=== PATIENT | female | born 1930 | race Caucasian/White ===

== ENCOUNTER → 2016-04-07 | Outpatient (CLI) | payer MEDICARE, OTHER ==
[2016-01-24 19:00] VITALS: BP 125/65
[~2016-04-07] MED LIST: ALPR0.25 PO; ASPI325T4 PO; ATORVASTATIN CA80 MG PO; BENZ100C PO; CITA40TA12 PO; CLON0.5T3 PO; FAMO-63 PO; HYDR-2678 PO; ISOS30TA PO; ISOS30TA4; NITR0.4T6 SL; NITR1PAT TD; OMEP20CA9; ONDA-35; ONDA4TAB7 PO; OXYC-323 PO; POLY255P; POTA10TA31 PO; RIVA1PAT12; TAMS0.4C2; TRAZ100T12 PO; TRIA1CAP3 PO; TRIA1TAB3
--- NOTE | 2016-04-07 12:44 | KCIC ---
PROCEDURE Two-view chest HISTORY Cough, weakness, shortness of air for 2 weeks COMPARISON January 21, 2016 FINDINGS Two views of the chest are submitted. There is no lobar consolidation, pleural fluid, pneumothorax. There is atherosclerotic calcification near aortic arch. Heart size is stable. There is right shoulder arthroplasty. IMPRESSION There is no radiographic evidence of acute cardiopulmonary disease. Electronically signed by: Jean Live MD (Apr 07, 2016 12:42:35)
== END | disposition home or self-care (01) ==
LOC: KCIC 11:50
PROVIDERS: ATTEND Family Medicine
DX: R05 Cough (principal); R53.1 Weakness; R06.02 Shortness of breath
CPT/HCPCS: 71020

== ENCOUNTER → 2017-02-09 | Outpatient (CLI) | payer MEDICARE, OTHER ==
[2016-01-24 19:00] VITALS: BP 125/65
[~2017-02-09] MED LIST changes: -ASPI325T4 PO; +ASPI325T8 PO; +NITR0.4T22 SL; -NITR0.4T6 SL; -ONDA-35; +ONDA4TAB11
--- NOTE | 2017-02-09 11:25 | KCIC ---
MRI Brain without contrast History: Intractable headache getting worse, previous head trauma years ago Technique: Multiplanar, multisequential noncontrast MR imaging was performed of the brain. Contrast: None Comparison: June 15, 2014 Findings: There is motion degradation. There is no evidence of recent infarct or cytotoxic edema. Ventricular size is stable, considered within normal limits.There is no significant midline shift, intra-axial mass effect, or focal abnormal extra-axial fluid collection. There is again scattered T2 and FLAIR hyperintense signal abnormality of the supratentorial parenchyma bilaterally greatest of the white matter of the frontoparietal lobes, some involvement of the basal ganglia. Overall extent of signal abnormality is similar. Focus of the kristina is somewhat more apparent although at least in part present previously. There has been lens surgery bilaterally. There is preservation of the major intracranial flow-voids at the skull base. There is again some patchy fluid of the mastoid air cells bilaterally.The cerebellar tonsils are normal in location. There is no significant abnormality of the pineal gland or pituitary gland. There is mild patchy ethmoid air cell and left sphenoid sinus mucosal thickening, negligible inferior right maxillary sinus mucosal thickening. There is preserved marrow signal of the clivus. Impression: 1. There is again scattered T2 and FLAIR hyperintense signal abnormality of the supratentorial parenchyma and focus of the kristina fairly similar in overall extent although focus of the kristina more apparent on this exam. Nonspecific findings are most commonly due to chronic microvascular ischemic disease in a patient this age. Electronically signed by: Hung Live MD (02/09/2017 11:22 AM) [id number]
== END | disposition home or self-care (01) ==
LOC: KCIC MRI 10:03
PROVIDERS: ATTEND Psychiatry & Neurology Neurology with Special Qualifications in Child Neurology
DX: S09.8XXD Other specified injuries of head, subsequent encounter (principal); I99.8 Other disorder of circulatory system; X58.XXXD Exposure to other specified factors, subsequent encounter
CPT/HCPCS: 70551

== ENCOUNTER 2017-03-07 15:27 | Emergency (ER) | payer MEDICARE, OTHER ==
[~2017-03-07] VITALS: Ht 162.6 cm; Wt 64.9 kg
--- NOTE | 2017-03-07 16:11 | RAD ---
Indication: Fall, headache and neck pain. Technique: Noncontrast CT head was obtained. CT cervical spine includes axial images and coronal and sagittal reformatted images. Comparison CT head is from December 08, 2013. One or more of the following individualized dose reduction techniques were utilized for this examination: 1. Automated exposure control 2. Adjustment of the mA and/or kV according to patient size 3. Use of iterative reconstruction technique Findings: Head: There is brain parenchymal volume loss and mild probable small vessel ischemic disease. There is no acute intracranial hemorrhage or extra-axial fluid collection. There is no mass effect or midline shift. Caraballo-white differentiation is preserved. There are vascular calcifications. There is no depressed skull fracture. There is minimal right maxillary mucosal thickening. Cervical spine: There is no fracture. Slight anterolisthesis at C3-C4 and C4-C5 appears to be secondary to facet hypertrophy. There is no traumatic malalignment. Prevertebral soft tissues are within normal limits. Craniovertebral junction is unremarkable. Disc osteophyte complexes, uncinate process spurring, and facet hypertrophy are noted throughout the cervical spine. There may be mild canal stenosis at C5-C6 and C6-C7. There is also foraminal narrowing which appears greatest on the left at C5-C6 and C3-C4. There are carotid artery calcifications. There is minimal apical emphysema. Impression: 1. No acute intracranial findings. 2. Brain parenchymal volume loss and probable small vessel ischemic disease. 3. Negative for fracture or dislocation in the cervical spine. 4. Degenerative changes in the cervical spine.
[2017-03-07 16:30] VITALS: BP 157/70
--- NOTE | 2017-03-07 17:05 | PHYS DOC ---
Past Medical History Past Medical History: Anxiety, CAD, Dementia, Depression, Diverticulitis, Heart Disease, Hypertension, [place] Past Surgical History: Appendectomy, Cholecystectomy, Hysterectomy Additional Past Surgical Histo: X 2 CARDIAC STENTS PLACED,COLON R/O DIVERTICULITIS,RIGHT SHOULDER, Alcohol Use: None Drug Use: None Adult General Chief Complaint Chief Complaint: HEAD INJURY/TRAUMA [facility] HPI Patient is a 86 year old female who presents with fall last night at home from standing position uncertain of loss of consciousness history is limited by patient's dementia. Complains of mild neck pain no numbness tingling or weakness in the upper or lower extremities. Patient has chronic right shoulder pain and has had a prosthesis and is currently getting physical therapy for her shoulder she is uncertain if she injured that. Denies any hip pain or back pain. Review of Systems Review of Systems Constitutional: Denies fever or chills [] Eyes: Denies change in visual acuity, redness, or eye pain [] HENT: Denies nasal congestion or sore throat [] Respiratory: Denies cough or shortness of breath [] Cardiovascular: No additional information not addressed in HPI [] GI: Denies abdominal pain, nausea, vomiting, bloody stools or diarrhea [] : Denies dysuria or hematuria [] Musculoskeletal: Denies back pain or joint pain [] Integument: Denies rash or skin lesions [] Neurologic: Denies headache, focal weakness or sensory changes [] Endocrine: Denies polyuria or polydipsia [] All other systems were reviewed and found to be within normal limits, except as documented in this note. Allergies Allergies Allergies Coded Allergies Type Severity Reaction Last Updated Verified lisinopril Adverse Reaction Severe "passed out" 08/05/13 Yes Physical Exam Physical Exam Constitutional: Well developed, well nourished, no acute distress, non-toxic appearance. [] HENT: Normocephalic, atraumatic, bilateral external ears normal, oropharynx moist, no oral exudates, nose normal. [] Eyes: PERRLA, EOMI, conjunctiva normal, no discharge. [] Neck: Normal range of motion, mild midline C-spine tenderness, supple, no stridor. No thoracic or lumbar spine tenderness. [] Cardiovascular:Heart rate regular rhythm, no murmur [] Lungs & Thorax: Bilateral breath sounds clear to auscultation [] Abdomen: Bowel sounds normal, soft, no tenderness, no masses, no pulsatile masses. [] Skin: Warm, dry, no erythema, no rash. [] Back: No tenderness, no CVA tenderness. [] Extremities: No tenderness, no cyanosis, no clubbing, ROM intact, no edema. [] Neurologic: Alert and oriented X 3, normal motor function, normal sensory function, no focal deficits noted. [] Psychologic: Affect normal, judgement normal, mood normal. [] Current Patient Data Vital Signs Vital Signs Date Time Temp Pulse Resp B/P (MAP) Pulse Ox O2 Delivery O2 Flow Rate FiO2 03/07/17 16:30 84 18 157/70 (99) 97 Room Air 03/07/17 15:30 98.2 98.2 EKG EKG [] Radiology/Procedures Radiology/Procedures CT had cervical spine shows some atrophy no fractures of the neck no head bleed interpretation by radiology. X-ray right shoulder shows no fracture dislocation prosthesis intact no periprosthetic fracture seen. My Interpretation.[] Course & Med Decision Making Course & Med Decision Making Pertinent Labs and Imaging studies reviewed. (See chart for details) [] Dragon Disclaimer Dragon Disclaimer This electronic medical record was generated, in whole or in part, using a voice recognition dictation system. Departure Departure Impression: Primary Impression: Head injury Additional Impression: Right shoulder pain Disposition: HOME, SELF-CARE Condition: IMPROVED Referrals: GAGAN MORATAYA MD (PCP) Patient Instructions: Head Injury, Adult, [id number] Problem Qualifiers VALERIA SHI MD Mar 07, 2017 17:05
--- NOTE | 2017-03-07 17:09 | RAD ---
Right shoulder, 3 views, 03/07/2017: History: Fall, shoulder pain A right shoulder prosthesis is in place. There is narrowing of the subacromial space. There is degenerative change at the AC joint. The bony structures are demineralized. No acute fracture or dislocation is identified. IMPRESSION: No acute bony abnormality is detected.
== END 2017-03-07 17:28 | disposition home or self-care (01) ==
LOC: ER 15:27
DX: S09.90XA Unspecified injury of head, initial encounter (principal); M25.511 Pain in right shoulder; G89.29 Other chronic pain; M54.2 Cervicalgia; F03.90 Unspecified dementia, unspecified severity, without behavioral disturbance, psychotic disturbance, mood disturbance, and anxiety; I11.9 Hypertensive heart disease without heart failure; Z95.5 Presence of coronary angioplasty implant and graft; I25.10 Atherosclerotic heart disease of native coronary artery without angina pectoris; Z90.49 Acquired absence of other specified parts of digestive tract; Z90.710 Acquired absence of both cervix and uterus; I25.2 Old myocardial infarction; Z88.8 Allergy status to other drugs, medicaments and biological substances; X58.XXXA Exposure to other specified factors, initial encounter; Y93.89 Activity, other specified; Y99.8 Other external cause status; Y92.89 Other specified places as the place of occurrence of the external cause
CPT/HCPCS: 70450; 72125; 73030; 99284-25

== ENCOUNTER → 2017-06-22 | Outpatient (CLI) | payer MEDICARE, OTHER | END | disposition home or self-care (01) | LOC: US 15:29 | DX: R22.42 Localized swelling, mass and lump, left lower limb (principal) | CPT/HCPCS: 76882 ==

== ENCOUNTER → 2017-08-02 | Outpatient (CLI) | payer MEDICARE, OTHER ==
[2017-08-02 14:01] LABS: ADD MAN DIFF? NO
[2017-08-02 14:10] LABS: BASO % 1 % (0-3); EOS % 1 % (0-3); HEMATOCRIT 40.5 % (36.0-47.0); LYMPH # 1.4 x10^3/uL (1.0-4.8); LYMPH % 24 % (24-48); MEAN CORPUSCULAR HEMOGLOBIN 30 pg (25-35); MEAN CORPUSCULAR HGB CONC 35 g/dL (31-37); MEAN CORPUSCULAR VOLUME 88 fL (79-100); MONO # 0.7 x10^3/uL (0.0-1.1); MONO % 11 % (0-9); NEUT # 3.8 x10^3uL (1.8-7.7); NEUT % 64 % (31-73); PLATELET COUNT 197 x10^3/uL (140-400); RED CELL DISTRIBUTION WIDTH 14.4 % (11.5-14.5)
[2017-08-02 14:40] LABS: ALBUMIN 3.8 g/dL (3.4-5.0); ALBUMIN/GLOBULIN RATIO 0.9 (1.0-1.7); ALK PHOS 69 U/L (46-116); ALT (SGPT) 31 U/L (14-59); ANION GAP 5 (6-14); AST (SGOT) 36 U/L (15-37); BLOOD UREA NITROGEN 13 mg/dL (7-20); BUN/CREATININE RATIO 12 (6-20); CALCIUM 9.4 mg/dL (8.5-10.1); CARBON DIOXIDE 35 mmol/L (21-32); CHLORIDE 101 mmol/L (98-107); CREATININE 1.1 mg/dL (0.6-1.0); GFR 47.1; GLUCOSE 103 mg/dL (70-99); POTASSIUM 4.4 mmol/L (3.5-5.1); SODIUM 141 mmol/L (136-145); TOTAL BILIRUBIN 0.8 mg/dL (0.2-1.0)
== END | disposition home or self-care (01) ==
LOC: PETSC 11:21
DX: C85.90 Non-Hodgkin lymphoma, unspecified, unspecified site (principal); I71.4 Abdominal aortic aneurysm, without rupture; K44.9 Diaphragmatic hernia without obstruction or gangrene; K57.30 Diverticulosis of large intestine without perforation or abscess without bleeding; R22.9 Localized swelling, mass and lump, unspecified
CPT/HCPCS: 36415; 78815; 80053; 85025; A9552

== ENCOUNTER 2017-10-22 13:06 | Emergency (ER) | payer MEDICARE ==
[2017-10-22 14:05] LABS: ADD MAN DIFF? NO
[2017-10-22 14:10] LABS: BASO % 1 % (0-3); EOS # 0.1 x10^3/uL (0.0-0.7); EOS % 3 % (0-3); HEMATOCRIT 34.8 % (36.0-47.0); HEMOGLOBIN 12.3 g/dL (12.0-15.5); LYMPH # 1.1 x10^3/uL (1.0-4.8); LYMPH % 24 % (24-48); MEAN CORPUSCULAR HEMOGLOBIN 31 pg (25-35); MEAN CORPUSCULAR HGB CONC 35 g/dL (31-37); MEAN CORPUSCULAR VOLUME 88 fL (79-100); MONO # 0.5 x10^3/uL (0.0-1.1); MONO % 12 % (0-9); NEUT # 2.6 x10^3uL (1.8-7.7); NEUT % 60 % (31-73); PLATELET COUNT 199 x10^3/uL (140-400); RED BLOOD COUNT 3.95 x10^6/uL (3.50-5.40); WHITE BLOOD COUNT 4.4 x10^3/uL (4.0-11.0)
[2017-10-22 14:11] LABS: BILIRUBIN,URINE NEGATIVE (NEG); CLARITY,URINE CLEAR; COLOR,URINE YELLOW; GLUCOSE,URINE NEGATIVE (NEG); NITRITE,URINE NEGATIVE (NEG); PROTEIN,URINE NEGATIVE (NEG-TRACE); UROBILINOGEN,URINE 0.2 mg/dL (0.2 mg/dL)
[2017-10-22 14:19] LABS: BACTERIA,URINE FEW /HPF (0-FEW); RBC,URINE OCC /HPF (0-2); SQUAMOUS EPITHELIAL CELL,UR FEW /LPF; WBC,URINE OCC /HPF (0-4)
[2017-10-22 14:27] LABS: ANION GAP 8 (6-14); BLOOD UREA NITROGEN 15 mg/dL (7-20); BUN/CREATININE RATIO 17 (6-20); CALCIUM 8.9 mg/dL (8.5-10.1); CARBON DIOXIDE 32 mmol/L (21-32); CHLORIDE 102 mmol/L (98-107); CREATININE 0.9 mg/dL (0.6-1.0); GFR 59.4; GLUCOSE 95 mg/dL (70-99); POTASSIUM 4.1 mmol/L (3.5-5.1); SODIUM 142 mmol/L (136-145)
[2017-10-22 14:33] LABS: ALBUMIN 3.5 g/dL (3.4-5.0); ALBUMIN/GLOBULIN RATIO 1.2 (1.0-1.7); ALK PHOS 63 U/L (46-116); ALT (SGPT) 23 U/L (14-59); AST (SGOT) 24 U/L (15-37); TOTAL BILIRUBIN 0.8 mg/dL (0.2-1.0); TOTAL PROTEIN 6.5 g/dL (6.4-8.2)
[2017-10-22 14:38] LABS: TROPONINI < 0.017 ng/mL (0.000-0.055)
[2017-10-22] MEDS: KETOROLAC 15 MG/ML VIAL. IV (15:07)
== END 2017-10-22 15:49 | disposition home or self-care (01) ==
LOC: ER 13:06
DX: R51 Headache (principal); R20.0 Anesthesia of skin; M79.602 Pain in left arm; I25.2 Old myocardial infarction; I11.9 Hypertensive heart disease without heart failure; I25.10 Atherosclerotic heart disease of native coronary artery without angina pectoris; F03.90 Unspecified dementia, unspecified severity, without behavioral disturbance, psychotic disturbance, mood disturbance, and anxiety; Z90.49 Acquired absence of other specified parts of digestive tract; Z95.5 Presence of coronary angioplasty implant and graft; Z88.8 Allergy status to other drugs, medicaments and biological substances
CPT/HCPCS: 36415; 71046; 80053; 81001; 84484; 85025; 93005; 96374; 99285-25; J1885

== ENCOUNTER → 2017-10-22 | Outpatient (CLI) | payer MEDICARE | END | disposition home or self-care (01) | LOC: KCIC CT 10:01 | DX: M26.69 Other specified disorders of temporomandibular joint (principal); Z86.73 Personal history of transient ischemic attack (TIA), and cerebral infarction without residual deficits | CPT/HCPCS: 70450 ==

== ENCOUNTER 2017-11-06 08:36 | Inpatient (IN) | payer MEDICARE ==
[~2017-11-06] VITALS: Ht 167.6 cm; Wt 68.0 kg
[~2017-11-06 08:36] MED LIST changes: +CLON0.5T11 PO; -CLON0.5T3 PO; +COLE1TAB PO; +CYCL5TAB PO; -ISOS30TA4; +ISOS30TA4 PO; -OMEP20CA9; +OMEP20CA9 PO; -ONDA4TAB11; +ONDA4TAB11 PO; +PSYL3.4P PO; +RIVA1PAT23 TP; -TAMS0.4C2; +TAMS0.4C2 PO; +TRAZ-86 PO; -TRAZ100T12 PO; -TRIA1TAB3; +TRIA1TAB3 PO
[2017-11-06] MEDS ORDERED: IV NORMAL SALINE 1000ML BAG 1,000 ML IV SCH (08:52)
--- NOTE | 2017-11-06 08:58 | EKG ---
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
[2017-11-06] MEDS ORDERED: LABETALOL 20 MG/4 ML DISP.SYRIN. IVP ONE (09:00)
[2017-11-06] MEDS ORDERED: LIDO:MAALOX 1:1 20 ML SINGLE DOSE. SWSW ONE (09:00)
--- NOTE | 2017-11-06 09:03 | PHYS DOC ---
Past Medical History Past Medical History: Anxiety, CAD, Dementia, Depression, Diverticulitis, Heart Disease, Hypertension, [place] Past Surgical History: Appendectomy, Cholecystectomy, Hysterectomy Additional Past Surgical Histo: X 2 CARDIAC STENTS PLACED,COLON R/O DIVERTICULITIS,RIGHT SHOULDER, Alcohol Use: None Drug Use: None Adult General Chief Complaint Chief Complaint: CHEST PAIN HPI HPI Patient is an 87-year-old female who presents to the emergency department for evaluation. She was hospitalized here for a stroke recently, for which she received TPA. Apparently, she developed a small intracranial hemorrhage, and was scheduled, from her rehabilitation facility where she is recovering, for a repeat head CT today as an outpatient. However, during transport the patient began complaining of some chest pain, initially described as a burning pain, which became more intense, and now radiates towards her back. The patient states that the pain is "just a pain", and she is unable to further qualify the nature of the pain to me. She has not had any nausea, vomiting, or diaphoresis. She has a history of hypertension and is noted to be hypertensive upon arrival. There are no known alleviating or exacerbating factors to the patient's symptoms. Review of Systems Review of Systems Constitutional: Denies fever or chills [] Eyes: Denies change in visual acuity, redness, or eye pain [] HENT: Denies nasal congestion or sore throat [] Respiratory: Denies cough or shortness of breath [] Cardiovascular: No additional information not addressed in HPI [] GI: Denies abdominal pain, nausea, vomiting, bloody stools or diarrhea [] : Denies dysuria or hematuria [] Musculoskeletal: Denies back pain or joint pain [] Integument: Denies rash or skin lesions [] Neurologic: Denies headache, focal weakness or sensory changes [] Endocrine: Denies polyuria or polydipsia [] All other systems were reviewed and found to be within normal limits, except as documented in this note. Current Medications Current Medications Current Medications Medications (Trade) Dose Ordered Sig/Vanessa Start Time Stop Time Status Last Admin Dose Admin Aspirin (Children'S Aspirin) 324 mg 1X ONCE 11/06/17 11:00 11/06/17 11:01 DC 11/06/17 11:36 324 MG Hydralazine HCl (Apresoline Inj) 10 mg 1X ONCE 11/06/17 09:30 11/06/17 09:31 DC 11/06/17 09:21 10 MG Info (CONTRAST GIVEN -- Rx MONITORING) 1 each PRN DAILY PRN 11/06/17 09:45 11/08/17 09:44 Iohexol (Omnipaque 300 Mg/ml) 90 ml 1X ONCE 11/06/17 09:45 11/06/17 09:46 DC 11/06/17 09:58 90 ML Labetalol HCl (Normodyne) 20 mg 1X ONCE 11/06/17 09:00 11/06/17 09:10 DC Multi-Ingredient Mouthwash/Gargle (Gi Cocktail) 20 ml 1X ONCE 11/06/17 09:00 11/06/17 09:01 DC 11/06/17 09:22 20 ML Ondansetron HCl (Zofran) 4 mg STK-MED ONCE 11/06/17 11:32 11/06/17 11:33 DC Sodium Monofluorophosphate (Fleet Adult) 133 ml 1X ONCE 11/06/17 10:00 11/06/17 10:01 DC 11/06/17 10:23 133 ML Sodium Chloride 1,000 ml @ 100 mls/hr Q10H 11/06/17 08:52 11/06/17 18:51 11/06/17 09:22 100 MLS/HR Allergies Allergies Allergies Coded Allergies Type Severity Reaction Last Updated Verified YURYI Inhibitors Allergy Unknown 10/22/17 Yes Beta-Blockers (Beta-Adrenergic Bloc Allergy Unknown 10/22/17 Yes lisinopril Adverse Reaction Severe "passed out" 08/05/13 Yes Physical Exam Physical Exam PHYSICAL EXAM: CONSTITUTIONAL: Well developed, well nourished HEAD: normocephalic, atraumatic EENT: PERRL, EOMI. Conjunctivae normal color, sclerae non-icteric; moist mucous membranes. NECK: Supple, non-tender; no meningismus. LUNGS: Lungs CTA, breathing even and unlabored. Normal air movement. HEART: Regular rate and rhythm, no murmur CHEST: No deformity; is mild tenderness to palpation of the anterior chest wall. ABDOMEN: The abdomen is soft, and non-tender, no masses or bruits. EXTREM: Normal ROM; no deformity, no calf tenderness. Normal pulses palpable in all extremities. There is no pedal edema. SKIN: No rash; no diaphoresis NEURO: Alert; normal speech and oriented to person, place, and time, but somewhat delayed cognition; CN's grossly intact; strength grossly intact without focal deficit. BACK: No CVA TTP. Current Patient Data Vital Signs Vital Signs Date Time Temp Pulse Resp B/P (MAP) Pulse Ox O2 Delivery O2 Flow Rate FiO2 11/06/17 09:21 66 202/93 11/06/17 08:49 98.0 20 97 Room Air 98.0 Lab Values Laboratory Tests Test 11/06/17 09:00 11/06/17 09:11 Urine Collection Type Unknown Urine Color Yellow Urine Clarity Clear Urine pH 8.5 Urine Specific [place] 1.010 Urine Protein Negative mg/dL (NEG-TRACE) Urine Glucose (UA) Negative mg/dL (NEG) Urine Ketones (Stick) Negative mg/dL (NEG) Urine Blood Trace (NEG) Urine Nitrite Negative (NEG) Urine Bilirubin Negative (NEG) Urine Urobilinogen Dipstick 0.2 mg/dL (0.2 mg/dL) Urine Leukocyte Esterase Trace (NEG) Urine RBC 3-5 /HPF (0-2) Urine WBC 1-4 /HPF (0-4) Urine Squamous Epithelial Cells Many /LPF Urine Bacteria Few /HPF (0-FEW) Urine Mucus Slight /LPF White Blood Count 4.7 x10^3/uL (4.0-11.0) Red Blood Count 4.14 x10^6/uL (3.50-5.40) Hemoglobin 12.6 g/dL (12.0-15.5) Hematocrit 36.6 % (36.0-47.0) Mean Corpuscular Volume 88 fL (79-100) Mean Corpuscular Hemoglobin 31 pg (25-35) Mean Corpuscular Hemoglobin Concent 35 g/dL (31-37) Red Cell Distribution Width 15.2 % (11.5-14.5) H Platelet Count 179 x10^3/uL (140-400) Neutrophils (%) (Auto) 70 % (31-73) Lymphocytes (%) (Auto) 16 % (24-48) L Monocytes (%) (Auto) 12 % (0-9) H Eosinophils (%) (Auto) 2 % (0-3) Basophils (%) (Auto) 1 % (0-3) Neutrophils # (Auto) 3.3 x10^3uL (1.8-7.7) Lymphocytes # (Auto) 0.7 x10^3/uL (1.0-4.8) L Monocytes # (Auto) 0.5 x10^3/uL (0.0-1.1) Eosinophils # (Auto) 0.1 x10^3/uL (0.0-0.7) Basophils # (Auto) 0.0 x10^3/uL (0.0-0.2) Prothrombin Time 13.1 SEC (11.7-14.0) Prothrombin Time INR 1.0 (0.8-1.1) PTT 32 SEC (24-38) Sodium Level 141 mmol/L (136-145) Potassium Level 3.8 mmol/L (3.5-5.1) Chloride Level 101 mmol/L (98-107) Carbon Dioxide Level 33 mmol/L (21-32) H Anion Gap 7 (6-14) Blood Urea Nitrogen 11 mg/dL (7-20) Creatinine 0.9 mg/dL (0.6-1.0) Estimated GFR (Cockcroft-Gault) 59.4 BUN/Creatinine Ratio 12 (6-20) Glucose Level 110 mg/dL (70-99) H Calcium Level 9.2 mg/dL (8.5-10.1) Total Bilirubin 1.1 mg/dL (0.2-1.0) H Aspartate Amino Transferase (AST) 19 U/L (15-37) Alanine Aminotransferase (ALT) 18 U/L (14-59) Alkaline Phosphatase 72 U/L (46-116) Creatine Kinase 44 U/L (26-192) Creatine Kinase MB (Mass) 1.1 ng/mL (0.0-3.6) Creatine Kinase MB Relative Index % (0-4) Troponin I Quantitative < 0.017 ng/mL (0.000-0.055) Total Protein 7.2 g/dL (6.4-8.2) Albumin 3.6 g/dL (3.4-5.0) Albumin/Globulin Ratio 1.0 (1.0-1.7) Lipase 223 U/L (73-393) Laboratory Tests 11/06/17 09:11 Laboratory Tests 11/06/17 09:11 EKG EKG [Normal sinus rhythm at a rate of 72 beats for minute, normal axis, normal intervals, nonspecific ST/T changes are present. EKG is not significantly changed compared to patient's prior EKG from 10/08.] Radiology/Procedures Radiology/Procedures [PROCEDURE: PORTABLE CHEST 1V EXAM: CHEST 1 VIEW History: Chest pain COMPARISON: 10/22/2017 TECHNIQUE: Single portable radiograph of the chest FINDINGS: The cardiac silhouette is unremarkable. The lungs are clear bilaterally. The costophrenic sulci are clear and well demarcated. Right humerus arthroplasty. IMPRESSION: No radiographic evidence of an acute cardiopulmonary process.] PROCEDURE: CT ANGIO CHEST ABD PELVIS Examination: CT angiography chest abdomen pelvis without and with IV contrast HISTORY: History of chest pain radiating to the back COMPARISON: CT abdomen pelvis from 08/03/2015 TECHNIQUE: Axial CT angiographic images of the chest abdomen pelvis were performed without and with IV contrast. Coronal and sagittal 3-D MIP reformats are performed Exposure: One or more of the following individualized dose reduction techniques were utilized for this examination: 1. Automated exposure control 2. Adjustment of the mA and/or kV according to patient size 3. Use of iterative reconstruction technique FINDINGS: The central airways are patent. Mild cardiomegaly. Diffuse coronary artery calcifications identified. Moderate aortic atherosclerosis. No radiologically significant mediastinal lymphadenopathy. Small hiatal hernia is identified. Mild emphysematous changes identified in the lungs No evidence of pleural effusion or pneumothorax identified. No evidence of free air identified in the abdomen. The visualized liver, spleen, adrenals grossly appears unremarkable. The stomach is mildly distended. There is a 8 mm cystic density identified in the uncinate process of the pancreas. The small bowel is nondilated. Feces and gas noted throughout the colon. Multiple colonic diverticulosis. Urinary bladder is mildly distended. The bilateral kidneys enhance symmetrically. Cystic structure identified in the inferior aspect of the left kidney likely a cyst. Punctate intrarenal collecting system calculi identified in the bilateral kidneys with the largest measuring 5 mm in the right kidney. The ascending aorta measures 3.4 cm in transverse dimension. There is moderate abscess cavity calcification is identified in the aorta. There is moderate arthritic opacities identified at the origin of the celiac artery, superior mesenteric artery and the inferior mesenteric artery. Infrarenal abdominal aortic aneurysm is identified measuring 3 cm in transverse dimension. Moderate degenerative changes lumbar spine. Severe prostatic calcifications identified in the region of the bilateral renal arteries. IMPRESSION: 1. No evidence of aortic dissection. 2. Intrarenal abdominal aortic aneurysm measuring up to 3 cm. 3. 8 mm cystic density identified in the uncinate process of the pancreas could be a cyst or cystic lesion. Follow-up nonemergent MRI can be considered. 4. Bilateral intrarenal collecting system calculi. 5. Left renal cysts. PROCEDURE: CT HEAD WO CONTRAST CT scan of the head without contrast 11/06/2017 Clinical History: History of recent intracranial hemorrhage. Technique: Unenhanced, contiguous, 5 mm axial sections were obtained through the head. One or more of the following individualized dose reduction techniques were utilized for this study: 1. Automated exposure control. 2. Adjustment of the mA and/or kV according to patient size. 3. Use of iterative reconstruction technique. Findings: Comparison study is dated 10/10/2017. There is generalized parenchymal atrophy. Areas of decreased attenuation are seen within the periventricular and subcortical white matter of both cerebral hemispheres consistent with areas of small vessel ischemic disease. A small area of hemorrhage seen involving the posterior left temporal lobe on the previous examination has resolved. No acute parenchymal abnormality is seen. No extra-axial fluid collection is noted. No skull fracture is seen. Impression: The small area of acute hemorrhage seen within the posterior left temporal lobe has resolved. No acute intracranial abnormality is seen. Course & Med Decision Making Course & Med Decision Making Pertinent Labs and Imaging studies reviewed. (See chart for details) [The patient's condition remained stable. I spoke with her PCP, Dr. Felix, who will admit the patient for further evaluation.] The patient did complain of constipation, but did have a good bowel movement with the help of an enema. Dragon Disclaimer Dragon Disclaimer This electronic medical record was generated, in whole or in part, using a voice recognition dictation system. Departure Departure Impression: Primary Impression: Chest pain Disposition: ADMITTED INPATIENT Admitting Physician: Brooklyn Felix Condition: STABLE Referrals: BROOKLYN FELIX MD (PCP) DARCIE SETHI MD Nov 06, 2017 09:03
[2017-11-06 09:23] LABS: BILIRUBIN,URINE NEGATIVE (NEG); CLARITY,URINE CLEAR; COLOR,URINE YELLOW; NITRITE,URINE NEGATIVE (NEG); PH,URINE 8.5; PROTEIN,URINE NEGATIVE (NEG-TRACE); UROBILINOGEN,URINE 0.2 mg/dL (0.2 mg/dL)
[2017-11-06 09:24] LABS: BASO % 1 % (0-3); EOS # 0.1 x10^3/uL (0.0-0.7); EOS % 2 % (0-3); HEMATOCRIT 36.6 % (36.0-47.0); HEMOGLOBIN 12.6 g/dL (12.0-15.5); LYMPH # 0.7 x10^3/uL (1.0-4.8); LYMPH % 16 % (24-48); MEAN CORPUSCULAR HEMOGLOBIN 31 pg (25-35); MEAN CORPUSCULAR HGB CONC 35 g/dL (31-37); MEAN CORPUSCULAR VOLUME 88 fL (79-100); MONO # 0.5 x10^3/uL (0.0-1.1); MONO % 12 % (0-9); NEUT # 3.3 x10^3uL (1.8-7.7); NEUT % 70 % (31-73); PLATELET COUNT 179 x10^3/uL (140-400); RED BLOOD COUNT 4.14 x10^6/uL (3.50-5.40); RED CELL DISTRIBUTION WIDTH 15.2 % (11.5-14.5); WHITE BLOOD COUNT 4.7 x10^3/uL (4.0-11.0)
--- NOTE | 2017-11-06 09:29 | RAD ---
EXAM: CHEST 1 VIEW History: Chest pain COMPARISON: 10/22/2017 TECHNIQUE: Single portable radiograph of the chest FINDINGS: The cardiac silhouette is unremarkable. The lungs are clear bilaterally. The costophrenic sulci are clear and well demarcated. Right humerus arthroplasty. IMPRESSION: No radiographic evidence of an acute cardiopulmonary process. Electronically signed by: Joseph Kelly MD (11/06/2017 9:25 AM) [id number]
[2017-11-06] MEDS ORDERED: hydrALAZINE 20 MG/ML VIAL. IVP ONE (09:30)
[2017-11-06 09:33] LABS: CALCIUM 9.2 mg/dL (8.5-10.1); CREATININE 0.9 mg/dL (0.6-1.0); GFR 59.4; POTASSIUM 3.8 mmol/L (3.5-5.1)
[2017-11-06 09:38] LABS: ALBUMIN 3.6 g/dL (3.4-5.0); TOTAL BILIRUBIN 1.1 mg/dL (0.2-1.0); TOTAL PROTEIN 7.2 g/dL (6.4-8.2)
[2017-11-06 09:39] LABS: PROTHROMBIN TIME PATIENT 13.1 SEC (11.7-14.0)
[2017-11-06 09:41] LABS: BACTERIA,URINE FEW /HPF (0-FEW)
[2017-11-06 09:42] LABS: SQUAMOUS EPITHELIAL CELL,UR MANY /LPF
[2017-11-06] MEDS ORDERED: CONTRAST GIVEN. MC PRN (09:45)
[2017-11-06] MEDS ORDERED: IOHEXOL 300 MG/ML 100ML VIAL. IV ONE (09:45)
[2017-11-06 09:46] LABS: CREATINE KINASE 44 U/L (26-192)
[2017-11-06] MEDS ORDERED: SODIUM PHOSPHATES 19/7GM 133 ML ENEMA. PR ONE (10:00)
--- NOTE | 2017-11-06 10:26 | RAD ---
CT scan of the head without contrast 11/06/2017 Clinical History: History of recent intracranial hemorrhage. Technique: Unenhanced, contiguous, 5 mm axial sections were obtained through the head. One or more of the following individualized dose reduction techniques were utilized for this study: 1. Automated exposure control. 2. Adjustment of the mA and/or kV according to patient size. 3. Use of iterative reconstruction technique. Findings: Comparison study is dated 10/10/2017. There is generalized parenchymal atrophy. Areas of decreased attenuation are seen within the periventricular and subcortical white matter of both cerebral hemispheres consistent with areas of small vessel ischemic disease. A small area of hemorrhage seen involving the posterior left temporal lobe on the previous examination has resolved. No acute parenchymal abnormality is seen. No extra-axial fluid collection is noted. No skull fracture is seen. Impression: The small area of acute hemorrhage seen within the posterior left temporal lobe has resolved. No acute intracranial abnormality is seen. Electronically signed by: Edgardo Mims MD (11/06/2017 10:22 AM) [email or web address]
--- NOTE | 2017-11-06 10:44 | RAD ---
Examination: CT angiography chest abdomen pelvis without and with IV contrast HISTORY: History of chest pain radiating to the back COMPARISON: CT abdomen pelvis from 08/03/2015 TECHNIQUE: Axial CT angiographic images of the chest abdomen pelvis were performed without and with IV contrast. Coronal and sagittal 3-D MIP reformats are performed Exposure: One or more of the following individualized dose reduction techniques were utilized for this examination: 1. Automated exposure control 2. Adjustment of the mA and/or kV according to patient size 3. Use of iterative reconstruction technique FINDINGS: The central airways are patent. Mild cardiomegaly. Diffuse coronary artery calcifications identified. Moderate aortic atherosclerosis. No radiologically significant mediastinal lymphadenopathy. Small hiatal hernia is identified. Mild emphysematous changes identified in the lungs No evidence of pleural effusion or pneumothorax identified. No evidence of free air identified in the abdomen. The visualized liver, spleen, adrenals grossly appears unremarkable. The stomach is mildly distended. There is a 8 mm cystic density identified in the uncinate process of the pancreas. The small bowel is nondilated. Feces and gas noted throughout the colon. Multiple colonic diverticulosis. Urinary bladder is mildly distended. The bilateral kidneys enhance symmetrically. Cystic structure identified in the inferior aspect of the left kidney likely a cyst. Punctate intrarenal collecting system calculi identified in the bilateral kidneys with the largest measuring 5 mm in the right kidney. The ascending aorta measures 3.4 cm in transverse dimension. There is moderate abscess cavity calcification is identified in the aorta. There is moderate arthritic opacities identified at the origin of the celiac artery, superior mesenteric artery and the inferior mesenteric artery. Infrarenal abdominal aortic aneurysm is identified measuring 3 cm in transverse dimension. Moderate degenerative changes lumbar spine. Severe prostatic calcifications identified in the region of the bilateral renal arteries. IMPRESSION: 1. No evidence of aortic dissection. 2. Intrarenal abdominal aortic aneurysm measuring up to 3 cm. 3. 8 mm cystic density identified in the uncinate process of the pancreas could be a cyst or cystic lesion. Follow-up nonemergent MRI can be considered. 4. Bilateral intrarenal collecting system calculi. 5. Left renal cysts. Electronically signed by: Joseph Kelly MD (11/06/2017 10:40 AM) [id number]
[2017-11-06] MEDS ORDERED: ASPIRIN CHEWABLE 81 MG TABLET. PO ONE (11:00)
[2017-11-06] MEDS ORDERED: ONDANSETRON PF 4 MG/2 ML VIAL. ONE (11:32)
[2017-11-06] MEDS ORDERED: ONDANSETRON PF 4 MG/2 ML VIAL. IV ONE (11:45)
[2017-11-06 15:46] VITALS: BP 182/79
--- NOTE | 2017-11-06 18:45 | PDOC2 ---
CONSULT Date of Consult Date of Consult DATE: 11/06/17 TIME: 18:34 Reason for Consult Reason for Consult: Chest pain Referring Physician Referring Physician: Dr. Friend Identification/Chief Complaint Chief Complaint I blood pressure and chest pain History of Present Illness Reason for Visit: This patient is a very pleasant 87-year-old lady that had a recent acute CVA. She was given TPA for this with a very good resolution of her symptoms but subsequently she had a small bleed. The patient has been an assisted living and was going to be brought to the hospital for a follow-up CT of the head to evaluate the resolution of her previous bleed. She had some confusion and complained of chest pains and also had an elevated blood pressure. The patient was brought to the emergency room in view of this. After arrival in the ER a CT of the chest was done to rule out the possibility of an aortic dissection in view of her chest pain and the elevated blood pressure and the CT did not show any aneurysm or dissection. A CT of the head was also done that did not show any new bleeds or changes from the previous CT. Her cardiac enzymes were negative. He was decided to admit the patient. At the she denies having any chest discomfort, no palpitations, no loss of consciousness. Past Medical History Cardiovascular: CAD, HTN, Hyperlipidemia Pulmonary: COPD CENTRAL NERVOUS SYSTEM: Dementia, Other GI: Constipation, Diverticulosis, GERD, Hemorrhoids Heme/Onc: Cancer Hepatobiliary: No pertinent hx Psych: Anxiety, Depression Musculoskeletal: Osteoarthritis, Other Rheumatologic: No pertinent hx Infectious disease: No pertinent hx Renal/: Chronic renal insuff, Urinary Incontinence Endocrine: No pertinent hx Past Surgical History Past Surgical History: Tonsillectomy, Hysterectomy, Colectomy, Colon Resection , Other Social History ALCOHOL: none Drugs: None Lives: with Family Domestic Violence: Neg Current Problem List Problem List Problems Medical Problems: (1) Chest pain Status: Acute Current Medications Current Medications Current Medications Labetalol HCl (Normodyne) 20 mg 1X ONCE IVP ; Start 11/06/17 at 09:00; Stop at 09:10; Status DC Sodium Chloride 1,000 ml @ 100 mls/hr Q10H IV Last administered on 11/06/17at 09:22; Start 11/06/17 at 08:52; Stop 11/06/17 at 18:51 Multi-Ingredient Mouthwash/Gargle (Gi Cocktail) 20 ml 1X ONCE SWSW Last administered on 11/06/17at 09:22; Start 11/06/17 at 09:00; Stop 11/06/17 at 09:01 ; Status DC Hydralazine HCl (Apresoline Inj) 10 mg 1X ONCE IVP Last administered on at 09:21; Start 11/06/17 at 09:30; Stop 11/06/17 at 09:31; Status DC Iohexol (Omnipaque 300 Mg/ml) 90 ml 1X ONCE IV Last administered on 11/06/17at 09:58; Start 11/06/17 at 09:45; Stop 11/06/17 at 09:46; Status DC Info (CONTRAST GIVEN -- Rx MONITORING) 1 each PRN DAILY PRN MC SEE COMMENTS; Start 11/06/17 at 09:45; Stop 11/08/17 at 09:44 Sodium Monofluorophosphate (Fleet Adult) [address] Last administered on 11/06/17at 10:23; Start 11/06/17 at 10:00; Stop 11/06/17 at 10:01; Status DC Aspirin (Children'S Aspirin) 324 mg 1X ONCE PO Last administered on 11/06/17at 11:36; Start 11/06/17 at 11:00; Stop 11/06/17 at 11:01; Status DC Ondansetron HCl (Zofran) 4 mg 1X ONCE IV Last administered on 11/06/17at 11:36 ; Start 11/06/17 at 11:45; Stop 11/06/17 at 11:46; Status DC Ondansetron HCl (Zofran) 4 mg STK-MED ONCE .ROUTE ; Start 11/06/17 at 11:32; Stop 11/06/17 at 11:33; Status DC Colestipol HCl (Colestid) 1 gm DAILY@1000 PO ; Start 11/06/17 at 19:00 Isosorbide Mononitrate (Imdur) 30 mg DAILY PO ; Start 11/06/17 at 18:00 Psyllium Hydrophilic Mucilloid (Metamucil Fiber Packet) 1 pkt DAILY PO ; Start 11/06/17 at 18:00 Tamsulosin HCl (Flomax) 0.4 mg DAILY PO ; Start 11/06/17 at 18:00 Atorvastatin Calcium (Lipitor) 80 mg DAILY PO ; Start 11/06/17 at 18:00 Citalopram Hydrobromide (CeleXA) 40 mg QHS PO ; Start 11/06/17 at 21:00 Cyclobenzaprine HCl (Flexeril) 5 mg BID PO ; Start 11/06/17 at 21:00 Rivastigmine (Exelon) 1 patch DAILY TD ; Start 11/06/17 at 18:00 Active Scripts Active Cyclobenzaprine Hcl 5 Mg Tablet 1 Tab PO BID Reported Metamucil Fiber Singles Packet (Psyllium Husk/Aspartame) 3.4 Gm Powd.pack 3.4 Gm PO EXELON 9.5mg/24hr (Rivastigmine) 1 Each Patch.td24 1 Patch TP DAILY Colestid (Colestipol Hcl) 1 Gm Tablet 1 Gm PO PRN Omeprazole 20 Mg Capsule.dr PO DAILY Tamsulosin Hcl 0.4 Mg Cap.er.24h PO DAILY Ondansetron Hcl 4 Mg Tablet PO Q6-8HRS PRN Isosorbide Mononitrate Er (Isosorbide Mononitrate) 30 Mg Tab.er.24h PO DAILY Atorvastatin Calcium 80 Mg Tablet 80 Mg PO DAILY Celexa (Citalopram Hydrobromide) 40 Mg Tablet 40 Mg PO HS Allergies Allergies: Coded Allergies: YURIY Inhibitors (Verified Allergy, Unknown, 10/22/17) Beta-Blockers (Beta-Adrenergic Bloc (Verified Allergy, Unknown, 10/22/17) lisinopril (Verified Adverse Reaction, Severe, "passed out", 08/05/13) Physical Exam General: Alert, Oriented X3, Cooperative, No acute distress HEENT: PERRLA Lungs: Clear to auscultation Heart: Regular rate, Normal S1, Normal S2 Abdomen: Normal bowel sounds, Soft Extremities: No edema Vitals VITALS Vital Signs Date Time Temp Pulse Resp B/P (MAP) Pulse Ox O2 Delivery O2 Flow Rate FiO2 11/06/17 15:46 98.1 77 16 182/79 (113) 92 Room Air 98.1 Labs Labs Laboratory Tests Test 11/06/17 09:00 11/06/17 09:11 11/06/17 14:30 Urine Collection Type Unknown Urine Color Yellow Urine Clarity Clear Urine pH 8.5 Urine Specific [place] 1.010 Urine Protein Negative mg/dL (NEG-TRACE) Urine Glucose (UA) Negative mg/dL (NEG) Urine Ketones (Stick) Negative mg/dL (NEG) Urine Blood Trace (NEG) Urine Nitrite Negative (NEG) Urine Bilirubin Negative (NEG) Urine Urobilinogen Dipstick 0.2 mg/dL (0.2 mg/dL) Urine Leukocyte Esterase Trace (NEG) Urine RBC 3-5 /HPF (0-2) Urine WBC 1-4 /HPF (0-4) Urine Squamous Epithelial Cells Many /LPF Urine Bacteria Few /HPF (0-FEW) Urine Mucus Slight /LPF White Blood Count 4.7 x10^3/uL (4.0-11.0) Red Blood Count 4.14 x10^6/uL (3.50-5.40) Hemoglobin 12.6 g/dL (12.0-15.5) Hematocrit 36.6 % (36.0-47.0) Mean Corpuscular Volume 88 fL (79-100) Mean Corpuscular Hemoglobin 31 pg (25-35) Mean Corpuscular Hemoglobin Concent 35 g/dL (31-37) Red Cell Distribution Width 15.2 % (11.5-14.5) Platelet Count 179 x10^3/uL (140-400) Neutrophils (%) (Auto) 70 % (31-73) Lymphocytes (%) (Auto) 16 % (24-48) Monocytes (%) (Auto) 12 % (0-9) Eosinophils (%) (Auto) 2 % (0-3) Basophils (%) (Auto) 1 % (0-3) Neutrophils # (Auto) 3.3 x10^3uL (1.8-7.7) Lymphocytes # (Auto) 0.7 x10^3/uL (1.0-4.8) Monocytes # (Auto) 0.5 x10^3/uL (0.0-1.1) Eosinophils # (Auto) 0.1 x10^3/uL (0.0-0.7) Basophils # (Auto) 0.0 x10^3/uL (0.0-0.2) Prothrombin Time 13.1 SEC (11.7-14.0) Prothromb Time International Ratio 1.0 (0.8-1.1) Activated Partial Thromboplast Time 32 SEC (24-38) Sodium Level 141 mmol/L (136-145) Potassium Level 3.8 mmol/L (3.5-5.1) Chloride Level 101 mmol/L (98-107) Carbon Dioxide Level 33 mmol/L (21-32) Anion Gap 7 (6-14) Blood Urea Nitrogen 11 mg/dL (7-20) Creatinine 0.9 mg/dL (0.6-1.0) Estimated GFR (Cockcroft-Gault) 59.4 BUN/Creatinine Ratio 12 (6-20) Glucose Level 110 mg/dL (70-99) Calcium Level 9.2 mg/dL (8.5-10.1) Total Bilirubin 1.1 mg/dL (0.2-1.0) Aspartate Amino Transf (AST/SGOT) 19 U/L (15-37) Alanine Aminotransferase (ALT/SGPT) 18 U/L (14-59) Alkaline Phosphatase 72 U/L (46-116) Creatine Kinase 44 U/L (26-192) Creatine Kinase MB (Mass) 1.1 ng/mL (0.0-3.6) Creatine Kinase MB Relative Index % (0-4) Troponin I Quantitative < 0.017 ng/mL (0.000-0.055) < 0.017 ng/mL (0.000-0.055) Total Protein 7.2 g/dL (6.4-8.2) Albumin 3.6 g/dL (3.4-5.0) Albumin/Globulin Ratio 1.0 (1.0-1.7) Lipase 223 U/L (73-393) Laboratory Tests Test 11/06/17 09:00 11/06/17 09:11 11/06/17 14:30 Urine Collection Type Unknown Urine Color Yellow Urine Clarity Clear Urine pH 8.5 Urine Specific [place] 1.010 Urine Protein Negative mg/dL (NEG-TRACE) Urine Glucose (UA) Negative mg/dL (NEG) Urine Ketones (Stick) Negative mg/dL (NEG) Urine Blood Trace (NEG) Urine Nitrite Negative (NEG) Urine Bilirubin Negative (NEG) Urine Urobilinogen Dipstick 0.2 mg/dL (0.2 mg/dL) Urine Leukocyte Esterase Trace (NEG) Urine RBC 3-5 /HPF (0-2) Urine WBC 1-4 /HPF (0-4) Urine Squamous Epithelial Cells Many /LPF Urine Bacteria Few /HPF (0-FEW) Urine Mucus Slight /LPF White Blood Count 4.7 x10^3/uL (4.0-11.0) Red Blood Count 4.14 x10^6/uL (3.50-5.40) Hemoglobin 12.6 g/dL (12.0-15.5) Hematocrit 36.6 % (36.0-47.0) Mean Corpuscular Volume 88 fL (79-100) Mean Corpuscular Hemoglobin 31 pg (25-35) Mean Corpuscular Hemoglobin Concent 35 g/dL (31-37) Red Cell Distribution Width 15.2 % (11.5-14.5) Platelet Count 179 x10^3/uL (140-400) Neutrophils (%) (Auto) 70 % (31-73) Lymphocytes (%) (Auto) 16 % (24-48) Monocytes (%) (Auto) 12 % (0-9) Eosinophils (%) (Auto) 2 % (0-3) Basophils (%) (Auto) 1 % (0-3) Neutrophils # (Auto) 3.3 x10^3uL (1.8-7.7) Lymphocytes # (Auto) 0.7 x10^3/uL (1.0-4.8) Monocytes # (Auto) 0.5 x10^3/uL (0.0-1.1) Eosinophils # (Auto) 0.1 x10^3/uL (0.0-0.7) Basophils # (Auto) 0.0 x10^3/uL (0.0-0.2) Prothrombin Time 13.1 SEC (11.7-14.0) Prothromb Time International Ratio 1.0 (0.8-1.1) Activated Partial Thromboplast Time 32 SEC (24-38) Sodium Level 141 mmol/L (136-145) Potassium Level 3.8 mmol/L (3.5-5.1) Chloride Level 101 mmol/L (98-107) Carbon Dioxide Level 33 mmol/L (21-32) Anion Gap 7 (6-14) Blood Urea Nitrogen 11 mg/dL (7-20) Creatinine 0.9 mg/dL (0.6-1.0) Estimated GFR (Cockcroft-Gault) 59.4 BUN/Creatinine Ratio 12 (6-20) Glucose Level 110 mg/dL (70-99) Calcium Level 9.2 mg/dL (8.5-10.1) Total Bilirubin 1.1 mg/dL (0.2-1.0) Aspartate Amino Transf (AST/SGOT) 19 U/L (15-37) Alanine Aminotransferase (ALT/SGPT) 18 U/L (14-59) Alkaline Phosphatase 72 U/L (46-116) Creatine Kinase 44 U/L (26-192) Creatine Kinase MB (Mass) 1.1 ng/mL (0.0-3.6) Creatine Kinase MB Relative Index % (0-4) Troponin I Quantitative < 0.017 ng/mL (0.000-0.055) < 0.017 ng/mL (0.000-0.055) Total Protein 7.2 g/dL (6.4-8.2) Albumin 3.6 g/dL (3.4-5.0) Albumin/Globulin Ratio 1.0 (1.0-1.7) Lipase 223 U/L (73-393) Assessment/Plan Assessment/Plan This patient status post CVA comes in with elevated blood pressure and an episode of chest pains I would like to check serial enzymes and may need to adjust her medications. At this point there doesn't appear to be any progression or deterioration of her previous CVA. I will follow the patient with you. Thank you very much for asking me to participate in the care of this patient. DARIN CONKLIN MD Nov 06, 2017 18:45
[2017-11-06 19:00] VITALS: BP 147/61
[2017-11-06] MEDS: RIVASTIGMINE 9.5MG PATCH. TD SCH ×2 (19:56→21:00)
[2017-11-06] MEDS: PSYLLIUM HUSK (SUGAR FREE) 1 PKT PACKET PO SCH (19:57)
[2017-11-06] MEDS: ATORVASTATIN CALCIUM 40 MG TABLET. PO SCH (19:57)
[2017-11-06] MEDS: COLESTIPOL HCL 1 GM TABLET PO SCH (19:57)
[2017-11-06] MEDS: ISOSORBIDE MONONITRATE ER 30 MG TAB.ER.24H PO SCH (19:57)
[2017-11-06] MEDS: TAMSULOSIN 0.4 MG CAP.ER.24H. PO SCH (19:57)
--- NOTE | 2017-11-06 20:23 | PDOC2 ---
NEUROLOGY CONSULT Date of Admission Date of Admission DATE: 11/06/17 TIME: 20:16 Reason for Consult Reason for Consult: Chest pain. 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 Right side facial drooping, right UE weakness, slurred speech on 10/08/17. HCT x 2 negative on 10/08. CTA unremarkable on 10/08/17. 1.3 cm acute/subacute posterior left temporal lobe hematoma with surrounding edema on MRI in 10/10. CAD, s/p stents. [place], Hx. HTN. HLD. Dementia. Hearing loss. Cutaneous lymphoma. Gait instability. Degenerative spine disease. RECOMMENDATIONS/PLAN: ASA low dose OK. Continue Statin HS. Treat medical and cardiac diseases. HISTORY OF THE PRESENT ILLNESS: 87-year-old female patient with recent history of CVA syndrome on or about and received TPA at that time. She then was found to have SDH. Repeated HCT for SDH follow up was normalized. Patient did not have recurrent CVA symptoms. She has symptoms of chest pain for this admission. PAST MEDICAL HISTORY: CAD, Hypertension, [place], Dementia, Depression, Diverticulitis, Anxiety, PAST SURGERY HISTORY: Appendectomy, Cholecystectomy, Hysterectomy, X 2 CARDIAC STENTS PLACED,COLON R/ O DIVERTICULITIS,RIGHT SHOULDER. ALLERGY: Reviewed. MEDICATIONS: Refer to [facility] FAMILY HISTORY: Non contributory. SOCIAL HISTORY: Denies current smoking, drinking, and illicit drug use. REVIEW OF SYSTEMS: Constitutional: No cachexia. Head: No traumatic brain or head injury. Skin: No edema, or rash. Ear: No infection. Eyes: No vision loss or color blindness. Nose: No bleeding or purulent discharges. Hearing: Hearing loss. Neck: No injury. Breast: No history of cancer, masses,or discharges. Cardiac: CAD, s/p stents, HTN. Pulmonary: No COPD. GI: No GI ulcer, GI bleeding. Urinary/genital: UTI. Endocrinologic: Hypothyroidism?. Skeletomuscular: OA Neurological: see HP. Psychiatric: Denies drug use/abuse. Otherwise, not -ibvfv review of systems. PHYSICAL EXAMINATION: General appearance is in subacute distress. HEENT: Normocephalic and nontraumatic. Eyes, nose, ears, and throat are unremarkable. Neck is supple. No lymphadenopathy. No bruits are heard over the carotid artery. No crepitus. Cardiovascular: S1, S2, regular rate and rhythm. Pulmonary: Clear to auscultation bilaterally. Abdomen: Bowel sounds are positive. Abdomen is soft, nontender, and nondistended. Extremities: No rash, lesions, or edema. No restriction of range of motion NEUROLOGICAL EXAMINATION: Awake. Oriented to time, place and person, but reactions were slow. PERRL. EOMI. CN: no focal findings. Muscle tone: within normal. Muscle strength: 5- DTR: 2 Plantar reflex: Neutral response bilaterally Gait: not examined in bed. Sensory exam: no abnormal findings. No acute cerebellar signs elicited. F-T-N test fine. Current Medications Current Medications Current Medications Labetalol HCl (Normodyne) 20 mg 1X ONCE IVP ; Start 11/06/17 at 09:00; Stop at 09:10; Status DC Sodium Chloride 1,000 ml @ 100 mls/hr Q10H IV Last administered on 11/06/17at 09:22; Start 11/06/17 at 08:52; Stop 11/06/17 at 18:51; Status DC Multi-Ingredient Mouthwash/Gargle (Gi Cocktail) 20 ml 1X ONCE SWSW Last administered on 11/06/17at 09:22; Start 11/06/17 at 09:00; Stop 11/06/17 at 09:01 ; Status DC Hydralazine HCl (Apresoline Inj) 10 mg 1X ONCE IVP Last administered on at 09:21; Start 11/06/17 at 09:30; Stop 11/06/17 at 09:31; Status DC Iohexol (Omnipaque 300 Mg/ml) 90 ml 1X ONCE IV Last administered on 11/06/17at 09:58; Start 11/06/17 at 09:45; Stop 11/06/17 at 09:46; Status DC Info (CONTRAST GIVEN -- Rx MONITORING) 1 each PRN DAILY PRN MC SEE COMMENTS; Start 11/06/17 at 09:45; Stop 11/08/17 at 09:44 Sodium Monofluorophosphate (Fleet Adult) 133 ml 1X ONCE CO Last administered on 11/06/17at 10:23; Start 11/06/17 at 10:00; Stop 11/06/17 at 10:01; Status DC Aspirin (Children'S Aspirin) 324 mg 1X ONCE PO Last administered on 11/06/17at 11:36; Start 11/06/17 at 11:00; Stop 11/06/17 at 11:01; Status DC Ondansetron HCl (Zofran) 4 mg 1X ONCE IV Last administered on 11/06/17at 11:36 ; Start 11/06/17 at 11:45; Stop 11/06/17 at 11:46; Status DC Ondansetron HCl (Zofran) 4 mg STK-MED ONCE .ROUTE ; Start 11/06/17 at 11:32; Stop 11/06/17 at 11:33; Status DC Colestipol HCl (Colestid) 1 gm DAILY@1000 PO Last administered on 11/06/17at 19: 57; Start 11/06/17 at 19:00 Isosorbide Mononitrate (Imdur) 30 mg DAILY PO Last administered on 11/06/17at 19 :57; Start 11/06/17 at 18:00 Psyllium Hydrophilic Mucilloid (Metamucil Fiber Packet) 1 pkt DAILY PO Last administered on 11/06/17 19:57; Start 11/06/17 at 18:00 Tamsulosin HCl (Flomax) 0.4 mg DAILY PO Last administered on 11/06/17 19:57; Start 11/06/17 at 18:00 Atorvastatin Calcium (Lipitor) 80 mg DAILY PO Last administered on 11/06/17 19 :57; Start 11/06/17 at 18:00 Citalopram Hydrobromide (CeleXA) 40 mg QHS PO ; Start 11/06/17 at 21:00 Cyclobenzaprine HCl (Flexeril) 5 mg BID PO ; Start 11/06/17 at 21:00 Rivastigmine (Exelon) 1 patch DAILY TD ; Start 11/06/17 at 18:00 Active Scripts Active Cyclobenzaprine Hcl 5 Mg Tablet 1 Tab PO BID Reported Metamucil Fiber Singles Packet (Psyllium Husk/Aspartame) 3.4 Gm Powd.pack 3.4 Gm PO EXELON 9.5mg/24hr (Rivastigmine) 1 Each Patch.td24 1 Patch TP DAILY Colestid (Colestipol Hcl) 1 Gm Tablet 1 Gm PO PRN Omeprazole 20 Mg Capsule.dr PO DAILY Tamsulosin Hcl 0.4 Mg Cap.er.24h PO DAILY Ondansetron Hcl 4 Mg Tablet PO Q6-8HRS PRN Isosorbide Mononitrate Er (Isosorbide Mononitrate) 30 Mg Tab.er.24h PO DAILY Atorvastatin Calcium 80 Mg Tablet 80 Mg PO DAILY Celexa (Citalopram Hydrobromide) 40 Mg Tablet 40 Mg PO HS Allergies Allergies: Allergies Coded Allergies Type Severity Reaction Last Updated Verified YURIY Inhibitors Allergy Unknown 10/22/17 Yes Beta-Blockers (Beta-Adrenergic Bloc Allergy Unknown 10/22/17 Yes lisinopril Adverse Reaction Severe "passed out" 08/05/13 Yes ROS Review of System The patient denies any associated fevers, chills, headache, ear pain, rhinorrhea , sore throat, stiff neck, productive cough, chest pain, shortness of breath, back or flank pain, abdominal pain, nausea, vomiting, diarrhea, constipation, dysuria, rash, numbness, weakness, tingling, incontinence, difficulty ambulating, or diaphoresis. Physical Exam Physical Exam General: Well developed, well nourished, no acute distress, well appearing HEENT: Pupils equally round and reactive to light, EOMI, no discharge, normal conjunctiva Neck: Supple, no nuchal rigidity, no JVD, trachea midline, no tenderness Cardiac: RRR, no murmurs, no gallops, no rubs Chest/Lungs: CTAB, no wheeze, no rhonchi, no crackles Abdomen: soft, non-distended, no guarding, no peritoneal signs, non-tender Back: No tenderness Extremities: no edema, pulses intact, non-tender,capillary refill <3 sec bilateral upper and lower extremities, Neuro: Alert and oriented x 4, no focal deficits, normal speech Vitals Vitals: Vital Signs Date Time Temp Pulse Resp B/P (MAP) Pulse Ox O2 Delivery O2 Flow Rate FiO2 11/06/17 19:57 89 159/65 11/06/17 15:46 98.1 16 92 Room Air 98.1 Labs Labs Laboratory Tests Test 11/06/17 09:00 11/06/17 09:11 11/06/17 14:30 11/06/17 17:55 Urine Collection Type Unknown Urine Color Yellow Urine Clarity Clear Urine pH 8.5 Urine Specific [place] 1.010 Urine Protein Negative mg/dL (NEG-TRACE) Urine Glucose (UA) Negative mg/dL (NEG) Urine Ketones (Stick) Negative mg/dL (NEG) Urine Blood Trace (NEG) Urine Nitrite Negative (NEG) Urine Bilirubin Negative (NEG) Urine Urobilinogen Dipstick 0.2 mg/dL (0.2 mg/dL) Urine Leukocyte Esterase Trace (NEG) Urine RBC 3-5 /HPF (0-2) Urine WBC 1-4 /HPF (0-4) Urine Squamous Epithelial Cells Many /LPF Urine Bacteria Few /HPF (0-FEW) Urine Mucus Slight /LPF White Blood Count 4.7 x10^3/uL (4.0-11.0) Red Blood Count 4.14 x10^6/uL (3.50-5.40) Hemoglobin 12.6 g/dL (12.0-15.5) Hematocrit 36.6 % (36.0-47.0) Mean Corpuscular Volume 88 fL (79-100) Mean Corpuscular Hemoglobin 31 pg (25-35) Mean Corpuscular Hemoglobin Concent 35 g/dL (31-37) Red Cell Distribution Width 15.2 % (11.5-14.5) Platelet Count 179 x10^3/uL (140-400) Neutrophils (%) (Auto) 70 % (31-73) Lymphocytes (%) (Auto) 16 % (24-48) Monocytes (%) (Auto) 12 % (0-9) Eosinophils (%) (Auto) 2 % (0-3) Basophils (%) (Auto) 1 % (0-3) Neutrophils # (Auto) 3.3 x10^3uL (1.8-7.7) Lymphocytes # (Auto) 0.7 x10^3/uL (1.0-4.8) Monocytes # (Auto) 0.5 x10^3/uL (0.0-1.1) Eosinophils # (Auto) 0.1 x10^3/uL (0.0-0.7) Basophils # (Auto) 0.0 x10^3/uL (0.0-0.2) Prothrombin Time 13.1 SEC (11.7-14.0) Prothromb Time International Ratio 1.0 (0.8-1.1) Activated Partial Thromboplast Time 32 SEC (24-38) Sodium Level 141 mmol/L (136-145) Potassium Level 3.8 mmol/L (3.5-5.1) Chloride Level 101 mmol/L (98-107) Carbon Dioxide Level 33 mmol/L (21-32) Anion Gap 7 (6-14) Blood Urea Nitrogen 11 mg/dL (7-20) Creatinine 0.9 mg/dL (0.6-1.0) Estimated GFR (Cockcroft-Gault) 59.4 BUN/Creatinine Ratio 12 (6-20) Glucose Level 110 mg/dL (70-99) Calcium Level 9.2 mg/dL (8.5-10.1) Total Bilirubin 1.1 mg/dL (0.2-1.0) Aspartate Amino Transf (AST/SGOT) 19 U/L (15-37) Alanine Aminotransferase (ALT/SGPT) 18 U/L (14-59) Alkaline Phosphatase 72 U/L (46-116) Creatine Kinase 44 U/L (26-192) Creatine Kinase MB (Mass) 1.1 ng/mL (0.0-3.6) Creatine Kinase MB Relative Index % (0-4) Troponin I Quantitative < 0.017 ng/mL (0.000-0.055) < 0.017 ng/mL (0.000-0.055) < 0.017 ng/mL (0.000-0.055) Total Protein 7.2 g/dL (6.4-8.2) Albumin 3.6 g/dL (3.4-5.0) Albumin/Globulin Ratio 1.0 (1.0-1.7) Lipase 223 U/L (73-393) Laboratory Tests Test 11/06/17 09:00 11/06/17 09:11 11/06/17 14:30 11/06/17 17:55 Urine Collection Type Unknown Urine Color Yellow Urine Clarity Clear Urine pH 8.5 Urine Specific [place] 1.010 Urine Protein Negative mg/dL (NEG-TRACE) Urine Glucose (UA) Negative mg/dL (NEG) Urine Ketones (Stick) Negative mg/dL (NEG) Urine Blood Trace (NEG) Urine Nitrite Negative (NEG) Urine Bilirubin Negative (NEG) Urine Urobilinogen Dipstick 0.2 mg/dL (0.2 mg/dL) Urine Leukocyte Esterase Trace (NEG) Urine RBC 3-5 /HPF (0-2) Urine WBC 1-4 /HPF (0-4) Urine Squamous Epithelial Cells Many /LPF Urine Bacteria Few /HPF (0-FEW) Urine Mucus Slight /LPF White Blood Count 4.7 x10^3/uL (4.0-11.0) Red Blood Count 4.14 x10^6/uL (3.50-5.40) Hemoglobin 12.6 g/dL (12.0-15.5) Hematocrit 36.6 % (36.0-47.0) Mean Corpuscular Volume 88 fL (79-100) Mean Corpuscular Hemoglobin 31 pg (25-35) Mean Corpuscular Hemoglobin Concent 35 g/dL (31-37) Red Cell Distribution Width 15.2 % (11.5-14.5) Platelet Count 179 x10^3/uL (140-400) Neutrophils (%) (Auto) 70 % (31-73) Lymphocytes (%) (Auto) 16 % (24-48) Monocytes (%) (Auto) 12 % (0-9) Eosinophils (%) (Auto) 2 % (0-3) Basophils (%) (Auto) 1 % (0-3) Neutrophils # (Auto) 3.3 x10^3uL (1.8-7.7) Lymphocytes # (Auto) 0.7 x10^3/uL (1.0-4.8) Monocytes # (Auto) 0.5 x10^3/uL (0.0-1.1) Eosinophils # (Auto) 0.1 x10^3/uL (0.0-0.7) Basophils # (Auto) 0.0 x10^3/uL (0.0-0.2) Prothrombin Time 13.1 SEC (11.7-14.0) Prothromb Time International Ratio 1.0 (0.8-1.1) Activated Partial Thromboplast Time 32 SEC (24-38) Sodium Level 141 mmol/L (136-145) Potassium Level 3.8 mmol/L (3.5-5.1) Chloride Level 101 mmol/L (98-107) Carbon Dioxide Level 33 mmol/L (21-32) Anion Gap 7 (6-14) Blood Urea Nitrogen 11 mg/dL (7-20) Creatinine 0.9 mg/dL (0.6-1.0) Estimated GFR (Cockcroft-Gault) 59.4 BUN/Creatinine Ratio 12 (6-20) Glucose Level 110 mg/dL (70-99) Calcium Level 9.2 mg/dL (8.5-10.1) Total Bilirubin 1.1 mg/dL (0.2-1.0) Aspartate Amino Transf (AST/SGOT) 19 U/L (15-37) Alanine Aminotransferase (ALT/SGPT) 18 U/L (14-59) Alkaline Phosphatase 72 U/L (46-116) Creatine Kinase 44 U/L (26-192) Creatine Kinase MB (Mass) 1.1 ng/mL (0.0-3.6) Creatine Kinase MB Relative Index % (0-4) Troponin I Quantitative < 0.017 ng/mL (0.000-0.055) < 0.017 ng/mL (0.000-0.055) < 0.017 ng/mL (0.000-0.055) Total Protein 7.2 g/dL (6.4-8.2) Albumin 3.6 g/dL (3.4-5.0) Albumin/Globulin Ratio 1.0 (1.0-1.7) Lipase 223 U/L (73-393) KAYE MEYER MD Nov 06, 2017 20:23
[2017-11-06] MEDS: CYCLOBENZAPRINE 10 MG TABLET. PO SCH (20:59)
[2017-11-06] MEDS ORDERED: CITALOPRAM 20 MG TABLET. PO SCH (21:00)
[2017-11-06 23:00] VITALS: BP 110/71
[2017-11-06] MEDS ORDERED: ACETAMINOPHEN 325 MG TABLET. PO PRN (23:00)
[2017-11-06] MEDS ORDERED: ONDANSETRON PF 4 MG/2 ML VIAL. IV PRN (23:00)
[2017-11-07 03:00] VITALS: BP 148/67
[2017-11-07 07:00] VITALS: BP 134/80
[2017-11-07] MEDS: PSYLLIUM HUSK (SUGAR FREE) 1 PKT PACKET PO SCH (08:27)
[2017-11-07] MEDS: TAMSULOSIN 0.4 MG CAP.ER.24H. PO SCH (08:28)
[2017-11-07] MEDS: ISOSORBIDE MONONITRATE ER 30 MG TAB.ER.24H PO SCH (08:28)
[2017-11-07] MEDS: CYCLOBENZAPRINE 10 MG TABLET. PO SCH (08:29)
[2017-11-07] MEDS: RIVASTIGMINE 9.5MG PATCH. TD SCH (08:30)
[2017-11-07] MEDS: COLESTIPOL HCL 1 GM TABLET PO SCH (10:22)
[2017-11-07] MEDS: ATORVASTATIN CALCIUM 40 MG TABLET. PO SCH (10:22)
[2017-11-07 11:00] VITALS: BP 108/61
--- NOTE | 2017-11-07 13:27 | HP ---
ADMIT DATE: 11/06/2017 HISTORY OF PRESENT ILLNESS: The patient is an 87-year-old female patient who is currently residing at [facility] in [place] and who developed a stroke recently for which she received tPA. Apparently, she developed a small intracranial hemorrhage and was scheduled from her rehabilitation facility where she is recovering for repeat head CT as an outpatient and during transport the patient began complaining of some chest pain that she described as burning pain, which became more intense and radiates towards her back. The patient said the pain is just pain; she is unable to further qualify the nature of the pain. She has not had any nausea, vomiting or diaphoresis. She is known to have history of hypertension and is noted to be hypertensive upon arrival. Therefore, she was evaluated in the Emergency Room and has had a CT scan of the head as well as CT scan of the chest, abdomen and pelvis, and was admitted to be evaluated further by the Cardiology team as well as the neurologist. PAST MEDICAL HISTORY: Significant for coronary artery disease, hypertension, myocardial infarction, anxiety, depression, diverticulitis and dementia. PAST SURGICAL HISTORY: Significant for appendectomy, cholecystectomy, hysterectomy as well as PCI with stent deployment x 2 as well as colonoscopy. She has also history of cutaneous lymphoma, sensorineural deafness, degenerative disk disease. ALLERGIES: SHE IS ALLERGIC TO YURIY INHIBITOR AND BETA BLOCKERS. MEDICATIONS: She is on following medications: She is on rivastigmine 9.5 mg transdermal patch once a day, tamsulosin 0.4 mg once a day, cyclobenzaprine 5 mg twice a day, Plavix 75 mg once a day. She is on colestipol 1 gram daily, atorvastatin calcium 80 mg once a day, isosorbide mononitrate 30 mg once a day, citalopram hydrobromide 40 mg at bedtime, psyllium husk aspartame or Metamucil fiber single packet once a day, ondansetron 4 mg every 6 hours, omeprazole 20 mg once a day. FAMILY HISTORY: Unremarkable. SOCIAL HISTORY: She is currently residing at [facility]. She does not smoke, drink alcohol or use recreational drugs. She normally lives with her family. REVIEW OF SYSTEMS: As per history of present illness. On arrival to the Emergency Room, the patient was somewhat confused, complaining of chest pain. PHYSICAL EXAMINATION: GENERAL: Her heart rate was 56, blood pressure 214/92, temperature was 98, respiratory rate 20, and oxygen saturation was 97% on room air. HEAD, EYES, EARS, NOSE AND THROAT: Showed normocephalic, atraumatic. NECK: Supple. HEART: Showed normal first and second heart sounds. No gallop, rub or murmur. CHEST: Clear to auscultation. No crepitation or rhonchi. ABDOMEN: Distended, soft, nontender. NEUROLOGIC: She is confused, demented, but without any obvious lateralizing sign. All cranial nerves intact. She moves extremities without difficulty. She ambulates without assistance or assistive devices. LABORATORY DATA: Showed a white cell count 4700, hemoglobin 13, hematocrit 37, MCV 88 and platelet count of 179,000 with normal manual differential. Her chemistry showed a serum sodium 141, potassium 3.8, chloride 101, bicarbonate 33, anion gap of 7, BUN 11, creatinine 0.9, estimated GFR was 59 mL per minute. Her glucose 110, calcium was 9.2. Total bilirubin, AST, ALT, alkaline phosphatase were normal. Total protein 7.2, albumin 3.6. Lipase was 123. Prothrombin time was 13.1, INR of 1, aPTT 32. Urinalysis was essentially unremarkable. The urine was yellow, clear with a pH of 8.5, specific gravity 1.010. The urine was negative for nitrite and trace of leukocyte esterase with 3-5 rbc's, 1-4 wbc's, very few bacteria. She has had CT scan of the head without contrast, showed there is generalized parenchymal atrophy, areas of decreased attenuation are seen within the periventricular and subcortical white matter of both cerebral hemispheres consistent with area of small vessel ischemic disease, a small area of hemorrhage seen involving the posterior left temporal lobe on the previous examination has resolved. No acute parenchymal abnormality seen. No extraaxial fluid collection is noted. No skull fracture is seen. Given that she has been complaining of chest pain that radiates to the back, a CT angio of the chest, abdomen and pelvis was performed without and with IV contrast and showed that the central airways are patent, mild cardiomegaly, diffuse coronary artery calcification identified, moderate aortic atherosclerosis. No cardiologically significant mediastinal lymphadenopathy, small hiatal hernia identified, and mild emphysematous changes identified in both lungs. There is no evidence of pleural effusion or pneumothorax. No evidence of air identified in the abdomen. The visualized liver, spleen, adrenals grossly appear unremarkable. The stomach is mildly distended. There is an 8 mm cystic density identified in the uncinate process of the pancreas. Small bowel is nondilated, feces and gas noted throughout the colon. Multiple colonic diverticulosis. Urinary bladder is mildly distended. The bilateral kidneys enhanced symmetrically cystic structures identified in the inferior aspect of the left kidney, likely a cyst, punctate intrarenal collecting system, calculi identified in deep bilateral kidneys with the largest measuring 5 mm in the right kidney. The ascending aorta measures 3.4 cm in transverse diameter. There is moderate abscess identified and also there are moderate arthritic opacities identified in the origin of the celiac, atherosclerotic opacification identified at the origin of the celiac artery, superior mesenteric artery, inferior mesenteric artery. Infrarenal abdominal aortic aneurysm is identified measuring 2 cm in transverse diameter. There are moderate degenerative changes of lumbar spine, severe atherosclerotic calcification identified in the region of the bilateral renal arteries. Her EKG showed that she was in sinus rhythm with a rate of 73 beats per minute with normal axis, normal intervals, nonspecific ST-T changes without any significant changes compared to previous EKGs. Her first set of cardiac enzyme was normal with troponin to be less than 0.017. ASSESSMENT AND PLAN: The patient was admitted to do 2 more sets of cardiac enzyme, consult the Cardiology team as well as the Neurology team, and to continue on all her current medications. TEX FELIX MD DR: JERRY/clau JOB#: [id number] / [id number]
--- NOTE | 2017-11-07 14:44 | PDOC ---
PROGRESS NOTES Assessment Assessment Chest pain. 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 Right side facial drooping, right UE weakness, slurred speech on 10/08/17. HCT x 2 negative on 10/08. CTA unremarkable on 10/08/17. 1.3 cm acute/subacute posterior left temporal lobe hematoma with surrounding edema on MRI in 10/10. CAD, s/p stents. [place], Hx. HTN. HLD. Dementia. Hearing loss. Cutaneous lymphoma. Gait instability. Degenerative spine disease. RECOMMENDATIONS/PLAN: ASA low dose OK if cardiac benefits. Continue Statin HS. Treat medical and cardiac diseases. HISTORY OF THE PRESENT ILLNESS: 87-year-old female patient with recent history of CVA syndrome on or about and received TPA at that time. She then was found to have SDH. Repeated HCT for SDH follow up was normalized. Patient did not have recurrent CVA symptoms. She has symptoms of chest pain for this admission. PAST MEDICAL HISTORY: CAD, Hypertension, [place], Dementia, Depression, Diverticulitis, Anxiety, PAST SURGERY HISTORY: Appendectomy, Cholecystectomy, Hysterectomy, X 2 CARDIAC STENTS PLACED,COLON R/ O DIVERTICULITIS,RIGHT SHOULDER. ALLERGY: Reviewed. MEDICATIONS: Refer to MAR FAMILY HISTORY: Non contributory. SOCIAL HISTORY: Denies current smoking, drinking, and illicit drug use. REVIEW OF SYSTEMS: Constitutional: No cachexia. Head: No traumatic brain or head injury. Skin: No edema, or rash. Ear: No infection. Eyes: No vision loss or color blindness. Nose: No bleeding or purulent discharges. Hearing: Hearing loss. Neck: No injury. Breast: No history of cancer, masses,or discharges. Cardiac: CAD, s/p stents, HTN. Pulmonary: No COPD. GI: No GI ulcer, GI bleeding. Urinary/genital: UTI. Endocrinologic: Hypothyroidism?. Skeletomuscular: OA Neurological: see HP. Psychiatric: Denies drug use/abuse. Otherwise, not [id number] review of systems. PHYSICAL EXAMINATION: General appearance is in no acute distress. HEENT: Normocephalic and nontraumatic. Eyes, nose, ears, and throat are unremarkable. Neck is supple. No lymphadenopathy. No bruits are heard over the carotid artery. No crepitus. Cardiovascular: S1, S2, regular rate and rhythm. Pulmonary: Clear to auscultation bilaterally. Abdomen: Bowel sounds are positive. Abdomen is soft, nontender, and nondistended. Extremities: No rash, lesions, or edema. No restriction of range of motion NEUROLOGICAL EXAMINATION: Awake. Oriented to time, place and person, but reactions were slow. PERRL. EOMI. CN: no focal findings. Muscle tone: within normal. Muscle strength: 5- DTR: 2 Plantar reflex: Neutral response bilaterally Gait: not examined in chair. Sensory exam: no abnormal findings. No acute cerebellar signs elicited. F-T-N test fine. Objective Objective Vital Signs Date Time Temp Pulse Resp B/P (MAP) Pulse Ox O2 Delivery O2 Flow Rate FiO2 11/07/17 11:00 98.1 87 18 108/61 (77) 96 Room Air 98.1 Intake and Output 11/07/17 07:00 Intake Total 1090 ml Balance 1090 ml Intake Oral 1090 ml # Voids 2 Vitals Signs Vitals VS - Last 72 Hours, by Label Date Time Temp Pulse Resp B/P (MAP) Pulse Ox O2 Delivery O2 Flow Rate FiO2 11/07/17 11:00 98.1 87 18 108/61 (77) 96 Room Air 98.1 11/07/17 08:28 70 148/67 11/07/17 08:15 Room Air 11/07/17 07:00 97.7 81 20 134/80 (98) 93 Room Air 97.7 11/07/17 03:00 98.8 70 16 148/67 (94) 91 Room Air 98.8 11/06/17 23:00 98.8 76 16 110/71 (84) 91 Room Air 98.8 11/06/17 20:00 Room Air 11/06/17 19:57 89 159/65 11/06/17 19:00 98.8 75 16 147/61 (89) 93 Room Air 98.8 11/06/17 15:46 98.1 77 16 182/79 (113) 92 Room Air 98.1 11/06/17 15:27 Room Air 11/06/17 14:30 78 18 181/87 (118) 94 Room Air 11/06/17 14:08 76 16 172/97 (122) 92 11/06/17 13:38 74 16 177/80 (112) 94 11/06/17 13:08 74 18 172/70 (104) 92 11/06/17 12:38 80 18 169/89 (115) 92 11/06/17 12:08 80 16 170/90 (116) 94 Room Air 11/06/17 11:38 76 16 177/90 (119) 94 11/06/17 11:08 78 18 186/96 (126) 96 11/06/17 10:30 72 18 173/93 (119) 96 11/06/17 09:39 81 20 167/102 (123) 95 11/06/17 09:27 74 18 193/97 (129) 94 Room Air 11/06/17 09:21 66 202/93 11/06/17 08:49 98.0 56 20 214/92 (132) 97 Room Air 98.0 Laboratory Laboratory Laboratory Tests Test 11/06/17 17:55 11/07/17 04:20 Troponin I Quantitative < 0.017 ng/mL (0.000-0.055) < 0.017 ng/mL (0.000-0.055) Medication Medications Current Medications Acetaminophen (Tylenol) 650 mg PRN Q6HRS PRN PO MILD PAIN / TEMP Last administered on 11/06/17 23:15; Start 11/06/17 at 23:00 Atorvastatin Calcium (Lipitor) 80 mg DAILY PO Last administered on 11/07/17 10 :22; Start 11/06/17 at 18:00 Citalopram Hydrobromide (CeleXA) 40 mg QHS PO Last administered on 11/06/17at 20 :59; Start 11/06/17 at 21:00 Colestipol HCl (Colestid) 1 gm DAILY@1000 PO Last administered on 11/07/17at 10: 22; Start 11/06/17 at 19:00 Cyclobenzaprine HCl (Flexeril) 5 mg BID PO Last administered on 11/07/17 08:29 ; Start 11/06/17 at 21:00 Isosorbide Mononitrate (Imdur) 30 mg DAILY PO Last administered on 11/07/17 08 :28; Start 11/06/17 at 18:00 Ondansetron HCl (Zofran) 4 mg PRN Q6HRS PRN IV NAUSEA/VOMITING Last administered on 11/06/17at 23:15; Start 11/06/17 at 23:00 Psyllium Hydrophilic Mucilloid (Metamucil Fiber Packet) 1 pkt DAILY PO Last administered on 11/07/17at 08:27; Start 11/06/17 at 18:00 Rivastigmine (Exelon) 1 patch DAILY TD Last administered on 11/07/17at 08:30; Start 11/06/17 at 18:00 Tamsulosin HCl (Flomax) 0.4 mg DAILY PO Last administered on 11/07/17at 08:28; Start 11/06/17 at 18:00 Comment Review of Relevant I have reviewed the following items lorna (where applicable) has been applied. KAYE MEYER MD Nov 07, 2017 14:44
--- NOTE | 2017-11-07 20:03 | DS ---
DATE OF DISCHARGE: 11/07/2017 HISTORY OF PRESENT ILLNESS: The patient is an 87-year-old female patient who was brought yesterday to do a followup CT scan of her head as she had a stroke treated with TPA and developed intracranial hemorrhage. On en route to the hospital, she developed chest pain and therefore, the patient was seen in the Emergency Room. She was extensively investigated and her initial evaluation showed no evidence of myocardial infarction. Her EKG showed she was in sinus rhythm. Her first set of cardiac enzyme was normal as well as CT scan of the head and the CT scan of the chest, abdomen, and pelvis, ruling out the possibility of aortic dissection. She has had 2 more sets of cardiac enzymes, which were negative. Her blood pressure has largely normalized and without any intervention. The patient was seen by her deputy city clerk, Dr. Love and Dr. Walker, the neurologist. Basically, the patient did very well. She has had no further episode of chest pain. Denied any headache. She was continued on all her medication. She denied any chest pain. Denied any headache. Denied any shortness of breath. The nursing staff did not voice any concern. Stated she had an uneventful night. PHYSICAL EXAMINATION: GENERAL: When I examined her, she looked pale, no jaundice, cyanosis, or thyromegaly. No jugular venous distension. No limb edema. VITAL SIGNS: Her heart rate was 87, blood pressure was 108/61, temperature was 98.1, respiratory rate was 18 and oxygen saturation was 96%. HEAD, EYES, EARS, NOSE AND THROAT: Normocephalic, atraumatic. NECK: Supple. HEART: Showed normal first and second heart sounds with no gallop, rub or murmur. CHEST: Clear to auscultation. No crepitation or rhonchi. ABDOMEN: Distended, soft, nontender. NEUROLOGIC: She is hard of hearing. Otherwise, her cranial nerves intact. EXTREMITIES: She moves extremities without difficulty. She ambulates without assistance or assistive devices. Her intake was 1100, no output was recorded. She had 2 more sets of cardiac enzymes, which were normal and the decision was made to basically discharge her back to [facility] to continue the process of rehabilitation. DISCHARGE MEDICATIONS: She will be discharged there to continue on atorvastatin 80 mg once a day, citalopram hydrobromide for Celexa 40 mg once a day, colestipol 1 gram daily, Flexeril 5 mg twice a day, isosorbide mononitrate 30 mg daily, omeprazole 20 mg once a day, ondansetron 4 mg every 6-8 hours, Metamucil fiber 1 packet once a day, rivastigmine for Exelon 9.5 mg in 24 hours transdermal patch once a day, tamsulosin 0.4 mg once a day. FINAL DISCHARGE DIAGNOSES: Chest pain. The myocardial infarction was ruled out. She is known to have hypertension, coronary artery disease, status post myocardial infarction, status post PCI with stent deployment x 2 and she has dementia, anxiety and depression, chronic obstructive pulmonary disease, hyperlipidemia, chronic constipation, diverticulosis, gastroesophageal reflux disease. TEX FELIX MD DR: JERRY/clau JOB#: [id number] / [id number]
== END 2017-11-07 14:25 | DRG 392 ==
LOC: ER 08:36 → 6 SOUTH 11:45
PROVIDERS: ADMIT Internal Medicine; ATTEND Internal Medicine
DX: K21.9 Gastro-esophageal reflux disease without esophagitis (principal); R07.89 Other chest pain; F41.9 Anxiety disorder, unspecified; F32.9 Major depressive disorder, single episode, unspecified; I25.10 Atherosclerotic heart disease of native coronary artery without angina pectoris; F03.90 Unspecified dementia, unspecified severity, without behavioral disturbance, psychotic disturbance, mood disturbance, and anxiety; E78.5 Hyperlipidemia, unspecified; J44.9 Chronic obstructive pulmonary disease, unspecified; K57.90 Diverticulosis of intestine, part unspecified, without perforation or abscess without bleeding; M19.90 Unspecified osteoarthritis, unspecified site; N18.9 Chronic kidney disease, unspecified; I12.9 Hypertensive chronic kidney disease with stage 1 through stage 4 chronic kidney disease, or unspecified chronic kidney disease; H90.5 Unspecified sensorineural hearing loss; K59.09 Other constipation; I25.2 Old myocardial infarction; Z90.49 Acquired absence of other specified parts of digestive tract; Z86.73 Personal history of transient ischemic attack (TIA), and cerebral infarction without residual deficits; Z88.8 Allergy status to other drugs, medicaments and biological substances; Z90.710 Acquired absence of both cervix and uterus; Z95.5 Presence of coronary angioplasty implant and graft; Z85.72 Personal history of non-Hodgkin lymphomas
CPT/HCPCS: 36415; 70450; 71045; 71275; 74174; 80053; 81001; 82553; 83690; 84484; 85025; 85610; 85730; 87086; 87641; 93005; 96361; 96374; 96375; J0360; J2405; J7030; Q9967; 99285-25

== ENCOUNTER → 2017-11-14 | Outpatient (CLI) | payer MEDICARE ==
[2017-11-07 11:00] VITALS: BP 108/61
--- NOTE | 2017-11-14 14:39 | RAD ---
EXAM: Nuclear gastric emptying scan. HISTORY: Pain. COMPARISON: None. TECHNIQUE: Serial static images were obtained over the stomach following oral administration of 2.0 mCi of 99m-Tc sulfur sulfur colloid. FINDINGS: The stomach empties into the small bowel without evidence of reflux in the area of the esophagus. The estimated time for half emptying of gastric contents, i.e. 'gastric emptying time' is 111 minutes (normal is 66 +/- 22 minutes). IMPRESSION: Delayed gastric emptying time of 111 minutes. Electronically signed by: Natacha Campa MD (11/14/2017 2:36 PM) [place] [id number]
== END | disposition home or self-care (01) ==
LOC: NM 09:38
PROVIDERS: ATTEND Internal Medicine Gastroenterology
DX: K30 Functional dyspepsia (principal); I25.2 Old myocardial infarction; I12.9 Hypertensive chronic kidney disease with stage 1 through stage 4 chronic kidney disease, or unspecified chronic kidney disease; N18.3 Chronic kidney disease, stage 3 (moderate); I25.10 Atherosclerotic heart disease of native coronary artery without angina pectoris; E78.5 Hyperlipidemia, unspecified; Z95.5 Presence of coronary angioplasty implant and graft; Z92.3 Personal history of irradiation; Z85.72 Personal history of non-Hodgkin lymphomas; Z87.891 Personal history of nicotine dependence; Z90.49 Acquired absence of other specified parts of digestive tract; Z90.710 Acquired absence of both cervix and uterus; Z82.49 Family history of ischemic heart disease and other diseases of the circulatory system; Z83.3 Family history of diabetes mellitus
CPT/HCPCS: 78264; A9541

== ENCOUNTER 2017-12-15 21:18 | Emergency (ER) | payer MEDICARE ==
[~2017-12-15] VITALS: Ht 162.6 cm; Wt 62.1 kg
[2017-12-15 21:47] LABS: BASO % 1 % (0-3); EOS # 0.1 x10^3/uL (0.0-0.7); EOS % 3 % (0-3); HEMATOCRIT 38.4 % (36.0-47.0); HEMOGLOBIN 13.4 g/dL (12.0-15.5); LYMPH # 1.1 x10^3/uL (1.0-4.8); LYMPH % 28 % (24-48); MEAN CORPUSCULAR HEMOGLOBIN 31 pg (25-35); MEAN CORPUSCULAR HGB CONC 35 g/dL (31-37); MEAN CORPUSCULAR VOLUME 90 fL (79-100); MONO # 0.5 x10^3/uL (0.0-1.1); MONO % 13 % (0-9); NEUT # 2.2 x10^3uL (1.8-7.7); NEUT % 55 % (31-73); PLATELET COUNT 186 x10^3/uL (140-400); RED BLOOD COUNT 4.28 x10^6/uL (3.50-5.40); RED CELL DISTRIBUTION WIDTH 14.6 % (11.5-14.5); WHITE BLOOD COUNT 3.9 x10^3/uL (4.0-11.0)
[2017-12-15 22:00] LABS: CALCIUM 9.1 mg/dL (8.5-10.1); GFR 52.6; POTASSIUM 3.5 mmol/L (3.5-5.1)
[2017-12-15 22:05] LABS: ALBUMIN 3.6 g/dL (3.4-5.0); ALBUMIN/GLOBULIN RATIO 1.1 (1.0-1.7); TOTAL BILIRUBIN 0.5 mg/dL (0.2-1.0); TOTAL PROTEIN 6.9 g/dL (6.4-8.2)
[2017-12-15 23:00] LABS: BILIRUBIN,URINE NEGATIVE (NEG); CLARITY,URINE CLOUDY; COLOR,URINE YELLOW; NITRITE,URINE NEGATIVE (NEG); PH,URINE 5.5; PROTEIN,URINE NEGATIVE (NEG-TRACE); UROBILINOGEN,URINE 0.2 mg/dL (0.2 mg/dL)
[2017-12-15] MEDS ORDERED: IOHEXOL 300 MG/ML 100ML VIAL. IV ONE (23:15)
[2017-12-15] MEDS ORDERED: MORPHINE SULFATE 4 MG/ML VIAL. IV ONE (23:15)
[2017-12-15] MEDS ORDERED: CONTRAST GIVEN. MC PRN (23:15)
[2017-12-15] MEDS ORDERED: LIDO:MAALOX 1:1 20 ML SINGLE DOSE. SWSW ONE (23:15)
[2017-12-15 23:18] LABS: BACTERIA,URINE MANY /HPF (0-FEW); HYALINE CASTS, URINE OCCASIONAL /HPF; RBC,URINE OCC /HPF (0-2); SQUAMOUS EPITHELIAL CELL,UR MANY /LPF; WBC,URINE 20-40 /HPF (0-4)
--- NOTE | 2017-12-15 23:59 | RAD ---
PQRS Compliance statement: One or more of the following individualized dose reduction techniques were utilized for this examination: 1. Automated exposure control. 2. Adjustment of the mA and/or kV according to patient size. 3. Use of iterative reconstruction technique. Indication:CHEST PAIN; OMNI 300, 60ML TECHNIQUE: CT angiogram of the chest with IV contrast with multiplanar MIP reformats. COMPARISON:None FINDINGS: Diagnostic quality PE study. There are no central, segmental or subsegmental filling defects in the pulmonary arteries. Heart is normal in size. No pericardial or pleural effusion. Coronary artery calcifications. Diffuse atherosclerotic calcification seen of the aortic arch and ascending aorta. Mild ectasia is seen of the proximal aortic arch measuring 3.5 cm. Clear neck base. No enlarged axillary, mediastinal or hilar adenopathy. Central airways are patent. Mild centrilobular emphysematous changes in the lungs. No focal consolidation. Mild subsegmental atelectasis in the lung bases. Otherwise, lungs are clear. Visualized sections through the liver, spleen, pancreas, adrenals and kidneys within normal limits. No suspicious bony lesion. IMPRESSION: 1. No PE. No pneumonia. Electronically signed by: Gabriel Rivas DO (12/15/2017 11:55 PM) [facility]
[2017-12-16] MEDS ORDERED: METOPROLOL TARTRATE 5 MG/5 ML VIAL. IVP ONE
--- NOTE | 2017-12-16 00:35 | PHYS DOC ---
Past Medical History Past Medical History: Angina, CVA, Depression, GERD, High Cholesterol, Hypertension, [place] Past Surgical History: Appendectomy, Cholecystectomy, Hysterectomy, Tonsillectomy, Other Additional Past Surgical Histo: rightr shoulder cardiac stents Alcohol Use: None Drug Use: None Adult General Chief Complaint Chief Complaint: CHEST PAIN HPI HPI Patient is a 87 year old [f__sex] who presents with [] Review of Systems Review of Systems Constitutional: Denies fever or chills [] Eyes: Denies change in visual acuity, redness, or eye pain [] HENT: Denies nasal congestion or sore throat [] Respiratory: Denies cough or shortness of breath [] Cardiovascular: No additional information not addressed in HPI [] GI: Denies abdominal pain, nausea, vomiting, bloody stools or diarrhea [] : Denies dysuria or hematuria [] Musculoskeletal: Denies back pain or joint pain [] Integument: Denies rash or skin lesions [] Neurologic: Denies headache, focal weakness or sensory changes [] Endocrine: Denies polyuria or polydipsia [] All other systems were reviewed and found to be within normal limits, except as documented in this note. Current Medications Current Medications Current Medications Medications (Trade) Dose Ordered Sig/Vanessa Start Time Stop Time Status Last Admin Dose Admin Clonidine HCl (Catapres) 0.1 mg 1X ONCE 12/16/17 00:00 12/16/17 00:01 DC 12/16/17 00:15 0.1 MG Info (CONTRAST GIVEN -- Rx MONITORING) 1 each PRN DAILY PRN 12/15/17 23:15 12/17/17 23:14 Iohexol (Omnipaque 300 Mg/ml) 60 ml 1X ONCE 12/15/17 23:15 12/15/17 23:16 DC 12/15/17 23:41 60 ML Metoprolol Tartrate (Lopressor Vial) 5 mg 1X ONCE 12/16/17 00:00 12/16/17 00:00 DC Morphine Sulfate (Morphine Sulfate) 4 mg 1X ONCE 12/15/17 23:15 12/15/17 23:16 DC 12/15/17 23:15 4 MG Multi-Ingredient Mouthwash/Gargle (Gi Cocktail) 20 ml 1X ONCE 12/15/17 23:15 12/15/17 23:16 DC 12/15/17 23:20 20 ML Allergies Allergies Allergies Coded Allergies Type Severity Reaction Last Updated Verified YURIY Inhibitors Allergy Unknown 10/22/17 Yes Beta-Blockers (Beta-Adrenergic Bloc Allergy Unknown 10/22/17 Yes lisinopril Adverse Reaction Severe "passed out" 08/05/13 Yes Physical Exam Physical Exam Constitutional: Well developed, well nourished, no acute distress, non-toxic appearance. [] HENT: Normocephalic, atraumatic, bilateral external ears normal, oropharynx moist, no oral exudates, nose normal. [] Eyes: PERRLA, EOMI, conjunctiva normal, no discharge. [] Neck: Normal range of motion, no tenderness, supple, no stridor. [] Cardiovascular:Heart rate regular rhythm, no murmur [] Lungs & Thorax: Bilateral breath sounds clear to auscultation [] Abdomen: Bowel sounds normal, soft, no tenderness, no masses, no pulsatile masses. [] Skin: Warm, dry, no erythema, no rash. [] Back: No tenderness, no CVA tenderness. [] Extremities: No tenderness, no cyanosis, no clubbing, ROM intact, no edema. [] Neurologic: Alert and oriented X 3, normal motor function, normal sensory function, no focal deficits noted. [] Psychologic: Affect normal, judgement normal, mood normal. [] Current Patient Data Vital Signs Vital Signs Date Time Temp Pulse Resp B/P (MAP) Pulse Ox O2 Delivery O2 Flow Rate FiO2 12/16/17 00:15 78 215/94 12/15/17 23:15 11 97 Room Air 12/15/17 21:27 98.4 98.4 Lab Values Laboratory Tests Test 12/15/17 21:40 12/15/17 22:53 White Blood Count 3.9 x10^3/uL (4.0-11.0) L Red Blood Count 4.28 x10^6/uL (3.50-5.40) Hemoglobin 13.4 g/dL (12.0-15.5) Hematocrit 38.4 % (36.0-47.0) Mean Corpuscular Volume 90 fL (79-100) Mean Corpuscular Hemoglobin 31 pg (25-35) Mean Corpuscular Hemoglobin Concent 35 g/dL (31-37) Red Cell Distribution Width 14.6 % (11.5-14.5) H Platelet Count 186 x10^3/uL (140-400) Neutrophils (%) (Auto) 55 % (31-73) Lymphocytes (%) (Auto) 28 % (24-48) Monocytes (%) (Auto) 13 % (0-9) H Eosinophils (%) (Auto) 3 % (0-3) Basophils (%) (Auto) 1 % (0-3) Neutrophils # (Auto) 2.2 x10^3uL (1.8-7.7) Lymphocytes # (Auto) 1.1 x10^3/uL (1.0-4.8) Monocytes # (Auto) 0.5 x10^3/uL (0.0-1.1) Eosinophils # (Auto) 0.1 x10^3/uL (0.0-0.7) Basophils # (Auto) 0.0 x10^3/uL (0.0-0.2) Sodium Level 144 mmol/L (136-145) Potassium Level 3.5 mmol/L (3.5-5.1) Chloride Level 104 mmol/L (98-107) Carbon Dioxide Level 32 mmol/L (21-32) Anion Gap 8 (6-14) Blood Urea Nitrogen 17 mg/dL (7-20) Creatinine 1.0 mg/dL (0.6-1.0) Estimated GFR (Cockcroft-Gault) 52.6 BUN/Creatinine Ratio 17 (6-20) Glucose Level 104 mg/dL (70-99) H Calcium Level 9.1 mg/dL (8.5-10.1) Total Bilirubin 0.5 mg/dL (0.2-1.0) Aspartate Amino Transferase (AST) 9 U/L (15-37) L Alanine Aminotransferase (ALT) 19 U/L (14-59) Alkaline Phosphatase 74 U/L (46-116) Troponin I Quantitative < 0.017 ng/mL (0.000-0.055) Total Protein 6.9 g/dL (6.4-8.2) Albumin 3.6 g/dL (3.4-5.0) Albumin/Globulin Ratio 1.1 (1.0-1.7) Urine Collection Type Unknown Urine Color Yellow Urine Clarity Cloudy Urine pH 5.5 Urine Specific [place] 1.020 Urine Protein Negative mg/dL (NEG-TRACE) Urine Glucose (UA) Negative mg/dL (NEG) Urine Ketones (Stick) Negative mg/dL (NEG) Urine Blood Negative (NEG) Urine Nitrite Negative (NEG) Urine Bilirubin Negative (NEG) Urine Urobilinogen Dipstick 0.2 mg/dL (0.2 mg/dL) Urine Leukocyte Esterase Large (NEG) Urine RBC Occ /HPF (0-2) Urine WBC 20-40 /HPF (0-4) Urine Squamous Epithelial Cells Many /LPF Urine Renal Epithelial Cells Few /LPF Urine Bacteria Many /HPF (0-FEW) Urine Hyaline Casts Occasional /HPF Urine Mucus Marked /LPF Laboratory Tests 12/15/17 21:40 Laboratory Tests 12/15/17 21:40 EKG EKG [] Radiology/Procedures Radiology/Procedures [] Course & Med Decision Making Course & Med Decision Making Pertinent Labs and Imaging studies reviewed. (See chart for details) [] Dragon Disclaimer Dragon Disclaimer This electronic medical record was generated, in whole or in part, using a voice recognition dictation system. Departure Departure Impression: Primary Impression: GERD (gastroesophageal reflux disease) Additional Impressions: Hypertension UTI (urinary tract infection) Disposition: HOME, SELF-CARE Condition: STABLE Referrals: GAGAN MORATAYA MD (PCP) Patient Instructions: Diet for Gastroesophageal Reflux Disease, Adult, Gastroesophageal Reflux Disease, Adult, Urinary Tract Infection Additional Instructions: Follow-up with your GI doctor for the results of your scan. Take the medication that the GI doctor prescribed for your stomach pain. If worsening return to the emergency department. Take the antibiotic for your urinary tract infection. Follow-up with your primary care provider for a urine recheck in one week. Scripts Sulfamethoxazole/Trimethoprim (BACTRIM DS TABLET) 1 Each Tablet 1 TAB PO BID, #14 TAB Prov: JHON DUFF APRN 12/16/17 Problem Qualifiers JHON DUFF APRN Dec 16, 2017 00:35
[2017-12-16] MEDS ORDERED: SULF1TAB24 PO (00:53)
[2017-12-16 01:30] VITALS: BP 149/67
[2017-12-16] MEDS ORDERED: cloNIDine HCL 0.1 MG TABLET PO ONE ×2 (01:30)
--- NOTE | 2017-12-16 04:03 | RAD ---
PROCEDURE: CHEST AP ONLY CLINICAL INDICATION: chest pain today COMPARISON: 11/06/2017 FINDINGS: No pneumothorax identified. Cardiac and mediastinal contours unremarkable. No pulmonary consolidation or acute airspace disease. No acute osseous abnormalities identified. IMPRESSION: No pulmonary consolidation or acute airspace disease. Electronically signed by: Gabriel Rivas DO (12/16/2017 3:59 AM) [facility]
[2017-12-16] MEDS ORDERED: IOHEXOL 300 MG/ML 100ML VIAL. ONE (04:44)
--- NOTE | 2017-12-16 21:20 | EKG ---
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
--- NOTE | 2017-12-16 21:20 | EKG ---
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
== END 2017-12-16 02:10 | disposition home or self-care (01) ==
LOC: ER 21:18
DX: K21.9 Gastro-esophageal reflux disease without esophagitis (principal); I10 Essential (primary) hypertension; N39.0 Urinary tract infection, site not specified; R07.89 Other chest pain; Z95.5 Presence of coronary angioplasty implant and graft; I25.2 Old myocardial infarction; E78.00 Pure hypercholesterolemia, unspecified; Z86.73 Personal history of transient ischemic attack (TIA), and cerebral infarction without residual deficits; Z90.89 Acquired absence of other organs; Z90.49 Acquired absence of other specified parts of digestive tract; Z90.710 Acquired absence of both cervix and uterus; Z88.8 Allergy status to other drugs, medicaments and biological substances; Z91.041 Radiographic dye allergy status
CPT/HCPCS: 36415; 71045; 71275; 80053; 81001; 84484; 85025; 87086; 93005; 96374; 99285; J2270; Q9967

== ENCOUNTER 2018-12-13 10:53 | Emergency (ER) | payer MEDICARE ==
[~2018-12-13] VITALS: Ht 162.6 cm; Wt 65.8 kg
[~2018-12-13 10:53] MED LIST changes: +ASPI-612 PO; +CIPR500T94 PO; +CLON-77 PO; -CLON0.5T11 PO; +DENO60DI SQ; +ERYT250C8 PO; +HYDR-2761 PO; +LACT1CAP19 PO; +OMEP20CA10 PO; -OMEP20CA9 PO; +OMEP40CA5 PO; -OXYC-323 PO; +OXYC1TAB15 PO; +POLY17PO29 PO; -POLY255P; +POLY255P11; +SALI44.3 PO; +SULF1TAB24 PO; +TRAZ-118 PO; +VANC125C10 PO; +VENL37.57 PO
--- NOTE | 2018-12-13 11:29 | PHYS DOC ---
Past Medical History Past Medical History: Angina, CVA, Depression, GERD, High Cholesterol, Hypertension, [place] Past Surgical History: Appendectomy, Cholecystectomy, Hysterectomy, Tonsillectomy, Other Additional Past Surgical Histo: rightr shoulder cardiac stents Alcohol Use: None Drug Use: None Adult General Chief Complaint Chief Complaint: DIARRHEA HPI HPI 88-year-old female with underlying history of hypertension, hyperlipidemia, chronic diarrhea presents to the emergency Department with complaints of diarrhea. She denies any nausea, vomiting, chest pain, shortness of breath. She does state she did have some blood-tinged stool this morning. Patient denies any fever. She states she's been at this point since 4 AM with ongoing diarrhea and was concerned and therefore presented to the ER for further evaluation. Nothing makes her diarrhea better, nothing makes it worse. Review of Systems Review of Systems Constitutional: Denies fever or chills [] Respiratory: Denies cough or shortness of breath [] Cardiovascular: No additional information not addressed in HPI [] GI: Denies abdominal pain, nausea, vomiting, positive diarrhea, bloody stool : Denies dysuria or hematuria [] Musculoskeletal: Denies back pain or joint pain [] Integument: Denies rash or skin lesions [] Neurologic: Denies headache, focal weakness or sensory changes [] All other systems were reviewed and found to be within normal limits, except as documented in this note. Allergies Allergies Allergies Coded Allergies Type Severity Reaction Last Updated Verified YURIY Inhibitors Allergy Intermediate 02/03/18 Yes Beta-Blockers (Beta-Adrenergic Bloc Allergy Intermediate 02/03/18 Yes lisinopril Adverse Reaction Severe "passed out" 08/05/13 Yes Physical Exam Physical Exam Constitutional: Well developed, well nourished, no acute distress, non-toxic appearance. [] HENT: Normocephalic, atraumatic, bilateral external ears normal, oropharynx moist, no oral exudates, nose normal. [] Eyes: PERRLA, EOMI, conjunctiva normal, no discharge. [] Cardiovascular:Heart rate regular rhythm, no murmur [] Lungs & Thorax: Bilateral breath sounds clear to auscultation [] Abdomen: Bowel sounds normal, soft, no tenderness, no masses, no pulsatile masses. [] Skin: Warm, dry, no erythema, no rash. [] Extremities: No tenderness, no cyanosis, no clubbing, no edema. [] Neurologic: Alert and oriented X 3, no focal deficits noted. [] Psychologic: Affect normal, judgement normal, mood normal. [] Rectal: no obvious blood, hemoccult sent, brown stool present Current Patient Data Vital Signs Vital Signs Date Time Temp Pulse Resp B/P (MAP) Pulse Ox O2 Delivery O2 Flow Rate FiO2 12/13/18 11:27 97.8 72 17 210/88 (128) 96 Room Air 97.8 Lab Values Laboratory Tests Test 12/13/18 11:45 White Blood Count 5.0 x10^3/uL (4.0-11.0) Red Blood Count 4.26 x10^6/uL (3.50-5.40) Hemoglobin 13.4 g/dL (12.0-15.5) Hematocrit 38.7 % (36.0-47.0) Mean Corpuscular Volume 91 fL (79-100) Mean Corpuscular Hemoglobin 31 pg (25-35) Mean Corpuscular Hemoglobin Concent 35 g/dL (31-37) Red Cell Distribution Width 14.5 % (11.5-14.5) Platelet Count 178 x10^3/uL (140-400) Neutrophils (%) (Auto) 65 % (31-73) Lymphocytes (%) (Auto) 21 % (24-48) L Monocytes (%) (Auto) 11 % (0-9) H Eosinophils (%) (Auto) 2 % (0-3) Basophils (%) (Auto) 1 % (0-3) Neutrophils # (Auto) 3.2 x10^3/uL (1.8-7.7) Lymphocytes # (Auto) 1.0 x10^3/uL (1.0-4.8) Monocytes # (Auto) 0.5 x10^3/uL (0.0-1.1) Eosinophils # (Auto) 0.1 x10^3/uL (0.0-0.7) Basophils # (Auto) 0.0 x10^3/uL (0.0-0.2) Sodium Level 140 mmol/L (136-145) Potassium Level 3.9 mmol/L (3.5-5.1) Chloride Level 101 mmol/L (98-107) Carbon Dioxide Level 33 mmol/L (21-32) H Anion Gap 6 (6-14) Blood Urea Nitrogen 19 mg/dL (7-20) Creatinine 1.1 mg/dL (0.6-1.0) H Estimated GFR (Cockcroft-Gault) 47.0 BUN/Creatinine Ratio 17 (6-20) Glucose Level 117 mg/dL (70-99) H Lactic Acid Level 0.9 mmol/L (0.4-2.0) Calcium Level 9.8 mg/dL (8.5-10.1) Magnesium Level 2.0 mg/dL (1.8-2.4) Total Bilirubin 0.8 mg/dL (0.2-1.0) Aspartate Amino Transferase (AST) 24 U/L (15-37) Alanine Aminotransferase (ALT) 19 U/L (14-59) Alkaline Phosphatase 50 U/L (46-116) Troponin I Quantitative < 0.017 ng/mL (0.000-0.055) Total Protein 7.2 g/dL (6.4-8.2) Albumin 3.7 g/dL (3.4-5.0) Albumin/Globulin Ratio 1.1 (1.0-1.7) Laboratory Tests 12/13/18 11:45 Laboratory Tests 12/13/18 11:45 EKG EKG [] Radiology/Procedures Radiology/Procedures [] Course & Med Decision Making Course & Med Decision Making Pertinent Labs and Imaging studies reviewed. (See chart for details) []88-year-old female with underlying history of hypertension, hyperlipidemia, chronic diarrhea presents to the emergency Department with complaints of diarrhea. She denies any nausea, vomiting, chest pain, shortness of breath. She does state she did have some blood-tinged stool this morning. Patient denies any fever. She states she's been at this point since 4 AM with ongoing diarrhea and was concerned and therefore presented to the ER for further evaluation. Nothing makes her diarrhea better, nothing makes it worse. Labs reviewed and unremarkable. Hemoccult pending, no obvious blood on rectal exam. Will plan for discharge and further follow-up as an outpatient. Dragon Disclaimer Dragon Disclaimer This electronic medical record was generated, in whole or in part, using a voice recognition dictation system. Departure Departure Impression: Primary Impression: Diarrhea Disposition: 01 HOME, SELF-CARE Condition: STABLE Referrals: GAGAN MROATAYA MD (PCP) Patient Instructions: Chronic Diarrhea Additional Instructions: Continue current medications Consider immodium over the counter as needed for diarrhea Tylenol/Motrin as needed Return to the ER with complaints of abdominal pain, fever, altered mental status Problem Qualifiers Primary Impression: Diarrhea Diarrhea type: unspecified type Qualified Codes: R19.7 - Diarrhea, unspecified RONN STARKS MD Dec 13, 2018 11:29
[2018-12-13 11:55] LABS: BASO % 1 % (0-3); EOS # 0.1 x10^3/uL (0.0-0.7); EOS % 2 % (0-3); HEMATOCRIT 38.7 % (36.0-47.0); HEMOGLOBIN 13.4 g/dL (12.0-15.5); LYMPH % 21 % (24-48); MEAN CORPUSCULAR HEMOGLOBIN 31 pg (25-35); MEAN CORPUSCULAR HGB CONC 35 g/dL (31-37); MEAN CORPUSCULAR VOLUME 91 fL (79-100); MONO # 0.5 x10^3/uL (0.0-1.1); MONO % 11 % (0-9); NEUT # 3.2 x10^3/uL (1.8-7.7); NEUT % 65 % (31-73); PLATELET COUNT 178 x10^3/uL (140-400); RED BLOOD COUNT 4.26 x10^6/uL (3.50-5.40); RED CELL DISTRIBUTION WIDTH 14.5 % (11.5-14.5)
[2018-12-13 12:10] LABS: CALCIUM 9.8 mg/dL (8.5-10.1); CREATININE 1.1 mg/dL (0.6-1.0); POTASSIUM 3.9 mmol/L (3.5-5.1)
[2018-12-13 12:16] LABS: ALBUMIN 3.7 g/dL (3.4-5.0); ALBUMIN/GLOBULIN RATIO 1.1 (1.0-1.7); TOTAL BILIRUBIN 0.8 mg/dL (0.2-1.0); TOTAL PROTEIN 7.2 g/dL (6.4-8.2)
[2018-12-13 12:30] VITALS: BP 148/64
[2018-12-13 12:57] LABS: FECAL OB PT POSITIVE (NEG)
== END 2018-12-13 13:14 | disposition home or self-care (01) ==
LOC: ER 10:53
DX: R19.7 Diarrhea, unspecified (principal); F32.9 Major depressive disorder, single episode, unspecified; K21.9 Gastro-esophageal reflux disease without esophagitis; E78.5 Hyperlipidemia, unspecified; E78.00 Pure hypercholesterolemia, unspecified; I10 Essential (primary) hypertension; I25.2 Old myocardial infarction; Z86.73 Personal history of transient ischemic attack (TIA), and cerebral infarction without residual deficits; Z90.49 Acquired absence of other specified parts of digestive tract; Z90.89 Acquired absence of other organs; Z90.710 Acquired absence of both cervix and uterus; Z88.8 Allergy status to other drugs, medicaments and biological substances
CPT/HCPCS: 36415; 80053; 82274; 83605; 83735; 84484; 85025; 99284

== ENCOUNTER → 2019-04-15 | Outpatient (CLI) | payer MEDICARE ==
[~2019-04-15] MED LIST changes: -OMEP20CA10 PO; +OMEP20CA16 PO; +OMEP40CA45 PO; -OMEP40CA5 PO; +ONDA-84 PO; -ONDA4TAB11 PO; +TRAZ-123 PO; -TRAZ-86 PO
--- NOTE | 2019-04-16 09:35 | RAD ---
Examination: LUMBAR SPINE MIN 4V History: Lumbar back pain Comparison/Correlation: None Findings: A total of 5 images of the lumbar spine were obtained. Dextroconvex lumbar spine noted. Mild L2-3 disc space narrowing is present. Moderate L3-4 disc space narrowing is noted. Vacuum phenomenon L5-S1. Facet joint degenerative changes of the lumbar spine from L3 to S1 noted. Abdominal aortic aneurysm is present. Diameter of up to 3 cm noted. Impression: No acute process. Mild to moderate degenerative changes. Electronically signed by: Vazquez Quintero MD (04/16/2019 9:32 AM) [facility]
== END | disposition home or self-care (01) ==
LOC: RAD 14:42
PROVIDERS: ATTEND Family Medicine
DX: M47.817 Spondylosis without myelopathy or radiculopathy, lumbosacral region (principal); I71.4 Abdominal aortic aneurysm, without rupture; M48.061 Spinal stenosis, lumbar region without neurogenic claudication
CPT/HCPCS: 72110

== ENCOUNTER → 2019-08-05 | Outpatient (CLI) | payer MEDICARE ==
[2019-05-19 10:53] VITALS: BP 139/68
[~2019-08-05] MED LIST changes: +AMLO5TAB10 PO; +HYDR28.337 RC
--- NOTE | 2019-08-05 14:49 | CARD ---
MR#: [id number] Date of Study: 08/05/2019 Ordering Physician: ANGÉLICA ALLEN, Referring Physician: ANGÉLICA ALLEN, Tech: Dianne Fierro [facility] APPROVED REPORT EXAM: Two-dimensional and M-mode echocardiogram with Doppler and color Doppler. Other Information Quality : Good INDICATION Chest Pain 2D DIMENSIONS RVDd2.3 (2.9-3.5cm)Left Atrium(2D)3.1 (1.6-4.0cm) IVSd1.0 (0.7-1.1cm)Aortic Root(2D)2.7 (2.0-3.7cm) LVDd4.6 (3.9-5.9cm)LVOT Diameter1.9 (1.8-2.4cm) PWd1.0 (0.7-1.1cm)LVDs2.7 (2.5-4.0cm) FS (%) 30.0 %SV69.0 ml LVEF(%)60.0 (>50%) Aortic Valve AoV Peak Vladimir.117.5cm/sAoV VTI22.6cm AO Peak GR.5.5mmHgLVOT Peak Vladimir.96.8cm/s AO Mean GR.3mmHgAVA (VMAX)2.34cm2 MARC (VTI)2.55nk9NW P 1/2 Hjqs808mn Mitral Valve MV E Qmbscuvu27.1cm/sMV DECEL [id number] MV A Gxerfuhs99.6cm/sE/A Ratio0.6 Tricuspid Valve TR P. Qyekpoax437vs/sRAP [id number] TR Peak Gr.65kkBzSIVL66bbUn Pulmonary Vein S1 Frsmdnou11.0cm/sD2 Oismkbro51.3cm/s LEFT VENTRICLE The left ventricle is normal size. There is normal left ventricular wall thickness. The left ventricu lar systolic function is normal. The Ejection Fraction is 55-60%. There is normal LV segmental wall m otion. Transmitral Doppler flow pattern is Grade I-abnormal relaxation pattern. RIGHT VENTRICLE The right ventricle is normal size. The right ventricular systolic function is normal. ATRIA The left atrium size is normal. The right atrium size is normal. The interatrial septum is intact wit h no evidence for an atrial septal defect or patent foramen ovale as noted on 2-D or Doppler imaging. AORTIC VALVE The aortic valve is not well visualized but appears to be functioning normally by Doppler interrogati on. Doppler and Color Flow revealed mild aortic regurgitation. There is no significant aortic valvula r stenosis. MITRAL VALVE The mitral valve is calcified but opens well. There is no evidence of mitral valve prolapse. There is no mitral valve stenosis. Doppler and Color-flow revealed trace mitral regurgitation. TRICUSPID VALVE The tricuspid valve is normal in structure and function. Doppler and Color Flow revealed trace tricus pid regurgitation. The PA pressure was estimated at 16 mmHg. There is no tricuspid valve stenosis. PULMONIC VALVE The pulmonic valve is not well visualized. Doppler and Color Flow revealed no pulmonic valvular regur gitation. There is no pulmonic valvular stenosis. GREAT VESSELS The aortic root is normal in size. The ascending aorta is moderately dilated at 3.5 cm. The IVC is no rmal in size and collapses >50% with inspiration. PERICARDIAL EFFUSION There is no evidence of significant pericardial effusion. Critical Notification Critical Value: No <Conclusion> The left ventricular systolic function is normal. The Ejection Fraction is 55-60%. There is normal LV segmental wall motion. Transmitral Doppler flow pattern is Grade I-abnormal relaxation pattern. Mild aortic regurgitation. Trace mitral regurgitation. Trace tricuspid regurgitation. The PA pressure was estimated at 16 mmHg. There is no evidence of significant pericardial effusion. Signed by : Johnny Carroll, Electronically Approved : 08/05/2019 14:49:02
== END | disposition home or self-care (01) ==
LOC: ECHO 12:44
PROVIDERS: ATTEND Internal Medicine Cardiovascular Disease
DX: I08.0 Rheumatic disorders of both mitral and aortic valves (principal)
CPT/HCPCS: 93306

== ENCOUNTER 2019-10-07 13:24 | Inpatient (IN) | payer MEDICARE ==
[~2019-10-07] VITALS: Ht 162.6 cm; Wt 68.1 kg
[~2019-10-07 13:24] MED LIST changes: -ASPI-612 PO; +ASPI-886 PO; +ERYT250C33 PO; -ERYT250C8 PO
[2019-10-07 14:06] LABS: BASO % 1 % (0-3); EOS % 1 % (0-3); HEMATOCRIT 36.2 % (36.0-47.0); HEMOGLOBIN 12.8 g/dL (12.0-15.5); LYMPH # 1.2 x10^3/uL (1.0-4.8); LYMPH % 27 % (24-48); MEAN CORPUSCULAR HEMOGLOBIN 32 pg (25-35); MEAN CORPUSCULAR HGB CONC 35 g/dL (31-37); MEAN CORPUSCULAR VOLUME 91 fL (79-100); MONO # 0.5 x10^3/uL (0.0-1.1); MONO % 12 % (0-9); NEUT # 2.7 x10^3/uL (1.8-7.7); NEUT % 59 % (31-73); PLATELET COUNT 165 x10^3/uL (140-400); RED BLOOD COUNT 3.98 x10^6/uL (3.50-5.40); RED CELL DISTRIBUTION WIDTH 13.7 % (11.5-14.5); WHITE BLOOD COUNT 4.5 x10^3/uL (4.0-11.0)
[2019-10-07 14:08] LABS: PROTHROMBIN TIME PATIENT 13.2 SEC (11.7-14.0)
[2019-10-07 14:12] LABS: CALCIUM 8.4 mg/dL (8.5-10.1); CREATININE 1.4 mg/dL (0.6-1.0); GFR 35.5
[2019-10-07 14:17] LABS: ALBUMIN 3.7 g/dL (3.4-5.0); ALBUMIN/GLOBULIN RATIO 1.1 (1.0-1.7); TOTAL BILIRUBIN 0.7 mg/dL (0.2-1.0)
--- NOTE | 2019-10-07 14:51 | RAD ---
CHEST AP ONLY History: Reason: chest pain,pt states pain in lt arm. / Spl. Instructions: / History: Comparison: May 16, 2019 Findings: No consolidation or pleural effusion. Normal heart size. No pneumothorax. Right shoulder arthroplasty. Impression: 1. No acute cardiopulmonary process. Electronically signed by: Kishore Aguirre DO (10/07/2019 2:48 PM) [id number]
[2019-10-07 15:12] LABS: BILIRUBIN,URINE NEGATIVE (NEG); CLARITY,URINE CLEAR; COLOR,URINE YELLOW; NITRITE,URINE NEGATIVE (NEG); PH,URINE 6.5 (<5.0-8.0); PROTEIN,URINE NEGATIVE (NEG-TRACE)
--- NOTE | 2019-10-07 15:25 | PHYS DOC ---
Past Medical History Past Medical History: Angina, COPD, CVA, Depression, GERD, High Cholesterol, Hypertension, [place] Additional Past Medical Histor: GASTROPARESIS Past Surgical History: Appendectomy, Cholecystectomy, Hysterectomy, Tonsillectomy, Other Additional Past Surgical Histo: rightr shoulder cardiac stents Smoking Status: Former Smoker Alcohol Use: None Drug Use: None General Adult EDM: Chief Complaint: HYPERTENSION HPI: HPI: Patient is a 89 year old female brought to the emergency department by EMS with reports of chest pain, shortness of breath, and left arm numbness. Patient states that she fell in her closet but was able to pull herself up and called 911. She took 1 nitroglycerin and a full-strength aspirin and her chest pain went away completely. Patient states they stopped her blood pressure medication, HCTZ, but she is not sure why. She currently denies any headache. She states that prior to EMS arriving she did have a headache but it also went away after taking the nitro and aspirin. She denies any nausea, vomiting, di arrhea, abdominal pain, wheezing, fever, cough, syncope, or dizziness. Patient states that 4 days ago she had some diarrhea, there was no blood in the stool but she has not had any bowel movement since then. She currently denies any pain or complaints. Review of Systems: Review of Systems: Constitutional: Denies fever or chills. [] Eyes: Denies change in visual acuity. [] HENT: Denies nasal congestion or sore throat. [] Respiratory: Denies cough or shortness of breath. [] Cardiovascular: See HPI GI: Denies abdominal pain, nausea, vomiting, bloody stools or diarrhea; reports constipation for 4 days. [] : Denies dysuria. [] Musculoskeletal: Denies back pain or joint pain. [] Integument: Denies rash. [] Neurologic: Denies headache, focal weakness or sensory changes. [] Endocrine: Denies polyuria or polydipsia. [] Lymphatic: Denies swollen glands. [] Psychiatric: Denies depression or anxiety. [] Heart Score: Risk Factors: Risk Factors: DM, Current or recent (<one month) smoker, HTN, HLP, family history of CAD, obesity. Risk Scores: Score 0 - 3: 2.5% MACE over next 6 weeks - Discharge Home Score 4 - 6: 20.3% MACE over next 6 weeks - Admit for Clinical Observation Score 7 - 10: 72.7% MACE over next 6 weeks - Early Invasive Strategies Allergies: Allergies: Allergies Coded Allergies Type Severity Reaction Last Updated Verified YURIY Inhibitors Allergy Intermediate 02/03/18 Yes Beta-Blockers (Beta-Adrenergic Bloc Allergy Intermediate 05/18/19 Yes lisinopril Adverse Reaction Severe "passed out" 08/05/13 Yes Physical Exam: PE: Constitutional: Well developed, well nourished, no acute distress, non-toxic appearance. [] HENT: Normocephalic, atraumatic, bilateral external ears normal, oropharynx moist, no oral exudates, nose normal. [] Eyes: PERRLA, EOMI, conjunctiva normal, no discharge. [] Neck: Normal range of motion, no tenderness, supple, no stridor. [] Cardiovascular:Heart rate regular rhythm, no murmur [] Lungs & Thorax: Bilateral breath sounds clear to auscultation, Respirations even and unlabored, no retractions, no respiratory distress [] Abdomen: soft, no tenderness, no masses, no pulsatile masses. [] Skin: Warm, dry, no erythema, no rash. [] Back: No tenderness Extremities: No cyanosis, ROM intact, no edema. [] Neurologic: Alert and oriented X 3, no focal deficits noted. [] Psychologic: Affect normal, judgement normal, mood normal. [] Current Patient Data: Labs: Laboratory Tests Test 10/07/19 13:31 White Blood Count 4.5 x10^3/uL (4.0-11.0) Red Blood Count 3.98 x10^6/uL (3.50-5.40) Hemoglobin 12.8 g/dL (12.0-15.5) Hematocrit 36.2 % (36.0-47.0) Mean Corpuscular Volume 91 fL (79-100) Mean Corpuscular Hemoglobin 32 pg (25-35) Mean Corpuscular Hemoglobin Concent 35 g/dL (31-37) Red Cell Distribution Width 13.7 % (11.5-14.5) Platelet Count 165 x10^3/uL (140-400) Neutrophils (%) (Auto) 59 % (31-73) Lymphocytes (%) (Auto) 27 % (24-48) Monocytes (%) (Auto) 12 % (0-9) H Eosinophils (%) (Auto) 1 % (0-3) Basophils (%) (Auto) 1 % (0-3) Neutrophils # (Auto) 2.7 x10^3/uL (1.8-7.7) Lymphocytes # (Auto) 1.2 x10^3/uL (1.0-4.8) Monocytes # (Auto) 0.5 x10^3/uL (0.0-1.1) Eosinophils # (Auto) 0.0 x10^3/uL (0.0-0.7) Basophils # (Auto) 0.0 x10^3/uL (0.0-0.2) Prothrombin Time 13.2 SEC (11.7-14.0) Prothrombin Time INR 1.0 (0.8-1.1) Activated Partial Thromboplast Time 33 SEC (24-38) Sodium Level 142 mmol/L (136-145) Potassium Level 4.0 mmol/L (3.5-5.1) Chloride Level 103 mmol/L (98-107) Carbon Dioxide Level 33 mmol/L (21-32) H Anion Gap 6 (6-14) Blood Urea Nitrogen 21 mg/dL (7-20) H Creatinine 1.4 mg/dL (0.6-1.0) H Estimated GFR (Cockcroft-Gault) 35.5 BUN/Creatinine Ratio 15 (6-20) Glucose Level 115 mg/dL (70-99) H Calcium Level 8.4 mg/dL (8.5-10.1) L Magnesium Level 2.0 mg/dL (1.8-2.4) Total Bilirubin 0.7 mg/dL (0.2-1.0) Aspartate Amino Transferase (AST) 25 U/L (15-37) Alanine Aminotransferase (ALT) 23 U/L (14-59) Alkaline Phosphatase 38 U/L (46-116) L Creatine Kinase 84 U/L (26-192) Creatine Kinase MB (Mass) 2.7 ng/mL (0.0-3.6) Creatine Kinase MB Relative Index 3.2 % (0-4) Troponin I Quantitative < 0.017 ng/mL (0.000-0.055) DN-Vgu-X-Type Natriuretic Peptide 1154 pg/mL (0-449) H Total Protein 7.0 g/dL (6.4-8.2) Albumin 3.7 g/dL (3.4-5.0) Albumin/Globulin Ratio 1.1 (1.0-1.7) Lipase 390 U/L (73-393) Laboratory Tests 10/07/19 13:31 Laboratory Tests 10/07/19 13:31 Vital Signs: Vital Signs Date Time Temp Pulse Resp B/P (MAP) Pulse Ox O2 Delivery O2 Flow Rate FiO2 10/07/19 14:00 72 95 10/07/19 13:45 98.3 20 215/93 (133) Room Air 98.3 EKG: EK-sinus rhythm with leftward axis, rate 79, no STEMI read by Dr. Mauricio. [] Radiology/Procedures: Radiology/Procedures: PROCEDURE: CHEST AP ONLY CHEST AP ONLY History: Reason: chest pain,pt states pain in lt arm. / Spl. Instructions: / History: Comparison: May 16, 2019 Findings: No consolidation or pleural effusion. Normal heart size. No pneumothorax. Right shoulder arthroplasty. Impression: 1. No acute cardiopulmonary process.[] Course & Med Decision Making: Course & Med Decision Making Pertinent Labs and Imaging studies reviewed. (See chart for details) 89-year-old female presents via EMS with complaints of chest pain that has resolved and high blood pressure. EKG revealed no acute findings. CBC is unremarkable; PT/INR within normal limits; CMP reveals carbon dioxide of 33, BUN 21, creatinine 1.4, previous creatinine is 1.2 and history likely chronic, glucose 115, calcium 8.4, patient's BNP is 1154; CK index and troponin were negative; UA revealed 20-40 red blood cells, 1-4 white blood cells, moderate squamous cells and no bacteria Chest x-ray is unremarkable [id number] with Dr. Diane who is the admitting physician, and care was assumed following discussion of patient. Will admit patient for chest pain and hypertension Patient's vital signs stable. Patient remains afebrile, appears nontoxic, respirations even and unlabored. Patient will be admitted to the CVC floor. [] Dragon Disclaimer: Dragon Disclaimer: This electronic medical record was generated, in whole or in part, using a voice recognition dictation system. Departure Departure Impression: Primary Impression: Chest pain Qualified Codes: R07.9 - Chest pain, unspecified Additional Impression: Hypertension Qualified Codes: I10 - Essential (primary) hypertension Disposition: ADMITTED INPATIENT Admitting Physician: TAMIA mayer) Condition: STABLE Referrals: Aad MCELROY MD (PCP) Justicifation of Admission Dx: Justifications for Admission: Justification of Admission Dx: Yes Angina: New-Onset Hypertension: Symp at Rest KEVIN GUADALUPE APRN Oct 07, 2019 15:25
[2019-10-07 15:27] LABS: SQUAMOUS EPITHELIAL CELL,UR MOD /LPF
[2019-10-07 15:28] LABS: BACTERIA,URINE 0 /HPF (0-FEW); RBC,URINE 20-40 /HPF (0-2)
[2019-10-07] MEDS ORDERED: hydrALAZINE 20 MG/ML VIAL. IVP ONE (15:30)
[2019-10-07 19:10] VITALS: BP 180/72
[2019-10-07] MEDS ORDERED: NITR0.4T22 SL (19:36)
[2019-10-07] MEDS ORDERED: LACT20SO PO (20:04)
[2019-10-07] MEDS ORDERED: HYDROCORTISONE 2.5% RECTAL CREAM 30GM TUBE. RC PRN (20:15)
[2019-10-07] MEDS ORDERED: NITROGLYCERIN SUBLINGUAL 0.4 MG BOTTLE OF 25. SL PRN (20:15)
[2019-10-07] MEDS ORDERED: NITROGLYCERIN PREMIX 250 ML IV ONE (20:30)
[2019-10-07] MEDS: clonazePAM 0.5 MG TABLET PO SCH (21:14)
[2019-10-07] MEDS: traZODone 50 MG TABLET. PO PRN (21:15)
[2019-10-07] MEDS: HYDROcodone/APAP 5/325MG 1 TAB TABLET PO PRN (21:15)
[2019-10-07 21:38] VITALS: BP 153/80
[2019-10-07] MEDS: ATORVASTATIN CALCIUM 40 MG TABLET. PO SCH (21:38)
[2019-10-07 22:29] VITALS: BP 135/62
[2019-10-07 23:30] VITALS: BP 159/86
[2019-10-08] VITALS (11 sets, daily range): BP systolic 121–183; BP diastolic 60–91
--- NOTE | 2019-10-08 04:59 | EKG ---
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
--- NOTE | 2019-10-08 05:02 | EKG ---
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
[2019-10-08] MEDS ORDERED: RIVA1PAT23 TP (05:03)
--- NOTE | 2019-10-08 08:24 | EKG ---
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
[2019-10-08] MEDS: RIVASTIGMINE 9.5MG PATCH. TD SCH (08:42)
[2019-10-08] MEDS: LACTULOSE 20 GM/30 ML SOLUTION. PO SCH (08:45)
--- NOTE | 2019-10-08 08:56 | PDOC1 ---
History and Physical Date of Admission Date of Admission DATE: 10/08/19 TIME: 08:54 Identification/Chief Complaint Chief Complaint SEEN IN ER , 89 year old female brought to the emergency department by EMS with reports of chest pain, shortness of breath, and left arm numbness. Patient states that she fell in her closet but was able to pull herself up and called 911. She took 1 nitroglycerin and a full-strength aspirin and her chest pain went away completely. Patient states pcp stopped her blood pressure medication, HCTZ, She currently denies any headache. She states that prior to EMS arriving she did have a headache but it also went away after taking the nitro and aspirin. She denies any nausea, vomiting, diarrhea, abdominal pain, wheezing, fever, cough, syncope, or dizziness. BUT C/O LEG NUMBNESS states that 4 days ago she had some diarrhea, there was no blood in the stool but she has not had any bowel movement since MAY HAVE UTI Past Medical History Past Medical History Past Medical History Past Medical History Past Medical History: Angina, COPD, CVA, Depression, GERD, High Cholesterol, Hypertension, [place] Additional Past Medical Histor: GASTROPARESIS Past Surgical History: Appendectomy, Cholecystectomy, Hysterectomy, Tonsillectomy, Other Additional Past Surgical Histo: rightr shoulder cardiac stents Smoking Status: Former Smoker Alcohol Use: None Drug Use: None fhx HTN Cardiovascular: CAD, HTN, Hyperlipidemia Pulmonary: COPD CENTRAL NERVOUS SYSTEM: CVA, Dementia, Other GI: Constipation, Diverticulosis, GERD, Hemorrhoids Heme/Onc: Cancer Hepatobiliary: No pertinent hx Psych: Anxiety, Depression Musculoskeletal: Osteoarthritis, Other Rheumatologic: No pertinent hx Infectious disease: No pertinent hx Renal/: Chronic renal insuff, Urinary Incontinence Endocrine: No pertinent hx Past Surgical History Past Surgical History: Tonsillectomy, Hysterectomy, Colectomy, Colon Resection, Other Family History Family History: Hypertension, Family History Unknown Social History Smoke: No ALCOHOL: none Drugs: None Current Problem List Problem List Problems Medical Problems: (1) Chest pain Status: Acute Current Medications Current Medications Current Medications Hydralazine HCl (Apresoline Inj) 10 mg 1X ONCE IVP Last administered on 10/07/19at 15:44; Start 10/07/19 at 15:30; Stop 10/07/19 at 15:31; Status DC Clonazepam (KlonoPIN) 0.5 mg QHS PO Last administered on 10/07/19at 21:14; Start 10/07/19 at 21:00 Acetaminophen/ Hydrocodone Bitart (Lortab 5/325) 1 tab PRN Q6HRS PRN PO PAIN Last administered on 10/07/19at 21:15; Start 10/07/19 at 20:15 Hydrocortisone (Proctosol-Hc) 1 jan PRN BID PRN RC rectal pain; Start 10/07/19 at 20:15 Lactulose (Lactulose) 10 gm DAILY PO Last administered on 10/08/19at 08:45; Start 10/08/19 at 09:00 Nitroglycerin (Nitrostat) 0.4 mg PRN Q5MIN PRN SL CHEST PAIN; Start 10/07/19 at 20:15 Trazodone HCl (Desyrel) 50 mg PRN QHS PRN PO INSOMNIA Last administered on 10/07/19at 21:15; Start 10/07/19 at 20:15 Atorvastatin Calcium (Lipitor) 80 mg QHS PO Last administered on 10/07/19at 21:38; Start 10/07/19 at 21:00 Nitroglycerin/ Dextrose 250 ml @ 0 mls/hr 1X ONCE IV Last administered on 10/07/19at 21:29; Start 10/07/19 at 20:30; Stop 10/07/19 at 20:31; Status DC Rivastigmine (Exelon) 1 patch DAILY TD Last administered on 10/08/19at 08:42; Start 10/08/19 at 09:00 Active Scripts Active Proctosol-Hc (Hydrocortisone) 28.35 Gm Cream..g. 1 Jan RC PRN BID PRN 10 Days Reported EXELON 9.5mg/24hr (Rivastigmine) 1 Each Patch.td24 1 Patch TP DAILY 1 Days Lactulose 20 Gm/30 Ml Solution 10 Gm PO DAILY NITROGLYCERIN SubLingual (Nitroglycerin) 0.4 Mg Tab.subl 0.4 Mg SL PRN Q5MIN PRN Hydrocodone-Apap 5-325 (Hydrocodone Bit/Acetaminophen) 1 Each Tablet 1 Tab PO PRN Q6HRS PRN Clonazepam (Clonazepam) 0.5 Mg Tablet 1-2 Tab PO QHS Trazodone Hcl 50 Mg Tablet 1 Tab PO QHS PRN Atorvastatin Calcium 80 Mg Tablet 80 Mg PO DAILY Allergies Allergies: Coded Allergies: YURIY Inhibitors (Verified Allergy, Intermediate, 02/03/18) Beta-Blockers (Beta-Adrenergic Bloc (Verified Allergy, Intermediate, 05/18/19) Has received IV labetolol during prior visit without issues lisinopril (Verified Adverse Reaction, Severe, "passed out", 08/05/13) ROS Review of System Review of Systems: Constitutional: Denies fever or chills. [] Eyes: Denies change in visual acuity. [] HENT: Denies nasal congestion or sore throat. [] Respiratory: Denies cough or shortness of breath. [] Cardiovascular: See HPI GI: Denies abdominal pain, nausea, vomiting, bloody stools or diarrhea; reports constipation for 4 days. [] : Denies dysuria. [] Musculoskeletal: Denies back pain or joint pain. [] C/O LEG NUMBNESS Integument: Denies rash. [] Neurologic: Denies headache, focal weakness or sensory changes. [] Endocrine: Denies polyuria or polydipsia. [] Lymphatic: Denies swollen glands. [] Psychiatric: Denies depression or anxiety. [] 14 PT ROS OTHERWISE NEG PSYCHOLOGICAL ROS: YES: Irritablity Respiratory: No: Cough, Hemoptysis, Orthopnea, Pleuritic Pain, Shortness of breath, SOB with excertion, Sputum Changes, Stridor, Tachypnea, Wheezing, Other Cardiovascular: yes Chest Pain; No Palpitations, No Orthopnea, No Paroxysmal Noc. Dyspnea, No Edema, No Lt Headedness, No Other Musculoskeletal: Yes Gait Disturbance, Yes Joint Stiffness, Yes Joint Swelling Physical Exam Physical Exam Constitutional: Well developed, well nourished, no acute distress, non-toxic appearance. [] HENT: Normocephalic, atraumatic, bilateral external ears normal, oropharynx moist, no oral exudates, nose normal. [] Eyes: PERRLA, EOMI, conjunctiva normal, no discharge. [] Neck: Normal range of motion, no tenderness, supple, no stridor. [] Cardiovascular:Heart rate regular rhythm, no murmur [] Lungs & Thorax: Bilateral breath sounds clear to auscultation, Respirations even and unlabored, no retractions, no respiratory distress [] Abdomen: soft, no tenderness, no masses, no pulsatile masses. [] Skin: Warm, dry, no erythema, no rash. [] Back: No tenderness Extremities: No cyanosis, ROM intact, no edema. [] Neurologic: Alert and oriented X 3, no focal deficits noted. [] Psychologic: Affect normal, judgment poor , mood ANGRY [] General: No acute distress Lungs: Clear to auscultation, Normal air movement Breasts: Not examined Abdomen: Normal bowel sounds, Soft Rectal Exam: not examined Extremities: No cyanosis Neuro: Normal speech, Cranial nerves 3-12 NL Psych/Mental Status: Mental status NL, Mood NL, Other (SAD) Vitals Vitals Vital Signs Date Time Temp Pulse Resp B/P (MAP) Pulse Ox O2 Delivery O2 Flow Rate FiO2 10/08/19 06:26 97.7 58 18 160/91 (114) 96 Room Air 97.7 Labs Labs Laboratory Tests Test 10/07/19 13:31 10/07/19 14:40 10/08/19 00:15 White Blood Count 4.5 x10^3/uL (4.0-11.0) Red Blood Count 3.98 x10^6/uL (3.50-5.40) Hemoglobin 12.8 g/dL (12.0-15.5) Hematocrit 36.2 % (36.0-47.0) Mean Corpuscular Volume 91 fL (79-100) Mean Corpuscular Hemoglobin 32 pg (25-35) Mean Corpuscular Hemoglobin Concent 35 g/dL (31-37) Red Cell Distribution Width 13.7 % (11.5-14.5) Platelet Count 165 x10^3/uL (140-400) Neutrophils (%) (Auto) 59 % (31-73) Lymphocytes (%) (Auto) 27 % (24-48) Monocytes (%) (Auto) 12 % (0-9) Eosinophils (%) (Auto) 1 % (0-3) Basophils (%) (Auto) 1 % (0-3) Neutrophils # (Auto) 2.7 x10^3/uL (1.8-7.7) Lymphocytes # (Auto) 1.2 x10^3/uL (1.0-4.8) Monocytes # (Auto) 0.5 x10^3/uL (0.0-1.1) Eosinophils # (Auto) 0.0 x10^3/uL (0.0-0.7) Basophils # (Auto) 0.0 x10^3/uL (0.0-0.2) Prothrombin Time 13.2 SEC (11.7-14.0) Prothromb Time International Ratio 1.0 (0.8-1.1) Activated Partial Thromboplast Time 33 SEC (24-38) Sodium Level 142 mmol/L (136-145) Potassium Level 4.0 mmol/L (3.5-5.1) Chloride Level 103 mmol/L (98-107) Carbon Dioxide Level 33 mmol/L (21-32) Anion Gap 6 (6-14) Blood Urea Nitrogen 21 mg/dL (7-20) Creatinine 1.4 mg/dL (0.6-1.0) Estimated GFR (Cockcroft-Gault) 35.5 BUN/Creatinine Ratio 15 (6-20) Glucose Level 115 mg/dL (70-99) Calcium Level 8.4 mg/dL (8.5-10.1) Magnesium Level 2.0 mg/dL (1.8-2.4) Total Bilirubin 0.7 mg/dL (0.2-1.0) Aspartate Amino Transf (AST/SGOT) 25 U/L (15-37) Alanine Aminotransferase (ALT/SGPT) 23 U/L (14-59) Alkaline Phosphatase 38 U/L (46-116) Creatine Kinase 84 U/L (26-192) Creatine Kinase MB (Mass) 2.7 ng/mL (0.0-3.6) Creatine Kinase MB Relative Index 3.2 % (0-4) Troponin I Quantitative < 0.017 ng/mL (0.000-0.055) < 0.017 ng/mL (0.000-0.055) NK-Kib-O-Type Natriuretic Peptide 1154 pg/mL (0-449) Total Protein 7.0 g/dL (6.4-8.2) Albumin 3.7 g/dL (3.4-5.0) Albumin/Globulin Ratio 1.1 (1.0-1.7) Lipase 390 U/L (73-393) Urine Collection Type Unknown Urine Color Yellow Urine Clarity Clear Urine pH 6.5 (<5.0-8.0) Urine Specific [place] 1.020 (1.000-1.030) Urine Protein Negative mg/dL (NEG-TRACE) Urine Glucose (UA) Negative mg/dL (NEG) Urine Ketones (Stick) Negative mg/dL (NEG) Urine Blood Moderate (NEG) Urine Nitrite Negative (NEG) Urine Bilirubin Negative (NEG) Urine Urobilinogen Dipstick 1.0 mg/dL (0.2 mg/dL) Urine Leukocyte Esterase Small (NEG) Urine RBC 20-40 /HPF (0-2) Urine WBC 1-4 /HPF (0-4) Urine Squamous Epithelial Cells Mod /LPF Urine Transitional Epithelial Cells Few /LPF Urine Renal Epithelial Cells Few /LPF Urine Bacteria 0 /HPF (0-FEW) Laboratory Tests Test 10/07/19 13:31 10/07/19 14:40 10/08/19 00:15 White Blood Count 4.5 x10^3/uL (4.0-11.0) Red Blood Count 3.98 x10^6/uL (3.50-5.40) Hemoglobin 12.8 g/dL (12.0-15.5) Hematocrit 36.2 % (36.0-47.0) Mean Corpuscular Volume 91 fL (79-100) Mean Corpuscular Hemoglobin 32 pg (25-35) Mean Corpuscular Hemoglobin Concent 35 g/dL (31-37) Red Cell Distribution Width 13.7 % (11.5-14.5) Platelet Count 165 x10^3/uL (140-400) Neutrophils (%) (Auto) 59 % (31-73) Lymphocytes (%) (Auto) 27 % (24-48) Monocytes (%) (Auto) 12 % (0-9) Eosinophils (%) (Auto) 1 % (0-3) Basophils (%) (Auto) 1 % (0-3) Neutrophils # (Auto) 2.7 x10^3/uL (1.8-7.7) Lymphocytes # (Auto) 1.2 x10^3/uL (1.0-4.8) Monocytes # (Auto) 0.5 x10^3/uL (0.0-1.1) Eosinophils # (Auto) 0.0 x10^3/uL (0.0-0.7) Basophils # (Auto) 0.0 x10^3/uL (0.0-0.2) Prothrombin Time 13.2 SEC (11.7-14.0) Prothromb Time International Ratio 1.0 (0.8-1.1) Activated Partial Thromboplast Time 33 SEC (24-38) Sodium Level 142 mmol/L (136-145) Potassium Level 4.0 mmol/L (3.5-5.1) Chloride Level 103 mmol/L (98-107) Carbon Dioxide Level 33 mmol/L (21-32) Anion Gap 6 (6-14) Blood Urea Nitrogen 21 mg/dL (7-20) Creatinine 1.4 mg/dL (0.6-1.0) Estimated GFR (Cockcroft-Gault) 35.5 BUN/Creatinine Ratio 15 (6-20) Glucose Level 115 mg/dL (70-99) Calcium Level 8.4 mg/dL (8.5-10.1) Magnesium Level 2.0 mg/dL (1.8-2.4) Total Bilirubin 0.7 mg/dL (0.2-1.0) Aspartate Amino Transf (AST/SGOT) 25 U/L (15-37) Alanine Aminotransferase (ALT/SGPT) 23 U/L (14-59) Alkaline Phosphatase 38 U/L (46-116) Creatine Kinase 84 U/L (26-192) Creatine Kinase MB (Mass) 2.7 ng/mL (0.0-3.6) Creatine Kinase MB Relative Index 3.2 % (0-4) Troponin I Quantitative < 0.017 ng/mL (0.000-0.055) < 0.017 ng/mL (0.000-0.055) DL-Hbx-T-Type Natriuretic Peptide 1154 pg/mL (0-449) Total Protein 7.0 g/dL (6.4-8.2) Albumin 3.7 g/dL (3.4-5.0) Albumin/Globulin Ratio 1.1 (1.0-1.7) Lipase 390 U/L (73-393) Urine Collection Type Unknown Urine Color Yellow Urine Clarity Clear Urine pH 6.5 (<5.0-8.0) Urine Specific [place] 1.020 (1.000-1.030) Urine Protein Negative mg/dL (NEG-TRACE) Urine Glucose (UA) Negative mg/dL (NEG) Urine Ketones (Stick) Negative mg/dL (NEG) Urine Blood Moderate (NEG) Urine Nitrite Negative (NEG) Urine Bilirubin Negative (NEG) Urine Urobilinogen Dipstick 1.0 mg/dL (0.2 mg/dL) Urine Leukocyte Esterase Small (NEG) Urine RBC 20-40 /HPF (0-2) Urine WBC 1-4 /HPF (0-4) Urine Squamous Epithelial Cells Mod /LPF Urine Transitional Epithelial Cells Few /LPF Urine Renal Epithelial Cells Few /LPF Urine Bacteria 0 /HPF (0-FEW) VTE Prophylaxis Ordered VTE Prophylaxis Devices: Yes VTE Pharmacological Prophylaxi: Yes Assessment/Plan Assessment/Plan IMPRESSION HTN Urgency - treating, still somewhat elevated. added amlodipine HLD - on statin gerd - on PPI depression - cont meds h/o CVA wo neurologic deficit historically - h/o CAD - On meds, stable. Cardiology consulted CKD3 - stable, Constipation - will cont psyllium and miralax Rectal pain - will cont hydrocortisone Mild cognitive impairment - cont exelon patch Chest pain UTI plan cvc bed Cardiology consult bp control d/w HUGO MOREIRA ADMITTED Justicifation of Admission Dx: Justifications for Admission: Justification of Admission Dx: Yes Angina: New-Onset Hypertension: Symp at Rest CARMENZA NERI MD Oct 08, 2019 08:56
--- NOTE | 2019-10-08 09:10 | PDOC2 ---
CARDIAC CONSULT DATE OF CONSULT Date of Consult DATE: 10/08/19 TIME: 08:59 REASON FOR CONSULT Reason for Consult: Chest pain Hypertensive urgency REFERRING PHYSICIAN Referring Physician: Dr. Sahu SOURCE Source: Chart review, Patient HISTORY OF PRESENT ILLNESS HISTORY OF PRESENT ILLNESS This is an 89 yo female who present secondary to shortness of breath, chest pain, and fall. Pain located in her left chest. [place] slightly SOA. Had headache. Took Nitro and ASA, which seemed to improved pain. No associated dizzin ess,diaphoresis, or nausea/vomiting. Blood pressure significantly elevated upon arrival. Presently more concerned about having BP rather than chest pain. She reports blood pressure medication was discontinued recently. Was told she "didn't need it". PAST MEDICAL HISTORY Cardiovascular: CAD, HTN, Hyperlipidemia Pulmonary: COPD CENTRAL NERVOUS SYSTEM: CVA, Dementia GI: Diverticulosis, GERD Psych: Anxiety, Depression PAST SURGICAL HISTORY Past Surgical History: Appendectomy, Cholecystectomy, Tonsillectomy, Hysterectomy, Colon Resection FAMILY HISTORY Family History: Other (noncontributory to age) SOCIAL HISTORY Smoke: No ALCOHOL: none Drugs: None Lives: with Family CURRENT MEDICATIONS CURRENT MEDICATIONS Current Medications Medications (Trade) Dose Ordered Sig/Vanessa Route PRN Reason Start Time Stop Time Status Last Admin Dose Admin Hydralazine HCl (Apresoline Inj) 10 mg 1X ONCE IVP 10/07/19 15:30 10/07/19 15:31 DC 10/07/19 15:44 Clonazepam (KlonoPIN) 0.5 mg QHS PO 10/07/19 21:00 10/07/19 21:14 Acetaminophen/ Hydrocodone Bitart (Lortab 5/325) 1 tab PRN Q6HRS PRN PO PAIN 10/07/19 20:15 10/07/19 21:15 Lactulose (Lactulose) 10 gm DAILY PO 10/08/19 09:00 10/08/19 08:45 Trazodone HCl (Desyrel) 50 mg PRN QHS PRN PO INSOMNIA 10/07/19 20:15 10/07/19 21:15 Atorvastatin Calcium (Lipitor) 80 mg QHS PO 10/07/19 21:00 10/07/19 21:38 Nitroglycerin/ Dextrose 250 ml @ 0 mls/hr 1X ONCE IV 10/07/19 20:30 10/07/19 20:31 DC 10/07/19 21:29 Rivastigmine (Exelon) 1 patch DAILY TD 10/08/19 09:00 10/08/19 08:42 ALLERGIES ALLERGIES: Coded Allergies: YURIY Inhibitors (Verified Allergy, Intermediate, 02/03/18) Beta-Blockers (Beta-Adrenergic Bloc (Verified Allergy, Intermediate, 05/18/19) Has received IV labetolol during prior visit without issues lisinopril (Verified Adverse Reaction, Severe, "passed out", 08/05/13) ROS Review of System 14 point ROS conducted with pertinent positives noted above in hPI PHYSICAL EXAM General: Alert, Oriented X3, Cooperative, No acute distress HEENT: Atraumatic, Mucous membr. moist/pink Lungs: Clear to auscultation Heart: Regular rate, Other (2/6 systolic murmur ) Abdomen: No tenderness, No hepatosplenomegaly Extremities: No edema, Normal pulses Skin: No significant lesion Neuro: Normal speech, Sensation intact Psych/Mental Status: Mood NL MUSCULOSKELETAL: Osteoarthritic changes both hands VITALS/I&O VITALS/I&O: Vital Signs Date Time Temp Pulse Resp B/P (MAP) Pulse Ox O2 Delivery O2 Flow Rate FiO2 10/08/19 06:26 97.7 58 18 160/91 (114) 96 Room Air 97.7 I & O 10/07/19 10/07/19 10/08/19 15:00 23:00 07:00 Intake Total 120 ml 200 ml Output Total 800 ml Balance 120 ml -600 ml LABS Lab: Laboratory Tests Test 10/07/19 13:31 10/07/19 14:40 10/08/19 00:15 White Blood Count 4.5 x10^3/uL (4.0-11.0) Red Blood Count 3.98 x10^6/uL (3.50-5.40) Hemoglobin 12.8 g/dL (12.0-15.5) Hematocrit 36.2 % (36.0-47.0) Mean Corpuscular Volume 91 fL (79-100) Mean Corpuscular Hemoglobin 32 pg (25-35) Mean Corpuscular Hemoglobin Concent 35 g/dL (31-37) Red Cell Distribution Width 13.7 % (11.5-14.5) Platelet Count 165 x10^3/uL (140-400) Neutrophils (%) (Auto) 59 % (31-73) Lymphocytes (%) (Auto) 27 % (24-48) Monocytes (%) (Auto) 12 % (0-9) H Eosinophils (%) (Auto) 1 % (0-3) Basophils (%) (Auto) 1 % (0-3) Neutrophils # (Auto) 2.7 x10^3/uL (1.8-7.7) Lymphocytes # (Auto) 1.2 x10^3/uL (1.0-4.8) Monocytes # (Auto) 0.5 x10^3/uL (0.0-1.1) Eosinophils # (Auto) 0.0 x10^3/uL (0.0-0.7) Basophils # (Auto) 0.0 x10^3/uL (0.0-0.2) Prothrombin Time 13.2 SEC (11.7-14.0) Prothrombin Time INR 1.0 (0.8-1.1) Activated Partial Thromboplast Time 33 SEC (24-38) Sodium Level 142 mmol/L (136-145) Potassium Level 4.0 mmol/L (3.5-5.1) Chloride Level 103 mmol/L (98-107) Carbon Dioxide Level 33 mmol/L (21-32) H Anion Gap 6 (6-14) Blood Urea Nitrogen 21 mg/dL (7-20) H Creatinine 1.4 mg/dL (0.6-1.0) H Estimated GFR (Cockcroft-Gault) 35.5 BUN/Creatinine Ratio 15 (6-20) Glucose Level 115 mg/dL (70-99) H Calcium Level 8.4 mg/dL (8.5-10.1) L Magnesium Level 2.0 mg/dL (1.8-2.4) Total Bilirubin 0.7 mg/dL (0.2-1.0) Aspartate Amino Transferase (AST) 25 U/L (15-37) Alanine Aminotransferase (ALT) 23 U/L (14-59) Alkaline Phosphatase 38 U/L (46-116) L Creatine Kinase 84 U/L (26-192) Creatine Kinase MB (Mass) 2.7 ng/mL (0.0-3.6) Creatine Kinase MB Relative Index 3.2 % (0-4) Troponin I Quantitative < 0.017 ng/mL (0.000-0.055) < 0.017 ng/mL (0.000-0.055) OQ-Ykt-U-Type Natriuretic Peptide 1154 pg/mL (0-449) H Total Protein 7.0 g/dL (6.4-8.2) Albumin 3.7 g/dL (3.4-5.0) Albumin/Globulin Ratio 1.1 (1.0-1.7) Lipase 390 U/L (73-393) Urine Collection Type Unknown Urine Color Yellow Urine Clarity Clear Urine pH 6.5 (<5.0-8.0) Urine Specific [place] 1.020 (1.000-1.030) Urine Protein Negative mg/dL (NEG-TRACE) Urine Glucose (UA) Negative mg/dL (NEG) Urine Ketones (Stick) Negative mg/dL (NEG) Urine Blood Moderate (NEG) Urine Nitrite Negative (NEG) Urine Bilirubin Negative (NEG) Urine Urobilinogen Dipstick 1.0 mg/dL (0.2 mg/dL) Urine Leukocyte Esterase Small (NEG) Urine RBC 20-40 /HPF (0-2) Urine WBC 1-4 /HPF (0-4) Urine Squamous Epithelial Cells Mod /LPF Urine Transitional Epithelial Cells Few /LPF Urine Renal Epithelial Cells Few /LPF Urine Bacteria 0 /HPF (0-FEW) Laboratory Tests 10/07/19 13:31 Laboratory Tests 10/07/19 13:31 ECHOCARDIOGRAM ECHOCARDIOGRAM <Conclusion> The left ventricular systolic function is normal. The Ejection Fraction is 55-60%. There is normal LV segmental wall motion. Transmitral Doppler flow pattern is Grade I-abnormal relaxation pattern. Mild aortic regurgitation. Trace mitral regurgitation. Trace tricuspid regurgitation. The PA pressure was estimated at 16 mmHg. There is no evidence of significant pericardial effusion. DATE: 08/05/19 1445 STRESS TEST STRESS TEST Conclusion 1. Regadenoson cardioisotope stress test did not show any evidence of ischemia or infarct. 2. Normal left ventricular systolic function with ejection fraction calculated at 74%. 3. Low risk for cardiac events. DATE: 09/03/18 1443 ASSESSMENT/PLAN ASSESSMENT/PLAN 1. Chest pain, atypical; AMI ruled out. Most probably secondary to #2. recent echo with preserved LV systolic function. MPI 09/11 without evidence of ischemia 2. Hypertensive urgency; remains elevated . On nitro gtt 3. Hyperlipidemia; statin 4. 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 CKD; Cr stable 6. COPD 7. H/o CVA 8. Dementia Recommendations Resume secondary prevention Add Mitchell Sanchez for blood pressure control Titrate off Nitro gtt Hydralazine IV PRN Lipids Consider further ischemic evaluation on an outpatient basis if CP recurrent. GREG BENTLEY APRN Oct 08, 2019 09:10
[2019-10-08 09:21] LABS: CHOLESTEROL/HDL RATIO 2.3
[2019-10-08] MEDS ORDERED: amLODIPine BESYLATE 10 MG TABLET PO ONE (11:15)
[2019-10-08] MEDS: ISOSORBIDE MONONITRATE ER 30 MG TAB.ER.24H PO SCH (11:25)
[2019-10-08] MEDS: BISACODYL 10 MG SUPP.RECT. PR PRN (11:25)
[2019-10-08] MEDS ORDERED: MINERAL OIL 133 ML ENEMA. PR ONE (12:30)
[2019-10-08] MEDS: hydrALAZINE 20 MG/ML VIAL. IVP PRN (12:40)
--- NOTE | 2019-10-08 13:00 | NUR ---
SS following for discharge planning. SS reviewed pt chart and discussed with pt RN. Pt is from home with daughter and is currently on room air. SS will continue to follow for discharge planning.
[2019-10-08] MEDS: HYDROcodone/APAP 5/325MG 1 TAB TABLET PO PRN ×2 (14:09→22:11)
[2019-10-08] MEDS ORDERED: guaiFENesin ORAL 200 MG/10 ML LIQUID. PO PRN (15:30)
[2019-10-08] MEDS ORDERED: hydrALAZINE 20 MG/ML VIAL. IVP PRN (15:30)
[2019-10-08] MEDS ORDERED: SODIUM PHOSPHATES 19/7GM 133 ML ENEMA. PR PRN (15:30)
[2019-10-08] MEDS ORDERED: 0.9 % SODIUM CHLORIDE 10 ML DISP.SYRIN. IV PRN (15:30)
[2019-10-08] MEDS ORDERED: ALBUTEROL SULFATE 2.5 MG/3 ML NEBU. NEB PRN (15:30)
[2019-10-08] MEDS: cefTRIAXone IV Push 1 GM VIAL. IVP SCH (16:00)
--- NOTE | 2019-10-08 16:05 | EKG ---
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
[2019-10-08] MEDS: ENOXAPARIN 30 MG/0.3 ML SYRINGE. SQ SCH (16:43)
[2019-10-08] MEDS: DOCUSATE SODIUM 100 MG CAPSULE. PO PRN (21:34)
[2019-10-08] MEDS: LACTOBACILLUS RHAMNOSUS GG 1 CAPSULE. PO SCH (21:34)
[2019-10-08] MEDS: clonazePAM 0.5 MG TABLET PO SCH (21:34)
[2019-10-08] MEDS: ATORVASTATIN CALCIUM 40 MG TABLET. PO SCH (21:35)
[2019-10-09 03:00] VITALS: BP 149/83
[2019-10-09 07:15] VITALS: BP 177/60
--- NOTE | 2019-10-09 08:17 | PDOC ---
PROGRESS NOTES History of Present Illness History of Present Illness VTE Prophylaxis Ordered VTE Prophylaxis Devices: Yes VTE Pharmacological Prophylaxi: Yes Assessment/Plan Assessment/Plan IMPRESSION HTN Urgency - treating, still somewhat elevated. added amlodipine HLD - on statin gerd - on PPI depression / ANXIETY - cont meds h/o CVA wo neurologic deficit historically - h/o CAD - On meds, stable. Cardiology consulted CKD3 - stable, Constipation - will cont psyllium and miralax Rectal pain - will cont hydrocortisone Mild cognitive impairment - cont exelon patch Chest pain UTI 10/08 urine retention noted > 300cc plan cvc bed Cardiology consult bp control trend troponin i straight cath PT/OT d/w RN kylie ADMITTED Justicifation of Admission Dx: Justicifation of Admission Dx: Justifications for Admission: Justification of Admission Dx: Yes Angina: New-Onset Hypertension: Symp at Rest Vitals Vitals Vital Signs Date Time Temp Pulse Resp B/P (MAP) Pulse Ox O2 Delivery O2 Flow Rate FiO2 10/09/19 07:15 98.6 71 17 177/60 (99) 95 98.6 10/08/19 23:30 Room Air Physical Exam General: Alert, Oriented X3, Cooperative, No acute distress Heart: Regular rate, Other (2/6 systolic murmur ) Lungs: Clear Abdomen: No tenderness, No hepatosplenomegaly Extremities: No edema, Normal pulses Skin: No significant lesion Labs LABS Laboratory Tests Test 10/08/19 13:12 Troponin I Quantitative < 0.017 ng/mL (0.000-0.055) Assessment and Plan Assessmemt and Plan Problems Medical Problems: (1) Chest pain Status: Acute Comment Review of Relevant I have reviewed the following items lorna (where applicable) has been applied. Labs Laboratory Tests Test 10/07/19 13:31 10/07/19 14:40 10/08/19 00:15 10/08/19 06:30 White Blood Count 4.5 x10^3/uL (4.0-11.0) Red Blood Count 3.98 x10^6/uL (3.50-5.40) Hemoglobin 12.8 g/dL (12.0-15.5) Hematocrit 36.2 % (36.0-47.0) Mean Corpuscular Volume 91 fL (79-100) Mean Corpuscular Hemoglobin 32 pg (25-35) Mean Corpuscular Hemoglobin Concent 35 g/dL (31-37) Red Cell Distribution Width 13.7 % (11.5-14.5) Platelet Count 165 x10^3/uL (140-400) Neutrophils (%) (Auto) 59 % (31-73) Lymphocytes (%) (Auto) 27 % (24-48) Monocytes (%) (Auto) 12 % (0-9) Eosinophils (%) (Auto) 1 % (0-3) Basophils (%) (Auto) 1 % (0-3) Neutrophils # (Auto) 2.7 x10^3/uL (1.8-7.7) Lymphocytes # (Auto) 1.2 x10^3/uL (1.0-4.8) Monocytes # (Auto) 0.5 x10^3/uL (0.0-1.1) Eosinophils # (Auto) 0.0 x10^3/uL (0.0-0.7) Basophils # (Auto) 0.0 x10^3/uL (0.0-0.2) Prothrombin Time 13.2 SEC (11.7-14.0) Prothromb Time International Ratio 1.0 (0.8-1.1) Activated Partial Thromboplast Time 33 SEC (24-38) Sodium Level 142 mmol/L (136-145) Potassium Level 4.0 mmol/L (3.5-5.1) Chloride Level 103 mmol/L (98-107) Carbon Dioxide Level 33 mmol/L (21-32) Anion Gap 6 (6-14) Blood Urea Nitrogen 21 mg/dL (7-20) Creatinine 1.4 mg/dL (0.6-1.0) Estimated GFR (Cockcroft-Gault) 35.5 BUN/Creatinine Ratio 15 (6-20) Glucose Level 115 mg/dL (70-99) Calcium Level 8.4 mg/dL (8.5-10.1) Magnesium Level 2.0 mg/dL (1.8-2.4) Total Bilirubin 0.7 mg/dL (0.2-1.0) Aspartate Amino Transf (AST/SGOT) 25 U/L (15-37) Alanine Aminotransferase (ALT/SGPT) 23 U/L (14-59) Alkaline Phosphatase 38 U/L (46-116) Creatine Kinase 84 U/L (26-192) Creatine Kinase MB (Mass) 2.7 ng/mL (0.0-3.6) Creatine Kinase MB Relative Index 3.2 % (0-4) Troponin I Quantitative < 0.017 ng/mL (0.000-0.055) < 0.017 ng/mL (0.000-0.055) < 0.017 ng/mL (0.000-0.055) FX-Afl-V-Type Natriuretic Peptide 1154 pg/mL (0-449) Total Protein 7.0 g/dL (6.4-8.2) Albumin 3.7 g/dL (3.4-5.0) Albumin/Globulin Ratio 1.1 (1.0-1.7) Lipase 390 U/L (73-393) Urine Collection Type Unknown Urine Color Yellow Urine Clarity Clear Urine pH 6.5 (<5.0-8.0) Urine Specific [place] 1.020 (1.000-1.030) Urine Protein Negative mg/dL (NEG-TRACE) Urine Glucose (UA) Negative mg/dL (NEG) Urine Ketones (Stick) Negative mg/dL (NEG) Urine Blood Moderate (NEG) Urine Nitrite Negative (NEG) Urine Bilirubin Negative (NEG) Urine Urobilinogen Dipstick 1.0 mg/dL (0.2 mg/dL) Urine Leukocyte Esterase Small (NEG) Urine RBC 20-40 /HPF (0-2) Urine WBC 1-4 /HPF (0-4) Urine Squamous Epithelial Cells Mod /LPF Urine Transitional Epithelial Cells Few /LPF Urine Renal Epithelial Cells Few /LPF Urine Bacteria 0 /HPF (0-FEW) Triglycerides Level 85 mg/dL (0-150) Cholesterol Level 128 mg/dL (0-200) LDL Cholesterol, Calculated 56 mg/dL (0-100) VLDL Cholesterol, Calculated 17 mg/dL (0-40) Non-HDL Cholesterol Calculated 73 mg/dL (0-129) HDL Cholesterol 55 mg/dL (40-60) Cholesterol/HDL Ratio 2.3 Test 10/08/19 13:12 Troponin I Quantitative < 0.017 ng/mL (0.000-0.055) Laboratory Tests Test 10/08/19 13:12 Troponin I Quantitative < 0.017 ng/mL (0.000-0.055) Medications Current Medications Hydralazine HCl (Apresoline Inj) 10 mg 1X ONCE IVP Last administered on 10/07/19 15:44; Start 10/07/19 at 15:30; Stop 10/07/19 at 15:31; Status DC Clonazepam (KlonoPIN) 0.5 mg QHS PO Last administered on 10/08/19 21:34; Start 10/07/19 at 21:00 Acetaminophen/ Hydrocodone Bitart (Lortab 5/325) 1 tab PRN Q6HRS PRN PO MODERATE TO SEVERE PAIN Last administered on 10/08/19 22:11; Start 10/07/19 at 20:15 Hydrocortisone (Proctosol-Hc) 1 jan PRN BID PRN RC rectal pain Last administered on 10/08/19 14:35; Start 10/07/19 at 20:15 Lactulose (Lactulose) 10 gm DAILY PO Last administered on 10/08/19 08:45; Start 10/08/19 at 09:00 Nitroglycerin (Nitrostat) 0.4 mg PRN Q5MIN PRN SL CHEST PAIN; Start 10/07/19 at 20:15 Trazodone HCl (Desyrel) 50 mg PRN QHS PRN PO INSOMNIA Last administered on 10/07/19 21:15; Start 10/07/19 at 20:15 Atorvastatin Calcium (Lipitor) 80 mg QHS PO Last administered on 10/08/19 21:35; Start 10/07/19 at 21:00 Nitroglycerin/ Dextrose 250 ml @ 0 mls/hr 1X ONCE IV Last administered on 10/07/19at 21:29; Start 10/07/19 at 20:30; Stop 10/07/19 at 20:31; Status DC Rivastigmine (Exelon) 1 patch DAILY TD Last administered on 10/08/19 08:42; Start 10/08/19 at 09:00 Amlodipine Besylate (Norvasc) 10 mg DAILY PO ; Start 10/09/19 at 09:00 Hydralazine HCl (Apresoline Inj) 10 mg PRN Q4HRS PRN IVP ELEVATED BP, SEE COMMENTS Last administered on 10/08/19at 12:40; Start 10/08/19 at 11:00 Polyethylene Glycol (miraLAX PACKET) 17 gm PRN DAILY PRN PO CONSTIPATION; Start 10/08/19 at 11:15 Bisacodyl (Dulcolax Supp) 10 mg PRN DAILY PRN MT CONSTIPATION, 1sT CHOICE Last administered on 10/08/19at 11:25; Start 10/08/19 at 11:15 Amlodipine Besylate (Norvasc) 10 mg 1X ONCE PO Last administered on 10/08/19at 11:25; Start 10/08/19 at 11:15; Stop 10/08/19 at 11:18; Status DC Isosorbide Mononitrate (Imdur) 30 mg DAILY PO Last administered on 10/08/19at 11:25; Start 10/08/19 at 11:15 Mineral Oil (Fleet Mineral Oil) 133 ml 1X ONCE MT Last administered on 10/08/19at 12:40; Start 10/08/19 at 12:30; Stop 10/08/19 at 12:31; Status DC Hydralazine HCl (Apresoline Inj) 10 mg PRN Q4HRS PRN IVP ELEVATED BP, SEE COMME NTS; Start 10/08/19 at 15:30; Status Cancel Sodium Chloride (Normal Saline Flush) 3 ml QSHIFT PRN IV AFTER MEDS AND BLOOD DRAWS; Start 10/08/19 at 15:30 Ondansetron HCl (Zofran) 4 mg PRN Q4HRS PRN IV NAUSEA/VOMITING; Start 10/08/19 at 15:30 Acetaminophen (Tylenol) 650 mg PRN Q4HRS PRN PO TEMP OVER 100.4F OR MILD PAIN; Start 10/08/19 at 15:30 Al Hydroxide/Mg Hydroxide (Mylanta Plus Xs) 30 ml PRN DAILY PRN PO HEARTBURN / GAS; Start 10/08/19 at 15:30 Sodium Monofluorophosphate (Fleet Adult) 133 ml PRN DAILY PRN MT CONSTIPATION, 2nd CHOICE; Start 10/08/19 at 15:30 Docusate Sodium (Colace) 100 mg PRN BID PRN PO HARD STOOLS Last administered on 10/08/19at 21:34; Start 10/08/19 at 15:30 Albuterol Sulfate (Ventolin Neb Soln) 2.5 mg PRN Q4HRS PRN NEB SHORTNESS OF BREATH; Start 10/08/19 at 15:30 Guaifenesin (Robitussin) 200 mg PRN Q4HRS PRN PO COUGH; Start 10/08/19 at 15:30 Enoxaparin Sodium (Lovenox 30mg Syringe) 30 mg Q24H SQ Last administered on 10/08/19at 16:43; Start 10/08/19 at 15:30 Ceftriaxone Sodium (Rocephin) 1 gm Q24H IVP Last administered on 10/08/19at 16:00; Start 10/08/19 at 16:00 Aspirin (Ecotrin) 81 mg DAILYWBKFT PO ; Start 10/09/19 at 08:00 Lactobacillus Rhamnosus (Culturelle) 1 cap BID PO Last administered on 10/08/19at 21:34; Start 10/08/19 at 21:00 Active Scripts Active Proctosol-Hc (Hydrocortisone) 28.35 Gm Cream..g. 1 Jan RC PRN BID PRN 10 Days Reported EXELON 9.5mg/24hr (Rivastigmine) 1 Each Patch.td24 1 Patch TP DAILY 1 Days Lactulose 20 Gm/30 Ml Solution 10 Gm PO DAILY NITROGLYCERIN SubLingual (Nitroglycerin) 0.4 Mg Tab.subl 0.4 Mg SL PRN Q5MIN PRN Hydrocodone-Apap 5-325 (Hydrocodone Bit/Acetaminophen) 1 Each Tablet 1 Tab PO PRN Q6HRS PRN Clonazepam (Clonazepam) 0.5 Mg Tablet 1-2 Tab PO QHS Trazodone Hcl 50 Mg Tablet 1 Tab PO QHS PRN Atorvastatin Calcium 80 Mg Tablet 80 Mg PO DAILY Vitals/I & O Vital Sign - Last 24 Hours 10/08/19 10/08/19 10/08/19 10/08/19 11:00 11:25 11:25 12:40 Temp 98.1 98.1 Pulse 63 61 70 82 Resp 18 B/P (MAP) 169/91 (117) 181/90 181/90 213/95 Pulse Ox 97 O2 Delivery Room Air 10/08/19 10/08/19 10/08/19 10/08/19 14:09 15:00 20:00 20:00 Temp 98.7 98.1 98.7 98.1 Pulse 101 77 Resp 20 18 18 B/P (MAP) 140/88 (105) 121/61 (81) Pulse Ox 97 95 O2 Delivery Room Air Room Air 10/08/19 10/08/19 10/08/19 10/08/19 21:24 22:11 23:00 23:30 Temp 97.8 97.8 Pulse 75 Resp 18 18 B/P (MAP) 152/67 (95) Pulse Ox 92 92 95 95 O2 Delivery Room Air Room Air Room Air 10/09/19 10/09/19 03:00 07:15 Temp 98.2 98.6 98.2 98.6 Pulse 71 71 Resp 18 17 B/P (MAP) 149/83 (105) 177/60 (99) Pulse Ox 91 95 Intake and Output 10/08/19 10/08/19 10/09/19 15:00 23:00 07:00 Intake Total 200 ml 150 ml Output Total 100 ml 300 ml 1200 ml Balance 100 ml -150 ml -1200 ml Justicifation of Admission Dx: Justifications for Admission: Justification of Admission Dx: Yes Angina: New-Onset Hypertension: Symp at Rest CARMENZA NERI MD Oct 09, 2019 08:17
[2019-10-09] MEDS: DOCUSATE SODIUM 100 MG CAPSULE. PO PRN (09:21)
[2019-10-09] MEDS: RIVASTIGMINE 9.5MG PATCH. TD SCH (09:21)
[2019-10-09] MEDS: LACTULOSE 20 GM/30 ML SOLUTION. PO SCH (09:21)
[2019-10-09] MEDS: LACTOBACILLUS RHAMNOSUS GG 1 CAPSULE. PO SCH ×2 (09:21→22:29)
[2019-10-09] MEDS: ASPIRIN ENTERIC COATED 81 MG TABLET.DR. PO SCH (09:21)
[2019-10-09] MEDS: ISOSORBIDE MONONITRATE ER 30 MG TAB.ER.24H PO SCH (09:22)
[2019-10-09] MEDS: amLODIPine BESYLATE 10 MG TABLET PO SCH (09:22)
[2019-10-09] MEDS: HYDROcodone/APAP 5/325MG 1 TAB TABLET PO PRN ×2 (09:23→18:35)
[2019-10-09 11:02] VITALS: BP 130/68
--- NOTE | 2019-10-09 11:20 | NUR ---
SS following up with discharge planning. SS reviewed pt chart and discussed with pt RN. Pt is currently on room air. PT/OT ordered. Cardiology following. Pt on IV Rocephin. SS will continue to follow for discharge planning.
[2019-10-09] MEDS: ACETAMINOPHEN 325 MG TABLET. PO PRN (11:44)
--- NOTE | 2019-10-09 13:38 | NUR ---
SS following up with discharge planning. PT/OT recommended half-way unit. SS met with pt and discussed half-way unit and discharge planning. Pt reported that she will NOT go to half-way unit. Pt reported that she lives at home with her daughter and granddaughter and has had services in the past with [facility], ; fax [phone]. Pt requesting to return to home with [facility]. SS will continue to follow for discharge planning.
[2019-10-09 14:50] VITALS: BP 125/84
[2019-10-09] MEDS: ENOXAPARIN 30 MG/0.3 ML SYRINGE. SQ SCH (15:17)
[2019-10-09] MEDS: POLYETHYLENE GLYCOL 3350 17 GM PACKET. PO PRN (15:21)
[2019-10-09] MEDS: cefTRIAXone IV Push 1 GM VIAL. IVP SCH (15:21)
--- NOTE | 2019-10-09 15:37 | PDOC ---
MCGREG YANE 10/09/19 1537: CARDIO Progress Notes Date and Time Date of Service 10/09/19 Time of Evaluation 1220 Subjective Subjective: No Chest Pain, No shortness of breath, Other (nausea/CHILDERS) Vitals Vitals Vital Signs Date Time Temp Pulse Resp B/P (MAP) Pulse Ox O2 Delivery O2 Flow Rate FiO2 10/09/19 14:50 98.5 86 16 125/84 (98) 93 Room Air 98.5 Weight Weight [ ] Input and Output Intake and Output Intake and Output 10/09/19 07:00 Intake Total 350 ml Output Total 1600 ml Balance -1250 ml Intake Oral 350 ml Output Urine Total 1600 ml Microbiology Micro Microbiology 10/07/19 Urine Culture - Final, Complete Physical Exam HEENT: Neck Supple W Full Motion Chest: Symmetric LUNGS: Clear to Auscultation Heart: S1S2, RRR Abdomen: Soft N/T Extremities: No Edema Neurology: alert, oriented, follow commands Assessment Assessment 1. Chest pain, atypical; AMI ruled out. Most probably secondary to #2. recent echo with preserved LV systolic function. MPI 09/11 without evidence of ischemia 2. Hypertensive urgency; better controlled 3. Hyperlipidemia; statin 4. 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 CKD; Cr stable 6. COPD 7. H/o CVA 8. Dementia Recommendations Continue secondary prevention Salomón Sanchezr for blood pressure control Hydralazine IV PRN Consider further ischemic evaluation on an outpatient basis if CP recurrent. Supportive care Follow up in our office with Dr. Allen as scheduled. Justicifation of Admission Dx: Justifications for Admission: Justification of Admission Dx: Yes Angina: New-Onset Hypertension: Symp at Rest ANGÉLICA ALLEN MD 10/10/19 0935: CARDIO Progress Notes Assessment Assessment Patient seen and examined on 10/09/19. I agree with our nurse practitioners assessment and plan. Chest pain, atypical; AMI ruled out. Most probably secondary to #2. recent echo with preserved LV systolic function. MPI 09/11 without evidence of ischemia. Continue medical treatment. 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 Will follow as an outpatient. CKD; Cr stable H/o CVA Dementia GREG BENTLEY APRN Oct 09, 2019 15:37 ANGÉLICA ALLEN MD Oct 10, 2019 09:35
--- NOTE | 2019-10-09 16:26 | NUR ---
SS following up with discharge planning. SS spoke with pt's daughter via phone and pt's daughter requesting that pt discharge to home with [facility] and [facility], ; fax [phone]. Pt's RN notified. SS will continue to follow for discharge planning.
[2019-10-09] MEDS: BISACODYL 10 MG SUPP.RECT. PR PRN (18:35)
[2019-10-09 18:51] VITALS: BP 154/80
[2019-10-09] MEDS: ONDANSETRON PF 4 MG/2 ML VIAL. IV PRN (22:30)
[2019-10-09] MEDS: ATORVASTATIN CALCIUM 40 MG TABLET. PO SCH (22:30)
[2019-10-09 23:20] VITALS: BP 162/80
[2019-10-10] VITALS (8 sets, daily range): BP systolic 104–198; BP diastolic 46–93
[2019-10-10] MEDS: HYDROcodone/APAP 5/325MG 1 TAB TABLET PO PRN ×3 (01:30→17:46)
[2019-10-10] MEDS: LOPERAMIDE 2 MG CAPSULE PO PRN (01:30)
--- NOTE | 2019-10-10 06:23 | PDOC ---
PROGRESS NOTES History of Present Illness History of Present Illness VTE Prophylaxis Ordered VTE Prophylaxis Devices: Yes VTE Pharmacological Prophylaxi: Yes Assessment/Plan Assessment/Plan IMPRESSION HTN Urgency - treating, still somewhat elevated. added amlodipine HLD - on statin gerd - on PPI depression / ANXIETY - cont meds h/o CVA wo neurologic deficit historically - h/o CAD - On meds, stable. Cardiology consulted CKD3 - stable, Constipation - will cont psyllium and miralax Rectal pain - will cont hydrocortisone Mild cognitive impairment - cont exelon patch Chest pain UTI HX CVA GAIT INSTABILITY LOWER EXT PARESTHESIA 10/08 urine retention noted > 300cc confused and very dysphoric , await psych consult, nursing has not record ed orthostatic bp as ordered plan cvc bed Cardiology consult bp control trend troponin i straight cath PT/OT Consult dr Forman reviewed with her proper body mechanics and home program of physical modalities and stretching exercise to her lower back to consider injecting painful right shoulder and lower back orthostatic bp, pulse ct head psych consult re cognitive decline, depression NEEDS SNF BED X RAY L/S 28 MIN PT EXAM, CHART REVIEW, > 50% OF TIME SPENT WITH EXAM, CHART REVIEW, PT CARE COORDINATION ADMITTED Justicifation of Admission Dx: Justicifation of Admission Dx: Justifications for Admission: Justification of Admission Dx: Yes Angina: New-Onset Hypertension: Symp at Rest Vitals Vitals Vital Signs Date Time Temp Pulse Resp B/P (MAP) Pulse Ox O2 Delivery O2 Flow Rate FiO2 10/10/19 02:52 98.4 77 20 174/82 (112) 93 Room Air 98.4 Physical Exam General: Alert, Oriented X3, Cooperative, No acute distress, mild distress, Other (very dysphoric, anxious) Heart: Regular rate, Other (2/6 systolic murmur ) Lungs: Clear Abdomen: Normal bowel sounds, Soft, No tenderness, No hepatosplenomegaly Extremities: No cyanosis, No edema, Normal pulses Skin: No significant lesion Labs LABS PATIENT: JUAN RAMOS ACCOUNT: [id number] : 1930 LOCATION: [facility] ICU AGE: 87 SEX: F EXAM STATUS: ADM IN ORD. PHYSICIAN: KAYE MEYER MD REASON: CVA, TPA YESTERDAY, 6ml Gadavist PROCEDURE: BRAIN WO/W CONTRAST MRI of the Brain without and with Contrast 10/09/2017 Clinical History: CVA. TPA given yesterday. Technique: Unenhanced T1-weighted sagittal and axial and FLAIR, T2-weighted axial and coronal and gradient echo and diffusion-weighted axial images of the brain were obtained. After the intravenous administration of 6 cc of Gadavist, enhanced T1-weighted axial, sagittal and coronal images of the brain were obtained. Findings: Comparison is made to the patient's CT scan of the head dated 10/08/2017. There is generalized parenchymal atrophy. Patchy, confluent and multiple focal areas of abnormally increased signal intensity are seen within the periventricular and subcortical white matter of both cerebral hemispheres along with the kristina on the FLAIR and T2-weighted images consistent with areas of small vessel ischemic disease. An oval-shaped area of slightly increased signal intensity is seen involving the posterior left temporal lobe on the T1-weighted images. This demonstrates slightly increased signal intensity on the FLAIR images and decreased signal intensity on the gradient echo images. This measures 1.3 cm in greatest diameter. No abnormal enhancement is seen. There is mild surrounding edema and associated mass effect. This is felt to most likely represent an acute/early subacute hematoma. No midline shift is seen. No additional acute abnormality is noted. No abnormal area of contrast enhancement is noted. No extra-axial fluid collection is seen. There is no MRI evidence of acute ischemia/infarction. Mild mucosal thickening is seen scattered throughout the paranasal sinuses. There are small moderate-sized bilateral mastoid effusions. Normal flow voids are seen within the major vascular structures surrounding the brain parenchyma. Impression: 1.3 cm area of acute/early subacute parenchymal hematoma is seen involving the posterior left temporal lobe. There is mild surrounding edema and associated mass effect. No midline shift is seen. The patient's nurse was notified of these findings. Electronically signed by: Edgardo Mims MD (10/09/2017 2:12 PM) [id number] DICTATED and SIGNED BY: EDGARDO MIMS MD DATE: 10/09/17 1358 EXAM: CT Head without IV contrast CLINICAL HISTORY: HX CVA, FALLS COMPARISON: 05/17/2019 TECHNIQUE: Routine CT of the head without contrast. Soft tissues and bone windows were reviewed. PQRS compliance statement - One or more of the following individualized dose reduction techniques were utilized for this study: 1. Automated exposure control 2. Adjustment of the mA and/or kV according to patient size 3. Use of iterative reconstruction technique FINDINGS: There is no evidence of hemorrhage, mass or extra-axial fluid collection. Naranjo-white differentiation is maintained with no evidence of edema. Subcortical, periventricular as well as deep white matter hypoattenuation likely changes of chronic small vessel disease. There is no mass effect or shift of the intracranial structures. The ventricles, basilar cisterns and cortical sulci are normal in size and configuration for the patients stated age. The cerebellum and brainstem are unremarkable. The calvarium demonstrates no evidence of fracture or focal lesion. Left maxillary sinus, left sphenoid sinus and scattered ethmoid air cell thickening likely sinusitis. The visualized portions of the orbits are normal. Atherosclerotic calcifications of the intracranial internal carotid and vertebral arteries is seen. IMPRESSION: 1. No evidence for acute intracranial process. 2. White matter changes likely chronic small vessel disease. 3. Multifocal sinus disease without air-fluid levels. Electronically signed by: Eric Erwin MD (10/10/2019 10:58 AM) [id number] DICTATED and SIGNED BY: ERIC ERWIN MD DATE: 10/10/19 1058 URINE CULTURE Final Final 30,000 CFU/ML Normal genitourinary derek, not indicative of infection on 10/09/19 at 0922 Testing Performed by: [address] [address] For Inquires, the Physician may contact the Microbiology department at [phone] Unless otherwise specified, Testing Performed by: [address] [address] For Inquires, the Physician may contact the Microbiology department at [phone] Assessment and Plan Assessmemt and Plan Problems Medical Problems: (1) Chest pain Status: Acute Comment Review of Relevant I have reviewed the following items lorna (where applicable) has been applied. Labs Laboratory Tests Test 10/08/19 06:30 10/08/19 13:12 Troponin I Quantitative < 0.017 ng/mL (0.000-0.055) < 0.017 ng/mL (0.000-0.055) Triglycerides Level 85 mg/dL (0-150) Cholesterol Level 128 mg/dL (0-200) LDL Cholesterol, Calculated 56 mg/dL (0-100) VLDL Cholesterol, Calculated 17 mg/dL (0-40) Non-HDL Cholesterol Calculated 73 mg/dL (0-129) HDL Cholesterol 55 mg/dL (40-60) Cholesterol/HDL Ratio 2.3 Microbiology 10/07/19 Urine Culture - Final, Complete Medications Current Medications Hydralazine HCl (Apresoline Inj) 10 mg 1X ONCE IVP Last administered on 10/07/19at 15:44; Start 10/07/19 at 15:30; Stop 10/07/19 at 15:31; Status DC Clonazepam (KlonoPIN) 0.5 mg QHS PO Last administered on 10/08/19at 21:34; Start 10/07/19 at 21:00; Stop 10/09/19 at 15:48; Status DC Acetaminophen/ Hydrocodone Bitart (Lortab 5/325) 1 tab PRN Q6HRS PRN PO MODERATE TO SEVERE PAIN Last administered on 10/10/19at 01:30; Start 10/07/19 at 20:15 Hydrocortisone (Proctosol-Hc) 1 magnolia PRN BID PRN RC rectal pain Last administered on 10/08/19at 14:35; Start 10/07/19 at 20:15 Lactulose (Lactulose) 10 gm DAILY PO Last administered on 10/09/19at 09:21; Start 10/08/19 at 09:00 Nitroglycerin (Nitrostat) 0.4 mg PRN Q5MIN PRN SL CHEST PAIN; Start 10/07/19 at 20:15 Trazodone HCl (Desyrel) 50 mg PRN QHS PRN PO INSOMNIA Last administered on 10/07/19at 21:15; Start 10/07/19 at 20:15 Atorvastatin Calcium (Lipitor) 80 mg QHS PO Last administered on 10/09/19at 22:30; Start 10/07/19 at 21:00 Nitroglycerin/ Dextrose 250 ml @ 0 mls/hr 1X ONCE IV Last administered on 10/07/19at 21:29; Start 10/07/19 at 20:30; Stop 10/07/19 at 20:31; Status DC Rivastigmine (Exelon) 1 patch DAILY TD Last administered on 10/09/19at 09:21; Start 10/08/19 at 09:00 Amlodipine Besylate (Norvasc) 10 mg DAILY PO Last administered on 10/09/19at 09:22; Start 10/09/19 at 09:00 Hydralazine HCl (Apresoline Inj) 10 mg PRN Q4HRS PRN IVP ELEVATED BP, SEE COMMENTS Last administered on 10/08/19at 12:40; Start 10/08/19 at 11:00 Polyethylene Glycol (miraLAX PACKET) 17 gm PRN DAILY PRN PO CONSTIPATION Last administered on 10/09/19at 15:21; Start 10/08/19 at 11:15 Bisacodyl (Dulcolax Supp) 10 mg PRN DAILY PRN TX CONSTIPATION, 1sT CHOICE Last administered on 10/09/19at 18:35; Start 10/08/19 at 11:15 Amlodipine Besylate (Norvasc) 10 mg 1X ONCE PO Last administered on 10/08/19at 11:25; Start 10/08/19 at 11:15; Stop 10/08/19 at 11:18; Status DC Isosorbide Mononitrate (Imdur) 30 mg DAILY PO Last administered on 10/09/19at 09:22; Start 10/08/19 at 11:15 Mineral Oil (Fleet Mineral Oil) 133 ml 1X ONCE TX Last administered on 10/08/19at 12:40; Start 10/08/19 at 12:30; Stop 10/08/19 at 12:31; Status DC Hydralazine HCl (Apresoline Inj) 10 mg PRN Q4HRS PRN IVP ELEVATED BP, SEE COMMENTS; Start 10/08/19 at 15:30; Status Cancel Sodium Chloride (Normal Saline Flush) 3 ml QSHIFT PRN IV AFTER MEDS AND BLOOD DRAWS; Start 10/08/19 at 15:30 Ondansetron HCl (Zofran) 4 mg PRN Q4HRS PRN IV NAUSEA/VOMITING Last administered on 10/09/19at 22:30; Start 10/08/19 at 15:30 Acetaminophen (Tylenol) 650 mg PRN Q4HRS PRN PO TEMP OVER 100.4F OR MILD PAIN Last administered on 10/09/19at 11:44; Start 10/08/19 at 15:30 Al Hydroxide/Mg Hydroxide (Mylanta Plus Xs) 30 ml PRN DAILY PRN PO HEARTBURN / GAS; Start 10/08/19 at 15:30 Sodium Monofluorophosphate (Fleet Adult) 133 ml PRN DAILY PRN TX CONSTIPATION, 2nd CHOICE; Start 10/08/19 at 15:30 Docusate Sodium (Colace) 100 mg PRN BID PRN PO HARD STOOLS Last administered on 10/09/19at 09:21; Start 10/08/19 at 15:30 Albuterol Sulfate (Ventolin Neb Soln) 2.5 mg PRN Q4HRS PRN NEB SHORTNESS OF BREATH; Start 10/08/19 at 15:30 Guaifenesin (Robitussin) 200 mg PRN Q4HRS PRN PO COUGH; Start 10/08/19 at 15:30 Enoxaparin Sodium (Lovenox 30mg Syringe) 30 mg Q24H SQ Last administered on 10/09/19at 15:17; Start 10/08/19 at 15:30 Ceftriaxone Sodium (Rocephin) 1 gm Q24H IVP Last administered on 10/09/19at 15:21; Start 10/08/19 at 16:00 Aspirin (Ecotrin) 81 mg DAILYWBKFT PO Last administered on 10/09/19at 09:21; Start 10/09/19 at 08:00 Lactobacillus Rhamnosus (Culturelle) 1 cap BID PO Last administered on 10/09/19at 22:29; Start 10/08/19 at 21:00 Loperamide HCl (Imodium) 2 mg PRN Q6HRS PRN PO DIARRHEA Last administered on 10/10/19at 01:30; Start 10/10/19 at 01:30 Active Scripts Active Proctosol-Hc (Hydrocortisone) 28.35 Gm Cream..g. 1 Magnolia RC PRN BID PRN 10 Days Reported EXELON 9.5mg/24hr (Rivastigmine) 1 Each Patch.td24 1 Patch TP DAILY 1 Days Lactulose 20 Gm/30 Ml Solution 10 Gm PO DAILY NITROGLYCERIN SubLingual (Nitroglycerin) 0.4 Mg Tab.subl 0.4 Mg SL PRN Q5MIN PRN Hydrocodone-Apap 5-325 (Hydrocodone Bit/Acetaminophen) 1 Each Tablet 1 Tab PO PRN Q6HRS PRN Clonazepam (Clonazepam) 0.5 Mg Tablet 1-2 Tab PO QHS Trazodone Hcl 50 Mg Tablet 1 Tab PO QHS PRN Atorvastatin Calcium 80 Mg Tablet 80 Mg PO DAILY Vitals/I & O Vital Sign - Last 24 Hours 10/09/19 10/09/19 10/09/19 10/09/19 07:15 08:00 09:22 09:22 Temp 98.6 98.6 Pulse 71 71 71 Resp 17 B/P (MAP) 177/60 (99) 177/60 177/60 Pulse Ox 95 O2 Delivery Room Air 10/09/19 10/09/19 10/09/19 10/09/19 09:23 11:02 14:50 18:51 Temp 97.9 98.5 97.7 97.9 98.5 97.7 Pulse 77 86 69 Resp 16 16 18 B/P (MAP) 130/68 (88) 125/84 (98) 154/80 (104) Pulse Ox 93 93 97 O2 Delivery Room Air Room Air Room Air 10/09/19 10/09/19 10/10/19 20:00 23:20 02:52 Temp 98.7 98.4 98.7 98.4 Pulse 72 77 Resp 18 20 B/P (MAP) 162/80 (107) 174/82 (112) Pulse Ox 95 93 O2 Delivery Room Air Room Air Room Air Intake and Output 10/09/19 10/09/19 10/10/19 15:00 23:00 07:00 Intake Total 380 ml 300 ml 300 ml Output Total 900 ml 100 ml Balance 380 ml -600 ml 200 ml Justicifation of Admission Dx: Justifications for Admission: Justification of Admission Dx: Yes Angina: New-Onset Hypertension: Symp at Rest CARMENZA NERI MD Oct 10, 2019 06:23
[2019-10-10 08:04] LABS: CALCIUM 8.6 mg/dL (8.5-10.1); CREATININE 1.1 mg/dL (0.6-1.0); GFR 46.9; POTASSIUM 3.6 mmol/L (3.5-5.1)
[2019-10-10] MEDS: LACTOBACILLUS RHAMNOSUS GG 1 CAPSULE. PO SCH ×2 (08:46→21:04)
[2019-10-10] MEDS: ASPIRIN ENTERIC COATED 81 MG TABLET.DR. PO SCH (08:47)
[2019-10-10] MEDS: amLODIPine BESYLATE 10 MG TABLET PO SCH (08:47)
[2019-10-10] MEDS: ISOSORBIDE MONONITRATE ER 30 MG TAB.ER.24H PO SCH (08:47)
[2019-10-10] MEDS: LACTULOSE 20 GM/30 ML SOLUTION. PO SCH (08:48)
[2019-10-10] MEDS: RIVASTIGMINE 9.5MG PATCH. TD SCH (08:48)
[2019-10-10] MEDS: ONDANSETRON PF 4 MG/2 ML VIAL. IV PRN ×3 (09:31→21:06)
--- NOTE | 2019-10-10 10:23 | CONS ---
DATE OF CONSULTATION: 10/10/2019 ATTENDING PHYSICIAN: Dr. Sohail Diane. REASON FOR CONSULTATION: The patient was seen at the request of Dr. Sahu for rehab evaluation. HISTORY OF PRESENT ILLNESS: This is an 89-year-old female admitted through the Emergency Room on 10/08/2019 with reports of chest pain, shortness of breath and left arm numbness. She apparently fell in her closet, but able to pull herself up and called 911. The patient with known angina, chronic obstructive pulmonary disease, old cerebrovascular accident, depression, gastroesophageal reflux disease, hypercholesterolemia, hypertension, previous myocardial infarction, gastroparesis, appendectomy, cholecystectomy, hysterectomy, tonsillectomy, right shoulder surgery, cardiac stent, former smoker, chronic renal insufficiency, urinary incontinence, anxiety, depression and osteoarthritis. SHE IS KNOWN ALLERGIC TO YURIY INHIBITORS, BETA BLOCKERS AND LISINOPRIL. The patient is status post colectomy and colon resection. Family history of hypertension. The patient since admission had cardiac workup and no evidence of any acute lesion was noted. Chest x-ray was within normal limits. The patient was noted with some high level balance problems. The patient admits occasional dizziness while up. She admits to lower back pain mainly when she wakes up in the morning. She admits to weakness and stiffness and pain, right shoulder. PHYSICAL EXAMINATION: The patient on physical examination today revealed an elderly female, hard of hearing. She is alert, oriented to time, place, person and circumstance and follows commands appropriately, moves all 4 extremities voluntarily. She is protecting her right shoulder. She had pain on range of motion of right shoulder and tenderness to palpation of right shoulder. Significant limitation of right shoulder joint range of motion with relative weakness of right rotator cuff muscles. Other than that, she had 5/5 grade muscle strength in her extremities. Deep tendon reflexes are decreased overall with absent knee and ankle jerks, and she had equal perception of touch and pinprick sensation bilaterally. The patient had tenderness to palpation over sacroiliac joint area bilaterally. Straight leg raising test is negative bilaterally. She had painful range of motion of both hip and knee joints. The patient had intact skin. She got up and walked using a roller walker without any obvious loss of balance unless she does not pay attention and try to move too fast. No obvious visual field cut or facial asymmetry noted. IMPRESSION: Elderly female with chronic lower back pain from degenerative disk disease and degenerative joint disease of lumbar vertebrae without any clinical evidence of ongoing lumbar radiculopathy, chronic lower back pain, peripheral neuropathy, and chronic right shoulder stiffness, pain and weakness, status post right shoulder surgery in the past with associated adhesive capsulitis, right shoulder. The patient with known angina, hypertension, myocardial infarction, chronic obstructive pulmonary disease, old cerebrovascular accident, depression, gastroesophageal reflux disease, status post colectomy, cholecystectomy, hysterectomy, gastroparesis, cardiac stent, coronary artery disease, hyperlipidemia, dementia, chronic renal insufficiency and urinary incontinence. RECOMMENDATIONS: Agree with the plan for home with home health followup when medically stable. She needs to concentrate on her walking; and also, I have reviewed with her proper body mechanics and home program of physical modalities and stretching exercise to her lower back to consider injecting painful right shoulder and lower back on an as needed basis. Dr. Sahu, I appreciate asking me to participate in the care of this interesting patient. I will be glad to follow her with you on an as needed basis. KONG CAVAZOS MD DR: NISHANT/clau JOB#: [id number] / [id number]
--- NOTE | 2019-10-10 10:51 | PDOC2 ---
CONSULT Date of Consult Date of Consult DATE: 10/10/19 TIME: 10:40 Reason for Consult Reason for Consult: ELSIE Source Source: Chart review, Patient History of Present Illness Reason for Visit: Pt is a 89 year old CF brought to the emergency department by EMS with reports of chest pain, shortness of breath, and left arm numbness. Patient states that she fell in her closet but was able to pull herself up and called 911. She took 1 nitroglycerin and a full-strength aspirin and her chest pain went away completely. Patient states pcp stopped her HCTZ, She denies any nausea, vomiting or abdominal pain. No fever, cough, syncope, or dizziness. C/O Leg Numbness Denies any urinary complaints - denies Dysuria She states that 4 days ago she had some diarrhea which has resolved Past Medical History Cardiovascular: CAD, HTN, Hyperlipidemia Pulmonary: COPD CENTRAL NERVOUS SYSTEM: CVA, Dementia GI: Diverticulosis, GERD Heme/Onc: Cancer Hepatobiliary: No pertinent hx Psych: Anxiety, Depression Musculoskeletal: Osteoarthritis, Other Rheumatologic: No pertinent hx Infectious disease: No pertinent hx Renal/: Chronic renal insuff, Urinary Incontinence Endocrine: No pertinent hx Past Surgical History Past Surgical History: Appendectomy, Cholecystectomy, Tonsillectomy, Hysterectomy, Colon Resection Family History Family History: Hypertension, Other (noncontributory to age) Social History No ALCOHOL: none Drugs: None Lives: with Family Domestic Violence: Neg Current Problem List Problem List Problems Medical Problems: (1) Chest pain Status: Acute Current Medications Current Medications Current Medications Hydralazine HCl (Apresoline Inj) 10 mg 1X ONCE IVP Last administered on 10/07/19at 15:44; Start 10/07/19 at 15:30; Stop 10/07/19 at 15:31; Status DC Clonazepam (KlonoPIN) 0.5 mg QHS PO Last administered on 10/08/19at 21:34; Start 10/07/19 at 21:00; Stop 10/09/19 at 15:48; Status DC Acetaminophen/ Hydrocodone Bitart (Lortab 5/325) 1 tab PRN Q6HRS PRN PO MODERATE TO SEVERE PAIN Last administered on 10/10/19at 08:46; Start 10/07/19 at 20:15 Hydrocortisone (Proctosol-Hc) 1 jan PRN BID PRN RC rectal pain Last administered on 10/08/19 14:35; Start 10/07/19 at 20:15 Lactulose (Lactulose) 10 gm DAILY PO Last administered on 10/09/19 09:21; Start 10/08/19 at 09:00 Nitroglycerin (Nitrostat) 0.4 mg PRN Q5MIN PRN SL CHEST PAIN; Start 10/07/19 at 20:15 Trazodone HCl (Desyrel) 50 mg PRN QHS PRN PO INSOMNIA Last administered on 10/07/19 21:15; Start 10/07/19 at 20:15 Atorvastatin Calcium (Lipitor) 80 mg QHS PO Last administered on 10/09/19 22:30; Start 10/07/19 at 21:00 Nitroglycerin/ Dextrose 250 ml @ 0 mls/hr 1X ONCE IV Last administered on 10/07/19 21:29; Start 10/07/19 at 20:30; Stop 10/07/19 at 20:31; Status DC Rivastigmine (Exelon) 1 patch DAILY TD Last administered on 10/10/19 08:48; Start 10/08/19 at 09:00 Amlodipine Besylate (Norvasc) 10 mg DAILY PO Last administered on 10/10/19 08:47; Start 10/09/19 at 09:00 Hydralazine HCl (Apresoline Inj) 10 mg PRN Q4HRS PRN IVP ELEVATED BP, SEE COMMENTS Last administered on 10/08/19at 12:40; Start 10/08/19 at 11:00 Polyethylene Glycol (miraLAX PACKET) 17 gm PRN DAILY PRN PO CONSTIPATION Last administered on 10/09/19 15:21; Start 10/08/19 at 11:15 Bisacodyl (Dulcolax Supp) 10 mg PRN DAILY PRN [place] CONSTIPATION, 1sT CHOICE Last administered on 10/09/19 18:35; Start 10/08/19 at 11:15 Amlodipine Besylate (Norvasc) 10 mg 1X ONCE PO Last administered on 10/08/19 11:25; Start 10/08/19 at 11:15; Stop 10/08/19 at 11:18; Status DC Isosorbide Mononitrate (Imdur) 30 mg DAILY PO Last administered on 7/17/20at 08:47; Start 10/08/19 at 11:15 Mineral Oil (Fleet Mineral Oil) 133 ml 1X ONCE [place] Last administered on 10/08/19at 12:40; Start 10/08/19 at 12:30; Stop 10/08/19 at 12:31; Status DC Hydralazine HCl (Apresoline Inj) 10 mg PRN Q4HRS PRN IVP ELEVATED BP, SEE COMMENTS; Start 10/08/19 at 15:30; Status Cancel Sodium Chloride (Normal Saline Flush) 3 ml QSHIFT PRN IV AFTER MEDS AND BLOOD DRAWS; Start 10/08/19 at 15:30 Ondansetron HCl (Zofran) 4 mg PRN Q4HRS PRN IV NAUSEA/VOMITING Last a dministered on 10/10/19at 09:31; Start 10/08/19 at 15:30 Acetaminophen (Tylenol) 650 mg PRN Q4HRS PRN PO TEMP OVER 100.4F OR MILD PAIN Last administered on 10/09/19at 11:44; Start 10/08/19 at 15:30 Al Hydroxide/Mg Hydroxide (Mylanta Plus Xs) 30 ml PRN DAILY PRN PO HEARTBURN / GAS; Start 10/08/19 at 15:30 Sodium Monofluorophosphate (Fleet Adult) 133 ml PRN DAILY PRN [place] CONSTIPATION, 2nd CHOICE; Start 10/08/19 at 15:30 Docusate Sodium (Colace) 100 mg PRN BID PRN PO HARD STOOLS Last administered on 10/09/19at 09:21; Start 10/08/19 at 15:30 Albuterol Sulfate (Ventolin Neb Soln) 2.5 mg PRN Q4HRS PRN NEB SHORTNESS OF BREATH; Start 10/08/19 at 15:30 Guaifenesin (Robitussin) 200 mg PRN Q4HRS PRN PO COUGH; Start 10/08/19 at 15:30 Enoxaparin Sodium (Lovenox 30mg Syringe) 30 mg Q24H SQ Last administered on 10/09/19at 15:17; Start 10/08/19 at 15:30 Ceftriaxone Sodium (Rocephin) 1 gm Q24H IVP Last administered on 10/09/19at 15:21; Start 10/08/19 at 16:00; Stop 10/10/19 at 09:32; Status DC Aspirin (Ecotrin) 81 mg DAILYWBKFT PO Last administered on 10/10/19at 08:47; Start 10/09/19 at 08:00 Lactobacillus Rhamnosus (Culturelle) 1 cap BID PO Last administered on 10/10/19at 08:46; Start 10/08/19 at 21:00 Loperamide HCl (Imodium) 2 mg PRN Q6HRS PRN PO DIARRHEA Last administered on 10/10/19at 01:30; Start 10/10/19 at 01:30 Active Scripts Active Proctosol-Hc (Hydrocortisone) 28.35 Gm Cream..g. 1 Jan RC PRN BID PRN 10 Days Reported EXELON 9.5mg/24hr (Rivastigmine) 1 Each Patch.td24 1 Patch TP DAILY 1 Days Lactulose 20 Gm/30 Ml Solution 10 Gm PO DAILY NITROGLYCERIN SubLingual (Nitroglycerin) 0.4 Mg Tab.subl 0.4 Mg SL PRN Q5MIN PRN Hydrocodone-Apap 5-325 (Hydrocodone Bit/Acetaminophen) 1 Each Tablet 1 Tab PO PRN Q6HRS PRN Clonazepam (Clonazepam) 0.5 Mg Tablet 1-2 Tab PO QHS Trazodone Hcl 50 Mg Tablet 1 Tab PO QHS PRN Atorvastatin Calcium 80 Mg Tablet 80 Mg PO DAILY Allergies Allergies: Coded Allergies: YURIY Inhibitors (Verified Allergy, Intermediate, 02/03/18) Beta-Blockers (Beta-Adrenergic Bloc (Verified Allergy, Intermediate, 05/18/19) Has received IV labetolol during prior visit without issues lisinopril (Verified Adverse Reaction, Severe, "passed out", 08/05/13) ROS Review of System Per HPI, rest ROS negative Physical Exam Physical Exam GEN: NAD HEEN: OM moist NECK: Supple CVS: S1S2 RESP: CTA, No Acc. Muscle Use GI: BS + ve, Non Tendered : No CVA tenderness, No Suprapubic Tenderness, No Payne NEURO- Grossly normal EXT No LE edema SKIN No Rash Vital Signs Vital Signs Date Time Temp Pulse Resp B/P (MAP) Pulse Ox O2 Delivery O2 Flow Rate FiO2 10/10/19 08:47 90 10/10/19 07:00 98.2 14 184/71 (108) 98 Room Air 98.2 Assessment & Plan ELSIE - vasomotor Improving with IVF ,Supportive care, avoid nephrotoxins Microscopic Hematuria- ? uti - per primary If persistent, consult Urology Cyst Lt Kidney on 2018 CT CKD stage 3 - Cr back to baseline Chest pain, atypical per cardiology recent echo with preserved LV systolic function. MPI 09/11 without evidence of ischemia Hypertensive urgency - per cardiology CAD s/p remote PCI/stent to LAD and known [employer] of RCA COPD H/o CVA Dementia Labs Labs Laboratory Tests Test 10/08/19 13:12 10/10/19 07:24 Troponin I Quantitative < 0.017 ng/mL (0.000-0.055) Sodium Level 140 mmol/L (136-145) Potassium Level 3.6 mmol/L (3.5-5.1) Chloride Level 103 mmol/L (98-107) Carbon Dioxide Level 30 mmol/L (21-32) Anion Gap 7 (6-14) Blood Urea Nitrogen 14 mg/dL (7-20) Creatinine 1.1 mg/dL (0.6-1.0) Estimated GFR (Cockcroft-Gault) 46.9 Glucose Level 105 mg/dL (70-99) Calcium Level 8.6 mg/dL (8.5-10.1) Laboratory Tests Test 10/10/19 07:24 Sodium Level 140 mmol/L (136-145) Potassium Level 3.6 mmol/L (3.5-5.1) Chloride Level 103 mmol/L (98-107) Carbon Dioxide Level 30 mmol/L (21-32) Anion Gap 7 (6-14) Blood Urea Nitrogen 14 mg/dL (7-20) Creatinine 1.1 mg/dL (0.6-1.0) Estimated GFR (Cockcroft-Gault) 46.9 Glucose Level 105 mg/dL (70-99) Calcium Level 8.6 mg/dL (8.5-10.1) Review All relevant outside records, renal labs, imaging studies, telemetry/EKG's were reviewed. Images Images Cxr- No acute cardiopulmonary process. CT in 2018 The kidneys show no apparent solid mass or obstruction. There is evidence of a cyst in the lower left kidney. Calcifications are seen on each side. The adrenal glands are not enlarged. BHAVIN ARITA MD Oct 10, 2019 10:51
--- NOTE | 2019-10-10 11:01 | RAD ---
EXAM: CT Head without IV contrast CLINICAL HISTORY: HX CVA, FALLS COMPARISON: 05/17/2019 TECHNIQUE: Routine CT of the head without contrast. Soft tissues and bone windows were reviewed. RS compliance statement - One or more of the following individualized dose reduction techniques were utilized for this study: 1. Automated exposure control 2. Adjustment of the mA and/or kV according to patient size 3. Use of iterative reconstruction technique FINDINGS: There is no evidence of hemorrhage, mass or extra-axial fluid collection. Naranjo-white differentiation is maintained with no evidence of edema. Subcortical, periventricular as well as deep white matter hypoattenuation likely changes of chronic small vessel disease. There is no mass effect or shift of the intracranial structures. The ventricles, basilar cisterns and cortical sulci are normal in size and configuration for the patients stated age. The cerebellum and brainstem are unremarkable. The calvarium demonstrates no evidence of fracture or focal lesion. Left maxillary sinus, left sphenoid sinus and scattered ethmoid air cell thickening likely sinusitis. The visualized portions of the orbits are normal. Atherosclerotic calcifications of the intracranial internal carotid and vertebral arteries is seen. IMPRESSION: 1. No evidence for acute intracranial process. 2. White matter changes likely chronic small vessel disease. 3. Multifocal sinus disease without air-fluid levels. Electronically signed by: Eric Godoy MD (10/10/2019 10:58 AM) [facility]
--- NOTE | 2019-10-10 11:18 | PDOC2 ---
CONSULT Date of Consult Date of Consult DATE: 10/10/19 TIME: 11:04 Reason for Consult Reason for Consult: History of cutaneous lymphoma Referring Physician Referring Physician: Dr. 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 We have been consulted given her history of lymphoma. Her oncologic history dates back to 2009 when she was diagnosed with primary cutaneous anaplastic lymphoma. She was treated with localized radiation to her left anterior lateral proximal calf to 36 Gy in May 2010. She then developed multicentric distal leg recurrence in her distal posterior calf and ankle and confirmed at biopsy in June 2013. She received 36 Gy to that region, completed in August 2013. She had a complete response. She developed isolated relapse disease in her central posterior calf. She received 35 Gy to this site, completed in March 2015. She then developed biopsy-proven left proximal thigh recurrence, reflecting a femoral andrzej recurrence at that site. Biopsy occurred in June [address] Barillas[address] scan from July 2017 revealed hypermetabolic subcutaneous nodule in the anterior medial aspect of the left pretibial region and hypermetabolic adenopathy and left femoral andrzej region with no other sites of disease. She received a final boost dose to her femoral adenopathy to 40 Gy, pretibial region received 36 Gy, completed here in August 2017. She had a complete response to treatment. Her last visit with Dr. PUJA JUAREZ, radiation oncologist was in June 2018. Per his records at the time, she did not display any evidence of recurrent disease. Helga reports that she was admitted to the hospital following development of chest pain. She took 1 aspirin 81 and nitroglycerin sublingually and due to persistent chest pain, presented to the emergency room for further evaluation. Past Medical History Cardiovascular: CAD, HTN, Hyperlipidemia Pulmonary: COPD CENTRAL NERVOUS SYSTEM: CVA, Dementia GI: Diverticulosis, GERD Heme/Onc: Cancer Hepatobiliary: No pertinent hx Psych: Anxiety, Depression Musculoskeletal: Osteoarthritis, Other Rheumatologic: No pertinent hx Infectious disease: No pertinent hx Renal/: Chronic renal insuff, Urinary Incontinence Endocrine: No pertinent hx Past Surgical History Past Surgical History: Appendectomy, Cholecystectomy, Tonsillectomy, Hysterectomy, Colon Resection Family History Family History: Hypertension, Other (noncontributory to age) Social History No ALCOHOL: none Drugs: None Lives: with Family Domestic Violence: Neg Current Problem List Problem List Problems Medical Problems: (1) Chest pain Status: Acute Current Medications Current Medications Current Medications Hydralazine HCl (Apresoline Inj) 10 mg 1X ONCE IVP Last administered on 10/07/19at 15:44; Start 10/07/19 at 15:30; Stop 10/07/19 at 15:31; Status DC Clonazepam (KlonoPIN) 0.5 mg QHS PO Last administered on 10/08/19at 21:34; Start 10/07/19 at 21:00; Stop 10/09/19 at 15:48; Status DC Acetaminophen/ Hydrocodone Bitart (Lortab 5/325) 1 tab PRN Q6HRS PRN PO MODERATE TO SEVERE PAIN Last administered on 10/10/19at 08:46; Start 10/07/19 at 20:15 Hydrocortisone (Proctosol-Hc) 1 jan PRN BID PRN RC rectal pain Last administered on 10/08/19at 14:35; Start 10/07/19 at 20:15 Lactulose (Lactulose) 10 gm DAILY PO Last administered on 10/09/19at 09:21; Start 10/08/19 at 09:00 Nitroglycerin (Nitrostat) 0.4 mg PRN Q5MIN PRN SL CHEST PAIN; Start 10/07/19 at 20:15 Trazodone HCl (Desyrel) 50 mg PRN QHS PRN PO INSOMNIA Last administered on 10/07/19at 21:15; Start 10/07/19 at 20:15 Atorvastatin Calcium (Lipitor) 80 mg QHS PO Last administered on 10/09/19at 22:30; Start 10/07/19 at 21:00 Nitroglycerin/ Dextrose 250 ml @ 0 mls/hr 1X ONCE IV Last administered on 10/07/19at 21:29; Start 10/07/19 at 20:30; Stop 10/07/19 at 20:31; Status DC Rivastigmine (Exelon) 1 patch DAILY TD Last administered on 10/10/19at 08:48; Start 10/08/19 at 09:00 Amlodipine Besylate (Norvasc) 10 mg DAILY PO Last administered on 10/10/19 08:47; Start 10/09/19 at 09:00 Hydralazine HCl (Apresoline Inj) 10 mg PRN Q4HRS PRN IVP ELEVATED BP, SEE COMMENTS Last administered on 10/08/19at 12:40; Start 10/08/19 at 11:00 Polyethylene Glycol (miraLAX PACKET) 17 gm PRN DAILY PRN PO CONSTIPATION Last administered on 10/09/19 15:21; Start 10/08/19 at 11:15 Bisacodyl (Dulcolax Supp) 10 mg PRN DAILY PRN [place] CONSTIPATION, 1sT CHOICE Last administered on 10/09/19 18:35; Start 10/08/19 at 11:15 Amlodipine Besylate (Norvasc) 10 mg 1X ONCE PO Last administered on 10/08/19 11:25; Start 10/08/19 at 11:15; Stop 10/08/19 at 11:18; Status DC Isosorbide Mononitrate (Imdur) 30 mg DAILY PO Last administered on 10/10/19 08:47; Start 10/08/19 at 11:15 Mineral Oil (Fleet Mineral Oil) 133 ml 1X ONCE [place] Last administered on 09/23 12:40; Start 10/08/19 at 12:30; Stop 10/08/19 at 12:31; Status DC Hydralazine HCl (Apresoline Inj) 10 mg PRN Q4HRS PRN IVP ELEVATED BP, SEE COMMENTS; Start 10/08/19 at 15:30; Status Cancel Sodium Chloride (Normal Saline Flush) 3 ml QSHIFT PRN IV AFTER MEDS AND BLOOD DRAWS; Start 10/08/19 at 15:30 Ondansetron HCl (Zofran) 4 mg PRN Q4HRS PRN IV NAUSEA/VOMITING Last admini stered on 10/10/19 09:31; Start 10/08/19 at 15:30 Acetaminophen (Tylenol) 650 mg PRN Q4HRS PRN PO TEMP OVER 100.4F OR MILD PAIN Last administered on 10/09/19at 11:44; Start 10/08/19 at 15:30 Al Hydroxide/Mg Hydroxide (Mylanta Plus Xs) 30 ml PRN DAILY PRN PO HEARTBURN / GAS; Start 10/08/19 at 15:30 Sodium Monofluorophosphate (Fleet Adult) 133 ml PRN DAILY PRN [place] CONSTIPATION, 2nd CHOICE; Start 10/08/19 at 15:30 Docusate Sodium (Colace) 100 mg PRN BID PRN PO HARD STOOLS Last administered on 10/09/19at 09:21; Start 10/08/19 at 15:30 Albuterol Sulfate (Ventolin Neb Soln) 2.5 mg PRN Q4HRS PRN NEB SHORTNESS OF BREATH; Start 10/08/19 at 15:30 Guaifenesin (Robitussin) 200 mg PRN Q4HRS PRN PO COUGH; Start 10/08/19 at 15:30 Enoxaparin Sodium (Lovenox 30mg Syringe) 30 mg Q24H SQ Last administered on 10/09/19at 15:17; Start 10/08/19 at 15:30 Ceftriaxone Sodium (Rocephin) 1 gm Q24H IVP Last administered on 10/09/19at 15:21; Start 10/08/19 at 16:00; Stop 10/10/19 at 09:32; Status DC Aspirin (Ecotrin) 81 mg DAILYWBKFT PO Last administered on 10/10/19at 08:47; Start 10/09/19 at 08:00 Lactobacillus Rhamnosus (Culturelle) 1 cap BID PO Last administered on 10/10/19at 08:46; Start 10/08/19 at 21:00 Loperamide HCl (Imodium) 2 mg PRN Q6HRS PRN PO DIARRHEA Last administered on 10/10/19at 01:30; Start 10/10/19 at 01:30 Active Scripts Active Proctosol-Hc (Hydrocortisone) 28.35 Gm Cream..g. 1 Jan RC PRN BID PRN 10 Days Reported EXELON 9.5mg/24hr (Rivastigmine) 1 Each Patch.td24 1 Patch TP DAILY 1 Days Lactulose 20 Gm/30 Ml Solution 10 Gm PO DAILY NITROGLYCERIN SubLingual (Nitroglycerin) 0.4 Mg Tab.subl 0.4 Mg SL PRN Q5MIN PRN Hydrocodone-Apap 5-325 (Hydrocodone Bit/Acetaminophen) 1 Each Tablet 1 Tab PO PRN Q6HRS PRN Clonazepam (Clonazepam) 0.5 Mg Tablet 1-2 Tab PO QHS Trazodone Hcl 50 Mg Tablet 1 Tab PO QHS PRN Atorvastatin Calcium 80 Mg Tablet 80 Mg PO DAILY Allergies Allergies: Coded Allergies: YURIY Inhibitors (Verified Allergy, Intermediate, 02/03/18) Beta-Blockers (Beta-Adrenergic Bloc (Verified Allergy, Intermediate, 05/18/19) Has received IV labetolol during prior visit without issues lisinopril (Verified Adverse Reaction, Severe, "passed out", 08/05/13) Physical Exam Physical Exam No cervical, axillary, inguinal lymphadenopathy noted General: Alert, Oriented X3, Cooperative HEENT: Atraumatic Lungs: Clear to auscultation Heart: No murmurs Abdomen: Normal bowel sounds, Soft, No tenderness, No hepatosplenomegaly Skin: No rashes, No significant lesion, Other (No lesions noted on both lower extremities) Neuro: Normal speech Psych/Mental Status: Mental status NL MUSCULOSKELETAL: No deformity Vitals VITALS Vital Signs Date Time Temp Pulse Resp B/P (MAP) Pulse Ox O2 Delivery O2 Flow Rate FiO2 10/10/19 08:47 90 10/10/19 07:00 98.2 14 184/71 (108) 98 Room Air 98.2 Labs Labs Laboratory Tests Test 10/08/19 13:12 10/10/19 07:24 Troponin I Quantitative < 0.017 ng/mL (0.000-0.055) Sodium Level 140 mmol/L (136-145) Potassium Level 3.6 mmol/L (3.5-5.1) Chloride Level 103 mmol/L (98-107) Carbon Dioxide Level 30 mmol/L (21-32) Anion Gap 7 (6-14) Blood Urea Nitrogen 14 mg/dL (7-20) Creatinine 1.1 mg/dL (0.6-1.0) Estimated GFR (Cockcroft-Gault) 46.9 Glucose Level 105 mg/dL (70-99) Calcium Level 8.6 mg/dL (8.5-10.1) Laboratory Tests Test 10/10/19 07:24 Sodium Level 140 mmol/L (136-145) Potassium Level 3.6 mmol/L (3.5-5.1) Chloride Level 103 mmol/L (98-107) Carbon Dioxide Level 30 mmol/L (21-32) Anion Gap 7 (6-14) Blood Urea Nitrogen 14 mg/dL (7-20) Creatinine 1.1 mg/dL (0.6-1.0) Estimated GFR (Cockcroft-Gault) 46.9 Glucose Level 105 mg/dL (70-99) Calcium Level 8.6 mg/dL (8.5-10.1) Images Images Reviewed chest x-ray and CT head Assessment/Plan Assessment/Plan History of anaplastic cutaneous lymphoma: -Diagnosed in 2009 with stage IAE disease -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 -She underwent extensive staging evaluation by Dr. Jennings including CT head imaging and bone marrow biopsy, which revealed no evidence for other disease elsewhere and therefore she was felt to have localized disease to this site -She received RT and reirradiation to locally recurrent disease -Previously followed with Dr. Juarez, radiation oncologist -No evidence of relapse lymphoma noted on today's visit by history, exam or by lab review of CBC and CMP -Continue care per hospitalist Chest pain: No acute process on chest x-ray. Thank you for the consult Jensen Velazquez MD Medical Oncology/Hematology Ph: [phone] DENISE VELAZQUEZ MD Oct 10, 2019 11:18
--- NOTE | 2019-10-10 12:20 | NUR ---
SS following up with discharge planning. SS reviewed pt chart and discussed with pt RN. Pt is currently on room air. Pt and daughter are currently declining [facility] unit. Pt will return to home with daughter and [facility], ; fax [phone], at discharge. SS phoned and faxed referral to [facility]. SS will continue to follow for discharge planning.
--- NOTE | 2019-10-10 12:38 | RAD ---
5 views lumbar spine compared to similar study dated April 152019 for radiculopathy and urinary retention. FINDINGS: There is no fracture, or acute osseous or alignment abnormality of the lumbar spine. There is straightening of normal lumbar lordosis. There is redemonstration of degenerative disc disease at L2-3, L3-4, and L5-S1, as well as bulky facet arthrosis from L2-3 on down. Findings are grossly stable. Extensive aortoiliac atherosclerosis is seen along with stable aneurysmal dilatation of the abdominal aorta. This could be better evaluated with CTA or ultrasound if clinically warranted. No pars defects are identified. Densely calcified atherosclerosis of the superior mesenteric artery is also noted. IMPRESSION: 1. Stable multilevel degenerative changes including bulky facet arthrosis and degenerative disc disease at the lower lumbar levels. If there is clinical concern for nerve root impingement, further evaluation with MRI should be considered. 2. Extensive aortoiliac atherosclerosis including severe bulky calcification of the proximal superior mesenteric artery. 3. 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 Electronically signed by: Boston Alexander MD (10/10/2019 12:35 PM) [email or web address]
--- NOTE | 2019-10-10 14:34 | PDOC ---
PROGRESS NOTES Subjective Subjective Patient seen and examined Objective Objective Vital Signs Date Time Temp Pulse Resp B/P (MAP) Pulse Ox O2 Delivery O2 Flow Rate FiO2 10/10/19 14:27 98.8 78 20 155/72 (99) 98 Room Air 98.8 Intake and Output 10/10/19 07:00 Intake Total 980 ml Output Total 1000 ml Balance -20 ml Intake Oral 980 ml Output Urine Total 1000 ml # Bowel Movements 3 Physical Exam Abdomen: Normal bowel sounds Heart: Regular rate General: No acute distress Lungs: Other (Mildly decreased breath sounds) Assessment Assessment Problems Medical Problems: (1) Chest pain Status: Acute Chest pain, atypical; AMI ruled out. Most probably secondary to #2. recent echo with preserved LV systolic function. MPI 09/11 without evidence of ischemia. Continue medical treatment. Hypertensive urgency; better controlled. Continue present medications. May need to increase Norvasc if blood pressure does not improve Hyperlipidemia; statin CAD s/p remote PCI/stent to LAD and known WEED BURNER of RCA. Will follow as an outpatient. CKD; Cr stable H/o CVA Dementia Comment Review of Relevant I have reviewed the following items lorna (where applicable) has been applied. Labs Laboratory Tests Test 10/10/19 07:24 Sodium Level 140 mmol/L (136-145) Potassium Level 3.6 mmol/L (3.5-5.1) Chloride Level 103 mmol/L (98-107) Carbon Dioxide Level 30 mmol/L (21-32) Anion Gap 7 (6-14) Blood Urea Nitrogen 14 mg/dL (7-20) Creatinine 1.1 mg/dL (0.6-1.0) Estimated GFR (Cockcroft-Gault) 46.9 Glucose Level 105 mg/dL (70-99) Calcium Level 8.6 mg/dL (8.5-10.1) Laboratory Tests Test 10/10/19 07:24 Sodium Level 140 mmol/L (136-145) Potassium Level 3.6 mmol/L (3.5-5.1) Chloride Level 103 mmol/L (98-107) Carbon Dioxide Level 30 mmol/L (21-32) Anion Gap 7 (6-14) Blood Urea Nitrogen 14 mg/dL (7-20) Creatinine 1.1 mg/dL (0.6-1.0) Estimated GFR (Cockcroft-Gault) 46.9 Glucose Level 105 mg/dL (70-99) Calcium Level 8.6 mg/dL (8.5-10.1) Microbiology 10/07/19 Urine Culture - Final, Complete Medications Current Medications Hydralazine HCl (Apresoline Inj) 10 mg 1X ONCE IVP Last administered on 10/07/19 15:44; Start 10/07/19 at 15:30; Stop 10/07/19 at 15:31; Status DC Clonazepam (KlonoPIN) 0.5 mg QHS PO Last administered on 10/08/19at 21:34; Start 10/07/19 at 21:00; Stop 10/09/19 at 15:48; Status DC Acetaminophen/ Hydrocodone Bitart (Lortab 5/325) 1 tab PRN Q6HRS PRN PO MODERATE TO SEVERE PAIN Last administered on 10/10/19at 08:46; Start 10/07/19 at 20:15 Hydrocortisone (Proctosol-Hc) 1 jan PRN BID PRN RC rectal pain Last administered on 10/08/19at 14:35; Start 10/07/19 at 20:15 Lactulose (Lactulose) 10 gm DAILY PO Last administered on 10/09/19 09:21; Start 10/08/19 at 09:00 Nitroglycerin (Nitrostat) 0.4 mg PRN Q5MIN PRN SL CHEST PAIN; Start 10/07/19 at 20:15 Trazodone HCl (Desyrel) 50 mg PRN QHS PRN PO INSOMNIA Last administered on 10/07/19at 21:15; Start 10/07/19 at 20:15 Atorvastatin Calcium (Lipitor) 80 mg QHS PO Last administered on 10/09/19at 22:30; Start 10/07/19 at 21:00 Nitroglycerin/ Dextrose 250 ml @ 0 mls/hr 1X ONCE IV Last administered on 10/07/19 21:29; Start 10/07/19 at 20:30; Stop 10/07/19 at 20:31; Status DC Rivastigmine (Exelon) 1 patch DAILY TD Last administered on 10/10/19at 08:48; Start 10/08/19 at 09:00 Amlodipine Besylate (Norvasc) 10 mg DAILY PO Last administered on 10/10/19at 08:47; Start 10/09/19 at 09:00 Hydralazine HCl (Apresoline Inj) 10 mg PRN Q4HRS PRN IVP ELEVATED BP, SEE COMMENTS Last administered on 10/08/19at 12:40; Start 10/08/19 at 11:00 Polyethylene Glycol (miraLAX PACKET) 17 gm PRN DAILY PRN PO CONSTIPATION Last administered on 10/09/19at 15:21; Start 10/08/19 at 11:15 Bisacodyl (Dulcolax Supp) 10 mg PRN DAILY PRN SC CONSTIPATION, 1sT CHOICE Last administered on 10/09/19at 18:35; Start 10/08/19 at 11:15 Amlodipine Besylate (Norvasc) 10 mg 1X ONCE PO Last administered on 10/08/19at 11:25; Start 10/08/19 at 11:15; Stop 10/08/19 at 11:18; Status DC Isosorbide Mononitrate (Imdur) 30 mg DAILY PO Last administered on 10/10/19at 08:47; Start 10/08/19 at 11:15 Mineral Oil (Fleet Mineral Oil) 133 ml 1X ONCE SC Last administered on 10/08/19at 12:40; Start 10/08/19 at 12:30; Stop 10/08/19 at 12:31; Status DC Hydralazine HCl (Apresoline Inj) 10 mg PRN Q4HRS PRN IVP ELEVATED BP, SEE COMMENTS; Start 10/08/19 at 15:30; Status Cancel Sodium Chloride (Normal Saline Flush) 3 ml QSHIFT PRN IV AFTER MEDS AND BLOOD DRAWS; Start 10/08/19 at 15:30 Ondansetron HCl (Zofran) 4 mg PRN Q4HRS PRN IV NAUSEA/VOMITING Last administered on 10/10/19at 09:31; Start 10/08/19 at 15:30 Acetaminophen (Tylenol) 650 mg PRN Q4HRS PRN PO TEMP OVER 100.4F OR MILD PAIN Last administered on 10/09/19at 11:44; Start 10/08/19 at 15:30 Al Hydroxide/Mg Hydroxide (Mylanta Plus Xs) 30 ml PRN DAILY PRN PO HEARTBURN / GAS; Start 10/08/19 at 15:30 Sodium Monofluorophosphate (Fleet Adult) 133 ml PRN DAILY PRN SC CONSTIPATION, 2nd CHOICE; Start 10/08/19 at 15:30 Docusate Sodium (Colace) 100 mg PRN BID PRN PO HARD STOOLS Last administered on 10/09/19at 09:21; Start 10/08/19 at 15:30 Albuterol Sulfate (Ventolin Neb Soln) 2.5 mg PRN Q4HRS PRN NEB SHORTNESS OF B REATH; Start 10/08/19 at 15:30 Guaifenesin (Robitussin) 200 mg PRN Q4HRS PRN PO COUGH; Start 10/08/19 at 15:30 Enoxaparin Sodium (Lovenox 30mg Syringe) 30 mg Q24H SQ Last administered on 10/09/19at 15:17; Start 10/08/19 at 15:30 Ceftriaxone Sodium (Rocephin) 1 gm Q24H IVP Last administered on 10/09/19at 15:21; Start 10/08/19 at 16:00; Stop 10/10/19 at 09:32; Status DC Aspirin (Ecotrin) 81 mg DAILYWBKFT PO Last administered on 10/10/19at 08:47; Start 10/09/19 at 08:00 Lactobacillus Rhamnosus (Culturelle) 1 cap BID PO Last administered on 10/10/19at 08:46; Start 10/08/19 at 21:00 Loperamide HCl (Imodium) 2 mg PRN Q6HRS PRN PO DIARRHEA Last administered on 10/10/19at 01:30; Start 10/10/19 at 01:30 Active Scripts Active Proctosol-Hc (Hydrocortisone) 28.35 Gm Cream..g. 1 Jan RC PRN BID PRN 10 Days Reported EXELON 9.5mg/24hr (Rivastigmine) 1 Each Patch.td24 1 Patch TP DAILY 1 Days Lactulose 20 Gm/30 Ml Solution 10 Gm PO DAILY NITROGLYCERIN SubLingual (Nitroglycerin) 0.4 Mg Tab.subl 0.4 Mg SL PRN Q5MIN PRN Hydrocodone-Apap 5-325 (Hydrocodone Bit/Acetaminophen) 1 Each Tablet 1 Tab PO PRN Q6HRS PRN Clonazepam (Clonazepam) 0.5 Mg Tablet 1-2 Tab PO QHS Trazodone Hcl 50 Mg Tablet 1 Tab PO QHS PRN Atorvastatin Calcium 80 Mg Tablet 80 Mg PO DAILY Vitals/I & O Vital Sign - Last 24 Hours 10/09/19 10/09/19 10/09/19 10/09/19 14:50 18:51 20:00 23:20 Temp 98.5 97.7 98.7 98.5 97.7 98.7 Pulse 86 69 72 Resp 16 18 18 B/P (MAP) 125/84 (98) 154/80 (104) 162/80 (107) Pulse Ox 93 97 95 O2 Delivery Room Air Room Air Room Air Room Air 10/10/19 10/10/19 10/10/19 10/10/19 02:52 07:00 08:00 08:47 Temp 98.4 98.2 98.4 98.2 Pulse 77 79 90 Resp 20 14 B/P (MAP) 174/82 (112) 184/71 (108) Pulse Ox 93 98 O2 Delivery Room Air Room Air Room Air 10/10/19 10/10/19 10/10/19 10/10/19 08:47 11:00 12:50 12:50 Pulse 90 88 90 93 B/P (MAP) 178/93 (121) 144/64 (90) 131/64 (86) Pulse Ox 96 10/10/19 10/10/19 12:51 14:27 Temp 98.8 98.8 Pulse 100 78 Resp 20 B/P (MAP) 140/71 (94) 155/72 (99) Pulse Ox 98 O2 Delivery Room Air Intake and Output 10/09/19 10/09/19 10/10/19 15:00 23:00 07:00 Intake Total 380 ml 300 ml 300 ml Output Total 900 ml 100 ml Balance 380 ml -600 ml 200 ml Justicifation of Admission Dx: Justifications for Admission: Justification of Admission Dx: Yes Angina: New-Onset Hypertension: Symp at Rest ANGÉLICA ALLEN MD Oct 10, 2019 14:34
[2019-10-10] MEDS: ENOXAPARIN 30 MG/0.3 ML SYRINGE. SQ SCH (16:12)
[2019-10-10] MEDS ORDERED: hydroCHLOROthiazide 12.5 MG CAPSULE PO ONE (17:30)
[2019-10-10] MEDS: SPIRONOLACTONE 25 MG TABLET PO SCH (17:46)
--- NOTE | 2019-10-10 20:20 | PDOC1 ---
History & Psych Evaluation Date of Admission: Date of Admission DATE: 10/10/19 TIME: 20:07 Source: Source: Caregiver, Chart review, Patient Identification: Identification 89-year-old female who lives with her daughter admitted with chest pain. Chief Complaint: Chief Complaint Tearful, depression and anxiety History of Present Illness: HPI: She is a 89-year-old female with history of depression and degenerative dementia admitted with chest pain. She is seen for initial psychiatric assessment. Reportedly struggling with depression and anxiety. When seen, she appears to be in distress due to her stomach pain and nausea. She was retching having difficulty to interact and participate in interview. Stating, she has history of depression and anxiety. According to the nursing staff, patient has been very tearful through the day. Additionally appears very anxious and jittery. Patient also endorses depression and rated as moderate. Anxiety is rated as mild to moderate depending on her condition. Presently, anxiety is high worried about her chest pain and medical conditions. Denies suicidal or homicidal thoughts. Denies auditory or visual hallucinations. No evidence of brianna or hypomania. She has previous history of CVA Past Psychiatric History: Previously diagnosed with depression and anxiety. She denies history of psychiatric hospital admission. Denies previous history of suicidal attempt. Past Medical History: Coronary artery disease COPD CVA Depression GERD Hyperlipidemia Hypertension Depression and anxiety Family History: Psychiatric family history is not known to the patient. Denies history of suicide in the family. Social History: Social History: She lives with her daughter. She is a former smoker. Denies history of alcohol use or illicit substance use. No legal issues reported Current Medications: Current Medications Current Medications Medications (Trade) Dose Ordered Sig/Vanessa Start Time Stop Time Status Last Admin Dose Admin Acetaminophen (Tylenol) 650 mg PRN Q4HRS PRN 10/08/19 15:30 10/09/19 11:44 650 MG Acetaminophen/ Hydrocodone Bitart (Lortab 5/325) 1 tab PRN Q6HRS PRN 10/07/19 20:15 10/10/19 17:46 1 TAB Al Hydroxide/Mg Hydroxide (Mylanta Plus Xs) 30 ml PRN DAILY PRN 10/08/19 15:30 Albuterol Sulfate (Ventolin Neb Soln) 2.5 mg PRN Q4HRS PRN 10/08/19 15:30 Amlodipine Besylate (Norvasc) 10 mg 1X ONCE 10/08/19 11:15 10/08/19 11:18 DC 10/08/19 11:25 10 MG Aspirin (Ecotrin) 81 mg DAILYWBKFT 10/09/19 08:00 10/10/19 08:47 81 MG Atorvastatin Calcium (Lipitor) 80 mg QHS 10/07/19 21:00 10/09/19 22:30 80 MG Bisacodyl (Dulcolax Supp) 10 mg PRN DAILY PRN 10/08/19 11:15 10/09/19 18:35 10 MG Ceftriaxone Sodium (Rocephin) 1 gm Q24H 10/08/19 16:00 10/10/19 09:32 DC 10/09/19 15:21 1 GM Clonazepam (KlonoPIN) 0.5 mg QHS 10/07/19 21:00 10/09/19 15:48 DC 10/08/19 21:34 0.5 MG Docusate Sodium (Colace) 100 mg PRN BID PRN 10/08/19 15:30 10/09/19 09:21 100 MG Enoxaparin Sodium (Lovenox 30mg Syringe) 30 mg Q24H 10/08/19 15:30 10/10/19 16:12 30 MG Guaifenesin (Robitussin) 200 mg PRN Q4HRS PRN 10/08/19 15:30 Hydralazine HCl (Apresoline Inj) 10 mg PRN Q4HRS PRN 10/08/19 15:30 Cancel Hydrochlorothiazide (Microzide) 12.5 mg 1X ONCE 10/10/19 17:30 10/10/19 17:31 DC 10/10/19 17:46 12.5 MG Hydrocortisone (Proctosol-Hc) 1 magnolia PRN BID PRN 10/07/19 20:15 10/08/19 14:35 1 MAGNOLIA Isosorbide Mononitrate (Imdur) 30 mg DAILY 10/08/19 11:15 10/10/19 08:47 30 MG Lactobacillus Rhamnosus (Culturelle) 1 cap BID 10/08/19 21:00 10/10/19 08:46 1 CAP Lactulose (Lactulose) 10 gm DAILY 10/08/19 09:00 10/09/19 09:21 10 GM Loperamide HCl (Imodium) 2 mg PRN Q6HRS PRN 10/10/19 01:30 10/10/19 01:30 2 MG Mineral Oil (Fleet Mineral Oil) 133 ml 1X ONCE 10/08/19 12:30 10/08/19 12:31 DC 10/08/19 12:40 133 ML Nitroglycerin (Nitrostat) 0.4 mg PRN Q5MIN PRN 10/07/19 20:15 Nitroglycerin/ Dextrose 250 ml @ 0 mls/hr 1X ONCE 10/07/19 20:30 10/07/19 20:31 DC 10/07/19 21:29 1.5 MLS/HR Ondansetron HCl (Zofran) 4 mg PRN Q4HRS PRN 10/08/19 15:30 10/10/19 16:10 4 MG Polyethylene Glycol (miraLAX PACKET) 17 gm PRN DAILY PRN 10/08/19 11:15 10/09/19 15:21 17 GM Rivastigmine (Exelon) 1 patch DAILY 10/08/19 09:00 10/10/19 08:48 1 PATCH Sodium Monofluorophosphate (Fleet Adult) 133 ml PRN DAILY PRN 10/08/19 15:30 Sodium Chloride (Normal Saline Flush) 3 ml QSHIFT PRN 10/08/19 15:30 Spironolactone (Aldactone) 12.5 mg DAILY 10/10/19 17:00 10/10/19 17:46 12.5 MG Trazodone HCl (Desyrel) 50 mg PRN QHS PRN 10/07/19 20:15 10/07/19 21:15 50 MG Allergies: Allergies: Coded Allergies: YURIY Inhibitors (Verified Allergy, Intermediate, 02/03/18) Beta-Blockers (Beta-Adrenergic Bloc (Verified Allergy, Intermediate, 05/18/19) Has received IV labetolol during prior visit without issues lisinopril (Verified Adverse Reaction, Severe, "passed out", 08/05/13) ROS: 14 point review of system is otherwise negative except for back pain, nausea, stomach pain, depression, anxiety, crying spells Physical Exam: Refer to Physician's note. 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 MSK: No EPS, TDK, or abnormal involuntary movements Vitals: Vitals Vital Signs Date Time Temp Pulse Resp B/P (MAP) Pulse Ox O2 Delivery O2 Flow Rate FiO2 10/10/19 14:27 98.8 78 20 155/72 (99) 98 Room Air 98.8 Labs: Labs Laboratory Tests Test 10/10/19 07:24 Sodium Level 140 mmol/L (136-145) Potassium Level 3.6 mmol/L (3.5-5.1) Chloride Level 103 mmol/L (98-107) Carbon Dioxide Level 30 mmol/L (21-32) Anion Gap 7 (6-14) Blood Urea Nitrogen 14 mg/dL (7-20) Creatinine 1.1 mg/dL (0.6-1.0) Estimated GFR (Cockcroft-Gault) 46.9 Glucose Level 105 mg/dL (70-99) Calcium Level 8.6 mg/dL (8.5-10.1) Laboratory Tests Test 10/10/19 07:24 Sodium Level 140 mmol/L (136-145) Potassium Level 3.6 mmol/L (3.5-5.1) Chloride Level 103 mmol/L (98-107) Carbon Dioxide Level 30 mmol/L (21-32) Anion Gap 7 (6-14) Blood Urea Nitrogen 14 mg/dL (7-20) Creatinine 1.1 mg/dL (0.6-1.0) Estimated GFR (Cockcroft-Gault) 46.9 Glucose Level 105 mg/dL (70-99) Calcium Level 8.6 mg/dL (8.5-10.1) Diagnosis: Diagnosis: Major depressive disorder, recurrent, moderate Generalized anxiety disorder Unspecified 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 She has multiple medical comorbidities with depression and anxiety. Apparently, her multiple mental medical health problems appears to be the major precipitating factor for depression. However underlying neurocognitive disorder places her at risk of having depression which is common in neurocognitive disorders. She is in agreement to start Zoloft and Seroquel 25 mg nightly for altered mental status and insomnia. Plan: Start Zoloft 25 mg daily for depression and anxiety Start Seroquel 25 mg nightly for altered mental status, insomnia, and anxiety. Risk, benefits, alternatives of the treatment are discussed. She is in agree ment with plan and voiced understanding. Adverse drug reactions including but not limited to excessive sedation, black box warning, risk of bleeding, risk of tardive dyskinesia, metabolic syndrome, EPS are discussed. Monitor closely for excessive sedation. In case of excessive sedation cut down dose of Seroquel to 12.5 mg nightly. Thank you for involving inpatient care CANDY BURDICK MD Oct 10, 2019 20:20
[2019-10-10] MEDS: traZODone 50 MG TABLET. PO PRN (21:04)
[2019-10-10] MEDS: hydrALAZINE 20 MG/ML VIAL. IVP PRN (21:04)
[2019-10-10] MEDS: QUEtiapine 25 MG TABLET. PO SCH (21:04)
[2019-10-10] MEDS: ATORVASTATIN CALCIUM 40 MG TABLET. PO SCH (21:04)
[2019-10-10] MEDS: ACETAMINOPHEN 325 MG TABLET. PO PRN (21:52)
[2019-10-11] VITALS (7 sets, daily range): BP systolic 118–183; BP diastolic 47–84
[2019-10-11 04:23] LABS: BASO % 1 % (0-3); EOS # 0.1 x10^3/uL (0.0-0.7); EOS % 2 % (0-3); HEMATOCRIT 38.4 % (36.0-47.0); HEMOGLOBIN 13.2 g/dL (12.0-15.5); LYMPH # 1.1 x10^3/uL (1.0-4.8); LYMPH % 24 % (24-48); MEAN CORPUSCULAR HEMOGLOBIN 32 pg (25-35); MEAN CORPUSCULAR HGB CONC 34 g/dL (31-37); MEAN CORPUSCULAR VOLUME 92 fL (79-100); MONO # 0.6 x10^3/uL (0.0-1.1); MONO % 14 % (0-9); NEUT # 2.7 x10^3/uL (1.8-7.7); NEUT % 59 % (31-73); PLATELET COUNT 157 x10^3/uL (140-400); RED BLOOD COUNT 4.15 x10^6/uL (3.50-5.40); RED CELL DISTRIBUTION WIDTH 13.9 % (11.5-14.5); WHITE BLOOD COUNT 4.5 x10^3/uL (4.0-11.0)
[2019-10-11 04:39] LABS: CALCIUM 7.9 mg/dL (8.5-10.1); CREATININE 1.1 mg/dL (0.6-1.0); GFR 46.9; POTASSIUM 3.4 mmol/L (3.5-5.1)
--- NOTE | 2019-10-11 08:17 | RAD ---
Examination: Ultrasound abdomen complete HISTORY: History of hematuria, urine retention Comparison: None available. FINDINGS: The visualized pancreas grossly appears unremarkable. Atherosclerotic calcifications identified in the aorta. Mild aneurysmal change of the abdominal aorta measuring 3.5 cm. The visualized IVC within normal limits of dimension. Changes of cholecystectomy. The liver length measures 13.7 cm. The common bile duct measures 8.4 mm in diameter. The right kidney measures 10 cm in length with mild right-sided hydronephrosis. The left kidney measures 10.6 cm in length. There is a 2.2 cm cystic structure identified in the left kidney probably a cyst. The urinary bladder is mildly distended. The spleen measures 9.5 cm in length. IMPRESSION: 1. Mild right-sided hydronephrosis. 2. A 2.2 cm cyst identified in the left kidney. 3. Prominent appearing common bile duct probably post cholecystectomy changes. Electronically signed by: Joseph Kelly MD (10/11/2019 8:15 AM) [id number]
[2019-10-11] MEDS: LACTULOSE 20 GM/30 ML SOLUTION. PO SCH (09:00)
[2019-10-11] MEDS: LACTOBACILLUS RHAMNOSUS GG 1 CAPSULE. PO SCH ×2 (09:18→21:44)
[2019-10-11] MEDS: hydroCHLOROthiazide 12.5 MG CAPSULE PO SCH (09:18)
[2019-10-11] MEDS: SERTRALINE 25 MG TABLET. PO SCH (09:18)
[2019-10-11] MEDS: SPIRONOLACTONE 25 MG TABLET PO SCH (09:18)
[2019-10-11] MEDS: ASPIRIN ENTERIC COATED 81 MG TABLET.DR. PO SCH (09:18)
[2019-10-11] MEDS: ISOSORBIDE MONONITRATE ER 30 MG TAB.ER.24H PO SCH (09:19)
[2019-10-11] MEDS: HYDROcodone/APAP 5/325MG 1 TAB TABLET PO PRN (09:19)
[2019-10-11] MEDS: amLODIPine BESYLATE 10 MG TABLET PO SCH (09:20)
[2019-10-11] MEDS: RIVASTIGMINE 9.5MG PATCH. TD SCH (09:21)
--- NOTE | 2019-10-11 09:22 | PDOC ---
PROGRESS NOTES Subjective Subjective No new complaints. Objective Objective Vital Signs Date Time Temp Pulse Resp B/P (MAP) Pulse Ox O2 Delivery O2 Flow Rate FiO2 10/11/19 04:20 97.7 71 20 118/47 (70) 94 Room Air 97.7 Intake and Output 10/11/19 07:00 Intake Total 920 ml Output Total 500 ml Balance 420 ml Intake Oral 920 ml Output Urine Total 500 ml # Voids 5 # Bowel Movements 1 Physical Exam Physical Exam She is sitting at edge of bed and eating breakfast and did walk with roller walker with me under supervision and then refused to work with therapy as she fe lt nauseous. CT head and abdominal ultrasound report noted. Assessment Assessment Problems Medical Problems: (1) Chest pain Status: Acute Plan Plan of Care To get her up as tolerated and home with home health follow up when medically stable. Comment Review of Relevant I have reviewed the following items lorna (where applicable) has been applied. Labs Laboratory Tests Test 10/10/19 07:24 10/11/19 04:00 Sodium Level 140 mmol/L (136-145) 130 mmol/L (136-145) Potassium Level 3.6 mmol/L (3.5-5.1) 3.4 mmol/L (3.5-5.1) Chloride Level 103 mmol/L (98-107) 98 mmol/L (98-107) Carbon Dioxide Level 30 mmol/L (21-32) 24 mmol/L (21-32) Anion Gap 7 (6-14) 8 (6-14) Blood Urea Nitrogen 14 mg/dL (7-20) 17 mg/dL (7-20) Creatinine 1.1 mg/dL (0.6-1.0) 1.1 mg/dL (0.6-1.0) Estimated GFR (Cockcroft-Gault) 46.9 46.9 Glucose Level 105 mg/dL (70-99) 112 mg/dL (70-99) Calcium Level 8.6 mg/dL (8.5-10.1) 7.9 mg/dL (8.5-10.1) White Blood Count 4.5 x10^3/uL (4.0-11.0) Red Blood Count 4.15 x10^6/uL (3.50-5.40) Hemoglobin 13.2 g/dL (12.0-15.5) Hematocrit 38.4 % (36.0-47.0) Mean Corpuscular Volume 92 fL (79-100) Mean Corpuscular Hemoglobin 32 pg (25-35) Mean Corpuscular Hemoglobin Concent 34 g/dL (31-37) Red Cell Distribution Width 13.9 % (11.5-14.5) Platelet Count 157 x10^3/uL (140-400) Neutrophils (%) (Auto) 59 % (31-73) Lymphocytes (%) (Auto) 24 % (24-48) Monocytes (%) (Auto) 14 % (0-9) Eosinophils (%) (Auto) 2 % (0-3) Basophils (%) (Auto) 1 % (0-3) Neutrophils # (Auto) 2.7 x10^3/uL (1.8-7.7) Lymphocytes # (Auto) 1.1 x10^3/uL (1.0-4.8) Monocytes # (Auto) 0.6 x10^3/uL (0.0-1.1) Eosinophils # (Auto) 0.1 x10^3/uL (0.0-0.7) Basophils # (Auto) 0.0 x10^3/uL (0.0-0.2) Laboratory Tests Test 10/11/19 04:00 White Blood Count 4.5 x10^3/uL (4.0-11.0) Red Blood Count 4.15 x10^6/uL (3.50-5.40) Hemoglobin 13.2 g/dL (12.0-15.5) Hematocrit 38.4 % (36.0-47.0) Mean Corpuscular Volume 92 fL (79-100) Mean Corpuscular Hemoglobin 32 pg (25-35) Mean Corpuscular Hemoglobin Concent 34 g/dL (31-37) Red Cell Distribution Width 13.9 % (11.5-14.5) Platelet Count 157 x10^3/uL (140-400) Neutrophils (%) (Auto) 59 % (31-73) Lymphocytes (%) (Auto) 24 % (24-48) Monocytes (%) (Auto) 14 % (0-9) Eosinophils (%) (Auto) 2 % (0-3) Basophils (%) (Auto) 1 % (0-3) Neutrophils # (Auto) 2.7 x10^3/uL (1.8-7.7) Lymphocytes # (Auto) 1.1 x10^3/uL (1.0-4.8) Monocytes # (Auto) 0.6 x10^3/uL (0.0-1.1) Eosinophils # (Auto) 0.1 x10^3/uL (0.0-0.7) Basophils # (Auto) 0.0 x10^3/uL (0.0-0.2) Sodium Level 130 mmol/L (136-145) Potassium Level 3.4 mmol/L (3.5-5.1) Chloride Level 98 mmol/L (98-107) Carbon Dioxide Level 24 mmol/L (21-32) Anion Gap 8 (6-14) Blood Urea Nitrogen 17 mg/dL (7-20) Creatinine 1.1 mg/dL (0.6-1.0) Estimated GFR (Cockcroft-Gault) 46.9 Glucose Level 112 mg/dL (70-99) Calcium Level 7.9 mg/dL (8.5-10.1) Microbiology 10/07/19 Urine Culture - Final, Complete Medications Current Medications Hydralazine HCl (Apresoline Inj) 10 mg 1X ONCE IVP Last administered on 10/07/19at 15:44; Start 10/07/19 at 15:30; Stop 10/07/19 at 15:31; Status DC Clonazepam (KlonoPIN) 0.5 mg QHS PO Last administered on 10/08/19at 21:34; Start 10/07/19 at 21:00; Stop 10/09/19 at 15:48; Status DC Acetaminophen/ Hydrocodone Bitart (Lortab 5/325) 1 tab PRN Q6HRS PRN PO MODERATE TO SEVERE PAIN Last administered on 10/10/19at 17:46; Start 10/07/19 at 20:15 Hydrocortisone (Proctosol-Hc) 1 jan PRN BID PRN RC rectal pain Last administered on 10/08/19at 14:35; Start 10/07/19 at 20:15 Lactulose (Lactulose) 10 gm DAILY PO Last administered on 10/09/19at 09:21; Start 10/08/19 at 09:00 Nitroglycerin (Nitrostat) 0.4 mg PRN Q5MIN PRN SL CHEST PAIN; Start 10/07/19 at 20:15 Trazodone HCl (Desyrel) 50 mg PRN QHS PRN PO INSOMNIA Last administered on 10/10/19 21:04; Start 10/07/19 at 20:15 Atorvastatin Calcium (Lipitor) 80 mg QHS PO Last administered on 10/10/19 21:04; Start 10/07/19 at 21:00 Nitroglycerin/ Dextrose 250 ml @ 0 mls/hr 1X ONCE IV Last administered on 10/07/19at 21:29; Start 10/07/19 at 20:30; Stop 10/07/19 at 20:31; Status DC Rivastigmine (Exelon) 1 patch DAILY TD Last administered on 10/10/19 08:48; Start 10/08/19 at 09:00 Amlodipine Besylate (Norvasc) 10 mg DAILY PO Last administered on 10/10/19at 08:47; Start 10/09/19 at 09:00 Hydralazine HCl (Apresoline Inj) 10 mg PRN Q4HRS PRN IVP ELEVATED BP, SEE COMMENTS Last administered on 10/10/19at 21:04; Start 10/08/19 at 11:00 Polyethylene Glycol (miraLAX PACKET) 17 gm PRN DAILY PRN PO CONSTIPATION Last administered on 10/09/19at 15:21; Start 10/08/19 at 11:15 Bisacodyl (Dulcolax Supp) 10 mg PRN DAILY PRN RI CONSTIPATION, 1sT CHOICE Last administered on 10/09/19at 18:35; Start 10/08/19 at 11:15 Amlodipine Besylate (Norvasc) 10 mg 1X ONCE PO Last administered on 10/08/19at 11:25; Start 10/08/19 at 11:15; Stop 10/08/19 at 11:18; Status DC Isosorbide Mononitrate (Imdur) 30 mg DAILY PO Last administered on 10/10/19at 08:47; Start 10/08/19 at 11:15 Mineral Oil (Fleet Mineral Oil) 133 ml 1X ONCE RI Last administered on 10/08/19at 12:40; Start 10/08/19 at 12:30; Stop 10/08/19 at 12:31; Status DC Hydralazine HCl (Apresoline Inj) 10 mg PRN Q4HRS PRN IVP ELEVATED BP, SEE COMMENTS; Start 10/08/19 at 15:30; Status Cancel Sodium Chloride (Normal Saline Flush) 3 ml QSHIFT PRN IV AFTER MEDS AND BLOOD DRAWS; Start 10/08/19 at 15:30 Ondansetron HCl (Zofran) 4 mg PRN Q4HRS PRN IV NAUSEA/VOMITING Last administered on 10/10/19at 21:06; Start 10/08/19 at 15:30 Acetaminophen (Tylenol) 650 mg PRN Q4HRS PRN PO TEMP OVER 100.4F OR MILD PAIN Last administered on 10/10/19at 21:52; Start 10/08/19 at 15:30 Al Hydroxide/Mg Hydroxide (Mylanta Plus Xs) 30 ml PRN DAILY PRN PO HEARTBURN / GAS; Start 10/08/19 at 15:30 Sodium Monofluorophosphate (Fleet Adult) 133 ml PRN DAILY PRN RI CONSTIPATION, 2nd CHOICE; Start 10/08/19 at 15:30 Docusate Sodium (Colace) 100 mg PRN BID PRN PO HARD STOOLS Last administered on 10/09/19at 09:21; Start 10/08/19 at 15:30 Albuterol Sulfate (Ventolin Neb Soln) 2.5 mg PRN Q4HRS PRN NEB SHORTNESS OF BREATH; Start 10/08/19 at 15:30 Guaifenesin (Robitussin) 200 mg PRN Q4HRS PRN PO COUGH; Start 10/08/19 at 15:30 Enoxaparin Sodium (Lovenox 30mg Syringe) 30 mg Q24H SQ Last administered on 10/10/19at 16:12; Start 10/08/19 at 15:30 Ceftriaxone Sodium (Rocephin) 1 gm Q24H IVP Last administered on 10/09/19at 15:21; Start 10/08/19 at 16:00; Stop 10/10/19 at 09:32; Status DC Aspirin (Ecotrin) 81 mg DAILYWBKFT PO Last administered on 10/10/19at 08:47; Start 10/09/19 at 08:00 Lactobacillus Rhamnosus (Culturelle) 1 cap BID PO Last administered on 10/10/19at 21:04; Start 10/08/19 at 21:00 Loperamide HCl (Imodium) 2 mg PRN Q6HRS PRN PO DIARRHEA Last administered on 10/10/19at 01:30; Start 10/10/19 at 01:30 Spironolactone (Aldactone) 12.5 mg DAILY PO Last administered on 10/10/19at 17:46; Start 10/10/19 at 17:00 Hydrochlorothiazide (Microzide) 12.5 mg DAILY PO ; Start 10/11/19 at 09:00 Hydrochlorothiazide (Microzide) 12.5 mg 1X ONCE PO Last administered on 10/10/19at 17:46; Start 10/10/19 at 17:30; Stop 10/10/19 at 17:31; Status DC Sertraline HCl (Zoloft) 25 mg DAILY PO ; Start 10/11/19 at 09:00 Quetiapine Fumarate (SEROquel) 25 mg HS PO Last administered on 10/10/19at 21:04; Start 10/10/19 at 21:00 Active Scripts Active Proctosol-Hc (Hydrocortisone) 28.35 Gm Cream..g. 1 Jan RC PRN BID PRN 10 Days Reported EXELON 9.5mg/24hr (Rivastigmine) 1 Each Patch.td24 1 Patch TP DAILY 1 Days Lactulose 20 Gm/30 Ml Solution 10 Gm PO DAILY NITROGLYCERIN SubLingual (Nitroglycerin) 0.4 Mg Tab.subl 0.4 Mg SL PRN Q5MIN PRN Hydrocodone-Apap 5-325 (Hydrocodone Bit/Acetaminophen) 1 Each Tablet 1 Tab PO PRN Q6HRS PRN Clonazepam (Clonazepam) 0.5 Mg Tablet 1-2 Tab PO QHS Trazodone Hcl 50 Mg Tablet 1 Tab PO QHS PRN Atorvastatin Calcium 80 Mg Tablet 80 Mg PO DAILY Vitals/I & O Vital Sign - Last 24 Hours 10/10/19 10/10/19 10/10/19 10/10/19 11:00 12:50 12:50 12:51 Pulse 88 90 93 100 B/P (MAP) 178/93 (121) 144/64 (90) 131/64 (86) 140/71 (94) Pulse Ox 96 10/10/19 10/10/19 10/10/19 10/10/19 14:27 19:00 20:00 20:35 Temp 98.8 97.7 98.8 97.7 Pulse 78 79 Resp 20 21 B/P (MAP) 155/72 (99) 198/82 (120) Pulse Ox 98 99 O2 Delivery Room Air Room Air Room Air Room Air 10/10/19 10/10/19 10/11/19 10/11/19 21:04 23:30 03:00 04:20 Temp 97.7 97.7 97.7 97.7 Pulse 79 74 70 71 Resp 18 20 B/P (MAP) 198/82 104/46 (65) 118/47 (70) Pulse Ox 93 94 O2 Delivery Room Air Room Air Intake and Output 10/10/19 10/10/19 10/11/19 15:00 23:00 07:00 Intake Total 320 ml 400 ml 200 ml Output Total 500 ml Balance 320 ml 400 ml -300 ml Justicifation of Admission Dx: Justifications for Admission: Justification of Admission Dx: Yes Angina: New-Onset Hypertension: Symp at Rest KONG CAVAZOS MD Oct 11, 2019 09:21
--- NOTE | 2019-10-11 10:55 | PDOC ---
PROGRESS NOTES History of Present Illness History of Present Illness VTE Prophylaxis Ordered VTE Prophylaxis Devices: Yes VTE Pharmacological Prophylaxi: Yes Assessment/Plan Assessment/Plan IMPRESSION HTN Urgency - treating, still somewhat elevated. added amlodipine HLD - on statin gerd - on PPI depression / ANXIETY - cont meds h/o CVA wo neurologic deficit historically - h/o CAD - On meds, stable. Cardiology consulted CKD3 - stable, Constipation - will cont psyllium and miralax Rectal pain - will cont hydrocortisone Mild cognitive impairment - cont exelon patch Chest pain UTI HX CVA GAIT INSTABILITY LOWER EXT PARESTHESIA Mild right-sided hydronephrosis.// POSSIBLE RENAL STONE however on ct 10/10 Small bilateral nonobstructing renal calculi. No obstructing or ureteral calculi. No hydronephrosis. 2.2 cm cyst identified in the left kidney. 10/08 urine retention noted > 300cc confused and very dysphoric , await psych consult, nursing has not recorded orthostatic bp as ordered 10/10 CONSULT NEPHROLOGY, CT ABD// PELVIS W/O CONTRAST Start Zoloft 25 mg daily for depression and anxiety Start Seroquel 25 mg nightly for altered mental status, insomnia, and anxiety. plan cvc bed Cardiology consult bp control trend troponin i straight cath PT/OT Consult dr Forman reviewed with her proper body mechanics and home program of physical modalities and stretching exercise to her lower back to consider injecting painful right shoulder and lower back orthostatic bp, pulse ct head psych consult re cognitive decline, depression NEEDS SNF BED X RAY L/S consult nephrology CT ABD R/O STONE URETERAL neg REFER TO UROLOGY out pt, may need cystoscopy 38 MIN PT EXAM, CHART REVIEW, > 50% OF TIME SPENT WITH EXAM, CHART REVIEW, PT CARE COORDINATION ADMITTED Justicifation of Admission Dx: Justicifation of Admission Dx: Justifications for Admission: Justification of Admission Dx: Yes Angina: New-Onset Hypertension: Symp at Rest Vitals Vitals Vital Signs Date Time Temp Pulse Resp B/P (MAP) Pulse Ox O2 Delivery O2 Flow Rate FiO2 10/11/19 09:20 80 10/11/19 08:00 Room Air 10/11/19 07:00 97.6 20 167/64 (98) 97 97.6 Physical Exam General: No acute distress Heart: Regular rate Lungs: Clear Abdomen: Normal bowel sounds Extremities: No cyanosis, No edema, Normal pulses Skin: No rashes, No significant lesion, Other (No lesions noted on both lower extremities) Labs LABS * Yes Patient condition at conclusion of therapy * Pt in bed * Personal alarm on * Call light in reach * Phone in reach * PtIn no apparent distress * Pt denies further needs Communicated Patient Care With (Name, Title) * Felisa ARIAS Goal 1: Pt will tolerate functional activities for * 20min Goal 1 Position: * Seated * Standing Goal 1 Assessment * Appropriate - Continue Goal 2: Pt will be able to complete: * Bathing Goal 2 Equipment: * Front Wheeled Walker Goal 2 Required Assistance Level * Independent Goal 2 Assessment * Appropriate - Continue Goal 3: Pt will be able to complete: * Hygiene and grooming task Goal 3 Equipment * Front Wheeled Walker Goal 3 Required Assistance Level * Independent * Seated * Standing Goal 3 Assessment * Appropriate - Continue Goal 4 - Pt will be able to complete: * Toileting Goal 4 Equipment * Front Wheeled Walker Goal 4 Required Assistance Level * Independent * Seated * Standing Goal 4 Assessment * Appropriate - Continue Goal 5 - Pt. will be able to complete: * LE/ UE dressing Goal 5 Equipment * Front Wheeled Walker Goal 5 Required Assistance Level * Independent * Seated * Standing Skilled interventions required to achieve goals * Activity wendy. training * ADL training/education * Adaptive equip. training * Balance training for ADL * Compensatory techniques * Coordination training/ed. * Discharge planning * Energy conservation * Functional mobility train * IADL Training * Safety education * Transfer training for ADL Number of Days/Weeks for length of Stay, or Until Goals Met * 6 treatments x 1 week Discharge Recommendations * Group Home Unit Discharge Recommendation Comments * continue to monitor Exam: CT abdomen and pelvis without contrast INDICATION: Possible renal stone TECHNIQUE: Sequential axial images through the abdomen and pelvis obtained without IV contrast. Sagittal and coronal reformatted images were reconstructed from the axial data and reviewed. Comparisons: Ultrasound same day FINDINGS: Heart size is normal. No pericardial effusion. Visualized lung bases are clear. No pleural effusion. Evaluation of the solid organs is limited secondary to noncontrast technique. Liver, spleen, pancreas, and adrenals are unremarkable. Gallbladder is not definitively identified, may be decompressed or absent. Nonobstructing renal calculi are noted bilaterally measuring 2 to 3 mm. No ureteral calculi. Bladder is distended and appears thin-walled. Uterus is absent. No abnormal adnexal mass. Few scattered diverticula are noted within the descending and sigmoid colon without evidence of acute diverticulitis. Large and small bowel are otherwise unremarkable. Appendix is not identified. No free intra-abdominal air or fluid. No obstruction. Abdominal aorta has a ectatic course. No enlarged abdominal lymph nodes are identified. IMPRESSION: 1. Small bilateral nonobstructing renal calculi. No obstructing or ureteral calculi. No hydronephrosis. 2. Diverticulosis without evidence of acute diverticulitis. 3. 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 Exposure: One or more of the following in the visualized dose reduction techniques were utilized for this examination: 1. Automated exposure control 2. Adjustment of the MA and/or KV according to patient size 3. Use of iterative of reconstructive technique Electronically signed by: Tone Martinez MD (10/11/2019 4:13 PM) [id number] DICTATED and SIGNED BY: TONE MARTINEZ MD DATE: 10/11/19 1613 Examination: Ultrasound abdomen complete HISTORY: History of hematuria, urine retention Comparison: None available. FINDINGS: The visualized pancreas grossly appears unremarkable. Atherosclerotic calcifications identified in the aorta. Mild aneurysmal change of the abdominal aorta measuring 3.5 cm. The visualized IVC within normal limits of dimension. Changes of cholecystectomy. The liver length measures 13.7 cm. The common bile duct measures 8.4 mm in diameter. The right kidney measures 10 cm in length with mild right-sided hydronephrosis. The left kidney measures 10.6 cm in length. There is a 2.2 cm cystic structure identified in the left kidney probably a cyst. The urinary bladder is mildly distended. The spleen measures 9.5 cm in length. IMPRESSION: 1. Mild right-sided hydronephrosis. 2. A 2.2 cm cyst identified in the left kidney. 3. Prominent appearing common bile duct probably post cholecystectomy changes. Electronically signed by: Joseph Kelly MD (10/11/2019 8:15 AM) [id number] DICTATED and SIGNED BY: JOSEPH KELLY MD DATE: 10/11/19 0815 Laboratory Tests Test 10/11/19 04:00 White Blood Count 4.5 x10^3/uL (4.0-11.0) Red Blood Count 4.15 x10^6/uL (3.50-5.40) Hemoglobin 13.2 g/dL (12.0-15.5) Hematocrit 38.4 % (36.0-47.0) Mean Corpuscular Volume 92 fL (79-100) Mean Corpuscular Hemoglobin 32 pg (25-35) Mean Corpuscular Hemoglobin Concent 34 g/dL (31-37) Red Cell Distribution Width 13.9 % (11.5-14.5) Platelet Count 157 x10^3/uL (140-400) Neutrophils (%) (Auto) 59 % (31-73) Lymphocytes (%) (Auto) 24 % (24-48) Monocytes (%) (Auto) 14 % (0-9) Eosinophils (%) (Auto) 2 % (0-3) Basophils (%) (Auto) 1 % (0-3) Neutrophils # (Auto) 2.7 x10^3/uL (1.8-7.7) Lymphocytes # (Auto) 1.1 x10^3/uL (1.0-4.8) Monocytes # (Auto) 0.6 x10^3/uL (0.0-1.1) Eosinophils # (Auto) 0.1 x10^3/uL (0.0-0.7) Basophils # (Auto) 0.0 x10^3/uL (0.0-0.2) Sodium Level 130 mmol/L (136-145) Potassium Level 3.4 mmol/L (3.5-5.1) Chloride Level 98 mmol/L (98-107) Carbon Dioxide Level 24 mmol/L (21-32) Anion Gap 8 (6-14) Blood Urea Nitrogen 17 mg/dL (7-20) Creatinine 1.1 mg/dL (0.6-1.0) Estimated GFR (Cockcroft-Gault) 46.9 Glucose Level 112 mg/dL (70-99) Calcium Level 7.9 mg/dL (8.5-10.1) Assessment and Plan Assessmemt and Plan Problems Medical Problems: (1) Chest pain Status: Acute Comment Review of Relevant I have reviewed the following items lorna (where applicable) has been applied. Labs Laboratory Tests Test 10/10/19 07:24 10/11/19 04:00 Sodium Level 140 mmol/L (136-145) 130 mmol/L (136-145) Potassium Level 3.6 mmol/L (3.5-5.1) 3.4 mmol/L (3.5-5.1) Chloride Level 103 mmol/L (98-107) 98 mmol/L (98-107) Carbon Dioxide Level 30 mmol/L (21-32) 24 mmol/L (21-32) Anion Gap 7 (6-14) 8 (6-14) Blood Urea Nitrogen 14 mg/dL (7-20) 17 mg/dL (7-20) Creatinine 1.1 mg/dL (0.6-1.0) 1.1 mg/dL (0.6-1.0) Estimated GFR (Cockcroft-Gault) 46.9 46.9 Glucose Level 105 mg/dL (70-99) 112 mg/dL (70-99) Calcium Level 8.6 mg/dL (8.5-10.1) 7.9 mg/dL (8.5-10.1) White Blood Count 4.5 x10^3/uL (4.0-11.0) Red Blood Count 4.15 x10^6/uL (3.50-5.40) Hemoglobin 13.2 g/dL (12.0-15.5) Hematocrit 38.4 % (36.0-47.0) Mean Corpuscular Volume 92 fL (79-100) Mean Corpuscular Hemoglobin 32 pg (25-35) Mean Corpuscular Hemoglobin Concent 34 g/dL (31-37) Red Cell Distribution Width 13.9 % (11.5-14.5) Platelet Count 157 x10^3/uL (140-400) Neutrophils (%) (Auto) 59 % (31-73) Lymphocytes (%) (Auto) 24 % (24-48) Monocytes (%) (Auto) 14 % (0-9) Eosinophils (%) (Auto) 2 % (0-3) Basophils (%) (Auto) 1 % (0-3) Neutrophils # (Auto) 2.7 x10^3/uL (1.8-7.7) Lymphocytes # (Auto) 1.1 x10^3/uL (1.0-4.8) Monocytes # (Auto) 0.6 x10^3/uL (0.0-1.1) Eosinophils # (Auto) 0.1 x10^3/uL (0.0-0.7) Basophils # (Auto) 0.0 x10^3/uL (0.0-0.2) Laboratory Tests Test 10/11/19 04:00 White Blood Count 4.5 x10^3/uL (4.0-11.0) Red Blood Count 4.15 x10^6/uL (3.50-5.40) Hemoglobin 13.2 g/dL (12.0-15.5) Hematocrit 38.4 % (36.0-47.0) Mean Corpuscular Volume 92 fL (79-100) Mean Corpuscular Hemoglobin 32 pg (25-35) Mean Corpuscular Hemoglobin Concent 34 g/dL (31-37) Red Cell Distribution Width 13.9 % (11.5-14.5) Platelet Count 157 x10^3/uL (140-400) Neutrophils (%) (Auto) 59 % (31-73) Lymphocytes (%) (Auto) 24 % (24-48) Monocytes (%) (Auto) 14 % (0-9) Eosinophils (%) (Auto) 2 % (0-3) Basophils (%) (Auto) 1 % (0-3) Neutrophils # (Auto) 2.7 x10^3/uL (1.8-7.7) Lymphocytes # (Auto) 1.1 x10^3/uL (1.0-4.8) Monocytes # (Auto) 0.6 x10^3/uL (0.0-1.1) Eosinophils # (Auto) 0.1 x10^3/uL (0.0-0.7) Basophils # (Auto) 0.0 x10^3/uL (0.0-0.2) Sodium Level 130 mmol/L (136-145) Potassium Level 3.4 mmol/L (3.5-5.1) Chloride Level 98 mmol/L (98-107) Carbon Dioxide Level 24 mmol/L (21-32) Anion Gap 8 (6-14) Blood Urea Nitrogen 17 mg/dL (7-20) Creatinine 1.1 mg/dL (0.6-1.0) Estimated GFR (Cockcroft-Gault) 46.9 Glucose Level 112 mg/dL (70-99) Calcium Level 7.9 mg/dL (8.5-10.1) Microbiology 10/07/19 Urine Culture - Final, Complete Medications Current Medications Hydralazine HCl (Apresoline Inj) 10 mg 1X ONCE IVP Last administered on 10/07/19 15:44; Start 10/07/19 at 15:30; Stop 10/07/19 at 15:31; Status DC Clonazepam (KlonoPIN) 0.5 mg QHS PO Last administered on 10/08/19 21:34; Start 10/07/19 at 21:00; Stop 10/09/19 at 15:48; Status DC Acetaminophen/ Hydrocodone Bitart (Lortab 5/325) 1 tab PRN Q6HRS PRN PO MODERATE TO SEVERE PAIN Last administered on 10/11/19 09:19; Start 10/07/19 at 20:15 Hydrocortisone (Proctosol-Hc) 1 jan PRN BID PRN RC rectal pain Last administered on 10/08/19at 14:35; Start 10/07/19 at 20:15 Lactulose (Lactulose) 10 gm DAILY PO Last administered on 10/09/19 09:21; Start 10/08/19 at 09:00 Nitroglycerin (Nitrostat) 0.4 mg PRN Q5MIN PRN SL CHEST PAIN; Start 10/07/19 at 20:15 Trazodone HCl (Desyrel) 50 mg PRN QHS PRN PO INSOMNIA Last administered on 10/10/19 21:04; Start 10/07/19 at 20:15 Atorvastatin Calcium (Lipitor) 80 mg QHS PO Last administered on 10/10/19 21:04; Start 10/07/19 at 21:00 Nitroglycerin/ Dextrose 250 ml @ 0 mls/hr 1X ONCE IV Last administered on 10/07/19 21:29; Start 10/07/19 at 20:30; Stop 10/07/19 at 20:31; Status DC Rivastigmine (Exelon) 1 patch DAILY TD Last administered on 10/11/19 09:21; Start 10/08/19 at 09:00 Amlodipine Besylate (Norvasc) 10 mg DAILY PO Last administered on 10/11/19 09:20; Start 10/09/19 at 09:00 Hydralazine HCl (Apresoline Inj) 10 mg PRN Q4HRS PRN IVP ELEVATED BP, SEE COMMENTS Last administered on 10/10/19at 21:04; Start 10/08/19 at 11:00 Polyethylene Glycol (miraLAX PACKET) 17 gm PRN DAILY PRN PO CONSTIPATION Last administered on 10/09/19 15:21; Start 10/08/19 at 11:15 Bisacodyl (Dulcolax Supp) 10 mg PRN DAILY PRN [place] CONSTIPATION, 1sT CHOICE Last administered on 10/09/19at 18:35; Start 10/08/19 at 11:15 Amlodipine Besylate (Norvasc) 10 mg 1X ONCE PO Last administered on 10/08/19 11:25; Start 10/08/19 at 11:15; Stop 10/08/19 at 11:18; Status DC Isosorbide Mononitrate (Imdur) 30 mg DAILY PO Last administered on 10/11/19at 09:19; Start 10/08/19 at 11:15 Mineral Oil (Fleet Mineral Oil) 133 ml 1X ONCE [place] Last administered on 10/08/19at 12:40; Start 10/08/19 at 12:30; Stop 10/08/19 at 12:31; Status DC Hydralazine HCl (Apresoline Inj) 10 mg PRN Q4HRS PRN IVP ELEVATED BP, SEE COMMENTS; Start 10/08/19 at 15:30; Status Cancel Sodium Chloride (Normal Saline Flush) 3 ml QSHIFT PRN IV AFTER MEDS AND BLOOD DRAWS; Start 10/08/19 at 15:30 Ondansetron HCl (Zofran) 4 mg PRN Q4HRS PRN IV NAUSEA/VOMITING Last administered on 10/10/19at 21:06; Start 10/08/19 at 15:30 Acetaminophen (Tylenol) 650 mg PRN Q4HRS PRN PO TEMP OVER 100.4F OR MILD PAIN Last administered on 10/10/19at 21:52; Start 10/08/19 at 15:30 Al Hydroxide/Mg Hydroxide (Mylanta Plus Xs) 30 ml PRN DAILY PRN PO HEARTBURN / GAS; Start 7/15/20 at 15:30 Sodium Monofluorophosphate (Fleet Adult) 133 ml PRN DAILY PRN [place] CONSTIPATION, 2nd CHOICE; Start 10/08/19 at 15:30 Docusate Sodium (Colace) 100 mg PRN BID PRN PO HARD STOOLS Last administered on 10/09/19at 09:21; Start 10/08/19 at 15:30 Albuterol Sulfate (Ventolin Neb Soln) 2.5 mg PRN Q4HRS PRN NEB SHORTNESS OF BREATH; Start 10/08/19 at 15:30 Guaifenesin (Robitussin) 200 mg PRN Q4HRS PRN PO COUGH; Start 10/08/19 at 15:30 Enoxaparin Sodium (Lovenox 30mg Syringe) 30 mg Q24H SQ Last administered on 10/10/19at 16:12; Start 10/08/19 at 15:30 Ceftriaxone Sodium (Rocephin) 1 gm Q24H IVP Last administered on 10/09/19at 15:21; Start 10/08/19 at 16:00; Stop 10/10/19 at 09:32; Status DC Aspirin (Ecotrin) 81 mg DAILYWBKFT PO Last administered on 10/11/19at 09:18; Start 10/09/19 at 08:00 Lactobacillus Rhamnosus (Culturelle) 1 cap BID PO Last administered on 10/11/19at 09:18; Start 10/08/19 at 21:00 Loperamide HCl (Imodium) 2 mg PRN Q6HRS PRN PO DIARRHEA Last administered on 10/10/19at 01:30; Start 10/10/19 at 01:30 Spironolactone (Aldactone) 12.5 mg DAILY PO Last administered on 10/11/19at 09:18; Start 10/10/19 at 17:00 Hydrochlorothiazide (Microzide) 12.5 mg DAILY PO Last administered on 10/11/19 09:18; Start 10/11/19 at 09:00 Hydrochlorothiazide (Microzide) 12.5 mg 1X ONCE PO Last administered on at 17:46; Start 10/10/19 at 17:30; Stop 10/10/19 at 17:31; Status DC Sertraline HCl (Zoloft) 25 mg DAILY PO Last administered on 7/18/20at 09:18; Start 10/11/19 at 09:00 Quetiapine Fumarate (SEROquel) 25 mg HS PO Last administered on 10/10/19at 21: 04; Start 10/10/19 at 21:00 Active Scripts Active Proctosol-Hc (Hydrocortisone) 28.35 Gm Cream..g. 1 Jan RC PRN BID PRN 10 Days Reported EXELON 9.5mg/24hr (Rivastigmine) 1 Each Patch.td24 1 Patch TP DAILY 1 Days Lactulose 20 Gm/30 Ml Solution 10 Gm PO DAILY NITROGLYCERIN SubLingual (Nitroglycerin) 0.4 Mg Tab.subl 0.4 Mg SL PRN Q5MIN PRN Hydrocodone-Apap 5-325 (Hydrocodone Bit/Acetaminophen) 1 Each Tablet 1 Tab PO PRN Q6HRS PRN Clonazepam (Clonazepam) 0.5 Mg Tablet 1-2 Tab PO QHS Trazodone Hcl 50 Mg Tablet 1 Tab PO QHS PRN Atorvastatin Calcium 80 Mg Tablet 80 Mg PO DAILY Vitals/I & O Vital Sign - Last 24 Hours 10/10/19 10/10/19 10/10/19 10/10/19 11:00 12:50 12:50 12:51 Pulse 88 90 93 100 B/P (MAP) 178/93 (121) 144/64 (90) 131/64 (86) 140/71 (94) Pulse Ox 96 10/10/19 10/10/19 10/10/19 10/10/19 14:27 19:00 20:00 20:35 Temp 98.8 97.7 98.8 97.7 Pulse 78 79 Resp 20 21 B/P (MAP) 155/72 (99) 198/82 (120) Pulse Ox 98 99 O2 Delivery Room Air Room Air Room Air Room Air 10/10/19 10/10/19 10/11/19 10/11/19 21:04 23:30 03:00 04:20 Temp 97.7 97.7 97.7 97.7 Pulse 79 74 70 71 Resp 18 20 B/P (MAP) 198/82 104/46 (65) 118/47 (70) Pulse Ox 93 94 O2 Delivery Room Air Room Air 10/11/19 10/11/19 10/11/19 10/11/19 07:00 08:00 09:19 09:20 Temp 97.6 97.6 Pulse 64 85 80 Resp 20 B/P (MAP) 167/64 (98) Pulse Ox 97 O2 Delivery Room Air Room Air Intake and Output 10/10/19 10/10/19 10/11/19 15:00 23:00 07:00 Intake Total 320 ml 400 ml 200 ml Output Total 500 ml Balance 320 ml 400 ml -300 ml Justicifation of Admission Dx: Justifications for Admission: Justification of Admission Dx: Yes Angina: New-Onset Hypertension: Symp at Rest CARMENZA NERI MD Oct 11, 2019 10:55
--- NOTE | 2019-10-11 11:57 | PDOC ---
PROGRESS NOTES Subjective Subjective Patient seen and examined Objective Objective Vital Signs Date Time Temp Pulse Resp B/P (MAP) Pulse Ox O2 Delivery O2 Flow Rate FiO2 10/11/19 09:20 80 10/11/19 08:00 Room Air 10/11/19 07:00 97.6 20 167/64 (98) 97 97.6 Intake and Output 10/11/19 07:00 Intake Total 920 ml Output Total 500 ml Balance 420 ml Intake Oral 920 ml Output Urine Total 500 ml # Voids 5 # Bowel Movements 1 Physical Exam Abdomen: Normal bowel sounds Heart: Regular rate General: No acute distress Lungs: Other (Slightly decreased breath sounds) Assessment Assessment Problems Medical Problems: (1) Chest pain Status: Acute Chest pain, atypical; AMI ruled out. Most probably secondary to #2. recent echo with preserved LV systolic function. MPI 09/11 without evidence of ischemia. Continue medical treatment. Hypertensive urgency; better controlled. Continue present medications. Increase in Norvasc. Hyperlipidemia; statin CAD s/p remote PCI/stent to LAD and known [employer]MENT [employer] of [employer]. Will follow as an outpatient. CKD; Cr stable H/o CVA Dementia Comment Review of Relevant I have reviewed the following items lorna (where applicable) has been applied. Labs Laboratory Tests Test 10/10/19 07:24 10/11/19 04:00 Sodium Level 140 mmol/L (136-145) 130 mmol/L (136-145) Potassium Level 3.6 mmol/L (3.5-5.1) 3.4 mmol/L (3.5-5.1) Chloride Level 103 mmol/L (98-107) 98 mmol/L (98-107) Carbon Dioxide Level 30 mmol/L (21-32) 24 mmol/L (21-32) Anion Gap 7 (6-14) 8 (6-14) Blood Urea Nitrogen 14 mg/dL (7-20) 17 mg/dL (7-20) Creatinine 1.1 mg/dL (0.6-1.0) 1.1 mg/dL (0.6-1.0) Estimated GFR (Cockcroft-Gault) 46.9 46.9 Glucose Level 105 mg/dL (70-99) 112 mg/dL (70-99) Calcium Level 8.6 mg/dL (8.5-10.1) 7.9 mg/dL (8.5-10.1) White Blood Count 4.5 x10^3/uL (4.0-11.0) Red Blood Count 4.15 x10^6/uL (3.50-5.40) Hemoglobin 13.2 g/dL (12.0-15.5) Hematocrit 38.4 % (36.0-47.0) Mean Corpuscular Volume 92 fL (79-100) Mean Corpuscular Hemoglobin 32 pg (25-35) Mean Corpuscular Hemoglobin Concent 34 g/dL (31-37) Red Cell Distribution Width 13.9 % (11.5-14.5) Platelet Count 157 x10^3/uL (140-400) Neutrophils (%) (Auto) 59 % (31-73) Lymphocytes (%) (Auto) 24 % (24-48) Monocytes (%) (Auto) 14 % (0-9) Eosinophils (%) (Auto) 2 % (0-3) Basophils (%) (Auto) 1 % (0-3) Neutrophils # (Auto) 2.7 x10^3/uL (1.8-7.7) Lymphocytes # (Auto) 1.1 x10^3/uL (1.0-4.8) Monocytes # (Auto) 0.6 x10^3/uL (0.0-1.1) Eosinophils # (Auto) 0.1 x10^3/uL (0.0-0.7) Basophils # (Auto) 0.0 x10^3/uL (0.0-0.2) Laboratory Tests Test 10/11/19 04:00 White Blood Count 4.5 x10^3/uL (4.0-11.0) Red Blood Count 4.15 x10^6/uL (3.50-5.40) Hemoglobin 13.2 g/dL (12.0-15.5) Hematocrit 38.4 % (36.0-47.0) Mean Corpuscular Volume 92 fL (79-100) Mean Corpuscular Hemoglobin 32 pg (25-35) Mean Corpuscular Hemoglobin Concent 34 g/dL (31-37) Red Cell Distribution Width 13.9 % (11.5-14.5) Platelet Count 157 x10^3/uL (140-400) Neutrophils (%) (Auto) 59 % (31-73) Lymphocytes (%) (Auto) 24 % (24-48) Monocytes (%) (Auto) 14 % (0-9) Eosinophils (%) (Auto) 2 % (0-3) Basophils (%) (Auto) 1 % (0-3) Neutrophils # (Auto) 2.7 x10^3/uL (1.8-7.7) Lymphocytes # (Auto) 1.1 x10^3/uL (1.0-4.8) Monocytes # (Auto) 0.6 x10^3/uL (0.0-1.1) Eosinophils # (Auto) 0.1 x10^3/uL (0.0-0.7) Basophils # (Auto) 0.0 x10^3/uL (0.0-0.2) Sodium Level 130 mmol/L (136-145) Potassium Level 3.4 mmol/L (3.5-5.1) Chloride Level 98 mmol/L (98-107) Carbon Dioxide Level 24 mmol/L (21-32) Anion Gap 8 (6-14) Blood Urea Nitrogen 17 mg/dL (7-20) Creatinine 1.1 mg/dL (0.6-1.0) Estimated GFR (Cockcroft-Gault) 46.9 Glucose Level 112 mg/dL (70-99) Calcium Level 7.9 mg/dL (8.5-10.1) Microbiology 10/07/19 Urine Culture - Final, Complete Medications Current Medications Hydralazine HCl (Apresoline Inj) 10 mg 1X ONCE IVP Last administered on 10/07/19at 15:44; Start 10/07/19 at 15:30; Stop 10/07/19 at 15:31; Status DC Clonazepam (KlonoPIN) 0.5 mg QHS PO Last administered on 10/08/19at 21:34; Star t 10/07/19 at 21:00; Stop 10/09/19 at 15:48; Status DC Acetaminophen/ Hydrocodone Bitart (Lortab 5/325) 1 tab PRN Q6HRS PRN PO MODERATE TO SEVERE PAIN Last administered on 10/11/19at 09:19; Start 10/07/19 at 20:15 Hydrocortisone (Proctosol-Hc) 1 jan PRN BID PRN RC rectal pain Last administered on 10/08/19 14:35; Start 10/07/19 at 20:15 Lactulose (Lactulose) 10 gm DAILY PO Last administered on 10/09/19 09:21; Start 10/08/19 at 09:00 Nitroglycerin (Nitrostat) 0.4 mg PRN Q5MIN PRN SL CHEST PAIN; Start 10/07/19 at 20:15 Trazodone HCl (Desyrel) 50 mg PRN QHS PRN PO INSOMNIA Last administered on 10/10/19 21:04; Start 10/07/19 at 20:15 Atorvastatin Calcium (Lipitor) 80 mg QHS PO Last administered on 10/10/19 21:04; Start 10/07/19 at 21:00 Nitroglycerin/ Dextrose 250 ml @ 0 mls/hr 1X ONCE IV Last administered on 10/07/19 21:29; Start 10/07/19 at 20:30; Stop 10/07/19 at 20:31; Status DC Rivastigmine (Exelon) 1 patch DAILY TD Last administered on 10/11/19 09:21; Start 10/08/19 at 09:00 Amlodipine Besylate (Norvasc) 10 mg DAILY PO Last administered on 10/11/19 09:20; Start 10/09/19 at 09:00 Hydralazine HCl (Apresoline Inj) 10 mg PRN Q4HRS PRN IVP ELEVATED BP, SEE COMMENTS Last administered on 10/10/19at 21:04; Start 10/08/19 at 11:00 Polyethylene Glycol (miraLAX PACKET) 17 gm PRN DAILY PRN PO CONSTIPATION Last administered on 10/09/19 15:21; Start 10/08/19 at 11:15 Bisacodyl (Dulcolax Supp) 10 mg PRN DAILY PRN [place] CONSTIPATION, 1sT CHOICE Last administered on 10/09/19 18:35; Start 10/08/19 at 11:15 Amlodipine Besylate (Norvasc) 10 mg 1X ONCE PO Last administered on 10/08/19 11:25; Start 10/08/19 at 11:15; Stop 10/08/19 at 11:18; Status DC Isosorbide Mononitrate (Imdur) 30 mg DAILY PO Last administered on 7/18/20at 09:19; Start 10/08/19 at 11:15 Mineral Oil (Fleet Mineral Oil) 133 ml 1X ONCE MT Last administered on 10/08/19at 12:40; Start 10/08/19 at 12:30; Stop 10/08/19 at 12:31; Status DC Hydralazine HCl (Apresoline Inj) 10 mg PRN Q4HRS PRN IVP ELEVATED BP, SEE COMMENTS; Start 10/08/19 at 15:30; Status Cancel Sodium Chloride (Normal Saline Flush) 3 ml QSHIFT PRN IV AFTER MEDS AND BLOOD DRAWS; Start 10/08/19 at 15:30 Ondansetron HCl (Zofran) 4 mg PRN Q4HRS PRN IV NAUSEA/VOMITING Last administered on 10/10/19at 21:06; Start 10/08/19 at 15:30 Acetaminophen (Tylenol) 650 mg PRN Q4HRS PRN PO TEMP OVER 100.4F OR MILD PAIN Last administered on 10/10/19at 21:52; Start 10/08/19 at 15:30 Al Hydroxide/Mg Hydroxide (Mylanta Plus Xs) 30 ml PRN DAILY PRN PO HEARTBURN / GAS; Start 10/08/19 at 15:30 Sodium Monofluorophosphate (Fleet Adult) 133 ml PRN DAILY PRN [place] CONSTIPATION, 2nd CHOICE; Start 10/08/19 at 15:30 Docusate Sodium (Colace) 100 mg PRN BID PRN PO HARD STOOLS Last administered on 10/09/19at 09:21; Start 10/08/19 at 15:30 Albuterol Sulfate (Ventolin Neb Soln) 2.5 mg PRN Q4HRS PRN NEB SHORTNESS OF BREATH; Start 10/08/19 at 15:30 Guaifenesin (Robitussin) 200 mg PRN Q4HRS PRN PO COUGH; Start 10/08/19 at 15:30 Enoxaparin Sodium (Lovenox 30mg Syringe) 30 mg Q24H SQ Last administered on 10/10/19at 16:12; Start 10/08/19 at 15:30 Ceftriaxone Sodium (Rocephin) 1 gm Q24H IVP Last administered on 10/09/19at 15:21; Start 10/08/19 at 16:00; Stop 10/10/19 at 09:32; Status DC Aspirin (Ecotrin) 81 mg DAILYWBKFT PO Last administered on 10/11/19at 09:18; Start 10/09/19 at 08:00 Lactobacillus Rhamnosus (Culturelle) 1 cap BID PO Last administered on 10/11/19at 09:18; Start 10/08/19 at 21:00 Loperamide HCl (Imodium) 2 mg PRN Q6HRS PRN PO DIARRHEA Last administered on 10/10/19at 01:30; Start 10/10/19 at 01:30 Spironolactone (Aldactone) 12.5 mg DAILY PO Last administered on 10/11/19at 09:18; Start 10/10/19 at 17:00 Hydrochlorothiazide (Microzide) 12.5 mg DAILY PO Last administered on 10/11/19at 09:18; Start 10/11/19 at 09:00 Hydrochlorothiazide (Microzide) 12.5 mg 1X ONCE PO Last administered on 10/10/19at 17:46; Start 10/10/19 at 17:30; Stop 10/10/19 at 17:31; Status DC Sertraline HCl (Zoloft) 25 mg DAILY PO Last administered on 10/11/19at 09:18; Start 10/11/19 at 09:00 Quetiapine Fumarate (SEROquel) 25 mg HS PO Last administered on 10/10/19at 21:04; Start 10/10/19 at 21:00 Active Scripts Active Proctosol-Hc (Hydrocortisone) 28.35 Gm Cream..g. 1 Jan RC PRN BID PRN 10 Days Reported EXELON 9.5mg/24hr (Rivastigmine) 1 Each Patch.td24 1 Patch TP DAILY 1 Days Lactulose 20 Gm/30 Ml Solution 10 Gm PO DAILY NITROGLYCERIN SubLingual (Nitroglycerin) 0.4 Mg Tab.subl 0.4 Mg SL PRN Q5MIN PRN Hydrocodone-Apap 5-325 (Hydrocodone Bit/Acetaminophen) 1 Each Tablet 1 Tab PO PRN Q6HRS PRN Clonazepam (Clonazepam) 0.5 Mg Tablet 1-2 Tab PO QHS Trazodone Hcl 50 Mg Tablet 1 Tab PO QHS PRN Atorvastatin Calcium 80 Mg Tablet 80 Mg PO DAILY Vitals/I & O Vital Sign - Last 24 Hours 10/10/19 10/10/19 10/10/19 10/10/19 12:50 12:50 12:51 14:27 Temp 98.8 98.8 Pulse 90 93 100 78 Resp 20 B/P (MAP) 144/64 (90) 131/64 (86) 140/71 (94) 155/72 (99) Pulse Ox 98 O2 Delivery Room Air 10/10/19 10/10/19 10/10/19 10/10/19 19:00 20:00 20:35 21:04 Temp 97.7 97.7 Pulse 79 79 Resp 21 B/P (MAP) 198/82 (120) 198/82 Pulse Ox 99 O2 Delivery Room Air Room Air Room Air 10/10/19 10/11/19 10/11/19 10/11/19 23:30 03:00 04:20 07:00 Temp 97.7 97.7 97.6 97.7 97.7 97.6 Pulse 74 70 71 64 Resp 18 20 20 B/P (MAP) 104/46 (65) 118/47 (70) 167/64 (98) Pulse Ox 93 94 97 O2 Delivery Room Air Room Air Room Air 10/11/19 10/11/19 10/11/19 08:00 09:19 09:20 Pulse 85 80 O2 Delivery Room Air Intake and Output 10/10/19 10/10/19 10/11/19 15:00 23:00 07:00 Intake Total 320 ml 400 ml 200 ml Output Total 500 ml Balance 320 ml 400 ml -300 ml Justicifation of Admission Dx: Justifications for Admission: Justification of Admission Dx: Yes Angina: New-Onset Hypertension: Symp at Rest ANGÉLICA ALLEN MD Oct 11, 2019 11:56
--- NOTE | 2019-10-11 14:08 | PDOC ---
PROGRESS NOTES Subjective Subjective SEEN IN FOLLOW UP OF CKD 3 Objective Objective Vital Signs Date Time Temp Pulse Resp B/P (MAP) Pulse Ox O2 Delivery O2 Flow Rate FiO2 10/11/19 11:00 97.5 68 20 143/63 (89) 99 Room Air 97.5 Intake and Output 10/11/19 07:00 Intake Total 920 ml Output Total 500 ml Balance 420 ml Intake Oral 920 ml Output Urine Total 500 ml # Voids 5 # Bowel Movements 1 Physical Exam Abdomen: Normal bowel sounds, Soft, No tenderness, No hepatosplenomegaly, No masses Heart: Regular rate, Normal S1, Normal S2, No murmurs, Gallops Extremities: No clubbing, No cyanosis, No edema, Normal pulses, No tenderness/swelling General: Alert, Oriented X3, Cooperative, No acute distress Lungs: Clear to auscultation, Normal air movement Psych/Mental Status: Mental status NL, Mood NL Diagnosis RENAL FAILURE: Chronic (CKD stage III) Assessment Assessment Problems Medical Problems: (1) Chest pain Status: Acute Plan Plan of Care SHE HAS MILD RIGHT SIDED HYDRONEPHROSIS ON RENAL US. NEEDS TO SEE UROLOGY OUTPATIENT NOT AVAILABLE IN HOUSE. Comment Review of Relevant I have reviewed the following items lorna (where applicable) has been applied. Labs Laboratory Tests Test 10/10/19 07:24 10/11/19 04:00 Sodium Level 140 mmol/L (136-145) 130 mmol/L (136-145) Potassium Level 3.6 mmol/L (3.5-5.1) 3.4 mmol/L (3.5-5.1) Chloride Level 103 mmol/L (98-107) 98 mmol/L (98-107) Carbon Dioxide Level 30 mmol/L (21-32) 24 mmol/L (21-32) Anion Gap 7 (6-14) 8 (6-14) Blood Urea Nitrogen 14 mg/dL (7-20) 17 mg/dL (7-20) Creatinine 1.1 mg/dL (0.6-1.0) 1.1 mg/dL (0.6-1.0) Estimated GFR (Cockcroft-Gault) 46.9 46.9 Glucose Level 105 mg/dL (70-99) 112 mg/dL (70-99) Calcium Level 8.6 mg/dL (8.5-10.1) 7.9 mg/dL (8.5-10.1) White Blood Count 4.5 x10^3/uL (4.0-11.0) Red Blood Count 4.15 x10^6/uL (3.50-5.40) Hemoglobin 13.2 g/dL (12.0-15.5) Hematocrit 38.4 % (36.0-47.0) Mean Corpuscular Volume 92 fL (79-100) Mean Corpuscular Hemoglobin 32 pg (25-35) Mean Corpuscular Hemoglobin Concent 34 g/dL (31-37) Red Cell Distribution Width 13.9 % (11.5-14.5) Platelet Count 157 x10^3/uL (140-400) Neutrophils (%) (Auto) 59 % (31-73) Lymphocytes (%) (Auto) 24 % (24-48) Monocytes (%) (Auto) 14 % (0-9) Eosinophils (%) (Auto) 2 % (0-3) Basophils (%) (Auto) 1 % (0-3) Neutrophils # (Auto) 2.7 x10^3/uL (1.8-7.7) Lymphocytes # (Auto) 1.1 x10^3/uL (1.0-4.8) Monocytes # (Auto) 0.6 x10^3/uL (0.0-1.1) Eosinophils # (Auto) 0.1 x10^3/uL (0.0-0.7) Basophils # (Auto) 0.0 x10^3/uL (0.0-0.2) Laboratory Tests Test 10/11/19 04:00 White Blood Count 4.5 x10^3/uL (4.0-11.0) Red Blood Count 4.15 x10^6/uL (3.50-5.40) Hemoglobin 13.2 g/dL (12.0-15.5) Hematocrit 38.4 % (36.0-47.0) Mean Corpuscular Volume 92 fL (79-100) Mean Corpuscular Hemoglobin 32 pg (25-35) Mean Corpuscular Hemoglobin Concent 34 g/dL (31-37) Red Cell Distribution Width 13.9 % (11.5-14.5) Platelet Count 157 x10^3/uL (140-400) Neutrophils (%) (Auto) 59 % (31-73) Lymphocytes (%) (Auto) 24 % (24-48) Monocytes (%) (Auto) 14 % (0-9) Eosinophils (%) (Auto) 2 % (0-3) Basophils (%) (Auto) 1 % (0-3) Neutrophils # (Auto) 2.7 x10^3/uL (1.8-7.7) Lymphocytes # (Auto) 1.1 x10^3/uL (1.0-4.8) Monocytes # (Auto) 0.6 x10^3/uL (0.0-1.1) Eosinophils # (Auto) 0.1 x10^3/uL (0.0-0.7) Basophils # (Auto) 0.0 x10^3/uL (0.0-0.2) Sodium Level 130 mmol/L (136-145) Potassium Level 3.4 mmol/L (3.5-5.1) Chloride Level 98 mmol/L (98-107) Carbon Dioxide Level 24 mmol/L (21-32) Anion Gap 8 (6-14) Blood Urea Nitrogen 17 mg/dL (7-20) Creatinine 1.1 mg/dL (0.6-1.0) Estimated GFR (Cockcroft-Gault) 46.9 Glucose Level 112 mg/dL (70-99) Calcium Level 7.9 mg/dL (8.5-10.1) Microbiology 10/07/19 Urine Culture - Final, Complete Medications Current Medications Hydralazine HCl (Apresoline Inj) 10 mg 1X ONCE IVP Last administered on 10/07/19at 15:44; Start 10/07/19 at 15:30; Stop 10/07/19 at 15:31; Status DC Clonazepam (KlonoPIN) 0.5 mg QHS PO Last administered on 10/08/19at 21:34; Start 10/07/19 at 21:00; Stop 10/09/19 at 15:48; Status DC Acetaminophen/ Hydrocodone Bitart (Lortab 5/325) 1 tab PRN Q6HRS PRN PO MODERATE TO SEVERE PAIN Last administered on 10/11/19at 09:19; Start 10/07/19 at 20:15 Hydrocortisone (Proctosol-Hc) 1 jan PRN BID PRN RC rectal pain Last administe red on 10/08/19at 14:35; Start 10/07/19 at 20:15 Lactulose (Lactulose) 10 gm DAILY PO Last administered on 10/09/19at 09:21; Sta rt 10/08/19 at 09:00 Nitroglycerin (Nitrostat) 0.4 mg PRN Q5MIN PRN SL CHEST PAIN; Start 10/07/19 at 20:15 Trazodone HCl (Desyrel) 50 mg PRN QHS PRN PO INSOMNIA Last administered on 10/10/19 21:04; Start 10/07/19 at 20:15 Atorvastatin Calcium (Lipitor) 80 mg QHS PO Last administered on 10/10/19 21:04; Start 10/07/19 at 21:00 Nitroglycerin/ Dextrose 250 ml @ 0 mls/hr 1X ONCE IV Last administered on 10/07/19at 21:29; Start 10/07/19 at 20:30; Stop 10/07/19 at 20:31; Status DC Rivastigmine (Exelon) 1 patch DAILY TD Last administered on 10/11/19 09:21; Start 10/08/19 at 09:00 Amlodipine Besylate (Norvasc) 10 mg DAILY PO Last administered on 10/11/19 09:20; Start 10/09/19 at 09:00 Hydralazine HCl (Apresoline Inj) 10 mg PRN Q4HRS PRN IVP ELEVATED BP, SEE COMMENTS Last administered on 10/10/19at 21:04; Start 10/08/19 at 11:00 Polyethylene Glycol (miraLAX PACKET) 17 gm PRN DAILY PRN PO CONSTIPATION Last administered on 10/09/19at 15:21; Start 10/08/19 at 11:15 Bisacodyl (Dulcolax Supp) 10 mg PRN DAILY PRN [place] CONSTIPATION, 1sT CHOICE Last administered on 10/09/19at 18:35; Start 10/08/19 at 11:15 Amlodipine Besylate (Norvasc) 10 mg 1X ONCE PO Last administered on 10/08/19at 11:25; Start 10/08/19 at 11:15; Stop 10/08/19 at 11:18; Status DC Isosorbide Mononitrate (Imdur) 30 mg DAILY PO Last administered on 10/11/19 09:19; Start 10/08/19 at 11:15 Mineral Oil (Fleet Mineral Oil) 133 ml 1X ONCE NH Last administered on 10/08/19at 12:40; Start 10/08/19 at 12:30; Stop 10/08/19 at 12:31; Status DC Hydralazine HCl (Apresoline Inj) 10 mg PRN Q4HRS PRN IVP ELEVATED BP, SEE COMMENTS; Start 10/08/19 at 15:30; Status Cancel Sodium Chloride (Normal Saline Flush) 3 ml QSHIFT PRN IV AFTER MEDS AND BLOOD DRAWS; Start 10/08/19 at 15:30 Ondansetron HCl (Zofran) 4 mg PRN Q4HRS PRN IV NAUSEA/VOMITING Last administered on 10/10/19at 21:06; Start 10/08/19 at 15:30 Acetaminophen (Tylenol) 650 mg PRN Q4HRS PRN PO TEMP OVER 100.4F OR MILD PAIN Last administered on 10/10/19at 21:52; Start 10/08/19 at 15:30 Al Hydroxide/Mg Hydroxide (Mylanta Plus Xs) 30 ml PRN DAILY PRN PO HEARTBURN / GAS; Start 10/08/19 at 15:30 Sodium Monofluorophosphate (Fleet Adult) 133 ml PRN DAILY PRN [place] CONSTIPATION, 2nd CHOICE; Start 10/08/19 at 15:30 Docusate Sodium (Colace) 100 mg PRN BID PRN PO HARD STOOLS Last administered on 10/09/19at 09:21; Start 10/08/19 at 15:30 Albuterol Sulfate (Ventolin Neb Soln) 2.5 mg PRN Q4HRS PRN NEB SHORTNESS OF BREATH; Start 10/08/19 at 15:30 Guaifenesin (Robitussin) 200 mg PRN Q4HRS PRN PO COUGH; Start 10/08/19 at 15:30 Enoxaparin Sodium (Lovenox 30mg Syringe) 30 mg Q24H SQ Last administered on 10/10/19at 16:12; Start 10/08/19 at 15:30 Ceftriaxone Sodium (Rocephin) 1 gm Q24H IVP Last administered on 10/09/19at 15:21; Start 10/08/19 at 16:00; Stop 10/10/19 at 09:32; Status DC Aspirin (Ecotrin) 81 mg DAILYWBKFT PO Last administered on 10/11/19at 09:18; Start 10/09/19 at 08:00 Lactobacillus Rhamnosus (Culturelle) 1 cap BID PO Last administered on 10/11/19at 09:18; Start 10/08/19 at 21:00 Loperamide HCl (Imodium) 2 mg PRN Q6HRS PRN PO DIARRHEA Last administered on 10/10/19at 01:30; Start 10/10/19 at 01:30 Spironolactone (Aldactone) 12.5 mg DAILY PO Last administered on 10/11/19at 09:18; Start 10/10/19 at 17:00 Hydrochlorothiazide (Microzide) 12.5 mg DAILY PO Last administered on 10/11/19at 09:18; Start 10/11/19 at 09:00 Hydrochlorothiazide (Microzide) 12.5 mg 1X ONCE PO Last administered on 10/10/19at 17:46; Start 10/10/19 at 17:30; Stop 10/10/19 at 17:31; Status DC Sertraline HCl (Zoloft) 25 mg DAILY PO Last administered on 10/11/19at 09:18; Start 10/11/19 at 09:00 Quetiapine Fumarate (SEROquel) 25 mg HS PO Last administered on 10/10/19at 21:04; Start 10/10/19 at 21:00 Active Scripts Active Proctosol-Hc (Hydrocortisone) 28.35 Gm Cream..g. 1 Jan RC PRN BID PRN 10 Days Reported EXELON 9.5mg/24hr (Rivastigmine) 1 Each Patch.td24 1 Patch TP DAILY 1 Days Lactulose 20 Gm/30 Ml Solution 10 Gm PO DAILY NITROGLYCERIN SubLingual (Nitroglycerin) 0.4 Mg Tab.subl 0.4 Mg SL PRN Q5MIN PRN Hydrocodone-Apap 5-325 (Hydrocodone Bit/Acetaminophen) 1 Each Tablet 1 Tab PO PRN Q6HRS PRN Clonazepam (Clonazepam) 0.5 Mg Tablet 1-2 Tab PO QHS Trazodone Hcl 50 Mg Tablet 1 Tab PO QHS PRN Atorvastatin Calcium 80 Mg Tablet 80 Mg PO DAILY Vitals/I & O Vital Sign - Last 24 Hours 10/10/19 10/10/19 10/10/19 10/10/19 14:27 19:00 20:00 20:35 Temp 98.8 97.7 98.8 97.7 Pulse 78 79 Resp 20 21 B/P (MAP) 155/72 (99) 198/82 (120) Pulse Ox 98 99 O2 Delivery Room Air Room Air Room Air Room Air 10/10/19 10/10/19 10/11/19 10/11/19 21:04 23:30 03:00 04:20 Temp 97.7 97.7 97.7 97.7 Pulse 79 74 70 71 Resp 18 20 B/P (MAP) 198/82 104/46 (65) 118/47 (70) Pulse Ox 93 94 O2 Delivery Room Air Room Air 10/11/19 10/11/19 10/11/19 10/11/19 07:00 08:00 09:19 09:20 Temp 97.6 97.6 Pulse 64 85 80 Resp 20 B/P (MAP) 167/64 (98) Pulse Ox 97 O2 Delivery Room Air Room Air 10/11/19 11:00 Temp 97.5 97.5 Pulse 68 Resp 20 B/P (MAP) 143/63 (89) Pulse Ox 99 O2 Delivery Room Air Intake and Output 10/10/19 10/10/19 10/11/19 15:00 23:00 07:00 Intake Total 320 ml 400 ml 200 ml Output Total 500 ml Balance 320 ml 400 ml -300 ml Justicifation of Admission Dx: Justifications for Admission: Justification of Admission Dx: Yes Angina: New-Onset Hypertension: Symp at Rest MADELIN BROCK MD Oct 11, 2019 14:08
[2019-10-11] MEDS: ENOXAPARIN 30 MG/0.3 ML SYRINGE. SQ SCH (16:09)
--- NOTE | 2019-10-11 16:15 | RAD ---
Exam: CT abdomen and pelvis without contrast INDICATION: Possible renal stone TECHNIQUE: Sequential axial images through the abdomen and pelvis obtained without IV contrast. Sagittal and coronal reformatted images were reconstructed from the axial data and reviewed. Comparisons: Ultrasound same day FINDINGS: Heart size is normal. No pericardial effusion. Visualized lung bases are clear. No pleural effusion. Evaluation of the solid organs is limited secondary to noncontrast technique. Liver, spleen, pancreas, and adrenals are unremarkable. Gallbladder is not definitively identified, may be decompressed or absent. Nonobstructing renal calculi are noted bilaterally measuring 2 to 3 mm. No ureteral calculi. Bladder is distended and appears thin-walled. Uterus is absent. No abnormal adnexal mass. Few scattered diverticula are noted within the descending and sigmoid colon without evidence of acute diverticulitis. Large and small bowel are otherwise unremarkable. Appendix is not identified. No free intra-abdominal air or fluid. No obstruction. Abdominal aorta has a ectatic course. No enlarged abdominal lymph nodes are identified. IMPRESSION: 1. Small bilateral nonobstructing renal calculi. No obstructing or ureteral calculi. No hydronephrosis. 2. Diverticulosis without evidence of acute diverticulitis. 3. 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 Exposure: One or more of the following in the visualized dose reduction techniques were utilized for this examination: 1. Automated exposure control 2. Adjustment of the MA and/or KV according to patient size 3. Use of iterative of reconstructive technique Electronically signed by: Tone Weaver MD (10/11/2019 4:13 PM) [id number]
[2019-10-11] MEDS ORDERED: POTASSIUM CHLORIDE 10 MEQ TABLET.ER. PO ONE (17:15)
[2019-10-11] MEDS: MAG HYDROX/ALUMINUM HYD/SIMETH 30 ML ORAL.SUSP PO PRN (19:40)
[2019-10-11] MEDS: hydrALAZINE 20 MG/ML VIAL. IVP PRN (19:40)
[2019-10-11] MEDS: ONDANSETRON PF 4 MG/2 ML VIAL. IV PRN (21:17)
[2019-10-11] MEDS: ATORVASTATIN CALCIUM 40 MG TABLET. PO SCH (21:44)
[2019-10-11] MEDS: traZODone 50 MG TABLET. PO PRN (21:44)
[2019-10-11] MEDS: QUEtiapine 25 MG TABLET. PO SCH (21:44)
[2019-10-11] MEDS: ACETAMINOPHEN 325 MG TABLET. PO PRN (21:44)
[2019-10-11] MEDS: LOPERAMIDE 2 MG CAPSULE PO PRN (23:26)
[2019-10-12] MEDS: ACETAMINOPHEN 325 MG TABLET. PO PRN ×2 (02:31→21:18)
[2019-10-12 03:00] VITALS: BP 114/67
[2019-10-12 07:00] VITALS: BP 149/80
--- NOTE | 2019-10-12 07:22 | NUR ---
At shift change, pt stated that she felt like she was unable to urinate without straining really hard. Pt was helped to the commode and bladder scanned post void. Residual was over 400 ml. Call placed to [address] Mccloud who advised RN to straight cath and use Payne as last resort. Pt was straight cathed at 2100 after episode of incontinence. 200 ml emptied at this time. At 2300, post void residual noted to be ~300 and patient was straight cathed a second time. 320 ml urine emptied at this time at 0330, pt stated she had tried to urinate and was unable to. Bladder scanner showed ~460ml urine in the bladder. Payne catheter placed at this time and 500 ml urine emptied from bladder. At this time, pt relaxed enough to sleep.
[2019-10-12 08:14] LABS: ALBUMIN 3.5 g/dL (3.4-5.0); ALBUMIN/GLOBULIN RATIO 1.3 (1.0-1.7); CALCIUM 8.2 mg/dL (8.5-10.1); GFR 52.3; POTASSIUM 3.9 mmol/L (3.5-5.1); TOTAL BILIRUBIN 0.8 mg/dL (0.2-1.0); TOTAL PROTEIN 6.3 g/dL (6.4-8.2)
[2019-10-12] MEDS: ASPIRIN ENTERIC COATED 81 MG TABLET.DR. PO SCH (08:34)
[2019-10-12] MEDS: amLODIPine BESYLATE 10 MG TABLET PO SCH (08:34)
[2019-10-12] MEDS: ONDANSETRON PF 4 MG/2 ML VIAL. IV PRN (08:34)
[2019-10-12] MEDS: hydroCHLOROthiazide 12.5 MG CAPSULE PO SCH (08:34)
[2019-10-12] MEDS: SERTRALINE 25 MG TABLET. PO SCH (08:34)
[2019-10-12] MEDS: ISOSORBIDE MONONITRATE ER 30 MG TAB.ER.24H PO SCH (08:35)
[2019-10-12] MEDS: SPIRONOLACTONE 25 MG TABLET PO SCH (08:35)
[2019-10-12] MEDS: HYDROcodone/APAP 5/325MG 1 TAB TABLET PO PRN (08:35)
[2019-10-12] MEDS: RIVASTIGMINE 9.5MG PATCH. TD SCH (08:36)
[2019-10-12] MEDS: LACTOBACILLUS RHAMNOSUS GG 1 CAPSULE. PO SCH ×2 (08:46→21:18)
[2019-10-12] MEDS: LACTULOSE 20 GM/30 ML SOLUTION. PO SCH (08:47)
--- NOTE | 2019-10-12 10:21 | PDOC ---
PROGRESS NOTES History of Present Illness History of Present Illness VTE Prophylaxis Ordered VTE Prophylaxis Devices: Yes VTE Pharmacological Prophylaxi: Yes Assessment/Plan Assessment/Plan IMPRESSION HTN Urgency - treating, still somewhat elevated. added amlodipine HLD - on statin gerd - on PPI depression / ANXIETY - cont meds h/o CVA wo neurologic deficit historically - h/o CAD - On meds, stable. Cardiology consulted CKD3 - stable, Constipation - will cont psyllium and miralax Rectal pain - will cont hydrocortisone Mild cognitive impairment - cont exelon patch Chest pain UTI HX CVA GAIT INSTABILITY LOWER EXT PARESTHESIA Mild right-sided hydronephrosis.// POSSIBLE RENAL STONE however on ct 10/10 Small bilateral nonobstructing renal calculi. No obstructing or ureteral calculi. No hydronephrosis. 2.2 cm cyst identified in the left kidney. MICROHEMATURIA, NEEDS UROLOGY REFERRAL 10/11 attempt transfer to [facility] History of cutaneous lymphoma 10/08 urine retention noted > 300cc confused and very dysphoric , await psych consult, nursing has not recorded orthostatic bp as ordered 10/10 CONSULT NEPHROLOGY, CT ABD// PELVIS W/O CONTRAST CONTINUE Zoloft 25 mg daily for depression and anxiety CONTINUE Seroquel 25 mg nightly for altered mental status, insomnia, and anxiety. augustine placed 10/10 PM plan cvc bed Cardiology consult bp control trend troponin i straight cath PT/OT Consult dr Forman reviewed with her proper body mechanics and home program of physical modalities and stretching exercise to her lower back to consider injecting painful right shoulder and lower back orthostatic bp, pulse ct head psych consult re cognitive decline, depression NEEDS SNF BED X RAY L/S consult nephrology CT ABD R/O STONE URETERAL neg REFER TO UROLOGY may need cystoscopy AND RETROGRAGE PYELOGRAM 10/11 D/W DR VERO MARTINEZ, HOSPITALIST [facility], 12:35 THEY WILL ACCEPT IN TRANSFER FOR UROLOGY SERVICES , bed is pending 38 MIN PT EXAM, CHART REVIEW, > 50% OF TIME SPENT WITH EXAM, CHART REVIEW, PT CARE COORDINATION ADMITTED Justicifation of Admission Dx: Justicifation of Admission Dx: Justifications for Admission: Justification of Admission Dx: Yes Angina: New-Onset Hypertension: Symp at Rest Vitals Vitals Vital Signs Date Time Temp Pulse Resp B/P (MAP) Pulse Ox O2 Delivery O2 Flow Rate FiO2 10/12/19 08:35 80 10/12/19 07:00 98.0 18 149/80 (103) 94 98.0 10/12/19 03:00 Room Air Physical Exam General: Alert, Oriented X3, Cooperative, No acute distress Heart: Regular rate, Normal S1, Normal S2, No murmurs, Gallops Lungs: Clear Abdomen: Normal bowel sounds, Soft, No tenderness, No hepatosplenomegaly, No masses Extremities: No clubbing, No cyanosis, No edema, Normal pulses, No tenderness/swelling Skin: No rashes, No significant lesion, Other (No lesions noted on both lower extremities) Labs LABS Exam: CT abdomen and pelvis without contrast INDICATION: Possible renal stone TECHNIQUE: Sequential axial images through the abdomen and pelvis obtained without IV contrast. Sagittal and coronal reformatted images were reconstructed from the axial data and reviewed. Comparisons: Ultrasound same day FINDINGS: Heart size is normal. No pericardial effusion. Visualized lung bases are clear. No pleural effusion. Evaluation of the solid organs is limited secondary to noncontrast technique. Liver, spleen, pancreas, and adrenals are unremarkable. Gallbladder is not definitively identified, may be decompressed or absent. Nonobstructing renal calculi are noted bilaterally measuring 2 to 3 mm. No ureteral calculi. Bladder is distended and appears thin-walled. Uterus is absent. No abnormal adnexal mass. Few scattered diverticula are noted within the descending and sigmoid colon without evidence of acute diverticulitis. Large and small bowel are otherwise unremarkable. Appendix is not identified. No free intra-abdominal air or fluid. No obstruction. Abdominal aorta has a ectatic course. No enlarged abdominal lymph nodes are identified. IMPRESSION: 1. Small bilateral nonobstructing renal calculi. No obstructing or ureteral calculi. No hydronephrosis. 2. Diverticulosis without evidence of acute diverticulitis. 3. 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 Exposure: One or more of the following in the visualized dose reduction techniques were utilized for this examination: 1. Automated exposure control 2. Adjustment of the MA and/or KV according to patient size 3. Use of iterative of reconstructive technique Electronically signed by: Tone Martinez MD (10/11/2019 4:13 PM) [id number] DICTATED and SIGNED BY: TONE MARTINEZ MD Laboratory Tests Test 10/12/19 06:15 Sodium Level 133 mmol/L (136-145) Potassium Level 3.9 mmol/L (3.5-5.1) Chloride Level 96 mmol/L (98-107) Carbon Dioxide Level 29 mmol/L (21-32) Anion Gap 8 (6-14) Blood Urea Nitrogen 14 mg/dL (7-20) Creatinine 1.0 mg/dL (0.6-1.0) Estimated GFR (Cockcroft-Gault) 52.3 BUN/Creatinine Ratio 14 (6-20) Glucose Level 100 mg/dL (70-99) Calcium Level 8.2 mg/dL (8.5-10.1) Total Bilirubin 0.8 mg/dL (0.2-1.0) Aspartate Amino Transf (AST/SGOT) 39 U/L (15-37) Alanine Aminotransferase (ALT/SGPT) 36 U/L (14-59) Alkaline Phosphatase 41 U/L (46-116) Total Protein 6.3 g/dL (6.4-8.2) Albumin 3.5 g/dL (3.4-5.0) Albumin/Globulin Ratio 1.3 (1.0-1.7) Assessment and Plan Assessmemt and Plan Problems Medical Problems: (1) Chest pain Status: Acute Comment Review of Relevant I have reviewed the following items lorna (where applicable) has been applied. Labs Laboratory Tests Test 10/11/19 04:00 10/12/19 06:15 White Blood Count 4.5 x10^3/uL (4.0-11.0) Red Blood Count 4.15 x10^6/uL (3.50-5.40) Hemoglobin 13.2 g/dL (12.0-15.5) Hematocrit 38.4 % (36.0-47.0) Mean Corpuscular Volume 92 fL (79-100) Mean Corpuscular Hemoglobin 32 pg (25-35) Mean Corpuscular Hemoglobin Concent 34 g/dL (31-37) Red Cell Distribution Width 13.9 % (11.5-14.5) Platelet Count 157 x10^3/uL (140-400) Neutrophils (%) (Auto) 59 % (31-73) Lymphocytes (%) (Auto) 24 % (24-48) Monocytes (%) (Auto) 14 % (0-9) Eosinophils (%) (Auto) 2 % (0-3) Basophils (%) (Auto) 1 % (0-3) Neutrophils # (Auto) 2.7 x10^3/uL (1.8-7.7) Lymphocytes # (Auto) 1.1 x10^3/uL (1.0-4.8) Monocytes # (Auto) 0.6 x10^3/uL (0.0-1.1) Eosinophils # (Auto) 0.1 x10^3/uL (0.0-0.7) Basophils # (Auto) 0.0 x10^3/uL (0.0-0.2) Sodium Level 130 mmol/L (136-145) 133 mmol/L (136-145) Potassium Level 3.4 mmol/L (3.5-5.1) 3.9 mmol/L (3.5-5.1) Chloride Level 98 mmol/L (98-107) 96 mmol/L (98-107) Carbon Dioxide Level 24 mmol/L (21-32) 29 mmol/L (21-32) Anion Gap 8 (6-14) 8 (6-14) Blood Urea Nitrogen 17 mg/dL (7-20) 14 mg/dL (7-20) Creatinine 1.1 mg/dL (0.6-1.0) 1.0 mg/dL (0.6-1.0) Estimated GFR (Cockcroft-Gault) 46.9 52.3 Glucose Level 112 mg/dL (70-99) 100 mg/dL (70-99) Calcium Level 7.9 mg/dL (8.5-10.1) 8.2 mg/dL (8.5-10.1) BUN/Creatinine Ratio 14 (6-20) Total Bilirubin 0.8 mg/dL (0.2-1.0) Aspartate Amino Transf (AST/SGOT) 39 U/L (15-37) Alanine Aminotransferase (ALT/SGPT) 36 U/L (14-59) Alkaline Phosphatase 41 U/L (46-116) Total Protein 6.3 g/dL (6.4-8.2) Albumin 3.5 g/dL (3.4-5.0) Albumin/Globulin Ratio 1.3 (1.0-1.7) Laboratory Tests Test 10/12/19 06:15 Sodium Level 133 mmol/L (136-145) Potassium Level 3.9 mmol/L (3.5-5.1) Chloride Level 96 mmol/L (98-107) Carbon Dioxide Level 29 mmol/L (21-32) Anion Gap 8 (6-14) Blood Urea Nitrogen 14 mg/dL (7-20) Creatinine 1.0 mg/dL (0.6-1.0) Estimated GFR (Cockcroft-Gault) 52.3 BUN/Creatinine Ratio 14 (6-20) Glucose Level 100 mg/dL (70-99) Calcium Level 8.2 mg/dL (8.5-10.1) Total Bilirubin 0.8 mg/dL (0.2-1.0) Aspartate Amino Transf (AST/SGOT) 39 U/L (15-37) Alanine Aminotransferase (ALT/SGPT) 36 U/L (14-59) Alkaline Phosphatase 41 U/L (46-116) Total Protein 6.3 g/dL (6.4-8.2) Albumin 3.5 g/dL (3.4-5.0) Albumin/Globulin Ratio 1.3 (1.0-1.7) Microbiology 10/07/19 Urine Culture - Final, Complete Medications Current Medications Hydralazine HCl (Apresoline Inj) 10 mg 1X ONCE IVP Last administered on 10/07/19at 15:44; Start 10/07/19 at 15:30; Stop 10/07/19 at 15:31; Status DC Clonazepam (KlonoPIN) 0.5 mg QHS PO Last administered on 10/08/19at 21:34; Start 10/07/19 at 21:00; Stop 10/09/19 at 15:48; Status DC Acetaminophen/ Hydrocodone Bitart (Lortab 5/325) 1 tab PRN Q6HRS PRN PO MODERATE TO SEVERE PAIN Last administered on 10/12/19at 08:35; Start 10/07/19 at 20:15 Hydrocortisone (Proctosol-Hc) 1 jan PRN BID PRN RC rectal pain Last administered on 10/08/19at 14:35; Start 10/07/19 at 20:15 Lactulose (Lactulose) 10 gm DAILY PO Last administered on 10/09/19 09:21; Start 10/08/19 at 09:00 Nitroglycerin (Nitrostat) 0.4 mg PRN Q5MIN PRN SL CHEST PAIN; Start 10/07/19 at 20:15 Trazodone HCl (Desyrel) 50 mg PRN QHS PRN PO INSOMNIA Last administered on 10/11/19 21:44; Start 10/07/19 at 20:15 Atorvastatin Calcium (Lipitor) 80 mg QHS PO Last administered on 10/11/19 21:44; Start 10/07/19 at 21:00 Nitroglycerin/ Dextrose 250 ml @ 0 mls/hr 1X ONCE IV Last administered on 10/07/19 21:29; Start 10/07/19 at 20:30; Stop 10/07/19 at 20:31; Status DC Rivastigmine (Exelon) 1 patch DAILY TD Last administered on 10/12/19 08:36; Start 10/08/19 at 09:00 Amlodipine Besylate (Norvasc) 10 mg DAILY PO Last administered on 10/12/19at 08:34; Start 10/09/19 at 09:00 Hydralazine HCl (Apresoline Inj) 10 mg PRN Q4HRS PRN IVP ELEVATED BP, SEE COMMENTS Last administered on 10/11/19at 19:40; Start 10/08/19 at 11:00 Polyethylene Glycol (miraLAX PACKET) 17 gm PRN DAILY PRN PO CONSTIPATION Last administered on 10/09/19 15:21; Start 10/08/19 at 11:15 Bisacodyl (Dulcolax Supp) 10 mg PRN DAILY PRN DC CONSTIPATION, 1sT CHOICE Last administered on 10/09/19 18:35; Start 10/08/19 at 11:15 Amlodipine Besylate (Norvasc) 10 mg 1X ONCE PO Last administered on 10/08/19at 11:25; Start 10/08/19 at 11:15; Stop 10/08/19 at 11:18; Status DC Isosorbide Mononitrate (Imdur) 30 mg DAILY PO Last administered on 10/12/19at 08:35; Start 10/08/19 at 11:15 Mineral Oil (Fleet Mineral Oil) 133 ml 1X ONCE DC Last administered on 10/08/19at 12:40; Start 10/08/19 at 12:30; Stop 10/08/19 at 12:31; Status DC Hydralazine HCl (Apresoline Inj) 10 mg PRN Q4HRS PRN IVP ELEVATED BP, SEE COMMENTS; Start 10/08/19 at 15:30; Status Cancel Sodium Chloride (Normal Saline Flush) 3 ml QSHIFT PRN IV AFTER MEDS AND BLOOD DRAWS; Start 10/08/19 at 15:30 Ondansetron HCl (Zofran) 4 mg PRN Q4HRS PRN IV NAUSEA/VOMITING Last administered on 10/12/19at 08:34; Start 10/08/19 at 15:30 Acetaminophen (Tylenol) 650 mg PRN Q4HRS PRN PO TEMP OVER 100.4F OR MILD PAIN Last administered on 10/12/19at 02:31; Start 10/08/19 at 15:30 Al Hydroxide/Mg Hydroxide (Mylanta Plus Xs) 30 ml PRN DAILY PRN PO HEARTBURN / GAS Last administered on 10/11/19at 19:40; Start 10/08/19 at 15:30 Sodium Monofluorophosphate (Fleet Adult) 133 ml PRN DAILY PRN DC CONSTIPATION, 2nd CHOICE; Start 10/08/19 at 15:30 Docusate Sodium (Colace) 100 mg PRN BID PRN PO HARD STOOLS Last administered on 10/09/19at 09:21; Start 10/08/19 at 15:30 Albuterol Sulfate (Ventolin Neb Soln) 2.5 mg PRN Q4HRS PRN NEB SHORTNESS OF BREATH; Start 10/08/19 at 15:30 Guaifenesin (Robitussin) 200 mg PRN Q4HRS PRN PO COUGH; Start 10/08/19 at 15:30 Enoxaparin Sodium (Lovenox 30mg Syringe) 30 mg Q24H SQ Last administered on 10/11/19at 16:09; Start 10/08/19 at 15:30 Ceftriaxone Sodium (Rocephin) 1 gm Q24H IVP Last administered on 10/09/19at 15:21; Start 10/08/19 at 16:00; Stop 10/10/19 at 09:32; Status DC Aspirin (Ecotrin) 81 mg DAILYWBKFT PO Last administered on 10/12/19 08:34; Start 10/09/19 at 08:00 Lactobacillus Rhamnosus (Culturelle) 1 cap BID PO Last administered on 10/12/19at 08:46; Start 10/08/19 at 21:00 Loperamide HCl (Imodium) 2 mg PRN Q6HRS PRN PO DIARRHEA Last administered on 10/11/19 23:26; Start 10/10/19 at 01:30 Spironolactone (Aldactone) 12.5 mg DAILY PO Last administered on 10/12/19at 08:35; Start 10/10/19 at 17:00 Hydrochlorothiazide (Microzide) 12.5 mg DAILY PO Last administered on 10/12/19at 08:34; Start 10/11/19 at 09:00 Hydrochlorothiazide (Microzide) 12.5 mg 1X ONCE PO Last administered on 10/10/19at 17:46; Start 10/10/19 at 17:30; Stop 10/10/19 at 17:31; Status DC Sertraline HCl (Zoloft) 25 mg DAILY PO Last administered on 10/12/19at 08:34; Start 10/11/19 at 09:00 Quetiapine Fumarate (SEROquel) 25 mg HS PO Last administered on 10/11/19at 21:44; Start 10/10/19 at 21:00 Potassium Chloride (Klor-Con) 30 meq 1X ONCE PO Last administered on 10/11/19at 18:13; Start 10/11/19 at 17:15; Stop 10/11/19 at 17:16; Status DC Active Scripts Active Proctosol-Hc (Hydrocortisone) 28.35 Gm Cream..g. 1 Jan RC PRN BID PRN 10 Days Reported EXELON 9.5mg/24hr (Rivastigmine) 1 Each Patch.td24 1 Patch TP DAILY 1 Days Lactulose 20 Gm/30 Ml Solution 10 Gm PO DAILY NITROGLYCERIN SubLingual (Nitroglycerin) 0.4 Mg Tab.subl 0.4 Mg SL PRN Q5MIN PRN Hydrocodone-Apap 5-325 (Hydrocodone Bit/Acetaminophen) 1 Each Tablet 1 Tab PO PRN Q6HRS PRN Clonazepam (Clonazepam) 0.5 Mg Tablet 1-2 Tab PO QHS Trazodone Hcl 50 Mg Tablet 1 Tab PO QHS PRN Atorvastatin Calcium 80 Mg Tablet 80 Mg PO DAILY Vitals/I & O Vital Sign - Last 24 Hours 10/11/19 10/11/19 10/11/19 10/11/19 11:00 15:00 19:22 19:40 Temp 97.5 97.8 98.0 97.5 97.8 98.0 Pulse 68 75 86 86 Resp 20 20 18 B/P (MAP) 143/63 (89) 118/61 (80) 183/84 (117) 183/84 Pulse Ox 99 95 94 O2 Delivery Room Air Room Air Room Air 10/11/19 10/11/19 10/11/19 10/12/19 20:00 20:52 23:00 03:00 Temp 97.3 97.4 97.3 97.4 Pulse 87 79 72 Resp 18 16 B/P (MAP) 155/74 (101) 167/72 (103) 114/67 (83) Pulse Ox 96 93 O2 Delivery Room Air Room Air Room Air 10/12/19 10/12/19 10/12/19 07:00 08:34 08:35 Temp 98.0 98.0 Pulse 79 80 80 Resp 18 B/P (MAP) 149/80 (103) Pulse Ox 94 Intake and Output 10/11/19 10/11/19 10/12/19 15:00 23:00 07:00 Intake Total 1150 ml 900 ml Output Total 250 ml 850 ml 900 ml Balance -250 ml 300 ml 0 ml Justicifation of Admission Dx: Justifications for Admission: Justification of Admission Dx: Yes Angina: New-Onset Hypertension: Symp at Rest CARMENZA NERI MD Oct 12, 2019 10:21
[2019-10-12 11:00] VITALS: BP 143/70
--- NOTE | 2019-10-12 11:56 | PDOC ---
PROGRESS NOTES Subjective Subjective Patient seen and examined Objective Objective Vital Signs Date Time Temp Pulse Resp B/P (MAP) Pulse Ox O2 Delivery O2 Flow Rate FiO2 10/12/19 08:35 80 10/12/19 07:00 98.0 18 149/80 (103) 94 98.0 10/12/19 03:00 Room Air Intake and Output 10/12/19 07:00 Intake Total 2050 ml Output Total 2000 ml Balance 50 ml Intake Oral 2050 ml Output Urine Total 2000 ml # Voids 3 # Bowel Movements 2 Physical Exam Abdomen: Normal bowel sounds Heart: Regular rate General: mild distress Lungs: Other (Mildly decreased breath sounds) Assessment Assessment Problems Medical Problems: (1) Chest pain Status: Acute Chest pain, atypical; AMI ruled out. Most probably secondary to #2. recent echo with preserved LV systolic function. MPI 09/11 without evidence of ischemia. Continue medical treatment. Hypertensive urgency; better controlled. Continue present medications. Hyperlipidemia; statin CAD s/p remote PCI/stent to LAD and known [employer] of [facility]. Will follow as an outpatient. CKD; Cr stable H/o CVA Dementia Comment Review of Relevant I have reviewed the following items lorna (where applicable) has been applied. Labs Laboratory Tests Test 10/11/19 04:00 10/12/19 06:15 White Blood Count 4.5 x10^3/uL (4.0-11.0) Red Blood Count 4.15 x10^6/uL (3.50-5.40) Hemoglobin 13.2 g/dL (12.0-15.5) Hematocrit 38.4 % (36.0-47.0) Mean Corpuscular Volume 92 fL (79-100) Mean Corpuscular Hemoglobin 32 pg (25-35) Mean Corpuscular Hemoglobin Concent 34 g/dL (31-37) Red Cell Distribution Width 13.9 % (11.5-14.5) Platelet Count 157 x10^3/uL (140-400) Neutrophils (%) (Auto) 59 % (31-73) Lymphocytes (%) (Auto) 24 % (24-48) Monocytes (%) (Auto) 14 % (0-9) Eosinophils (%) (Auto) 2 % (0-3) Basophils (%) (Auto) 1 % (0-3) Neutrophils # (Auto) 2.7 x10^3/uL (1.8-7.7) Lymphocytes # (Auto) 1.1 x10^3/uL (1.0-4.8) Monocytes # (Auto) 0.6 x10^3/uL (0.0-1.1) Eosinophils # (Auto) 0.1 x10^3/uL (0.0-0.7) Basophils # (Auto) 0.0 x10^3/uL (0.0-0.2) Sodium Level 130 mmol/L (136-145) 133 mmol/L (136-145) Potassium Level 3.4 mmol/L (3.5-5.1) 3.9 mmol/L (3.5-5.1) Chloride Level 98 mmol/L (98-107) 96 mmol/L (98-107) Carbon Dioxide Level 24 mmol/L (21-32) 29 mmol/L (21-32) Anion Gap 8 (6-14) 8 (6-14) Blood Urea Nitrogen 17 mg/dL (7-20) 14 mg/dL (7-20) Creatinine 1.1 mg/dL (0.6-1.0) 1.0 mg/dL (0.6-1.0) Estimated GFR (Cockcroft-Gault) 46.9 52.3 Glucose Level 112 mg/dL (70-99) 100 mg/dL (70-99) Calcium Level 7.9 mg/dL (8.5-10.1) 8.2 mg/dL (8.5-10.1) BUN/Creatinine Ratio 14 (6-20) Total Bilirubin 0.8 mg/dL (0.2-1.0) Aspartate Amino Transf (AST/SGOT) 39 U/L (15-37) Alanine Aminotransferase (ALT/SGPT) 36 U/L (14-59) Alkaline Phosphatase 41 U/L (46-116) Total Protein 6.3 g/dL (6.4-8.2) Albumin 3.5 g/dL (3.4-5.0) Albumin/Globulin Ratio 1.3 (1.0-1.7) Laboratory Tests Test 10/12/19 06:15 Sodium Level 133 mmol/L (136-145) Potassium Level 3.9 mmol/L (3.5-5.1) Chloride Level 96 mmol/L (98-107) Carbon Dioxide Level 29 mmol/L (21-32) Anion Gap 8 (6-14) Blood Urea Nitrogen 14 mg/dL (7-20) Creatinine 1.0 mg/dL (0.6-1.0) Estimated GFR (Cockcroft-Gault) 52.3 BUN/Creatinine Ratio 14 (6-20) Glucose Level 100 mg/dL (70-99) Calcium Level 8.2 mg/dL (8.5-10.1) Total Bilirubin 0.8 mg/dL (0.2-1.0) Aspartate Amino Transf (AST/SGOT) 39 U/L (15-37) Alanine Aminotransferase (ALT/SGPT) 36 U/L (14-59) Alkaline Phosphatase 41 U/L (46-116) Total Protein 6.3 g/dL (6.4-8.2) Albumin 3.5 g/dL (3.4-5.0) Albumin/Globulin Ratio 1.3 (1.0-1.7) Microbiology 10/07/19 Urine Culture - Final, Complete Medications Current Medications Hydralazine HCl (Apresoline Inj) 10 mg 1X ONCE IVP Last administered on 10/07/19at 15:44; Start 10/07/19 at 15:30; Stop 10/07/19 at 15:31; Status DC Clonazepam (KlonoPIN) 0.5 mg QHS PO Last administered on 10/08/19at 21:34; Start 10/07/19 at 21:00; Stop 10/09/19 at 15:48; Status DC Acetaminophen/ Hydrocodone Bitart (Lortab 5/325) 1 tab PRN Q6HRS PRN PO MODERATE TO SEVERE PAIN Last administered on 10/12/19at 08:35; Start 10/07/19 at 20:15 Hydrocortisone (Proctosol-Hc) 1 jan PRN BID PRN RC rectal pain Last admini stered on 10/08/19at 14:35; Start 10/07/19 at 20:15 Lactulose (Lactulose) 10 gm DAILY PO Last administered on 10/09/19at 09:21; Start 10/08/19 at 09:00 Nitroglycerin (Nitrostat) 0.4 mg PRN Q5MIN PRN SL CHEST PAIN; Start 10/07/19 at 20:15 Trazodone HCl (Desyrel) 50 mg PRN QHS PRN PO INSOMNIA Last administered on 10/11/19 21:44; Start 10/07/19 at 20:15 Atorvastatin Calcium (Lipitor) 80 mg QHS PO Last administered on 10/11/19 21:44; Start 10/07/19 at 21:00 Nitroglycerin/ Dextrose 250 ml @ 0 mls/hr 1X ONCE IV Last administered on 10/07/19 21:29; Start 10/07/19 at 20:30; Stop 10/07/19 at 20:31; Status DC Rivastigmine (Exelon) 1 patch DAILY TD Last administered on 10/12/19 08:36; Start 10/08/19 at 09:00 Amlodipine Besylate (Norvasc) 10 mg DAILY PO Last administered on 10/12/19 08:34; Start 10/09/19 at 09:00 Hydralazine HCl (Apresoline Inj) 10 mg PRN Q4HRS PRN IVP ELEVATED BP, SEE COMMENTS Last administered on 10/11/19at 19:40; Start 10/08/19 at 11:00 Polyethylene Glycol (miraLAX PACKET) 17 gm PRN DAILY PRN PO CONSTIPATION Last administered on 10/09/19 15:21; Start 10/08/19 at 11:15 Bisacodyl (Dulcolax Supp) 10 mg PRN DAILY PRN PA CONSTIPATION, 1sT CHOICE Last administered on 10/09/19 18:35; Start 10/08/19 at 11:15 Amlodipine Besylate (Norvasc) 10 mg 1X ONCE PO Last administered on 10/08/19at 11:25; Start 10/08/19 at 11:15; Stop 10/08/19 at 11:18; Status DC Isosorbide Mononitrate (Imdur) 30 mg DAILY PO Last administered on 10/12/19 08:35; Start 10/08/19 at 11:15 Mineral Oil (Fleet Mineral Oil) 133 ml 1X ONCE PA Last administered on 10/08/19at 12:40; Start 10/08/19 at 12:30; Stop 10/08/19 at 12:31; Status DC Hydralazine HCl (Apresoline Inj) 10 mg PRN Q4HRS PRN IVP ELEVATED BP, SEE COMMENTS; Start 10/08/19 at 15:30; Status Cancel Sodium Chloride (Normal Saline Flush) 3 ml QSHIFT PRN IV AFTER MEDS AND BLOOD DRAWS; Start 10/08/19 at 15:30 Ondansetron HCl (Zofran) 4 mg PRN Q4HRS PRN IV NAUSEA/VOMITING Last administered on 10/12/19 08:34; Start 10/08/19 at 15:30 Acetaminophen (Tylenol) 650 mg PRN Q4HRS PRN PO TEMP OVER 100.4F OR MILD PAIN Last administered on 10/12/19at 02:31; Start 10/08/19 at 15:30 Al Hydroxide/Mg Hydroxide (Mylanta Plus Xs) 30 ml PRN DAILY PRN PO HEARTBURN / GAS Last administered on 10/11/19at 19:40; Start 10/08/19 at 15:30 Sodium Monofluorophosphate (Fleet Adult) 133 ml PRN DAILY PRN PA CONSTIPATION, 2nd CHOICE; Start 10/08/19 at 15:30 Docusate Sodium (Colace) 100 mg PRN BID PRN PO HARD STOOLS Last administered on 10/09/19 09:21; Start 10/08/19 at 15:30 Albuterol Sulfate (Ventolin Neb Soln) 2.5 mg PRN Q4HRS PRN NEB SHORTNESS OF BREATH; Start 10/08/19 at 15:30 Guaifenesin (Robitussin) 200 mg PRN Q4HRS PRN PO COUGH; Start 10/08/19 at 15:30 Enoxaparin Sodium (Lovenox 30mg Syringe) 30 mg Q24H SQ Last administered on 10/11/19at 16:09; Start 10/08/19 at 15:30 Ceftriaxone Sodium (Rocephin) 1 gm Q24H IVP Last administered on 10/09/19at 15:21; Start 10/08/19 at 16:00; Stop 10/10/19 at 09:32; Status DC Aspirin (Ecotrin) 81 mg DAILYWBKFT PO Last administered on 10/12/19at 08:34; Start 10/09/19 at 08:00 Lactobacillus Rhamnosus (Culturelle) 1 cap BID PO Last administered on 10/12/19at 08:46; Start 10/08/19 at 21:00 Loperamide HCl (Imodium) 2 mg PRN Q6HRS PRN PO DIARRHEA Last administered on 10/11/19at 23:26; Start 10/10/19 at 01:30 Spironolactone (Aldactone) 12.5 mg DAILY PO Last administered on 10/12/19at 08:35; Start 10/10/19 at 17:00 Hydrochlorothiazide (Microzide) 12.5 mg DAILY PO Last administered on 10/12/19at 08:34; Start 10/11/19 at 09:00 Hydrochlorothiazide (Microzide) 12.5 mg 1X ONCE PO Last administered on 10/10/19at 17:46; Start 10/10/19 at 17:30; Stop 10/10/19 at 17:31; Status DC Sertraline HCl (Zoloft) 25 mg DAILY PO Last administered on 10/12/19at 08:34; Start 10/11/19 at 09:00 Quetiapine Fumarate (SEROquel) 25 mg HS PO Last administered on 10/11/19at 21:44; Start 10/10/19 at 21:00 Potassium Chloride (Klor-Con) 30 meq 1X ONCE PO Last administered on 10/11/19at 18:13; Start 10/11/19 at 17:15; Stop 10/11/19 at 17:16; Status DC Active Scripts Active Proctosol-Hc (Hydrocortisone) 28.35 Gm Cream..g. 1 Jan RC PRN BID PRN 10 Days Reported EXELON 9.5mg/24hr (Rivastigmine) 1 Each Patch.td24 1 Patch TP DAILY 1 Days Lactulose 20 Gm/30 Ml Solution 10 Gm PO DAILY NITROGLYCERIN SubLingual (Nitroglycerin) 0.4 Mg Tab.subl 0.4 Mg SL PRN Q5MIN PRN Hydrocodone-Apap 5-325 (Hydrocodone Bit/Acetaminophen) 1 Each Tablet 1 Tab PO PRN Q6HRS PRN Clonazepam (Clonazepam) 0.5 Mg Tablet 1-2 Tab PO QHS Trazodone Hcl 50 Mg Tablet 1 Tab PO QHS PRN Atorvastatin Calcium 80 Mg Tablet 80 Mg PO DAILY Vitals/I & O Vital Sign - Last 24 Hours 10/11/19 10/11/19 10/11/19 10/11/19 15:00 19:22 19:40 20:00 Temp 97.8 98.0 97.8 98.0 Pulse 75 86 86 Resp 20 18 B/P (MAP) 118/61 (80) 183/84 (117) 183/84 Pulse Ox 95 94 O2 Delivery Room Air Room Air Room Air 10/11/19 10/11/19 10/12/19 10/12/19 20:52 23:00 03:00 07:00 Temp 97.3 97.4 98.0 97.3 97.4 98.0 Pulse 87 79 72 79 Resp 18 16 18 B/P (MAP) 155/74 (101) 167/72 (103) 114/67 (83) 149/80 (103) Pulse Ox 96 93 94 O2 Delivery Room Air Room Air 10/12/19 10/12/19 08:34 08:35 Pulse 80 80 Intake and Output 10/11/19 10/11/19 10/12/19 15:00 23:00 07:00 Intake Total 1150 ml 900 ml Output Total 250 ml 850 ml 900 ml Balance -250 ml 300 ml 0 ml Justicifation of Admission Dx: Justifications for Admission: Justification of Admission Dx: Yes Angina: New-Onset Hypertension: Symp at Rest ANGÉLICA ALLEN MD Oct 12, 2019 11:56
[2019-10-12] MEDS: ENOXAPARIN 30 MG/0.3 ML SYRINGE. SQ SCH (13:45)
[2019-10-12 15:00] VITALS: BP 123/53
[2019-10-12 16:53] LABS: BILIRUBIN,URINE NEGATIVE (NEG); CLARITY,URINE CLEAR; COLOR,URINE YELLOW; NITRITE,URINE NEGATIVE (NEG); PH,URINE 6.5 (<5.0-8.0); PROTEIN,URINE NEGATIVE (NEG-TRACE); UROBILINOGEN,URINE 0.2 mg/dL (0.2 mg/dL)
[2019-10-12 17:01] LABS: BACTERIA,URINE 0 /HPF (0-FEW); WBC,URINE OCC /HPF (0-4)
[2019-10-12] MEDS: MAG HYDROX/ALUMINUM HYD/SIMETH 30 ML ORAL.SUSP PO PRN (18:51)
[2019-10-12 19:35] VITALS: BP 139/66
[2019-10-12] MEDS: traZODone 50 MG TABLET. PO PRN (21:18)
[2019-10-12] MEDS: QUEtiapine 25 MG TABLET. PO SCH (21:18)
[2019-10-12] MEDS: ATORVASTATIN CALCIUM 40 MG TABLET. PO SCH (21:18)
[2019-10-12 23:05] VITALS: BP 116/63
[2019-10-13 03:00] VITALS: BP 181/64
[2019-10-13 06:57] LABS: ALBUMIN 3.5 g/dL (3.4-5.0); ALBUMIN/GLOBULIN RATIO 1.3 (1.0-1.7); CALCIUM 8.3 mg/dL (8.5-10.1); CREATININE 0.9 mg/dL (0.6-1.0); GFR 59.1; POTASSIUM 3.9 mmol/L (3.5-5.1); TOTAL BILIRUBIN 0.6 mg/dL (0.2-1.0); TOTAL PROTEIN 6.2 g/dL (6.4-8.2)
[2019-10-13 07:00] VITALS: BP 181/76
--- NOTE | 2019-10-13 07:53 | PDOC ---
PROGRESS NOTES History of Present Illness History of Present Illness VTE Prophylaxis Ordered VTE Prophylaxis Devices: Yes VTE Pharmacological Prophylaxi: Yes Assessment/Plan Assessment/Plan IMPRESSION HTN Urgency - treating, still somewhat elevated. added amlodipine HLD - on statin gerd - on PPI depression / ANXIETY - cont meds h/o CVA wo neurologic deficit historically - h/o CAD - On meds, stable. Cardiology consulted CKD3 - stable, Constipation - will cont psyllium and miralax Rectal pain - will cont hydrocortisone Mild cognitive impairment - cont exelon patch Chest pain UTI HX CVA GAIT INSTABILITY LOWER EXT PARESTHESIA Mild right-sided hydronephrosis.// POSSIBLE RENAL STONE however on ct 10/10 Small bilateral nonobstructing renal calculi. No obstructing or ureteral calculi. No hydronephrosis. 2.2 cm cyst identified in the left kidney. MICROHEMATURIA, NEEDS UROLOGY REFERRAL 10/11 attempt transfer to [facility] History of cutaneous lymphoma 10/08 urine retention noted > 300cc confused and very dysphoric , await psych consult, nursing has not recorded orthostatic bp as ordered 10/10 CONSULT NEPHROLOGY, CT ABD// PELVIS W/O CONTRAST CONTINUE Zoloft 25 mg daily for depression and anxiety CONTINUE Seroquel 25 mg nightly for altered mental status, insomnia, and anxiety. augustine placed 10/10 PM plan cvc bed Cardiology consult bp control trend troponin i straight cath PT/OT Consult dr Forman reviewed with her proper body mechanics and home program of physical modalities and stretching exercise to her lower back to consider injecting painful right shoulder and lower back orthostatic bp, pulse ct head psych consult re cognitive decline, depression NEEDS SNF BED X RAY L/S consult nephrology CT ABD R/O STONE URETERAL neg REFER TO UROLOGY may need cystoscopy AND RETROGRAGE PYELOGRAM 10/11 D/W DR VERO MARTINEZ, [facility], 12:35 THEY WILL ACCEPT IN TRANSFER FOR UROLOGY SERVICES , bed is pending 10/12 d/w dr martinez, bed pending at [facility] 30 MIN PT EXAM, CHART REVIEW, > 50% OF TIME SPENT WITH EXAM, CHART REVIEW, PT CARE COORDINATION ADMITTED Justicifation of Admission Dx: Justicifation of Admission Dx: Justifications for Admission: Justification of Admission Dx: Yes Angina: New-Onset Hypertension: Symp at Rest Vitals Vitals Vital Signs Date Time Temp Pulse Resp B/P (MAP) Pulse Ox O2 Delivery O2 Flow Rate FiO2 10/13/19 07:00 98.0 78 16 181/76 (111) 92 Room Air 98.0 Physical Exam General: mild distress Heart: Regular rate Lungs: Clear Abdomen: Normal bowel sounds Extremities: No clubbing, No cyanosis, No edema, Normal pulses, No tenderness/swelling Skin: No rashes, No significant lesion, Other (No lesions noted on both lower extremities) Labs LABS Laboratory Tests Test 10/12/19 16:16 10/13/19 05:08 Urine Collection Type Unknown Urine Color Yellow Urine Clarity Clear Urine pH 6.5 (<5.0-8.0) Urine Specific [place] 1.010 (1.000-1.030) Urine Protein Negative mg/dL (NEG-TRACE) Urine Glucose (UA) Negative mg/dL (NEG) Urine Ketones (Stick) Negative mg/dL (NEG) Urine Blood Small (NEG) Urine Nitrite Negative (NEG) Urine Bilirubin Negative (NEG) Urine Urobilinogen Dipstick 0.2 mg/dL (0.2 mg/dL) Urine Leukocyte Esterase Trace (NEG) Urine RBC 3-5 /HPF (0-2) Urine WBC Occ /HPF (0-4) Urine Bacteria 0 /HPF (0-FEW) Urine Mucus Slight /LPF Sodium Level 134 mmol/L (136-145) Potassium Level 3.9 mmol/L (3.5-5.1) Chloride Level 98 mmol/L (98-107) Carbon Dioxide Level 28 mmol/L (21-32) Anion Gap 8 (6-14) Blood Urea Nitrogen 15 mg/dL (7-20) Creatinine 0.9 mg/dL (0.6-1.0) Estimated GFR (Cockcroft-Gault) 59.1 BUN/Creatinine Ratio 17 (6-20) Glucose Level 101 mg/dL (70-99) Calcium Level 8.3 mg/dL (8.5-10.1) Total Bilirubin 0.6 mg/dL (0.2-1.0) Aspartate Amino Transf (AST/SGOT) 46 U/L (15-37) Alanine Aminotransferase (ALT/SGPT) 41 U/L (14-59) Alkaline Phosphatase 45 U/L (46-116) Total Protein 6.2 g/dL (6.4-8.2) Albumin 3.5 g/dL (3.4-5.0) Albumin/Globulin Ratio 1.3 (1.0-1.7) Assessment and Plan Assessmemt and Plan Problems Medical Problems: (1) Chest pain Status: Acute Comment Review of Relevant I have reviewed the following items lorna (where applicable) has been applied. Labs Laboratory Tests Test 10/12/19 06:15 10/12/19 16:16 10/13/19 05:08 Sodium Level 133 mmol/L (136-145) 134 mmol/L (136-145) Potassium Level 3.9 mmol/L (3.5-5.1) 3.9 mmol/L (3.5-5.1) Chloride Level 96 mmol/L (98-107) 98 mmol/L (98-107) Carbon Dioxide Level 29 mmol/L (21-32) 28 mmol/L (21-32) Anion Gap 8 (6-14) 8 (6-14) Blood Urea Nitrogen 14 mg/dL (7-20) 15 mg/dL (7-20) Creatinine 1.0 mg/dL (0.6-1.0) 0.9 mg/dL (0.6-1.0) Estimated GFR (Cockcroft-Gault) 52.3 59.1 BUN/Creatinine Ratio 14 (6-20) 17 (6-20) Glucose Level 100 mg/dL (70-99) 101 mg/dL (70-99) Calcium Level 8.2 mg/dL (8.5-10.1) 8.3 mg/dL (8.5-10.1) Total Bilirubin 0.8 mg/dL (0.2-1.0) 0.6 mg/dL (0.2-1.0) Aspartate Amino Transf (AST/SGOT) 39 U/L (15-37) 46 U/L (15-37) Alanine Aminotransferase (ALT/SGPT) 36 U/L (14-59) 41 U/L (14-59) Alkaline Phosphatase 41 U/L (46-116) 45 U/L (46-116) Total Protein 6.3 g/dL (6.4-8.2) 6.2 g/dL (6.4-8.2) Albumin 3.5 g/dL (3.4-5.0) 3.5 g/dL (3.4-5.0) Albumin/Globulin Ratio 1.3 (1.0-1.7) 1.3 (1.0-1.7) Urine Collection Type Unknown Urine Color Yellow Urine Clarity Clear Urine pH 6.5 (<5.0-8.0) Urine Specific [place] 1.010 (1.000-1.030) Urine Protein Negative mg/dL (NEG-TRACE) Urine Glucose (UA) Negative mg/dL (NEG) Urine Ketones (Stick) Negative mg/dL (NEG) Urine Blood Small (NEG) Urine Nitrite Negative (NEG) Urine Bilirubin Negative (NEG) Urine Urobilinogen Dipstick 0.2 mg/dL (0.2 mg/dL) Urine Leukocyte Esterase Trace (NEG) Urine RBC 3-5 /HPF (0-2) Urine WBC Occ /HPF (0-4) Urine Bacteria 0 /HPF (0-FEW) Urine Mucus Slight /LPF Laboratory Tests Test 10/12/19 16:16 10/13/19 05:08 Urine Collection Type Unknown Urine Color Yellow Urine Clarity Clear Urine pH 6.5 (<5.0-8.0) Urine Specific [place] 1.010 (1.000-1.030) Urine Protein Negative mg/dL (NEG-TRACE) Urine Glucose (UA) Negative mg/dL (NEG) Urine Ketones (Stick) Negative mg/dL (NEG) Urine Blood Small (NEG) Urine Nitrite Negative (NEG) Urine Bilirubin Negative (NEG) Urine Urobilinogen Dipstick 0.2 mg/dL (0.2 mg/dL) Urine Leukocyte Esterase Trace (NEG) Urine RBC 3-5 /HPF (0-2) Urine WBC Occ /HPF (0-4) Urine Bacteria 0 /HPF (0-FEW) Urine Mucus Slight /LPF Sodium Level 134 mmol/L (136-145) Potassium Level 3.9 mmol/L (3.5-5.1) Chloride Level 98 mmol/L (98-107) Carbon Dioxide Level 28 mmol/L (21-32) Anion Gap 8 (6-14) Blood Urea Nitrogen 15 mg/dL (7-20) Creatinine 0.9 mg/dL (0.6-1.0) Estimated GFR (Cockcroft-Gault) 59.1 BUN/Creatinine Ratio 17 (6-20) Glucose Level 101 mg/dL (70-99) Calcium Level 8.3 mg/dL (8.5-10.1) Total Bilirubin 0.6 mg/dL (0.2-1.0) Aspartate Amino Transf (AST/SGOT) 46 U/L (15-37) Alanine Aminotransferase (ALT/SGPT) 41 U/L (14-59) Alkaline Phosphatase 45 U/L (46-116) Total Protein 6.2 g/dL (6.4-8.2) Albumin 3.5 g/dL (3.4-5.0) Albumin/Globulin Ratio 1.3 (1.0-1.7) Microbiology 10/07/19 Urine Culture - Final, Complete Medications Current Medications Hydralazine HCl (Apresoline Inj) 10 mg 1X ONCE IVP Last administered on 10/07/19at 15:44; Start 10/07/19 at 15:30; Stop 10/07/19 at 15:31; Status DC Clonazepam (KlonoPIN) 0.5 mg QHS PO Last administered on 10/08/19at 21:34; Start 10/07/19 at 21:00; Stop 10/09/19 at 15:48; Status DC Acetaminophen/ Hydrocodone Bitart (Lortab 5/325) 1 tab PRN Q6HRS PRN PO MODERATE TO SEVERE PAIN Last administered on 10/12/19at 08:35; Start 10/07/19 at 20:15 Hydrocortisone (Proctosol-Hc) 1 jan PRN BID PRN RC rectal pain Last administered on 10/08/19at 14:35; Start 10/07/19 at 20:15 Lactulose (Lactulose) 10 gm DAILY PO Last administered on 10/09/19at 09:21; Start 10/08/19 at 09:00 Nitroglycerin (Nitrostat) 0.4 mg PRN Q5MIN PRN SL CHEST PAIN; Start 10/07/19 at 20:15 Trazodone HCl (Desyrel) 50 mg PRN QHS PRN PO INSOMNIA Last administered on 10/12/19at 21:18; Start 10/07/19 at 20:15 Atorvastatin Calcium (Lipitor) 80 mg QHS PO Last administered on 10/12/19at 21:18; Start 10/07/19 at 21:00 Nitroglycerin/ Dextrose 250 ml @ 0 mls/hr 1X ONCE IV Last administered on 10/07/19at 21:29; Start 10/07/19 at 20:30; Stop 10/07/19 at 20:31; Status DC Rivastigmine (Exelon) 1 patch DAILY TD Last administered on 10/12/19at 08:36; Start 10/08/19 at 09:00 Amlodipine Besylate (Norvasc) 10 mg DAILY PO Last administered on 10/12/19at 08:34; Start 10/09/19 at 09:00 Hydralazine HCl (Apresoline Inj) 10 mg PRN Q4HRS PRN IVP ELEVATED BP, SEE COMMENTS Last administered on 10/11/19at 19:40; Start 10/08/19 at 11:00 Polyethylene Glycol (miraLAX PACKET) 17 gm PRN DAILY PRN PO CONSTIPATION Last administered on 10/09/19at 15:21; Start 10/08/19 at 11:15 Bisacodyl (Dulcolax Supp) 10 mg PRN DAILY PRN OR CONSTIPATION, 1sT CHOICE Last administered on 10/09/19at 18:35; Start 10/08/19 at 11:15 Amlodipine Besylate (Norvasc) 10 mg 1X ONCE PO Last administered on 10/08/19at 11:25; Start 10/08/19 at 11:15; Stop 10/08/19 at 11:18; Status DC Isosorbide Mononitrate (Imdur) 30 mg DAILY PO Last administered on 10/12/19at 08:35; Start 10/08/19 at 11:15 Mineral Oil (Fleet Mineral Oil) 133 ml 1X ONCE OR Last administered on 10/08/19at 12:40; Start 10/08/19 at 12:30; Stop 10/08/19 at 12:31; Status DC Hydralazine HCl (Apresoline Inj) 10 mg PRN Q4HRS PRN IVP ELEVATED BP, SEE COMMENTS; Start 10/08/19 at 15:30; Status Cancel Sodium Chloride (Normal Saline Flush) 3 ml QSHIFT PRN IV AFTER MEDS AND BLOOD DRAWS; Start 10/08/19 at 15:30 Ondansetron HCl (Zofran) 4 mg PRN Q4HRS PRN IV NAUSEA/VOMITING Last administered on 10/12/19 08:34; Start 10/08/19 at 15:30 Acetaminophen (Tylenol) 650 mg PRN Q4HRS PRN PO TEMP OVER 100.4F OR MILD PAIN Last administered on 10/12/19 21:18; Start 10/08/19 at 15:30 Al Hydroxide/Mg Hydroxide (Mylanta Plus Xs) 30 ml PRN DAILY PRN PO HEARTBURN / GAS Last administered on 10/12/19 18:51; Start 10/08/19 at 15:30 Sodium Monofluorophosphate (Fleet Adult) 133 ml PRN DAILY PRN OR CONSTIPATION, 2nd CHOICE; Start 10/08/19 at 15:30 Docusate Sodium (Colace) 100 mg PRN BID PRN PO HARD STOOLS Last administered on 10/09/19 09:21; Start 10/08/19 at 15:30 Albuterol Sulfate (Ventolin Neb Soln) 2.5 mg PRN Q4HRS PRN NEB SHORTNESS OF BREATH; Start 10/08/19 at 15:30 Guaifenesin (Robitussin) 200 mg PRN Q4HRS PRN PO COUGH; Start 10/08/19 at 15:30 Enoxaparin Sodium (Lovenox 30mg Syringe) 30 mg Q24H SQ Last administered on 10/12/19at 13:45; Start 10/08/19 at 15:30 Ceftriaxone Sodium (Rocephin) 1 gm Q24H IVP Last administered on 10/09/19 15:21; Start 10/08/19 at 16:00; Stop 10/10/19 at 09:32; Status DC Aspirin (Ecotrin) 81 mg DAILYWBKFT PO Last administered on 10/12/19at 08:34; Start 10/09/19 at 08:00 Lactobacillus Rhamnosus (Culturelle) 1 cap BID PO Last administered on 10/12/19 21:18; Start 10/08/19 at 21:00 Loperamide HCl (Imodium) 2 mg PRN Q6HRS PRN PO DIARRHEA Last administered on 10/11/19at 23:26; Start 10/10/19 at 01:30 Spironolactone (Aldactone) 12.5 mg DAILY PO Last administered on 7/19/20at 08:35; Start 10/10/19 at 17:00 Hydrochlorothiazide (Microzide) 12.5 mg DAILY PO Last administered on 10/12/19at 08:34; Start 10/11/19 at 09:00 Hydrochlorothiazide (Microzide) 12.5 mg 1X ONCE PO Last administered on 10/10/19at 17:46; Start 10/10/19 at 17:30; Stop 10/10/19 at 17:31; Status DC Sertraline HCl (Zoloft) 25 mg DAILY PO Last administered on 10/12/19at 08:34; Start 10/11/19 at 09:00 Quetiapine Fumarate (SEROquel) 25 mg HS PO Last administered on 10/12/19at 21:18; Start 10/10/19 at 21:00 Potassium Chloride (Klor-Con) 30 meq 1X ONCE PO Last administered on 10/11/19at 18:13; Start 10/11/19 at 17:15; Stop 10/11/19 at 17:16; Status DC Active Scripts Active Proctosol-Hc (Hydrocortisone) 28.35 Gm Cream..g. 1 Jan RC PRN BID PRN 10 Days Reported EXELON 9.5mg/24hr (Rivastigmine) 1 Each Patch.td24 1 Patch TP DAILY 1 Days Lactulose 20 Gm/30 Ml Solution 10 Gm PO DAILY NITROGLYCERIN SubLingual (Nitroglycerin) 0.4 Mg Tab.subl 0.4 Mg SL PRN Q5MIN PRN Hydrocodone-Apap 5-325 (Hydrocodone Bit/Acetaminophen) 1 Each Tablet 1 Tab PO PRN Q6HRS PRN Clonazepam (Clonazepam) 0.5 Mg Tablet 1-2 Tab PO QHS Trazodone Hcl 50 Mg Tablet 1 Tab PO QHS PRN Atorvastatin Calcium 80 Mg Tablet 80 Mg PO DAILY Vitals/I & O Vital Sign - Last 24 Hours 10/12/19 10/12/19 10/12/19 10/12/19 08:10 08:34 08:35 11:00 Temp 98.2 98.2 Pulse 80 80 79 Resp 18 B/P (MAP) 143/70 (94) Pulse Ox 94 O2 Delivery Room Air 10/12/19 10/12/19 10/12/19 10/12/19 15:00 19:35 20:00 23:05 Temp 98.4 98.2 97.8 98.4 98.2 97.8 Pulse 79 72 86 Resp 18 20 18 B/P (MAP) 123/53 (76) 139/66 (90) 116/63 (80) Pulse Ox 95 97 93 O2 Delivery Room Air Room Air Room Air 10/13/19 10/13/19 03:00 07:00 Temp 98.2 98.0 98.2 98.0 Pulse 80 78 Resp 16 16 B/P (MAP) 181/64 (103) 181/76 (111) Pulse Ox 98 92 O2 Delivery Room Air Room Air Intake and Output 10/12/19 10/12/19 10/13/19 14:59 22:59 06:59 Intake Total 500 ml 200 ml Output Total 1400 ml 1000 ml 520 ml Balance -900 ml -1000 ml -320 ml Justicifation of Admission Dx: Justifications for Admission: Justification of Admission Dx: Yes Angina: New-Onset Hypertension: Symp at Rest CARMENZA NERI MD Oct 13, 2019 07:53
[2019-10-13] MEDS: SERTRALINE 25 MG TABLET. PO SCH (10:03)
[2019-10-13] MEDS: LACTOBACILLUS RHAMNOSUS GG 1 CAPSULE. PO SCH (10:03)
[2019-10-13] MEDS: ISOSORBIDE MONONITRATE ER 30 MG TAB.ER.24H PO SCH (10:03)
[2019-10-13] MEDS: LACTULOSE 20 GM/30 ML SOLUTION. PO SCH (10:04)
[2019-10-13] MEDS: RIVASTIGMINE 9.5MG PATCH. TD SCH (10:04)
[2019-10-13] MEDS: POLYETHYLENE GLYCOL 3350 17 GM PACKET. PO PRN (10:04)
[2019-10-13] MEDS: SPIRONOLACTONE 25 MG TABLET PO SCH (10:04)
[2019-10-13] MEDS: hydroCHLOROthiazide 12.5 MG CAPSULE PO SCH (10:04)
[2019-10-13] MEDS: ASPIRIN ENTERIC COATED 81 MG TABLET.DR. PO SCH (10:04)
[2019-10-13] MEDS: amLODIPine BESYLATE 10 MG TABLET PO SCH (10:05)
[2019-10-13 10:37] VITALS: BP 165/80
--- NOTE | 2019-10-13 11:09 | NUR ---
SS following up with discharge planning. SS received notification from Dr. Sahu that pt needs to be transferred to [facility] for Urology. SS was notified that transfer request was made over the weekend. SS contacted [facility] transfer team and spoke with Deja, ; fax [phone]. Deja reported that the transfer process needs to be completely restarted from the beginning. SS provided all needed information and contacts. SS faxed demographics and clinical as requested. SS currently awaiting acceptance decision and will proceed accordingly.
--- NOTE | 2019-10-13 12:09 | PDOC ---
GREG BENTLEY AXLE TURNER 10/13/19 1209: CARDIO Progress Notes Date and Time Date of Service 10/13/19 Time of Evaluation 1115 Subjective Subjective: No Chest Pain, No shortness of breath, Other (constipation) Vitals Vitals Vital Signs Date Time Temp Pulse Resp B/P (MAP) Pulse Ox O2 Delivery O2 Flow Rate FiO2 10/13/19 10:37 98.1 67 16 165/80 (108) 95 Room Air 98.1 Weight Weight [ ] Input and Output Intake and Output Intake and Output 10/13/19 07:00 Intake Total 700 ml Output Total 2920 ml Balance -2220 ml Intake Oral 700 ml Output Urine Total 2920 ml # Bowel Movements 1 Laboratory Labs Laboratory Tests Test 10/12/19 16:16 10/13/19 05:08 Urine Collection Type Unknown Urine Color Yellow Urine Clarity Clear Urine pH 6.5 (<5.0-8.0) Urine Specific [place] 1.010 (1.000-1.030) Urine Protein Negative mg/dL (NEG-TRACE) Urine Glucose (UA) Negative mg/dL (NEG) Urine Ketones (Stick) Negative mg/dL (NEG) Urine Blood Small (NEG) Urine Nitrite Negative (NEG) Urine Bilirubin Negative (NEG) Urine Urobilinogen Dipstick 0.2 mg/dL (0.2 mg/dL) Urine Leukocyte Esterase Trace (NEG) Urine RBC 3-5 /HPF (0-2) Urine WBC Occ /HPF (0-4) Urine Bacteria 0 /HPF (0-FEW) Urine Mucus Slight /LPF Sodium Level 134 mmol/L (136-145) Potassium Level 3.9 mmol/L (3.5-5.1) Chloride Level 98 mmol/L (98-107) Carbon Dioxide Level 28 mmol/L (21-32) Anion Gap 8 (6-14) Blood Urea Nitrogen 15 mg/dL (7-20) Creatinine 0.9 mg/dL (0.6-1.0) Estimated GFR (Cockcroft-Gault) 59.1 BUN/Creatinine Ratio 17 (6-20) Glucose Level 101 mg/dL (70-99) Calcium Level 8.3 mg/dL (8.5-10.1) Total Bilirubin 0.6 mg/dL (0.2-1.0) Aspartate Amino Transf (AST/SGOT) 46 U/L (15-37) Alanine Aminotransferase (ALT/SGPT) 41 U/L (14-59) Alkaline Phosphatase 45 U/L (46-116) Total Protein 6.2 g/dL (6.4-8.2) Albumin 3.5 g/dL (3.4-5.0) Albumin/Globulin Ratio 1.3 (1.0-1.7) Microbiology Micro Microbiology 10/07/19 Urine Culture - Final, Complete Physical Exam HEENT: Neck Supple W Full Motion Chest: Symmetric LUNGS: Clear to Auscultation Heart: S1S2, RRR Abdomen: Soft N/T Extremities: No Edema Neurology: alert, oriented, follow commands Assessment Assessment 1. Chest pain, atypical; AMI ruled out. Most probably secondary to #2. recent echo with preserved LV systolic function. MPI 09/11 without evidence of ischemia 2. Hypertensive urgency; labile. Controlled in evening, but significantly elevated in the am 3. Hyperlipidemia; statin 4. CAD s/p remote PCI/stent to LAD and known [employer] RCA 5. CKD; Cr stable 6. COPD 7. H/o CVA 8. Dementia Recommendations Continue secondary prevention Norvasc, Imdur for blood pressure control. will convert amlodipine to BID. If blood pressure remains elevated, would add oral hydralazine Consider further ischemic evaluation on an outpatient basis if CP recurrent. Supportive care Follow up in our office with Dr. Allen as scheduled. Justicifation of Admission Dx: Justifications for Admission: Justification of Admission Dx: Yes Angina: New-Onset Hypertension: Symp at Rest ANGÉLICA ALLEN MD 10/13/19 1708: CARDIO Progress Notes Assessment Assessment Patient seen and examined I agree with our nurse practitioners assessment and plan. Chest pain, atypical; AMI ruled out. Most probably secondary to #2. recent echo with preserved LV systolic function. MPI 09/11 without evidence of ischemia. Continue medical treatment. Hypertensive urgency; labile. Imdur and change Norvasc to twice daily. Hyperlipidemia; statin CAD s/p remote PCI/stent to LAD and known [employer] of RCA CKD; Cr stable H/o CVA GREG BENTLEY APRN Oct 13, 2019 12:09 ANGÉLICA ALLEN MD Oct 13, 2019 17:08
--- NOTE | 2019-10-13 12:36 | NUR ---
SS following up with discharge planning. Pt accepted at [facility]) pending bed availability. Accepting physician Dr. Garrett. Deja from the transfer team, ; fax [phone], to notify SS when bed available. Packet, ambulance form, and transfer form placed on chart. Pt's RN notified.
[2019-10-13] MEDS: BISACODYL 10 MG SUPP.RECT. PR PRN (13:00)
--- NOTE | 2019-10-13 13:36 | PDOC ---
PROGRESS NOTES Subjective Subjective No new complaints. Objective Objective Vital Signs Date Time Temp Pulse Resp B/P (MAP) Pulse Ox O2 Delivery O2 Flow Rate FiO2 10/13/19 10:37 98.1 67 16 165/80 (108) 95 Room Air 98.1 Intake and Output 10/13/19 07:00 Intake Total 700 ml Output Total 2920 ml Balance -2220 ml Intake Oral 700 ml Output Urine Total 2920 ml # Bowel Movements 1 Physical Exam Physical Exam I saw her walking with roller walker with physical therapy under standby supervision. She denies any significant back pain. Assessment Assessment Problems Medical Problems: (1) Chest pain Status: Acute Plan Plan of Care To SNF when medically stable. Comment Review of Relevant I have reviewed the following items lorna (where applicable) has been applied. Labs Laboratory Tests Test 10/12/19 06:15 10/12/19 16:16 10/13/19 05:08 Sodium Level 133 mmol/L (136-145) 134 mmol/L (136-145) Potassium Level 3.9 mmol/L (3.5-5.1) 3.9 mmol/L (3.5-5.1) Chloride Level 96 mmol/L (98-107) 98 mmol/L (98-107) Carbon Dioxide Level 29 mmol/L (21-32) 28 mmol/L (21-32) Anion Gap 8 (6-14) 8 (6-14) Blood Urea Nitrogen 14 mg/dL (7-20) 15 mg/dL (7-20) Creatinine 1.0 mg/dL (0.6-1.0) 0.9 mg/dL (0.6-1.0) Estimated GFR (Cockcroft-Gault) 52.3 59.1 BUN/Creatinine Ratio 14 (6-20) 17 (6-20) Glucose Level 100 mg/dL (70-99) 101 mg/dL (70-99) Calcium Level 8.2 mg/dL (8.5-10.1) 8.3 mg/dL (8.5-10.1) Total Bilirubin 0.8 mg/dL (0.2-1.0) 0.6 mg/dL (0.2-1.0) Aspartate Amino Transf (AST/SGOT) 39 U/L (15-37) 46 U/L (15-37) Alanine Aminotransferase (ALT/SGPT) 36 U/L (14-59) 41 U/L (14-59) Alkaline Phosphatase 41 U/L (46-116) 45 U/L (46-116) Total Protein 6.3 g/dL (6.4-8.2) 6.2 g/dL (6.4-8.2) Albumin 3.5 g/dL (3.4-5.0) 3.5 g/dL (3.4-5.0) Albumin/Globulin Ratio 1.3 (1.0-1.7) 1.3 (1.0-1.7) Urine Collection Type Unknown Urine Color Yellow Urine Clarity Clear Urine pH 6.5 (<5.0-8.0) Urine Specific [place] 1.010 (1.000-1.030) Urine Protein Negative mg/dL (NEG-TRACE) Urine Glucose (UA) Negative mg/dL (NEG) Urine Ketones (Stick) Negative mg/dL (NEG) Urine Blood Small (NEG) Urine Nitrite Negative (NEG) Urine Bilirubin Negative (NEG) Urine Urobilinogen Dipstick 0.2 mg/dL (0.2 mg/dL) Urine Leukocyte Esterase Trace (NEG) Urine RBC 3-5 /HPF (0-2) Urine WBC Occ /HPF (0-4) Urine Bacteria 0 /HPF (0-FEW) Urine Mucus Slight /LPF Laboratory Tests Test 10/12/19 16:16 10/13/19 05:08 Urine Collection Type Unknown Urine Color Yellow Urine Clarity Clear Urine pH 6.5 (<5.0-8.0) Urine Specific [place] 1.010 (1.000-1.030) Urine Protein Negative mg/dL (NEG-TRACE) Urine Glucose (UA) Negative mg/dL (NEG) Urine Ketones (Stick) Negative mg/dL (NEG) Urine Blood Small (NEG) Urine Nitrite Negative (NEG) Urine Bilirubin Negative (NEG) Urine Urobilinogen Dipstick 0.2 mg/dL (0.2 mg/dL) Urine Leukocyte Esterase Trace (NEG) Urine RBC 3-5 /HPF (0-2) Urine WBC Occ /HPF (0-4) Urine Bacteria 0 /HPF (0-FEW) Urine Mucus Slight /LPF Sodium Level 134 mmol/L (136-145) Potassium Level 3.9 mmol/L (3.5-5.1) Chloride Level 98 mmol/L (98-107) Carbon Dioxide Level 28 mmol/L (21-32) Anion Gap 8 (6-14) Blood Urea Nitrogen 15 mg/dL (7-20) Creatinine 0.9 mg/dL (0.6-1.0) Estimated GFR (Cockcroft-Gault) 59.1 BUN/Creatinine Ratio 17 (6-20) Glucose Level 101 mg/dL (70-99) Calcium Level 8.3 mg/dL (8.5-10.1) Total Bilirubin 0.6 mg/dL (0.2-1.0) Aspartate Amino Transf (AST/SGOT) 46 U/L (15-37) Alanine Aminotransferase (ALT/SGPT) 41 U/L (14-59) Alkaline Phosphatase 45 U/L (46-116) Total Protein 6.2 g/dL (6.4-8.2) Albumin 3.5 g/dL (3.4-5.0) Albumin/Globulin Ratio 1.3 (1.0-1.7) Microbiology 10/07/19 Urine Culture - Final, Complete Medications Current Medications Hydralazine HCl (Apresoline Inj) 10 mg 1X ONCE IVP Last administered on 0at 15:44; Start 10/07/19 at 15:30; Stop 10/07/19 at 15:31; Status DC Clonazepam (KlonoPIN) 0.5 mg QHS PO Last administered on 10/08/19at 21:34; Start 10/07/19 at 21:00; Stop 10/09/19 at 15:48; Status DC Acetaminophen/ Hydrocodone Bitart (Lortab 5/325) 1 tab PRN Q6HRS PRN PO MODERATE TO SEVERE PAIN Last administered on 10/12/19at 08:35; Start 10/07/19 at 20:15 Hydrocortisone (Proctosol-Hc) 1 jan PRN BID PRN RC rectal pain Last administered on 10/08/19at 14:35; Start 10/07/19 at 20:15 Lactulose (Lactulose) 10 gm DAILY PO Last administered on 10/13/19at 10:04; Start 10/08/19 at 09:00 Nitroglycerin (Nitrostat) 0.4 mg PRN Q5MIN PRN SL CHEST PAIN; Start 10/07/19 at 20:15 Trazodone HCl (Desyrel) 50 mg PRN QHS PRN PO INSOMNIA Last administered on 10/12/19 21:18; Start 10/07/19 at 20:15 Atorvastatin Calcium (Lipitor) 80 mg QHS PO Last administered on 10/12/19at 21:18; Start 10/07/19 at 21:00 Nitroglycerin/ Dextrose 250 ml @ 0 mls/hr 1X ONCE IV Last administered on 10/07/19at 21:29; Start 10/07/19 at 20:30; Stop 10/07/19 at 20:31; Status DC Rivastigmine (Exelon) 1 patch DAILY TD Last administered on 10/13/19 10:04; Start 10/08/19 at 09:00 Amlodipine Besylate (Norvasc) 10 mg DAILY PO Last administered on 10/13/19at 10:05; Start 10/09/19 at 09:00; Stop 10/13/19 at 12:13; Status DC Hydralazine HCl (Apresoline Inj) 10 mg PRN Q4HRS PRN IVP ELEVATED BP, SEE COMMENTS Last administered on 10/11/19at 19:40; Start 10/08/19 at 11:00 Polyethylene Glycol (miraLAX PACKET) 17 gm PRN DAILY PRN PO CONSTIPATION Last administered on 10/13/19 10:04; Start 10/08/19 at 11:15 Bisacodyl (Dulcolax Supp) 10 mg PRN DAILY PRN [place] CONSTIPATION, 1sT CHOICE Last administered on 10/13/19at 13:00; Start 10/08/19 at 11:15 Amlodipine Besylate (Norvasc) 10 mg 1X ONCE PO Last administered on 10/08/19at 11:25; Start 10/08/19 at 11:15; Stop 10/08/19 at 11:18; Status DC Isosorbide Mononitrate (Imdur) 30 mg DAILY PO Last administered on 10/13/19at 10:03; Start 10/08/19 at 11:15 Mineral Oil (Fleet Mineral Oil) 133 ml 1X ONCE [place] Last administered on 10/08/19at 12:40; Start 10/08/19 at 12:30; Stop 10/08/19 at 12:31; Status DC Hydralazine HCl (Apresoline Inj) 10 mg PRN Q4HRS PRN IVP ELEVATED BP, SEE COMMENTS; Start 10/08/19 at 15:30; Status Cancel Sodium Chloride (Normal Saline Flush) 3 ml QSHIFT PRN IV AFTER MEDS AND BLOOD DRAWS; Start 10/08/19 at 15:30 Ondansetron HCl (Zofran) 4 mg PRN Q4HRS PRN IV NAUSEA/VOMITING Last ad ministered on 10/12/19at 08:34; Start 10/08/19 at 15:30 Acetaminophen (Tylenol) 650 mg PRN Q4HRS PRN PO TEMP OVER 100.4F OR MILD PAIN Last administered on 10/12/19at 21:18; Start 10/08/19 at 15:30 Al Hydroxide/Mg Hydroxide (Mylanta Plus Xs) 30 ml PRN DAILY PRN PO HEARTBURN / GAS Last administered on 10/12/19at 18:51; Start 10/08/19 at 15:30 Sodium Monofluorophosphate (Fleet Adult) 133 ml PRN DAILY PRN [place] CONSTIPATION, 2nd CHOICE; Start 10/08/19 at 15:30 Docusate Sodium (Colace) 100 mg PRN BID PRN PO HARD STOOLS Last administered on 10/09/19at 09:21; Start 10/08/19 at 15:30 Albuterol Sulfate (Ventolin Neb Soln) 2.5 mg PRN Q4HRS PRN NEB SHORTNESS OF BREATH; Start 10/08/19 at 15:30 Guaifenesin (Robitussin) 200 mg PRN Q4HRS PRN PO COUGH; Start 10/08/19 at 15:30 Enoxaparin Sodium (Lovenox 30mg Syringe) 30 mg Q24H SQ Last administered on 10/12/19at 13:45; Start 10/08/19 at 15:30 Ceftriaxone Sodium (Rocephin) 1 gm Q24H IVP Last administered on 10/09/19at 15:21; Start 10/08/19 at 16:00; Stop 10/10/19 at 09:32; Status DC Aspirin (Ecotrin) 81 mg DAILYWBKFT PO Last administered on 10/13/19at 10:04; Start 10/09/19 at 08:00 Lactobacillus Rhamnosus (Culturelle) 1 cap BID PO Last administered on 10/13/19 10:03; Start 10/08/19 at 21:00 Loperamide HCl (Imodium) 2 mg PRN Q6HRS PRN PO DIARRHEA Last administered on 10/11/19at 23:26; Start 10/10/19 at 01:30 Spironolactone (Aldactone) 12.5 mg DAILY PO Last administered on 10/13/19 10:04; Start 10/10/19 at 17:00 Hydrochlorothiazide (Microzide) 12.5 mg DAILY PO Last administered on 10/13/19 10:04; Start 10/11/19 at 09:00 Hydrochlorothiazide (Microzide) 12.5 mg 1X ONCE PO Last administered on 10/10/19at 17:46; Start 10/10/19 at 17:30; Stop 10/10/19 at 17:31; Status DC Sertraline HCl (Zoloft) 25 mg DAILY PO Last administered on 10/13/19 10:03; Start 10/11/19 at 09:00 Quetiapine Fumarate (SEROquel) 25 mg HS PO Last administered on 10/12/19at 21:18; Start 10/10/19 at 21:00 Potassium Chloride (Klor-Con) 30 meq 1X ONCE PO Last administered on 10/11/19at 18:13; Start 10/11/19 at 17:15; Stop 10/11/19 at 17:16; Status DC Amlodipine Besylate (Norvasc) 5 mg BID PO ; Start 10/13/19 at 21:00 Active Scripts Active Proctosol-Hc (Hydrocortisone) 28.35 Gm Cream..g. 1 Jan RC PRN BID PRN 10 Days Reported EXELON 9.5mg/24hr (Rivastigmine) 1 Each Patch.td24 1 Patch TP DAILY 1 Days Lactulose 20 Gm/30 Ml Solution 10 Gm PO DAILY NITROGLYCERIN SubLingual (Nitroglycerin) 0.4 Mg Tab.subl 0.4 Mg SL PRN Q5MIN PRN Hydrocodone-Apap 5-325 (Hydrocodone Bit/Acetaminophen) 1 Each Tablet 1 Tab PO PRN Q6HRS PRN Clonazepam (Clonazepam) 0.5 Mg Tablet 1-2 Tab PO QHS Trazodone Hcl 50 Mg Tablet 1 Tab PO QHS PRN Atorvastatin Calcium 80 Mg Tablet 80 Mg PO DAILY Vitals/I & O Vital Sign - Last 24 Hours 10/12/19 10/12/19 10/12/19 10/12/19 15:00 19:35 20:00 23:05 Temp 98.4 98.2 97.8 98.4 98.2 97.8 Pulse 79 72 86 Resp 18 20 18 B/P (MAP) 123/53 (76) 139/66 (90) 116/63 (80) Pulse Ox 95 97 93 O2 Delivery Room Air Room Air Room Air 10/13/19 10/13/19 10/13/19 10/13/19 03:00 07:00 08:00 10:03 Temp 98.2 98.0 98.2 98.0 Pulse 80 78 78 Resp 16 16 B/P (MAP) 181/64 (103) 181/76 (111) 181/76 Pulse Ox 98 92 O2 Delivery Room Air Room Air Room Air 10/13/19 10/13/19 10:05 10:37 Temp 98.1 98.1 Pulse 78 67 Resp 16 B/P (MAP) 181/76 165/80 (108) Pulse Ox 95 O2 Delivery Room Air Intake and Output 10/12/19 10/12/19 10/13/19 15:00 23:00 07:00 Intake Total 500 ml 200 ml Output Total 1400 ml 1000 ml 520 ml Balance -900 ml -1000 ml -320 ml Justicifation of Admission Dx: Justifications for Admission: Justification of Admission Dx: Yes Angina: New-Onset Hypertension: Symp at Rest KONG CAVAZOS MD Oct 13, 2019 13:36
[2019-10-13 14:42] VITALS: BP 179/99
--- NOTE | 2019-10-13 15:01 | PDOC ---
Renal-Progress Notes Subjective Notes Notes NO NEW COMPLAINTS History of Present Illness Hx of present illness STABLE Vitals Vitals Vital Signs Date Time Temp Pulse Resp B/P (MAP) Pulse Ox O2 Delivery O2 Flow Rate FiO2 10/13/19 14:42 98.1 88 16 179/99 (125) 93 Room Air 98.1 Weight Weight [ ] I.O. Intake and Output Intake and Output 10/13/19 07:00 Intake Total 700 ml Output Total 2920 ml Balance -2220 ml Intake Oral 700 ml Output Urine Total 2920 ml # Bowel Movements 1 Labs Labs Laboratory Tests Test 10/12/19 16:16 10/13/19 05:08 Urine Collection Type Unknown Urine Color Yellow Urine Clarity Clear Urine pH 6.5 (<5.0-8.0) Urine Specific [place] 1.010 (1.000-1.030) Urine Protein Negative mg/dL (NEG-TRACE) Urine Glucose (UA) Negative mg/dL (NEG) Urine Ketones (Stick) Negative mg/dL (NEG) Urine Blood Small (NEG) Urine Nitrite Negative (NEG) Urine Bilirubin Negative (NEG) Urine Urobilinogen Dipstick 0.2 mg/dL (0.2 mg/dL) Urine Leukocyte Esterase Trace (NEG) Urine RBC 3-5 /HPF (0-2) Urine WBC Occ /HPF (0-4) Urine Bacteria 0 /HPF (0-FEW) Urine Mucus Slight /LPF Sodium Level 134 mmol/L (136-145) Potassium Level 3.9 mmol/L (3.5-5.1) Chloride Level 98 mmol/L (98-107) Carbon Dioxide Level 28 mmol/L (21-32) Anion Gap 8 (6-14) Blood Urea Nitrogen 15 mg/dL (7-20) Creatinine 0.9 mg/dL (0.6-1.0) Estimated GFR (Cockcroft-Gault) 59.1 BUN/Creatinine Ratio 17 (6-20) Glucose Level 101 mg/dL (70-99) Calcium Level 8.3 mg/dL (8.5-10.1) Total Bilirubin 0.6 mg/dL (0.2-1.0) Aspartate Amino Transf (AST/SGOT) 46 U/L (15-37) Alanine Aminotransferase (ALT/SGPT) 41 U/L (14-59) Alkaline Phosphatase 45 U/L (46-116) Total Protein 6.2 g/dL (6.4-8.2) Albumin 3.5 g/dL (3.4-5.0) Albumin/Globulin Ratio 1.3 (1.0-1.7) Micro Micro Microbiology 10/07/19 Urine Culture - Final, Complete Review of Systems Constitutional: yes: weakness, alert Eyes: Yes: no symptom reported Pulmonary: Yes no symptom reported Cardiovascular: Yes no symptom reported Gastrointestional: Yes: no symptom reported Musculoskeletal: Yes: no symptom reported Skin: Yes no symptom reported Physical Exam General Appearance: no apparent distress Skin: warm Respiratory: decreased breath sounds Heart: S1S2 Abdomen: soft, bowel sounds present Genitourinary: bladder flat Neurology: alert, oriented, follow commands Musculoskeletal: Osteoarthritis, Other Assessment Assessment IMP ELSIE-RESOLVED NEPHROCALCINOSIS-NON OBSTRUCTING CHEST PAIN-ATYPICAL HTN-NOT CONTROLLED DEMENTIA PLAN BP MEDS PER CARDIOLOGY WILL SIGN OFF LISA GARCÍA MD Oct 13, 2019 15:01
[2019-10-13] MEDS: ACETAMINOPHEN 325 MG TABLET. PO PRN (15:36)
[2019-10-13] MEDS: ENOXAPARIN 30 MG/0.3 ML SYRINGE. SQ SCH (15:36)
[2019-10-13 16:30] VITALS: BP 179/99
[2019-10-13] MEDS: hydrALAZINE 20 MG/ML VIAL. IVP PRN (16:30)
[2019-10-13] MEDS ORDERED: SPIRONOLACTONE 25 MG TABLET PO SCH (18:00)
[2019-10-13] MEDS ORDERED: amLODIPine BESYLATE 5 MG TABLET PO SCH (21:00)
--- NOTE | 2019-10-27 22:15 | PDOC3 ---
Discharge Summary Date of Admission: Oct 07, 2019 Date of Discharge: Oct 13, 2019 Follow-Up: 1-2 days Admitting Diagnosis comment: DISCHARGE DX Assessment/Plan IMPRESSION HTN Urgency - treating, still somewhat elevated. added amlodipine HLD - on statin gerd - on PPI depression / ANXIETY - cont meds h/o CVA wo neurologic deficit historically - h/o CAD - On meds, stable. Cardiology consulted CKD3 - stable, Constipation - will cont psyllium and miralax Rectal pain - will cont hydrocortisone Mild cognitive impairment - cont exelon patch Chest pain UTI HX CVA GAIT INSTABILITY LOWER EXT PARESTHESIA Mild right-sided hydronephrosis.// POSSIBLE RENAL STONE however on ct 10/10 Small bilateral nonobstructing renal calculi. No obstructing or ureteral calculi. No hydronephrosis. 2.2 cm cyst identified in the left kidney. MICROHEMATURIA, NEEDS UROLOGY REFERRAL 10/11 attempt transfer to formerly [facility] History of cutaneous lymphoma 10/08 urine retention noted > 300cc confused and very dysphoric , await psych consult, nursing has not recorded orthostatic bp as ordered 10/10 CONSULT NEPHROLOGY, CT ABD// PELVIS W/O CONTRAST CONTINUE Zoloft 25 mg daily for depression and anxiety CONTINUE Seroquel 25 mg nightly for altered mental status, insomnia, and anxiety. augustine placed 10/10 PM plan cvc bed Cardiology consult bp control trend troponin i straight cath PT/OT Consult dr Forman reviewed with her proper body mechanics and home program of physical modalities and stretching exercise to her lower back to consider injecting painful right shoulder and lower back orthostatic bp, pulse ct head psych consult re cognitive decline, depression NEEDS SNF BED X RAY L/S consult nephrology CT ABD R/O STONE URETERAL neg REFER TO UROLOGY may need cystoscopy AND RETROGRAGE PYELOGRAM 10/11 D/W DR VERO MARTINEZ, [facility], 12:35 THEY WILL ACCEPT IN TRANSFER FOR UROLOGY SERVICES , bed is pending 10/12 d/w dr martinez, bed pending at [facility] 34 MIN PT EXAM, CHART REVIEW D/C PLANNING , > 50% OF TIME SPENT WITH EXAM, CHART REVIEW, PT CARE COORDINATION ADMITTED FINAL DIAGNOSIS Problems Medical Problems: (1) Chest pain Status: Acute Brief Hospital Course Ms. Martinez is a 89 old [sex] who presented with [ HYPERTENSIVE URGENCY, HEMATURIA ] CONDITION AT DISCHARGE: Improved Discharge Medications Current Medications Hydralazine HCl (Apresoline Inj) 10 mg 1X ONCE IVP Last administered on 10/07/19 15:44; Start 10/07/19 at 15:30; Stop 10/07/19 at 15:31; Status DC Clonazepam (KlonoPIN) 0.5 mg QHS PO Last administered on 10/08/19at 21:34; Start 10/07/19 at 21:00; Stop 10/09/19 at 15:48; Status DC Acetaminophen/ Hydrocodone Bitart (Lortab 5/325) 1 tab PRN Q6HRS PRN PO MODERATE TO SEVERE PAIN Last administered on 10/12/19at 08:35; Start 10/07/19 at 20:15; Stop 10/13/19 at 17:53; Status DC Hydrocortisone (Proctosol-Hc) 1 jan PRN BID PRN RC rectal pain Last administered on 10/08/19at 14:35; Start 10/07/19 at 20:15; Stop 10/13/19 at 17:53; Status DC Lactulose (Lactulose) 10 gm DAILY PO Last administered on 10/13/19at 10:04; Start 10/08/19 at 09:00; Stop 10/13/19 at 17:53; Status DC Nitroglycerin (Nitrostat) 0.4 mg PRN Q5MIN PRN SL CHEST PAIN; Start 10/07/19 at 20:15; Stop 10/13/19 at 17:53; Status DC Trazodone HCl (Desyrel) 50 mg PRN QHS PRN PO INSOMNIA Last administered on 10/12/19 21:18; Start 10/07/19 at 20:15; Stop 10/13/19 at 17:53; Status DC Atorvastatin Calcium (Lipitor) 80 mg QHS PO Last administered on 10/12/19at 21:18; Start 10/07/19 at 21:00; Stop 10/13/19 at 17:53; Status DC Nitroglycerin/ Dextrose 250 ml @ 0 mls/hr 1X ONCE IV Last administered on 10/07/19at 21:29; Start 10/07/19 at 20:30; Stop 10/07/19 at 20:31; Status DC Rivastigmine (Exelon) 1 patch DAILY TD Last administered on 10/13/19at 10:04; Start 10/08/19 at 09:00; Stop 10/13/19 at 17:53; Status DC Amlodipine Besylate (Norvasc) 10 mg DAILY PO Last administered on 10/13/19at 10:05; Start 10/09/19 at 09:00; Stop 10/13/19 at 12:13; Status DC Hydralazine HCl (Apresoline Inj) 10 mg PRN Q4HRS PRN IVP ELEVATED BP, SEE COMMENTS Last administered on 10/13/19at 16:30; Start 10/08/19 at 11:00; Stop 10/13/19 at 17:53; Status DC Polyethylene Glycol (miraLAX PACKET) 17 gm PRN DAILY PRN PO CONSTIPATION Last administered on 10/13/19at 10:04; Start 10/08/19 at 11:15; Stop 10/13/19 at 17:53; Status DC Bisacodyl (Dulcolax Supp) 10 mg PRN DAILY PRN [place] CONSTIPATION, 1sT CHOICE Last administered on 10/13/19at 13:00; Start 10/08/19 at 11:15; Stop 10/13/19 at 17:53; Status DC Amlodipine Besylate (Norvasc) 10 mg 1X ONCE PO Last administered on 10/08/19at 11:25; Start 10/08/19 at 11:15; Stop 10/08/19 at 11:18; Status DC Isosorbide Mononitrate (Imdur) 30 mg DAILY PO Last administered on 10/13/19at 10:03; Start 10/08/19 at 11:15; Stop 10/13/19 at 17:53; Status DC Mineral Oil (Fleet Mineral Oil) 133 ml 1X ONCE [place] Last administered on 10/08/19at 12:40; Start 10/08/19 at 12:30; Stop 10/08/19 at 12:31; Status DC Hydralazine HCl (Apresoline Inj) 10 mg PRN Q4HRS PRN IVP ELEVATED BP, SEE COMMENTS; Start 10/08/19 at 15:30; Status Cancel Sodium Chloride (Normal Saline Flush) 3 ml QSHIFT PRN IV AFTER MEDS AND BLOOD DRAWS; Start 10/08/19 at 15:30; Stop 10/13/19 at 17:53; Status DC Ondansetron HCl (Zofran) 4 mg PRN Q4HRS PRN IV NAUSEA/VOMITING Last administered on 10/12/19at 08:34; Start 10/08/19 at 15:30; Stop 10/13/19 at 17:53; Status DC Acetaminophen (Tylenol) 650 mg PRN Q4HRS PRN PO TEMP OVER 100.4F OR MILD PAIN Last administered on 10/13/19at 15:36; Start 10/08/19 at 15:30; Stop 10/13/19 at 17:53; Status DC Al Hydroxide/Mg Hydroxide (Mylanta Plus Xs) 30 ml PRN DAILY PRN PO HEARTBURN / GAS Last administered on 10/12/19at 18:51; Start 10/08/19 at 15:30; Stop 10/13/19 at 17:53; Status DC Sodium Monofluorophosphate (Fleet Adult) 133 ml PRN DAILY PRN [place] CONSTIPATION, 2nd CHOICE; Start 10/08/19 at 15:30; Stop 10/13/19 at 17:53; Status DC Docusate Sodium (Colace) 100 mg PRN BID PRN PO HARD STOOLS Last administered on 10/09/19at 09:21; Start 10/08/19 at 15:30; Stop 10/13/19 at 17:53; Status DC Albuterol Sulfate (Ventolin Neb Soln) 2.5 mg PRN Q4HRS PRN NEB SHORTNESS OF BREATH; Start 10/08/19 at 15:30; Stop 10/13/19 at 17:53; Status DC Guaifenesin (Robitussin) 200 mg PRN Q4HRS PRN PO COUGH; Start 10/08/19 at 15:30; Stop 10/13/19 at 17:53; Status DC Enoxaparin Sodium (Lovenox 30mg Syringe) 30 mg Q24H SQ Last administered on 10/13/19at 15:36; Start 10/08/19 at 15:30; Stop 10/13/19 at 17:53; Status DC Ceftriaxone Sodium (Rocephin) 1 gm Q24H IVP Last administered on 10/09/19 15:21; Start 10/08/19 at 16:00; Stop 10/10/19 at 09:32; Status DC Aspirin (Ecotrin) 81 mg DAILYWBKFT PO Last administered on 10/13/19at 10:04; Start 10/09/19 at 08:00; Stop 10/13/19 at 17:53; Status DC Lactobacillus Rhamnosus (Culturelle) 1 cap BID PO Last administered on 10/13/19at 10:03; Start 10/08/19 at 21:00; Stop 10/13/19 at 17:53; Status DC Loperamide HCl (Imodium) 2 mg PRN Q6HRS PRN PO DIARRHEA Last administered on 10/11/19at 23:26; Start 10/10/19 at 01:30; Stop 10/13/19 at 17:53; Status DC Spironolactone (Aldactone) 12.5 mg DAILY PO Last administered on 10/13/19at 10:04; Start 10/10/19 at 17:00; Stop 10/13/19 at 17:35; Status DC Hydrochlorothiazide (Microzide) 12.5 mg DAILY PO Last administered on 10/13/19at 10:04; Start 10/11/19 at 09:00; Stop 10/13/19 at 17:53; Status DC Hydrochlorothiazide (Microzide) 12.5 mg 1X ONCE PO Last administered on 10/10/19at 17:46; Start 10/10/19 at 17:30; Stop 10/10/19 at 17:31; Status DC Sertraline HCl (Zoloft) 25 mg DAILY PO Last administered on 10/13/19at 10:03; Start 10/11/19 at 09:00; Stop 10/13/19 at 17:53; Status DC Quetiapine Fumarate (SEROquel) 25 mg HS PO Last administered on 10/12/19at 21:18; Start 10/10/19 at 21:00; Stop 10/13/19 at 17:53; Status DC Potassium Chloride (Klor-Con) 30 meq 1X ONCE PO Last administered on 10/11/19at 18:13; Start 10/11/19 at 17:15; Stop 10/11/19 at 17:16; Status DC Amlodipine Besylate (Norvasc) 5 mg BID PO ; Start 10/13/19 at 21:00; Stop 10/13/19 at 17:53; Status DC Spironolactone (Aldactone) 25 mg DAILY PO ; Start 10/13/19 at 18:00; Stop 10/13/19 at 17:53; Status DC Active Scripts Active Proctosol-Hc (Hydrocortisone) 28.35 Gm Cream..g. 1 Jan RC PRN BID PRN 10 Days Reported EXELON 9.5mg/24hr (Rivastigmine) 1 Each Patch.td24 1 Patch TP DAILY 1 Days Lactulose 20 Gm/30 Ml Solution 10 Gm PO DAILY NITROGLYCERIN SubLingual (Nitroglycerin) 0.4 Mg Tab.subl 0.4 Mg SL PRN Q5MIN PRN Hydrocodone-Apap 5-325 (Hydrocodone Bit/Acetaminophen) 1 Each Tablet 1 Tab PO PRN Q6HRS PRN Clonazepam (Clonazepam) 0.5 Mg Tablet 1-2 Tab PO QHS Trazodone Hcl 50 Mg Tablet 1 Tab PO QHS PRN Atorvastatin Calcium 80 Mg Tablet 80 Mg PO DAILY Allergies Allergies Coded Allergies Type Severity Reaction Last Updated Verified YURIY Inhibitors Allergy Intermediate 02/03/18 Yes Beta-Blockers (Beta-Adrenergic Bloc Allergy Intermediate 05/18/19 Yes lisinopril Adverse Reaction Severe "passed out" 08/05/13 Yes Disposition/Orders: D/C to Another Facility Justicifation of Admission Dx: Justifications for Admission: Justification of Admission Dx: Yes Angina: New-Onset Hypertension: Symp at Rest CARMENZA NERI MD Oct 27, 2019 22:15
== END 2019-10-13 17:20 | disposition short-term general hospital (02) | DRG 391 ==
LOC: ER 13:24 → ED HOLD 15:40 → 2 SOUTH 17:08
PROVIDERS: ADMIT Internal Medicine; ATTEND Internal Medicine
DX: K21.9 Gastro-esophageal reflux disease without esophagitis (principal); N17.0 Acute kidney failure with tubular necrosis; F33.1 Major depressive disorder, recurrent, moderate; N13.6 Pyonephrosis; I16.0 Hypertensive urgency; E78.00 Pure hypercholesterolemia, unspecified; E78.5 Hyperlipidemia, unspecified; E83.59 Other disorders of calcium metabolism; F03.90 Unspecified dementia, unspecified severity, without behavioral disturbance, psychotic disturbance, mood disturbance, and anxiety; F41.1 Generalized anxiety disorder; G47.00 Insomnia, unspecified; G89.29 Other chronic pain; I12.9 Hypertensive chronic kidney disease with stage 1 through stage 4 chronic kidney disease, or unspecified chronic kidney disease; I25.2 Old myocardial infarction; I25.82 Chronic total occlusion of coronary artery; I70.8 Atherosclerosis of other arteries; I71.4 Abdominal aortic aneurysm, without rupture; I73.9 Peripheral vascular disease, unspecified; J44.9 Chronic obstructive pulmonary disease, unspecified; K44.9 Diaphragmatic hernia without obstruction or gangrene; K57.30 Diverticulosis of large intestine without perforation or abscess without bleeding; K59.00 Constipation, unspecified; M47.26 Other spondylosis with radiculopathy, lumbar region; M51.16 Intervertebral disc disorders with radiculopathy, lumbar region; M19.90 Unspecified osteoarthritis, unspecified site; I25.10 Atherosclerotic heart disease of native coronary artery without angina pectoris; K30 Functional dyspepsia; R26.89 Other abnormalities of gait and mobility; K62.89 Other specified diseases of anus and rectum; N18.3 Chronic kidney disease, stage 3 (moderate); N28.1 Cyst of kidney, acquired; N28.89 Other specified disorders of kidney and ureter; N29 Other disorders of kidney and ureter in diseases classified elsewhere; Z53.20 Procedure and treatment not carried out because of patient's decision for unspecified reasons; Z79.899 Other long term (current) drug therapy; Z82.49 Family history of ischemic heart disease and other diseases of the circulatory system; Z86.73 Personal history of transient ischemic attack (TIA), and cerebral infarction without residual deficits; Z87.891 Personal history of nicotine dependence; Z88.8 Allergy status to other drugs, medicaments and biological substances; Z90.49 Acquired absence of other specified parts of digestive tract; Z90.710 Acquired absence of both cervix and uterus; Z95.5 Presence of coronary angioplasty implant and graft
CPT/HCPCS: 36415; 70450; 71045; 72110; 74176; 76700; 80048; 80053; 80061; 81001; 82553; 83690; 83735; 83880; 84484; 85025; 85610; 85730; 87086; 93005; 96374; J0360; J0696; J1650; J2405; J3490; 97110-GP; 97116-GP; 97530-GO; 97530-GP; 97535-GO; 99285-25; G0378

== ENCOUNTER → 2020-06-14 | Outpatient (CLI) | payer MEDICARE ==
[2020-01-20 11:00] VITALS: BP 127/59
[~2020-06-14] MED LIST changes: +AMLO-186 PO; -AMLO5TAB10 PO; +CITA40TA5 PO; +IOHEXOL 300 MG/ML 100ML VIAL. IV ONE; -ISOS30TA4 PO; +ISOS30TA68 PO; +LACT20SO PO; +LOSA50TA15 PO; +METH-561 PO; +ONDA4TAB12 PO
--- NOTE | 2020-06-15 08:26 | KCIC ---
CT PELVIS W History: Rectal pain. Comparison: CT abdomen and pelvis 10/11/2019. Technique: CT of the pelvis with intravenous contrast. Findings: No free air or free fluid is identified. Severe atherosclerotic calcification of the aorta and iliac arteries. 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 No pelvic adenopathy, however prominent left inguinal lymph node measures 1.6 cm short axis. Visualized small bowel is unremarkable. No evidence of appendicitis. Moderate sigmoid diverticulosis. No wall t hickening or pericolonic inflammatory changes to suggest diverticulitis. The perirectal fat planes ar e intact. There is mild enhancement and increased attenuation of the peroneal soft tissues which appe ars similar to prior exam. No fluid collection or mass identified. Postsurgical changes from hysterec ze. Disc and facet degenerative changes of the lower lumbar spine. Impression: 1. Increased attenuation of the peroneal soft tissues without distinct mass or fluid collection iden tified, similar to comparison. Correlate with direct visualization. 2. Moderate sigmoid diverticulosis without evidence of diverticulitis. 3. Prominent left inguinal lymph node measures 1.6 cm short axis. Correlate for causes of inguinal a denopathy. ------ Exposure: One or more of the following individualized dose reduction techniques were utilized for thi s examination: 1. Automated exposure control 2. Adjustment of the mA and/or kV according to patient size 3. Use of iterative reconstruction technique. Electronically signed by: James Conklin MD (06/15/2020 8:24 AM) [facility] [place]
== END ==
LOC: KCIC CT 10:40
PROVIDERS: ATTEND Internal Medicine Gastroenterology
DX: K57.30 Diverticulosis of large intestine without perforation or abscess without bleeding (principal); I77.811 Abdominal aortic ectasia; K62.89 Other specified diseases of anus and rectum; I70.0 Atherosclerosis of aorta; R59.0 Localized enlarged lymph nodes
CPT/HCPCS: 72193; 82565; Q9967

== ENCOUNTER 2020-10-20 15:28 | Emergency (ER) | payer MEDICARE ==
[~2020-10-20 15:28] MED LIST changes: -IOHEXOL 300 MG/ML 100ML VIAL. IV ONE; -OMEP40CA45 PO; +OMEP40CA7 PO
[2020-10-20 19:08] VITALS: BP 178/80
== END 2020-10-20 19:13 | disposition left against medical advice (07) ==
LOC: ER 15:28
DX: R51.9 Headache, unspecified (principal); R19.7 Diarrhea, unspecified; Z53.21 Procedure and treatment not carried out due to patient leaving prior to being seen by health care provider

== ENCOUNTER → 2020-12-30 | Outpatient (CLI) | payer MEDICARE ==
--- NOTE | 2020-12-30 15:14 | KCIC ---
2 views of the abdomen 12/30/2020 INDICATION: Chronic abdominal pain constipation COMPARISON STUDY: CT of the abdomen and pelvis October 11, 2019 FINDINGS: No evidence of bowel obstruction is identified. No gross pneumoperitoneum is identified. De generative changes of the spine are noted. No acute osseous abnormalities are seen. IMPRESSION: No radiographic evidence of acute intra-abdominal abnormality Electronically signed by: Moe Jimenez MD (12/30/2020 3:12 PM) [id number]
== END ==
LOC: KCIC 14:30
PROVIDERS: ATTEND Family Medicine
DX: K59.00 Constipation, unspecified (principal); R10.9 Unspecified abdominal pain; M47.819 Spondylosis without myelopathy or radiculopathy, site unspecified
CPT/HCPCS: 74021

== ENCOUNTER 2021-01-19 19:23 | Inpatient (IN) | payer MEDICARE ==
[~2021-01-19] VITALS: Ht 162.6 cm; Wt 68.9 kg
[~2021-01-19 19:23] MED LIST changes: -CITA40TA5 PO; +CITA40TA6 PO
[2021-01-19] MEDS ORDERED: MORPHINE SULFATE 2 MG/ML INJ. IVP ONE (19:45)
[2021-01-19] MEDS ORDERED: IV NORMAL SALINE 1000ML BAG 1,000 ML IV ONE (19:45)
[2021-01-19] MEDS ORDERED: ONDANSETRON PF 4 MG/2 ML VIAL. IVP ONE (19:45)
[2021-01-19 20:23] LABS: BASO % 1 % (0-3); EOS % 1 % (0-3); HEMATOCRIT 36.4 % (36.0-47.0); HEMOGLOBIN 12.6 g/dL (12.0-15.5); LYMPH # 1.1 x10^3/uL (1.0-4.8); LYMPH % 22 % (24-48); MEAN CORPUSCULAR HEMOGLOBIN 31 pg (25-35); MEAN CORPUSCULAR HGB CONC 35 g/dL (31-37); MEAN CORPUSCULAR VOLUME 90 fL (79-100); MONO # 0.5 x10^3/uL (0.0-1.1); MONO % 11 % (0-9); NEUT # 3.3 x10^3/uL (1.8-7.7); NEUT % 66 % (31-73); PLATELET COUNT 173 x10^3/uL (140-400); RED BLOOD COUNT 4.06 x10^6/uL (3.50-5.40); RED CELL DISTRIBUTION WIDTH 14.3 % (11.5-14.5); WHITE BLOOD COUNT 5.1 x10^3/uL (4.0-11.0)
[2021-01-19 20:33] LABS: CALCIUM 8.3 mg/dL (8.5-10.1); GFR 52.2; POTASSIUM 3.4 mmol/L (3.5-5.1)
--- NOTE | 2021-01-19 20:35 | PHYS DOC ---
Past Medical History Past Medical History: Angina, COPD, CVA, Dementia, Depression, GERD, High Cholesterol, Hypertension, [place] Additional Past Medical Histor: GASTROPARESIS Past Surgical History: Appendectomy, Cholecystectomy, Hysterectomy, Tonsillectomy, Other Additional Past Surgical Histo: rightr shoulder cardiac stents, rectal reconstruction Smoking Status: Former Smoker Alcohol Use: None Drug Use: None General Adult EDM: Chief Complaint: ABDOMINAL PAIN HPI: HPI: Patient is a 89 year old female with medical history as outlined above who presents with 2 days of abdominal pain, nausea, vomiting, subjective fever, and frequent stools. Pain is in the epigastrium as well as the left lower quadrant. Last night felt like she had a fever, but did not check her temperature. Denies night sweats. Does have occasional chills. No dysuria. Feels like she is dehydrated, but states she has increased urinary frequency and urgency. Review of Systems: Review of Systems: Constitutional: Reports fever and generalized weakness [] Eyes: Denies change in visual acuity. [] HENT: Denies nasal congestion or sore throat. [] Respiratory: Denies cough or shortness of breath. [] Cardiovascular: Denies chest pain or edema. [] GI: Reports abdominal pain, nausea, vomiting, frequent stools/diarrhea. [] : Denies dysuria. Reports urinary frequency and urgency. [] Musculoskeletal: Denies back pain or joint pain. [] Integument: Denies rash. [] Neurologic: Denies headache, focal weakness or sensory changes. [] Endocrine: Denies polyuria or polydipsia. [] Lymphatic: Denies swollen glands. [] Psychiatric: Denies depression or anxiety. [] Heart Score: C/O Chest Pain: No Current Medications: Current Medications Medications (Trade) Dose Ordered Sig/Vanessa Start Time Stop Time Status Last Admin Dose Admin Morphine Sulfate (Morphine Sulfate) 2 mg 1X ONCE 01/19/21 19:45 01/19/21 19:47 DC 01/19/21 20:18 2 MG Ondansetron HCl (Zofran) 4 mg 1X ONCE 01/19/21 19:45 01/19/21 19:47 DC 01/19/21 20:18 4 MG Sodium Chloride 1,000 ml @ 1,000 mls/hr 1X ONCE 01/19/21 19:45 01/19/21 20:44 01/19/21 20:18 1,000 MLS/HR Allergies: Allergies: Allergies Coded Allergies Type Severity Reaction Last Updated Verified YURIY Inhibitors Allergy Intermediate 02/03/18 Yes Beta-Blockers (Beta-Adrenergic Bloc Allergy Intermediate 05/18/19 Yes lisinopril Adverse Reaction Severe "passed out" 08/05/13 Yes Physical Exam: PE: Constitutional: Patient appears uncomfortable, occasionally retching HENT: Normocephalic, atraumatic, Eyes: PERRLA, EOMI, conjunctiva normal, no discharge. [] Neck: Normal range of motion, no tenderness, supple, no stridor. [] Cardiovascular:Heart rate regular rhythm, no murmur [] Lungs & Thorax: Bilateral breath sounds clear to auscultation [] Abdomen: Soft, minimal epigastric tenderness to palpation, much more significant left lower quadrant tenderness to palpation with some involuntary guarding Skin: Warm, dry, no erythema, no rash. [] Back: No tenderness, no CVA tenderness. [] Extremities: No tenderness, no cyanosis, no clubbing, ROM intact, no edema. [] Neurologic: Alert and oriented X 3, normal motor function, normal sensory function, no focal deficits noted. [] Psychologic: Affect normal, judgement normal, mood normal. [] Current Patient Data: Labs: Laboratory Tests Test 01/19/21 20:10 White Blood Count 5.1 x10^3/uL (4.0-11.0) Red Blood Count 4.06 x10^6/uL (3.50-5.40) Hemoglobin 12.6 g/dL (12.0-15.5) Hematocrit 36.4 % (36.0-47.0) Mean Corpuscular Volume 90 fL (79-100) Mean Corpuscular Hemoglobin 31 pg (25-35) Mean Corpuscular Hemoglobin Concent 35 g/dL (31-37) Red Cell Distribution Width 14.3 % (11.5-14.5) Platelet Count 173 x10^3/uL (140-400) Neutrophils (%) (Auto) 66 % (31-73) Lymphocytes (%) (Auto) 22 % (24-48) L Monocytes (%) (Auto) 11 % (0-9) H Eosinophils (%) (Auto) 1 % (0-3) Basophils (%) (Auto) 1 % (0-3) Neutrophils # (Auto) 3.3 x10^3/uL (1.8-7.7) Lymphocytes # (Auto) 1.1 x10^3/uL (1.0-4.8) Monocytes # (Auto) 0.5 x10^3/uL (0.0-1.1) Eosinophils # (Auto) 0.0 x10^3/uL (0.0-0.7) Basophils # (Auto) 0.0 x10^3/uL (0.0-0.2) Laboratory Tests 01/19/21 20:10 Vital Signs: Vital Signs Date Time Temp Pulse Resp B/P (MAP) Pulse Ox O2 Delivery O2 Flow Rate FiO2 01/19/21 20:18 16 96 High Flow Nasal Cannula 2.0 EKG: EKG: [] Radiology/Procedures: Radiology/Procedures: [] Impression: [facility] [address] [place], [place] [id number] IMAGING REPORT Signed PATIENT: JUAN RAMOS ACCOUNT: [id number] : 1930 LOCATION: ER AGE: 89 SEX: F EXAM STATUS: REG ER ORD. PHYSICIAN: BIBIANA GONZALES MD REASON: ABD PAIN, N/V, DIARRHA, LLQ TENDERNESS;OMNI 300, 60ML PROCEDURE: CT ABD PELV W/ IV CONTRST ONLY Exam: CT abdomen/pelvis with intravenous contrast Indication: Abdominal pain, nausea vomiting and diarrhea, left lower quadrant tenderness Comparison: CT abdomen and pelvis 10/11/[address] pelvis 06/14/2020 Technique: Helical CT imaging performed of the abdomen and pelvis after the intravenous administration of 60 mL Omnipaque 300 contrast. Sagittal and coronal reformats were obtained. One or more of the following individualized dose reduction techniques were utilized for this examination: 1. Automated exposure control 2. Adjustment of the mA and/or kV according to patient size 3. Use of iterative reconstruction technique. Findings: Lower chest: Lung bases are clear. The heart is mildly enlarged. Liver: No focal liver lesion. Gallbladder/Biliary Tree: Gallbladder is absent. Prominence of the common and intrahepatic bile ducts is likely related to cholecystectomy. Pancreas: There is a 7 mm hypodense lesion in the pancreatic head, nonspecific. Pancreas is otherwise unremarkable. Spleen: Normal. Adrenal Glands: Adrenal glands are normal. Kidneys/Ureters/Bladder: The kidneys are normal in size. Unchanged small bilateral renal calculi. There is new mild left hydronephrosis and dilation of t he proximal ureter. There is kinking of the proximal ureter with transition to normal caliber (23, series 4). No definite obstructing calculus visualized. There is mild fat stranding of the left renal pelvis. Possible mild right hydronephrosis. The right ureter is normal. Reproductive Organs: Uterus is absent. No adnexal mass. Stomach, small bowel, and colon: Small hiatal hernia. There is no small bowel obstruction. Mild sigmoid diverticulosis. Vasculature: There is severe calcified aortoiliac atherosclerosis. There is an infrarenal abdominal aortic aneurysm measuring 3.3 x 3.7 cm, unchanged. 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 Lymph Nodes: Unchanged enlarged left inguinal lymph node measuring 2.3 x 1.6 cm. Peritoneum and retroperitoneum: No free fluid or free air. Bones: No acute osseous abnormality. There is mild thoracic scoliosis of the lumbar spine. Mild lumbar degenerative disc disease. Unchanged sclerotic lesion in the supra-acetabular left iliac bone. The bones are demineralized. IMPRESSION: 1. New mild left hydronephrosis and dilation of the proximal left ureter. There is no obstructing calculus but there appears to be a transition point where the proximal ureter is kinked. 2. Unchanged mild right hydronephrosis versus peripelvic cysts. 3. Unchanged bilateral nephrolithiasis. 4. Sigmoid diverticulosis. Small hiatal hernia. 5. Unchanged abdominal aortic aneurysm and severe calcified aortoiliac atherosclerosis. 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 6. Unchanged enlarged left inguinal lymph node. 7. 7 mm hypodensity in the pancreatic head, nonspecific. Electronically signed by: Socorro Woods MD (01/19/2021 10:07 PM) [facility] DICTATED and SIGNED BY: SOCORRO WOODS MD DATE: 01/19/21 [id number] [facility] [address] [place], [place] [id number] IMAGING REPORT Signed PATIENT: JUAN RAMOS ACCOUNT: [id number] : 1930 LOCATION: ER AGE: 89 SEX: F EXAM STATUS: REG ER ORD. PHYSICIAN: BIBIANA GONZALES MD REASON: fall, headache, n/v PROCEDURE: CT HEAD WO CONTRAST EXAM: CT head without contrast INDICATION: Fall, headache COMPARISON: CT head 10/10/2019 TECHNIQUE: Axial CT imaging through the head without intravenous contrast. Sagittal and coronal reformats were obtained. One or more of the following individualized dose reduction techniques were utilized for this examination: 1. Automated exposure control 2. Adjustment of the mA and/or kV according to patient size 3. Use of iterative reconstruction technique. FINDINGS: Ventricles and sulci are mildly enlarged. Naranjo-white matter differentiation is maintained. There is mild periventricular deep and white matter hypoattenuation. No intracranial hemorrhage, acute infarct, or mass lesion. Basal cisterns are clear. The skull is intact. Paranasal sinuses are clear. Sclerotic appearance of mastoid air cells suspicious for chronic mastoiditis. Globes and orbits are intact. Scalp is unremarkable. IMPRESSION: No acute intracranial abnormality. Electronically signed by: Socorro Woods MD (01/19/2021 11:02 PM) [facility] DICTATED and SIGNED BY: SOCORRO WOODS MD DATE: 01/19/21 [id number] 0 Course & Med Decision Making: Course & Med Decision Making Pertinent Labs and Imaging studies reviewed. (See chart for details) Patient is an 89-year-old female with history of gastroparesis, diverticulitis, multiple abdominal surgeries who presents with abdominal pain, nausea/vomiting, frequent stools. Most tender in the left lower quadrant on examination. Fortunately is afebrile, hemodynamically stable on arrival, although is ill-appe aring. We will obtain CT abdomen/pelvis, CBC, CMP, lipase, UA for initial evaluation. 2034 CT with moderate left hydronephrosis without obvious etiology, no ureteral stone. UA with RBC and WBC both present, with urinary urgency and frequency will treat with ceftriaxone. CBC and CMP without severe derrangement. Patient mid way through evaluation states she has a headache, and discloses that she fell yesterday striking her head. CT head pending. 2218 CT head negative. Given her UTI and mild/moderate left-sided hydronephrosis feel she should be admitted and observed. 9024 Dragon Disclaimer: Dragon Disclaimer: This electronic medical record was generated, in whole or in part, using a voice recognition dictation system. Departure Departure Impression: Primary Impression: UTI (urinary tract infection) Additional Impression: Hydronephrosis, left Disposition: 09 ADMITTED INPATIENT Admitting Physician: TAMIA Matoston) Condition: STABLE Referrals: Ada MCELROY MD (PCP) BIBIANA GONZALES MD Jan 19, 2021 20:35
[2021-01-19 20:39] LABS: ALBUMIN 3.9 g/dL (3.4-5.0); ALBUMIN/GLOBULIN RATIO 1.3 (1.0-1.7); TOTAL BILIRUBIN 1.1 mg/dL (0.2-1.0); TOTAL PROTEIN 6.8 g/dL (6.4-8.2)
[2021-01-19] MEDS ORDERED: IOHEXOL 300 MG/ML 100ML VIAL. IV ONE (20:45)
[2021-01-19 20:49] LABS: BILIRUBIN,URINE NEGATIVE (NEG); CLARITY,URINE CLEAR; COLOR,URINE YELLOW; NITRITE,URINE NEGATIVE (NEG); PROTEIN,URINE NEGATIVE (NEG-TRACE)
[2021-01-19 20:56] LABS: BACTERIA,URINE 0 /HPF (0-FEW)
--- NOTE | 2021-01-19 22:09 | RAD ---
Exam: CT abdomen/pelvis with intravenous contrast Indication: Abdominal pain, nausea vomiting and diarrhea, left lower quadrant tenderness Comparison: CT abdomen and pelvis 10/11/[address] pelvis 06/14/2020 Technique: Helical CT imaging performed of the abdomen and pelvis after the intravenous administratio n of 60 mL Omnipaque 300 contrast. Sagittal and coronal reformats were obtained. One or more of the following individualized dose reduction techniques were utilized for this examinat ion: 1. Automated exposure control 2. Adjustment of the mA and/or kV according to patient size 3. Use of iterative reconstruction technique. Findings: Lower chest: Lung bases are clear. The heart is mildly enlarged. Liver: No focal liver lesion. Gallbladder/Biliary Tree: Gallbladder is absent. Prominence of the common and intrahepatic bile ducts is likely related to cholecystectomy. Pancreas: There is a 7 mm hypodense lesion in the pancreatic head, nonspecific. Pancreas is otherwise unremarkable. Spleen: Normal. Adrenal Glands: Adrenal glands are normal. Kidneys/Ureters/Bladder: The kidneys are normal in size. Unchanged small bilateral renal calculi. The re is new mild left hydronephrosis and dilation of the proximal ureter. There is kinking of the proxi mal ureter with transition to normal caliber (23, series 4). No definite obstructing calculus visuali zed. There is mild fat stranding of the left renal pelvis. Possible mild right hydronephrosis. The ri ght ureter is normal. Reproductive Organs: Uterus is absent. No adnexal mass. Stomach, small bowel, and colon: Small hiatal hernia. There is no small bowel obstruction. Mild sigmo id diverticulosis. Vasculature: There is severe calcified aortoiliac atherosclerosis. There is an infrarenal abdominal a ortic aneurysm measuring 3.3 x 3.7 cm, unchanged. 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 Lymph Nodes: Unchanged enlarged left inguinal lymph node measuring 2.3 x 1.6 cm. Peritoneum and retroperitoneum: No free fluid or free air. Bones: No acute osseous abnormality. There is mild thoracic scoliosis of the lumbar spine. Mild lumba r degenerative disc disease. Unchanged sclerotic lesion in the supra-acetabular left iliac bone. The bones are demineralized. IMPRESSION: 1. New mild left hydronephrosis and dilation of the proximal left ureter. There is no obstructing marzena culus but there appears to be a transition point where the proximal ureter is kinked. 2. Unchanged mild right hydronephrosis versus peripelvic cysts. 3. Unchanged bilateral nephrolithiasis. 4. Sigmoid diverticulosis. Small hiatal hernia. 5. Unchanged abdominal aortic aneurysm and severe calcified aortoiliac atherosclerosis. Severe steno sis of common iliac artery origins. 6. Unchanged enlarged left inguinal lymph node. 7. 7 mm hypodensity in the pancreatic head, nonspecific. Electronically signed by: Socorro Woods MD (01/19/2021 10:07 PM) [facility]
[2021-01-19] MEDS ORDERED: ACETAMINOPHEN 500 MG TABLET PO ONE (22:15)
--- NOTE | 2021-01-19 23:05 | RAD ---
EXAM: CT head without contrast INDICATION: Fall, headache COMPARISON: CT head 10/10/2019 TECHNIQUE: Axial CT imaging through the head without intravenous contrast. Sagittal and coronal refor mats were obtained. One or more of the following individualized dose reduction techniques were utilized for this examinat ion: 1. Automated exposure control 2. Adjustment of the mA and/or kV according to patient size 3. Use of iterative reconstruction technique. FINDINGS: Ventricles and sulci are mildly enlarged. Naranjo-white matter differentiation is maintained. There is m ild periventricular deep and white matter hypoattenuation. No intracranial hemorrhage, acute infarct, or mass lesion. Basal cisterns are clear. The skull is intact. Paranasal sinuses are clear. Scleroti c appearance of mastoid air cells suspicious for chronic mastoiditis. Globes and orbits are intact. S calp is unremarkable. IMPRESSION: No acute intracranial abnormality. Electronically signed by: Socorro Woods MD (01/19/2021 11:02 PM) [facility]
[2021-01-19] MEDS ORDERED: MORPHINE SULFATE 2 MG/ML INJ. IVP PRN (23:15)
[2021-01-19] MEDS ORDERED: ACETAMINOPHEN 325 MG TABLET. PO PRN (23:15)
[2021-01-19] MEDS ORDERED: METOCLOPRAMIDE HCL 10 MG/2 ML VIAL. IVP ONE (23:45)
[2021-01-20] MEDS: clonazePAM 0.5 MG TABLET PO PRN ×2 (00:19→08:48)
[2021-01-20] MEDS ORDERED: cefTRIAXone IV Push 1 GM VIAL. IVP ONE (01:00)
[2021-01-20 01:30] VITALS: BP 162/60
[2021-01-20 07:00] VITALS: BP 170/62
--- NOTE | 2021-01-20 08:19 | PDOC1 ---
History and Physical Date of Admission Date of Admission DATE: 01/20/21 TIME: 08:18 Identification/Chief Complaint Chief Complaint N/V/D Source Source: Patient History of Present Illness History of Present Illness Ms Martinez is an 89 year old female with medical history HTN, GERD, HLD, CAD with remote stenting, dementia who presents with 2 days of abdominal pain, nausea, vomiting, subjective fever, and frequent stools. Pain is in the epigastrium as well as the left lower quadrant, but she notes her worst pain is rectal pain for which she takes suppositories. Denies night sweats. Does have occasional chills. No dysuria. Feels like she is dehydrated, but states she has increased urinary frequency and urgency. WBC 5.1, Hb 12.6, platelets 173, NA 139, K3.4, BUN 22, CR 1, glucose 96, calcium 8.3, bilirubin 1.1 AST 24 ALT 22 alk phos 46 albumin 3.9, urinalysis small le ukocyte esterase small blood negative nitrites, COVID-19 negative Past Medical History Cardiovascular: CAD, HTN, Hyperlipidemia Pulmonary: COPD CENTRAL NERVOUS SYSTEM: CVA, Dementia GI: Diverticulosis, GERD Heme/Onc: Cancer Hepatobiliary: No pertinent hx Psych: Anxiety, Depression Musculoskeletal: Osteoarthritis, Other Rheumatologic: No pertinent hx Infectious disease: No pertinent hx Renal/: Chronic renal insuff, Urinary Incontinence Endocrine: No pertinent hx Past Surgical History Past Surgical History: Appendectomy, Cholecystectomy, Tonsillectomy, Hysterectomy, Colon Resection Family History Family History: Hypertension, Other Social History Smoke: Quit ALCOHOL: none Drugs: None Current Problem List Problem List Problems Medical Problems: (1) Hydronephrosis, left Status: Acute (2) UTI (urinary tract infection) Status: Acute Current Medications Current Medications Current Medications Sodium Chloride 1,000 ml @ 1,000 mls/hr 1X ONCE IV Last administered on 01/19/21at 20:18; Start 01/19/21 at 19:45; Stop 01/19/21 at 20:44; Status DC Ondansetron HCl (Zofran) 4 mg 1X ONCE IVP Last administered on 01/19/21at 20:18; Start 01/19/21 at 19:45; Stop 01/19/21 at 19:47; Status DC Morphine Sulfate (Morphine Sulfate) 2 mg 1X ONCE IVP Last administered on 01/19/21at 20:18; Start 01/19/21 at 19:45; Stop 01/19/21 at 19:47; Status DC Iohexol (Omnipaque 300 Mg/ml) 60 ml 1X ONCE IV Last administered on 01/19/21at 20:52; Start 01/19/21 at 20:45; Stop 01/19/21 at 20:47; Status DC Acetaminophen (Tylenol) 1,000 mg 1X ONCE PO Last administered on 01/19/21at 22:34; Start 01/19/21 at 22:15; Stop 01/19/21 at 22:16; Status DC Clonazepam (KlonoPIN) 0.5 mg PRN 1X PRN PO ANXIETY / AGITATION Last administered on 01/20/21at 00:19; Start 01/19/21 at 23:00 Morphine Sulfate (Morphine Sulfate) 2 mg PRN Q4HRS PRN IVP PAIN; Start 01/19/21 at 23:15; Stop 01/20/21 at 23:14 Acetaminophen (Tylenol) 650 mg PRN Q4HRS PRN PO FEVER > 100.3'F; Start 01/19/21 at 23:15; Stop 01/20/21 at 23:14 Metoclopramide HCl (Reglan Vial) 10 mg 1X ONCE IVP Last administered on 01/19/21at 23:38; Start 01/19/21 at 23:45; Stop 01/19/21 at 23:46; Status DC Ceftriaxone Sodium (Rocephin) 1 gm 1X ONCE IVP Last administered on 01/20/21at 00:21; Start 01/20/21 at 01:00; Stop 01/20/21 at 01:01; Status DC Amlodipine Besylate (Norvasc) 5 mg DAILY PO Last administered on 01/20/21at 00:19; Start 01/20/21 at 09:00 Amlodipine Besylate (Norvasc) 5 mg STK-MED ONCE .ROUTE ; Start 01/20/21 at 00:15; Stop 01/20/21 at 00:15; Status DC Active Scripts Active Proctosol-Hc (Hydrocortisone) 28.35 Gm Cream..g. 1 Jan RC PRN BID PRN 10 Days Reported Amlodipine Besylate 5 Mg Tablet 5 Mg PO BID Isosorbide Mononitrate Er (Isosorbide Mononitrate) 30 Mg Tab.er.24h 1 Tab PO HS Methocarbamol 500 Mg Tablet 1 Tab PO PRN DAILY PRN Ondansetron Odt (Ondansetron) 4 Mg Tab.rapdis 1 Tab PO PRN Q6-8HRS PRN Citalopram Hbr (Citalopram Hydrobromide) 40 Mg Tablet 1 Tab PO DAILY Omeprazole 40 Mg Capsule.dr 1 Cap PO DAILY Losartan Potassium 50 Mg Tablet 1 Tab PO DAILY EXELON 9.5mg/24hr (Rivastigmine) 1 Each Patch.td24 1 Patch TP DAILY 1 Days NITROGLYCERIN SubLingual (Nitroglycerin) 0.4 Mg Tab.subl 0.4 Mg SL PRN Q5MIN PRN Hydrocodone-Apap 5-325 (Hydrocodone Bit/Acetaminophen) 1 Each Tablet 1 Tab PO PRN Q6HRS PRN Clonazepam (Clonazepam) 0.5 Mg Tablet 1-2 Tab PO QHS Trazodone Hcl 50 Mg Tablet 1 Tab PO QHS PRN Atorvastatin Calcium 80 Mg Tablet 80 Mg PO DAILY Allergies Allergies: Coded Allergies: YURIY Inhibitors (Verified Allergy, Intermediate, 02/03/18) Beta-Blockers (Beta-Adrenergic Bloc (Verified Allergy, Intermediate, 05/18/19) Has received IV labetolol during prior visit without issues lisinopril (Verified Adverse Reaction, Severe, "passed out", 08/05/13) ROS General: YES: Fatigue, Malaise, Appetite; No: Chills, Night Sweats, Other PSYCHOLOGICAL ROS: No: Anxiety, Behavioral Disorder, Concentration difficultie, Decreased libido, Depression, Disorientation, Hallucinations, Hostility, Irritablity, Memory difficulties, Mood Swings, Obsessive thoughts, Physical abuse, Sexual abuse, Sleep disturbances, Suicidal ideation, Other Eyes: No Blurry vision, No Decreased vision, No Double vision, No Dry eyes, No Excessive tearing, No Eye Pain, No Itchy Eyes, No Loss of vision, No Photophobia, No Scotomata, No Uses contacts, No Uses glasses, No Other HEENT: No: Heacaches, Visual Changes, Hearing change, Nasal congestion, Nasal discharge, Oral lesions, Sinus pain, Sore Throat, Epistaxis, Sneezing, Snoring, Tinnitus, Vertigo, Vocal changes, Other ALLERGY AND IMMUNOLOGY: No: Hives, Insect Bite Sensitivity, Itchy/Watery Eyes, Nasal Congestion, Post Nasal Drip, Seasonal Allergies, Other Hematological and Lymphatic: No: Bleeding Problems, Blood Clots, Blood Transfusions, Brusing, Night Sweats, Pallor, Swollen Lymph Nodes, Other ENDOCRINE: No: Breast Changes, Galactorrhea, Hair Pattern Changes, Hot Flashes, Malaise/lethargy, Mood Swings, Palpitations, Polydipsia/polyuria, Skin Changes, Temperature Intolerance, Unexpected Weight Changes, Other Breast: No New/Changing Breast Lumps, No Nipple changes, No Nipple discharge, No Other Respiratory: No: Cough, Hemoptysis, Orthopnea, Pleuritic Pain, Shortness of breath, SOB with excertion, Sputum Changes, Stridor, Tachypnea, Wheezing, Other Cardiovascular: No Chest Pain, No Palpitations, No Orthopnea, No Paroxysmal Noc. Dyspnea, No Edema, No Lt Headedness, No Other Gastrointestinal: Yes Nausea, Yes Vomiting, Yes Abdominal Pain; No Diarrhea, No Constipation, No Melena, No Hematochezia, No Other Genitourinary: YES Dysuria, YES Frequency; No Incontinence, No Hematuria, No Retention, No Discharge, No Urgency, No Pain, No Flank Pain, No Other, No , No , No , No , No , No , No Musculoskeletal: No Gait Disturbance, No Joint Pain, No Joint Stiffness, No Joint Swelling, No Muscle Pain, No Muscular Weakness, No Pain In:, No Swelling In:, No Other Neurological: No Behavorial Changes, No Bowel/Bladder ControlChng, No Confusion, No Dizziness, No Gait Disturbance, No Headaches, No Impaired Coord/balance, No Memory Loss, No Numbness/Tingling, No Seizures, No Speech Problems, No Tremors, No Visual Changes, No Weakness, No Other Skin: No Dry Skin, No Eczema, No Hair Changes, No Lumps, No Mole Changes, No Mottling, No Nail Changes, No Pruritus, No Rash, No Skin Lesion Changes, No Other, No Acne Physical Exam General: Alert, Cooperative, mild distress HEENT: Atraumatic, PERRLA, EOMI, Mucous membr. moist/pink Lungs: Clear to auscultation, Normal air movement Heart: S1S2, RRR, no thrills, no rubs Abdomen: Normal bowel sounds, Other (LLQ tenderness) Extremities: No clubbing, No cyanosis, No edema, Normal pulses, No tenderness/swelling Skin: No rashes, No breakdown, No significant lesion Neuro: Normal tone, Sensation intact, Cranial nerves 3-12 NL, Reflexes 2+ Psych/Mental Status: Other (Pleasantly confused) Vitals Vitals Vital Signs Date Time Temp Pulse Resp B/P (MAP) Pulse Ox O2 Delivery O2 Flow Rate FiO2 01/20/21 03:46 Nasal Cannula 2.0 01/20/21 01:30 63 162/60 (94) 97 01/19/21 23:10 24 01/19/21 19:45 99.6 99.6 Labs Labs Laboratory Tests Test 01/19/21 20:10 01/19/21 20:40 01/20/21 00:26 White Blood Count 5.1 x10^3/uL (4.0-11.0) Red Blood Count 4.06 x10^6/uL (3.50-5.40) Hemoglobin 12.6 g/dL (12.0-15.5) Hematocrit 36.4 % (36.0-47.0) Mean Corpuscular Volume 90 fL (79-100) Mean Corpuscular Hemoglobin 31 pg (25-35) Mean Corpuscular Hemoglobin Concent 35 g/dL (31-37) Red Cell Distribution Width 14.3 % (11.5-14.5) Platelet Count 173 x10^3/uL (140-400) Neutrophils (%) (Auto) 66 % (31-73) Lymphocytes (%) (Auto) 22 % (24-48) Monocytes (%) (Auto) 11 % (0-9) Eosinophils (%) (Auto) 1 % (0-3) Basophils (%) (Auto) 1 % (0-3) Neutrophils # (Auto) 3.3 x10^3/uL (1.8-7.7) Lymphocytes # (Auto) 1.1 x10^3/uL (1.0-4.8) Monocytes # (Auto) 0.5 x10^3/uL (0.0-1.1) Eosinophils # (Auto) 0.0 x10^3/uL (0.0-0.7) Basophils # (Auto) 0.0 x10^3/uL (0.0-0.2) Sodium Level 139 mmol/L (136-145) Potassium Level 3.4 mmol/L (3.5-5.1) Chloride Level 99 mmol/L (98-107) Carbon Dioxide Level 30 mmol/L (21-32) Anion Gap 10 (6-14) Blood Urea Nitrogen 22 mg/dL (7-20) Creatinine 1.0 mg/dL (0.6-1.0) Estimated GFR (Cockcroft-Gault) 52.2 BUN/Creatinine Ratio 22 (6-20) Glucose Level 96 mg/dL (70-99) Calcium Level 8.3 mg/dL (8.5-10.1) Total Bilirubin 1.1 mg/dL (0.2-1.0) Aspartate Amino Transf (AST/SGOT) 24 U/L (15-37) Alanine Aminotransferase (ALT/SGPT) 22 U/L (14-59) Alkaline Phosphatase 46 U/L (46-116) Total Protein 6.8 g/dL (6.4-8.2) Albumin 3.9 g/dL (3.4-5.0) Albumin/Globulin Ratio 1.3 (1.0-1.7) Lipase 204 U/L (73-393) Urine Collection Type Unknown Urine Color Yellow Urine Clarity Clear Urine pH 7.0 (<5.0-8.0) Urine Specific [place] 1.010 (1.000-1.030) Urine Protein Negative mg/dL (NEG-TRACE) Urine Glucose (UA) Negative mg/dL (NEG) Urine Ketones (Stick) 15 mg/dL (NEG) Urine Blood Small (NEG) Urine Nitrite Negative (NEG) Urine Bilirubin Negative (NEG) Urine Urobilinogen Dipstick 1.0 mg/dL (0.2 mg/dL) Urine Leukocyte Esterase Small (NEG) Urine RBC 6-10 /HPF (0-2) Urine WBC 5-10 /HPF (0-4) Urine Squamous Epithelial Cells Few /LPF Urine Bacteria 0 /HPF (0-FEW) SARS-CoV-2 Antigen (Rapid) Negative (NEGATIVE) Laboratory Tests Test 01/19/21 20:10 01/19/21 20:40 01/20/21 00:26 White Blood Count 5.1 x10^3/uL (4.0-11.0) Red Blood Count 4.06 x10^6/uL (3.50-5.40) Hemoglobin 12.6 g/dL (12.0-15.5) Hematocrit 36.4 % (36.0-47.0) Mean Corpuscular Volume 90 fL (79-100) Mean Corpuscular Hemoglobin 31 pg (25-35) Mean Corpuscular Hemoglobin Concent 35 g/dL (31-37) Red Cell Distribution Width 14.3 % (11.5-14.5) Platelet Count 173 x10^3/uL (140-400) Neutrophils (%) (Auto) 66 % (31-73) Lymphocytes (%) (Auto) 22 % (24-48) Monocytes (%) (Auto) 11 % (0-9) Eosinophils (%) (Auto) 1 % (0-3) Basophils (%) (Auto) 1 % (0-3) Neutrophils # (Auto) 3.3 x10^3/uL (1.8-7.7) Lymphocytes # (Auto) 1.1 x10^3/uL (1.0-4.8) Monocytes # (Auto) 0.5 x10^3/uL (0.0-1.1) Eosinophils # (Auto) 0.0 x10^3/uL (0.0-0.7) Basophils # (Auto) 0.0 x10^3/uL (0.0-0.2) Sodium Level 139 mmol/L (136-145) Potassium Level 3.4 mmol/L (3.5-5.1) Chloride Level 99 mmol/L (98-107) Carbon Dioxide Level 30 mmol/L (21-32) Anion Gap 10 (6-14) Blood Urea Nitrogen 22 mg/dL (7-20) Creatinine 1.0 mg/dL (0.6-1.0) Estimated GFR (Cockcroft-Gault) 52.2 BUN/Creatinine Ratio 22 (6-20) Glucose Level 96 mg/dL (70-99) Calcium Level 8.3 mg/dL (8.5-10.1) Total Bilirubin 1.1 mg/dL (0.2-1.0) Aspartate Amino Transf (AST/SGOT) 24 U/L (15-37) Alanine Aminotransferase (ALT/SGPT) 22 U/L (14-59) Alkaline Phosphatase 46 U/L (46-116) Total Protein 6.8 g/dL (6.4-8.2) Albumin 3.9 g/dL (3.4-5.0) Albumin/Globulin Ratio 1.3 (1.0-1.7) Lipase 204 U/L (73-393) Urine Collection Type Unknown Urine Color Yellow Urine Clarity Clear Urine pH 7.0 (<5.0-8.0) Urine Specific [place] 1.010 (1.000-1.030) Urine Protein Negative mg/dL (NEG-TRACE) Urine Glucose (UA) Negative mg/dL (NEG) Urine Ketones (Stick) 15 mg/dL (NEG) Urine Blood Small (NEG) Urine Nitrite Negative (NEG) Urine Bilirubin Negative (NEG) Urine Urobilinogen Dipstick 1.0 mg/dL (0.2 mg/dL) Urine Leukocyte Esterase Small (NEG) Urine RBC 6-10 /HPF (0-2) Urine WBC 5-10 /HPF (0-4) Urine Squamous Epithelial Cells Few /LPF Urine Bacteria 0 /HPF (0-FEW) SARS-CoV-2 Antigen (Rapid) Negative (NEGATIVE) Images Images CT abdomen/pelvis with intravenous contrast: Lower chest: Lung bases are clear. The heart is mildly enlarged. Liver: No focal liver lesion. Gallbladder/Biliary Tree: Gallbladder is absent. Prominence of the common and i ntrahepatic bile ducts is likely related to cholecystectomy. Pancreas: There is a 7 mm hypodense lesion in the pancreatic head, nonspecific. Pancreas is otherwise unremarkable. Spleen: Normal. Adrenal Glands: Adrenal glands are normal. Kidneys/Ureters/Bladder: The kidneys are normal in size. Unchanged small bilateral renal calculi. There is new mild left hydronephrosis and dilation of the proximal ureter. There is kinking of the proximal ureter with transition to normal caliber (23, series 4). No definite obstructing calculus visualized. There is mild fat stranding of the left renal pelvis. Possible mild right hydronephrosis. The right ureter is normal. Reproductive Organs: Uterus is absent. No adnexal mass. Stomach, small bowel, and colon: Small hiatal hernia. There is no small bowel obstruction. Mild sigmoid diverticulosis. Vasculature: There is severe calcified aortoiliac atherosclerosis. There is an infrarenal abdominal aortic aneurysm measuring 3.3 x 3.7 cm, unchanged. 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 Lymph Nodes: Unchanged enlarged left inguinal lymph node measuring 2.3 x 1.6 cm. Peritoneum and retroperitoneum: No free fluid or free air. Bones: No acute osseous abnormality. There is mild thoracic scoliosis of the lumbar spine. Mild lumbar degenerative disc disease. Unchanged sclerotic lesion in the supra-acetabular left iliac bone. The bones are demineralized. IMPRESSION: 1. New mild left hydronephrosis and dilation of the proximal left ureter. There is no obstructing calculus but there appears to be a transition point where the proximal ureter is kinked. 2. Unchanged mild right hydronephrosis versus peripelvic cysts. 3. Unchanged bilateral nephrolithiasis. 4. Sigmoid diverticulosis. Small hiatal hernia. 5. Unchanged abdominal aortic aneurysm and severe calcified aortoiliac atherosclerosis. 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 6. Unchanged enlarged left inguinal lymph node. 7. 7 mm hypodensity in the pancreatic head, nonspecific. VTE Prophylaxis Ordered VTE Prophylaxis Devices: No VTE Pharmacological Prophylaxi: Yes Assessment/Plan Assessment/Plan A/P: Abdominal pain - likely from early left sided pyelonephritis, cont fluids and empiric rocephin, IV pain control Nausea and vomiting - likely due to renal colic, no obstruction, will adat Hypertensive urgency - 195/101. Controlled in evening, but significantly elevated in the am Hyperlipidemia - on statin CAD s/p remote PCI/stent to LAD and known BODY PRESSER of RCA CKD - Cr stable COPD - prn nebs Dementia - rivastigmine patch, light during day, frequent redirection Left hydronephrosis and dilation of the proximal left ureter - prior surgery, now possibly pyelo Mild right hydronephrosis versus peripelvic cysts. Unchanged bilateral nephrolithiasis. Sigmoid diverticulosis. Small hiatal hernia. Unchanged abdominal aortic aneurysm and severe calcified aortoiliac atherosclerosis. 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 Unchanged enlarged left inguinal lymph node. 7 mm hypodensity in the pancreatic head, nonspecific - no weight loss noted FEN - NPO-->ADAT PPX - lovenox FULL CODE Dispo - inpatient Justifications for Admission Other Justification NATHANAEL PHILLIP MD Jan 20, 2021 08:19
[2021-01-20] MEDS: PANTOPRAZOLE 40 MG TABLET.DR. PO SCH (08:39)
[2021-01-20] MEDS: LOSARTAN POTASSIUM 50 MG TABLET. PO SCH (08:39)
[2021-01-20 10:30] LABS: CREATININE 0.9 mg/dL (0.6-1.0); MAGNESIUM 2.1 mg/dL (1.8-2.4); POTASSIUM 3.5 mmol/L (3.5-5.1)
[2021-01-20 11:00] VITALS: BP 164/67
[2021-01-20 15:00] VITALS: BP 190/78
[2021-01-20] MEDS ORDERED: ALBUTEROL SULFATE 2.5 MG/3 ML NEBU. NEB PRN (15:30)
[2021-01-20] MEDS ORDERED: POTASSIUM BICARB 20 MEQ EFFERVESCENT TABLET. PO ONE (16:00)
[2021-01-20] MEDS: HYDROCORTISONE 2.5% RECTAL CREAM 30GM TUBE. RC PRN (16:34)
[2021-01-20] MEDS: ONDANSETRON PF 4 MG/2 ML VIAL. IVP PRN (16:36)
[2021-01-20 19:00] VITALS: BP 147/51
[2021-01-20] MEDS ORDERED: ESTR42.53 VG (19:11)
[2021-01-20] MEDS ORDERED: HYDR-2761 PO (19:11)
[2021-01-20] MEDS ORDERED: LACT20SO PO (19:27)
[2021-01-20] MEDS ORDERED: NYST15CR TP (19:27)
[2021-01-20] MEDS ORDERED: MIRA25TA PO (19:27)
[2021-01-20] MEDS: ATORVASTATIN CALCIUM 40 MG TABLET. PO SCH (21:16)
[2021-01-20] MEDS: traZODone 50 MG TABLET. PO PRN (21:16)
[2021-01-20] MEDS: ISOSORBIDE MONONITRATE ER 30 MG TAB.ER.24H PO SCH (21:17)
[2021-01-20] MEDS: cefTRIAXone IV Push 1 GM VIAL. IVP SCH (21:17)
[2021-01-20 23:00] VITALS: BP 118/65
[2021-01-21 03:00] VITALS: BP 148/53
[2021-01-21] MEDS ORDERED: clonazePAM 0.5 MG TABLET PO PRN (04:45)
[2021-01-21] MEDS: HYDROcodone/APAP 5/325MG 1 TAB TABLET PO PRN (05:10)
[2021-01-21 07:00] VITALS: BP 136/66
[2021-01-21] MEDS ORDERED: POTASSIUM CHLORIDE 20 MEQ TABLET.ER. PO ONE (07:45)
[2021-01-21] MEDS: RIVASTIGMINE 9.5MG PATCH. TD SCH (09:08)
[2021-01-21] MEDS: CITALOPRAM 20 MG TABLET. PO SCH (09:09)
[2021-01-21] MEDS: LOSARTAN POTASSIUM 50 MG TABLET. PO SCH (09:09)
[2021-01-21] MEDS: PANTOPRAZOLE 40 MG TABLET.DR. PO SCH (09:09)
[2021-01-21 11:00] VITALS: BP 128/64
[2021-01-21] MEDS ORDERED: KETOROLAC 15 MG/ML VIAL. IVP PRN (11:15)
--- NOTE | 2021-01-21 11:18 | PDOC ---
[facility] [facility] PROGRESS NOTE Date of Service DOS: DATE: 01/21/21 TIME: 11:15 Chief Complaint Chief Complaint A/P: Abdominal pain - likely from early left sided pyelonephritis, cont fluids and empiric rocephin, IV pain control Nausea and vomiting - likely due to renal colic, no obstruction, will adat Hypertensive urgency - 195/101. 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 Unchanged bilateral nephrolithiasis. Sigmoid diverticulosis. Small hiatal hernia. Unchanged abdominal aortic aneurysm and severe calcified aortoiliac atherosclerosis. 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 Unchanged enlarged left inguinal lymph node. 7 mm hypodensity in the pancreatic head, nonspecific - no weight loss noted. Will have GI consult FEN - Regular diet PPX - lovenox FULL CODE Dispo - inpatient History of Present Illness History of Present Illness Ms Martinez is an 89 year old female with medical history HTN, GERD, HLD, CAD with remote stenting, dementia who presents with 2 days of abdominal pain, nausea, vomiting, subjective fever, and frequent stools. Pain is in the epigastrium as well as the left lower quadrant, but she notes her worst pain is rectal pain for which she takes suppositories. Denies night sweats. Does have occasional chills. No dysuria. Feels like she is dehydrated, but states she has increased urinary frequency and urgency. WBC 5.1, Hb 12.6, platelets 173, NA 139, K3.4, BUN 22, CR 1, glucose 96, calcium 8.3, bilirubin 1.1 AST 24 ALT 22 alk phos 46 albumin 3.9, urinalysis small leukocyte esterase small blood negative nitrites, COVID-19 negative Afebrile overnight. Note she had severe left flank pain radiating to her groin about 3 AM. It improved now. Discussed with lab add on urine culture which is in process currently. Shortness of breath is improved. Still feeling pretty weak notes she prefers her other home health therapies. Vitals/I&O Vitals/I&O: Vital Signs Date Time Temp Pulse Resp B/P (MAP) Pulse Ox O2 Delivery O2 Flow Rate FiO2 01/21/21 09:10 62 136/66 01/21/21 07:00 98.6 20 95 98.6 01/21/21 05:40 Nasal Cannula 2.0 I & O 01/20/21 01/20/21 01/21/21 15:00 23:00 07:00 Intake Total 550 ml Output Total 650 ml 700 ml Balance -650 ml -700 ml 550 ml Physical Exam General: Alert, Cooperative, mild distress Lungs: Clear, Other Abdomen: Normal bowel sounds, Other (LLQ tenderness) Extremities: No clubbing, No cyanosis, No edema, Normal pulses, No tenderness/swelling Skin: No rashes, No breakdown, No significant lesion Assessment and Plan Assessmemt and Plan Problems Medical Problems: (1) Hydronephrosis, left Status: Acute (2) UTI (urinary tract infection) Status: Acute Comment Review of Relevant I have reviewed the following items lorna (where applicable) has been applied. Medications: Current Medications Medications (Trade) Dose Ordered Sig/Vanessa Route PRN Reason Start Time Stop Time Status Last Admin Dose Admin Isosorbide Mononitrate (Imdur) 30 mg HS PO 01/20/21 21:00 01/20/21 21:17 Hydrocortisone (Proctosol-Hc) 1 magnolia PRN BID PRN RC rectal pain 01/20/21 12:15 01/20/21 16:34 Ceftriaxone Sodium (Rocephin) 1 gm Q24H IVP 01/20/21 21:00 01/20/21 21:17 Rivastigmine (Exelon) 1 patch DAILY TD 01/21/21 09:00 01/21/21 09:08 Trazodone HCl (Desyrel) 50 mg PRN QHS PRN PO INSOMNIA 01/20/21 15:30 01/20/21 21:16 Atorvastatin Calcium (Lipitor) 80 mg QHS PO 01/20/21 21:00 01/20/21 21:16 Citalopram Hydrobromide (CeleXA) 40 mg DAILY PO 01/21/21 09:00 01/21/21 09:09 Potassium Bicarbonate (Potassium Effervescent Tablet) 40 meq 1X ONCE PO 01/20/21 16:00 01/20/21 16:01 DC 01/20/21 16:34 Ondansetron HCl (Zofran) 4 mg PRN Q4HRS PRN IVP NAUSEA/VOMITING 01/20/21 16:30 01/20/21 16:36 Acetaminophen/ Hydrocodone Bitart (Lortab 5/325) 1 tab PRN Q6HRS PRN PO PAIN 01/21/21 04:45 01/21/21 05:10 Potassium Chloride (Klor-Con) 40 meq 1X ONCE PO 01/21/21 07:45 01/21/21 07:46 DC 01/21/21 09:08 Justifications for Admission Other Justification NATHANAEL PHILLIP MD Jan 21, 2021 11:18
--- NOTE | 2021-01-21 12:22 | PDOC2 ---
GI CONSULT Date of Service: DATE: 01/21/21 TIME: 12:00 Reason For Consult: pancreatic head mass HPI: HPI: 89 y/o female evaluated in ER on 01/19 for n/v, abd pain, diarrhea, and fever, admitted w/ UTI and new mild left hydronephrosis. Imaging noted nonspecific 7 mm hypodensity in the pancreatic head and we are asked to see for this. Normal LFTs. She admits to memory loss and is currently feeling very cold. Tells me nausea was an issue prior to admission but worse after eating eggs this morning. Takes a very small pill in a sample wrapper for her stomach at home. First denies abdominal pain - later we established that she's "sore" - she points to mid upper abdomen and down left side. H/o "bowel problems" from previous surgery - usually takes Miralax and Metamucil daily and uses enemas PRN. Has seen blood in stools in the past. Denies weight loss. She recalls previous colonoscopy at some point. Not sure about EGD. CT in 2018 noted 8mm cystic lesion in pancreatic head. Delayed gastric emptying (T1/2 111 min) on GES in 2018. Diverticulosis noted on imaging. H/o C Diff. S/p cholecystectomy and hemorrhoidectomy requiring revision. She's unaware of any pancreas history. Nurse reports has had some diarrhea here ("blowout" yesterday). 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, cholecystectomy, hysterectomy, tonsillectomy, bladder suspension, hemorrhoidectomy w/ revision FH: Family History: No pertinent hx Social History: Smoke: Quit ALCOHOL: none Drugs: None ROS: GEN: +chills HEENT: Denies blurred vision, sore throat CV: Denies chest pain RESP: Denies shortness of air, cough GI: Per HPI : Denies hematuria, dysuria ENDO: Denies weight changes NEURO: +memory loss MSK: Denies weakness, joint pain/swelling SKIN: Denies jaundice, pruritus Vitals: Vitals: Vital Signs Date Time Temp Pulse Resp B/P (MAP) Pulse Ox O2 Delivery O2 Flow Rate FiO2 01/21/21 09:10 62 136/66 01/21/21 07:00 98.6 20 95 98.6 01/21/21 05:40 Nasal Cannula 2.0 Labs: Labs: please see EMR Allergies: Coded Allergies: YURIY Inhibitors (Verified Allergy, Intermediate, 02/03/18) Beta-Blockers (Beta-Adrenergic Bloc (Verified Allergy, Intermediate, 05/18/19) Has received IV labetolol during prior visit without issues lisinopril (Verified Adverse Reaction, Severe, "passed out", 08/05/13) Medications: Current Medications Medications (Trade) Dose Ordered Sig/Vanessa Route PRN Reason Start Time Stop Time Status Last Admin Dose Admin Isosorbide Mononitrate (Imdur) 30 mg HS PO 01/20/21 21:00 01/20/21 21:17 Hydrocortisone (Proctosol-Hc) 1 magnolia PRN BID PRN RC rectal pain 01/20/21 12:15 01/20/21 16:34 Ceftriaxone Sodium (Rocephin) 1 gm Q24H IVP 01/20/21 21:00 01/20/21 21:17 Rivastigmine (Exelon) 1 patch DAILY TD 01/21/21 09:00 01/21/21 09:08 Trazodone HCl (Desyrel) 50 mg PRN QHS PRN PO INSOMNIA 01/20/21 15:30 01/20/21 21:16 Atorvastatin Calcium (Lipitor) 80 mg QHS PO 01/20/21 21:00 01/20/21 21:16 Citalopram Hydrobromide (CeleXA) 40 mg DAILY PO 01/21/21 09:00 01/21/21 09:09 Potassium Bicarbonate (Potassium Effervescent Tablet) 40 meq 1X ONCE PO 01/20/21 16:00 01/20/21 16:01 DC 01/20/21 16:34 Ondansetron HCl (Zofran) 4 mg PRN Q4HRS PRN IVP NAUSEA/VOMITING 01/20/21 16:30 01/20/21 16:36 Acetaminophen/ Hydrocodone Bitart (Lortab 5/325) 1 tab PRN Q6HRS PRN PO PAIN 01/21/21 04:45 01/21/21 05:10 Potassium Chloride (Klor-Con) 40 meq 1X ONCE PO 01/21/21 07:45 01/21/21 07:46 DC 01/21/21 09:08 Imaging: Imaging: Head CT IMPRESSION: No acute intracranial abnormality. CT A/P IMPRESSION: 1. New mild left hydronephrosis and dilation of the proximal left ureter. There is no obstructing calculus but there appears to be a transition point where the proximal ureter is kinked. 2. Unchanged mild right hydronephrosis versus peripelvic cysts. 3. Unchanged bilateral nephrolithiasis. 4. Sigmoid diverticulosis. Small hiatal hernia. 5. Unchanged abdominal aortic aneurysm and severe calcified aortoiliac athe rosclerosis. 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 6. Unchanged enlarged left inguinal lymph node. 7. 7 mm hypodensity in the pancreatic head, nonspecific. PE: GEN: NAD, in bed w/ blankets to chin HEENT: Atraumatic, PERRL LUNGS: CTAB HEART: RRR ABD: NABS, S/ND/NT EXTREMITY: No edema SKIN: No rashes, no jaundice NEURO/PSYCH: A & O 3, anxious and forgetful A/P: A/P: UTI, hydronephrosis (new in left w/ kinked ureter) - per primary Nausea, ?abd pain (varying history), diarrhea Abnormal CT - nonspecific 7 mm hypodensity in the pancreatic head ?GERD H/o delayed gastric emptying CRC screen - unclear timing Diverticulosis H/o C Diff S/p cholecystectomy S/p hemorrhoidectomy/revision w/ irregular bowel habits H/o cutaneous lymphoma and dementia COVID negative -- Pancreatic lesion stable in size compared to previous CT, LFTs normal - both reassuring. Could consider outpt MRI/MRCP for further evaluation, though conservative approach may be best considering age, dementia, etc. Could also consider checking CA19-9 - will review w/ Dr. Acharya. Agree w/ PPI. Monitor for diarrhea - check C Diff considering history. Will keep in mind she usually takes Miralax and Metamucil - resume these as makes sense. Small frequent meals w/ delayed gastric emptying in past. Will attempt to review any past records from our office. Update/reviewed office records: Office visit 10/2020 for diarrhea follow-up - recommendation to reduce Miralax, check stool studies, and consider barium enema to assess for stricture. CT A/P 05/2020 for rectal pain noted stable increased attenuation of peroneal soft tissues without discrete mass or fluid collection and prominent left inguinal lymph node (1.6cm). Colonoscopy by Dr. Acharya for diarrhea in 10/2019 showed 5mm adenomatous sigmoid polyp, diverticulosis (sigmoid to transverse), non-bleeding internal hemorrh oids, and random colon biopsies were negative for pathology. E-mycin was suggested for delayed emptying in 2018; however I don't believed pursued due to interaction w/ other prescribed medications. EGD by Dr. Chakraborty for JJ in 11/2015: normal esophagus, small hiatal hernia, bilious gastric fluid, bile gastritis (biopsy unremarkable/negative for H. pylori), normal duodenum (random biopsy unremarkable). Colonoscopy 11/2015: reduced sphincter tone from scarring due to prior surgery, diverticulosis, adenomatous sigmoid polyp. EGD 12/2007: reflux esophagitis, small hiatal hernia, reactive gastropathy (negative for H. pylori). ESTELA FRANCE Jan 21, 2021 12:21
[2021-01-21 15:00] VITALS: BP 138/62
[2021-01-21 19:00] VITALS: BP 174/73
[2021-01-21] MEDS: ISOSORBIDE MONONITRATE ER 30 MG TAB.ER.24H PO SCH (21:03)
[2021-01-21] MEDS: cefTRIAXone IV Push 1 GM VIAL. IVP SCH (21:04)
[2021-01-21] MEDS: LACTOBACILLUS RHAMNOSUS GG 1 CAPSULE. PO SCH (21:04)
[2021-01-21] MEDS: ATORVASTATIN CALCIUM 40 MG TABLET. PO SCH (21:05)
[2021-01-21 23:00] VITALS: BP 137/59
[2021-01-22 03:00] VITALS: BP 98/59
[2021-01-22 07:00] VITALS: BP 183/88
--- NOTE | 2021-01-22 07:52 | PDOC ---
[facility] [facility] PROGRESS NOTE Date of Service DOS: DATE: 01/22/21 TIME: 07:47 Chief Complaint Chief Complaint A/P: Abdominal pain - likely from early left sided pyelonephritis, cont fluids and empiric rocephin, IV pain control Nausea and vomiting - likely due to renal colic, no obstruction, will adat Hypertensive urgency - 195/101. 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 Unchanged bilateral nephrolithiasis. Sigmoid diverticulosis. Small hiatal hernia. Unchanged abdominal aortic aneurysm and severe calcified aortoiliac atherosclerosis. 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 Unchanged enlarged left inguinal lymph node. 7 mm hypodensity in the pancreatic head, nonspecific - no weight loss noted. Will have GI consult FEN - Regular diet PPX - lovenox FULL CODE Dispo - inpatient History of Present Illness History of Present Illness Ms Martinez is an 89 year old female with medical history HTN, GERD, HLD, CAD with remote stenting, dementia who presents with 2 days of abdominal pain, nausea, vomiting, subjective fever, and frequent stools. Pain is in the epigastrium as well as the left lower quadrant, but she notes her worst pain is rectal pain for which she takes suppositories. Denies night sweats. Does have occasional chills. No dysuria. Feels like she is dehydrated, but states she has increased urinary frequency and urgency. WBC 5.1, Hb 12.6, platelets 173, NA 139, K3.4, BUN 22, CR 1, glucose 96, calcium 8.3, bilirubin 1.1 AST 24 ALT 22 alk phos 46 albumin 3.9, urinalysis small leukocyte esterase small blood negative nitrites, COVID-19 negative 01/21: Afebrile overnight. Note she had severe left flank pain radiating to her groin about 3 AM. It improved now. Discussed with lab add on urine culture which is in process currently. Shortness of breath is improved. Still feeling pretty weak notes she prefers her other home health therapies. Afebrile overnight. Urine culture polymicrobial likely from delayed testing on physician part. She is feeling better no further nausea though she did have 3 loose stools on 102. No further since then she is asking for a laxative. Overall her pain has currently resolved. Vitals/I&O Vitals/I&O: Vital Signs Date Time Temp Pulse Resp B/P (MAP) Pulse Ox O2 Delivery O2 Flow Rate FiO2 01/22/21 03:00 97.8 55 18 98/59 (72) 96 Nasal Cannula 2.0 97.8 I & O 01/21/21 01/21/21 01/22/21 15:00 23:00 07:00 Intake Total 250 ml 0 ml 0 ml Output Total 1000 ml 1000 ml Balance 250 ml -1000 ml -1000 ml Physical Exam General: Alert, Cooperative, mild distress Lungs: Clear, Other Abdomen: Normal bowel sounds, Other (LLQ tenderness) Extremities: No clubbing, No cyanosis, No edema, Normal pulses, No tenderness/swelling Skin: No rashes, No breakdown, No significant lesion Assessment and Plan Assessmemt and Plan Problems Medical Problems: (1) Hydronephrosis, left Status: Acute (2) UTI (urinary tract infection) Status: Acute Comment Review of Relevant I have reviewed the following items lorna (where applicable) has been applied. Medications: Current Medications Medications (Trade) Dose Ordered Sig/Vanessa Route PRN Reason Start Time Stop Time Status Last Admin Dose Admin Rivastigmine (Exelon) 1 patch DAILY TD 01/21/21 09:00 01/21/21 09:08 Citalopram Hydrobromide (CeleXA) 40 mg DAILY PO 01/21/21 09:00 01/21/21 09:09 Olanzapine (ZyPREXA ZYDIS) 5 mg PRN BID PRN PO ANXIETY / AGITATION 01/21/21 11:45 01/21/21 14:27 Lactobacillus Rhamnosus (Culturelle) 1 cap BID PO 01/21/21 21:00 01/21/21 21:04 Justifications for Admission Other Justification NATHANAEL PHILLIP MD Jan 22, 2021 07:52
[2021-01-22] MEDS: LACTOBACILLUS RHAMNOSUS GG 1 CAPSULE. PO SCH ×2 (10:54→20:28)
[2021-01-22] MEDS: RIVASTIGMINE 9.5MG PATCH. TD SCH (10:56)
[2021-01-22 11:00] VITALS: BP 150/50
[2021-01-22] MEDS: CITALOPRAM 20 MG TABLET. PO SCH (11:02)
[2021-01-22] MEDS: LOSARTAN POTASSIUM 50 MG TABLET. PO SCH (11:03)
[2021-01-22] MEDS: PANTOPRAZOLE 40 MG TABLET.DR. PO SCH (11:05)
[2021-01-22] MEDS ORDERED: SENNOSIDES/DOCUSATE 8.6/50MG TABLET. PO PRN (11:45)
[2021-01-22] MEDS: POLYETHYLENE GLYCOL 3350 17 GM PACKET. PO PRN (13:28)
[2021-01-22] MEDS: HYDROcodone/APAP 5/325MG 1 TAB TABLET PO PRN ×2 (13:28→18:26)
[2021-01-22 14:59] VITALS: BP 150/58
[2021-01-22 19:58] VITALS: BP 133/76
[2021-01-22] MEDS: ATORVASTATIN CALCIUM 40 MG TABLET. PO SCH (20:27)
[2021-01-22] MEDS: clonazePAM 0.5 MG TABLET PO PRN (20:28)
[2021-01-22] MEDS: ISOSORBIDE MONONITRATE ER 30 MG TAB.ER.24H PO SCH (20:28)
[2021-01-22] MEDS: PSYLLIUM HUSK (SUGAR FREE) 1 PKT PACKET PO SCH (20:28)
[2021-01-22] MEDS: traZODone 50 MG TABLET. PO PRN (20:28)
[2021-01-22] MEDS: cefTRIAXone IV Push 1 GM VIAL. IVP SCH (20:29)
[2021-01-22 23:07] VITALS: BP 138/73
[2021-01-23 03:58] VITALS: BP 138/78
[2021-01-23 06:41] LABS: BASO % 1 % (0-3); EOS # 0.1 x10^3/uL (0.0-0.7); EOS % 3 % (0-3); HEMATOCRIT 35.4 % (36.0-47.0); HEMOGLOBIN 11.9 g/dL (12.0-15.5); LYMPH # 1.2 x10^3/uL (1.0-4.8); LYMPH % 24 % (24-48); MEAN CORPUSCULAR HEMOGLOBIN 31 pg (25-35); MEAN CORPUSCULAR HGB CONC 34 g/dL (31-37); MEAN CORPUSCULAR VOLUME 92 fL (79-100); MONO # 0.6 x10^3/uL (0.0-1.1); MONO % 11 % (0-9); NEUT % 61 % (31-73); PLATELET COUNT 161 x10^3/uL (140-400); RED BLOOD COUNT 3.85 x10^6/uL (3.50-5.40); RED CELL DISTRIBUTION WIDTH 14.4 % (11.5-14.5); WHITE BLOOD COUNT 4.9 x10^3/uL (4.0-11.0)
[2021-01-23 07:00] VITALS: BP 197/89
[2021-01-23 07:10] LABS: ALBUMIN 3.2 g/dL (3.4-5.0); ALBUMIN/GLOBULIN RATIO 1.2 (1.0-1.7); CALCIUM 8.4 mg/dL (8.5-10.1); GFR 52.2; TOTAL BILIRUBIN 0.7 mg/dL (0.2-1.0); TOTAL PROTEIN 5.9 g/dL (6.4-8.2)
--- NOTE | 2021-01-23 08:06 | PDOC ---
[facility] [facility] PROGRESS NOTE Date of Service DOS: DATE: 01/23/21 TIME: 07:58 Chief Complaint Chief Complaint A/P: Abdominal pain - likely from early left sided pyelonephritis, cont fluids and empiric rocephin, IV pain control Nausea and vomiting - likely due to renal colic, no obstruction, will adat Hypertensive urgency - 195/101. 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 Unchanged bilateral nephrolithiasis. Sigmoid diverticulosis. Small hiatal hernia. Unchanged abdominal aortic aneurysm and severe calcified aortoiliac atherosclerosis. 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 Unchanged enlarged left inguinal lymph node. 7 mm hypodensity in the pancreatic head, nonspecific - no weight loss noted. Will have GI consult FEN - Regular diet PPX - lovenox FULL CODE Dispo - inpatient History of Present Illness History of Present Illness Ms Martinez is an 89 yo female w/ PMHx HTN, GERD, HLD, CAD with remote stenting, dementia who presents with 2 days of abdominal pain, nausea, vomiting, subjective fever, and frequent stools. Pain is in the epigastrium as well as the left lower quadrant, but she notes her worst pain is rectal pain for which she takes suppositories. Denies night sweats. Does have occasional chills. No dysuria. Feels like she is dehydrated, but states she has increased urinary frequency and urgency. WBC 5.1, Hb 12.6, platelets 173, NA 139, K3.4, BUN 22, CR 1, glucose 96, calcium 8.3, bilirubin 1.1 AST 24 ALT 22 alk phos 46 albumin 3.9, urinalysis small leukocyte esterase small blood negative nitrites, COVID-19 negative 01/21: Afebrile overnight. Note she had severe left flank pain radiating to her groin about 3 AM. It improved now. Discussed with lab add on urine culture which is in process currently. Shortness of breath is improved. Still feeling pretty weak notes she prefers her other home health therapies. 01/22: Afebrile overnight. Urine culture polymicrobial likely from delayed testing on physician part. She is feeling better no further nausea though she did have 3 loose stools on 1029. No further since then she is asking for a laxative. Overall her pain has currently resolved. Afebrile overnight. Pain improving, still with occasional left groin pain at site of enlarged lymph node. Weak, therapy advised SNF. Has a headache today as well. Vitals/I&O Vitals/I&O: Vital Signs Date Time Temp Pulse Resp B/P (MAP) Pulse Ox O2 Delivery O2 Flow Rate FiO2 01/23/21 03:58 97.8 85 18 138/78 (98) 97 Nasal Cannula 2.0 97.8 I & O 01/22/21 01/22/21 01/23/21 15:00 23:00 07:00 Intake Total 300 ml 920 ml 80 ml Output Total 900 ml Balance 300 ml 920 ml -820 ml Physical Exam General: Alert, Cooperative, mild distress Lungs: Clear, Other Abdomen: Normal bowel sounds, Other (LLQ tenderness) Extremities: No clubbing, No cyanosis, No edema, Normal pulses, No tenderness/swelling Skin: No rashes, No breakdown, No significant lesion Labs Labs: Laboratory Tests Test 01/23/21 06:25 White Blood Count 4.9 x10^3/uL (4.0-11.0) Red Blood Count 3.85 x10^6/uL (3.50-5.40) Hemoglobin 11.9 g/dL (12.0-15.5) Hematocrit 35.4 % (36.0-47.0) Mean Corpuscular Volume 92 fL (79-100) Mean Corpuscular Hemoglobin 31 pg (25-35) Mean Corpuscular Hemoglobin Concent 34 g/dL (31-37) Red Cell Distribution Width 14.4 % (11.5-14.5) Platelet Count 161 x10^3/uL (140-400) Neutrophils (%) (Auto) 61 % (31-73) Lymphocytes (%) (Auto) 24 % (24-48) Monocytes (%) (Auto) 11 % (0-9) Eosinophils (%) (Auto) 3 % (0-3) Basophils (%) (Auto) 1 % (0-3) Neutrophils # (Auto) 3.0 x10^3/uL (1.8-7.7) Lymphocytes # (Auto) 1.2 x10^3/uL (1.0-4.8) Monocytes # (Auto) 0.6 x10^3/uL (0.0-1.1) Eosinophils # (Auto) 0.1 x10^3/uL (0.0-0.7) Basophils # (Auto) 0.0 x10^3/uL (0.0-0.2) Sodium Level 139 mmol/L (136-145) Potassium Level 4.0 mmol/L (3.5-5.1) Chloride Level 101 mmol/L (98-107) Carbon Dioxide Level 34 mmol/L (21-32) Anion Gap 4 (6-14) Blood Urea Nitrogen 13 mg/dL (7-20) Creatinine 1.0 mg/dL (0.6-1.0) Estimated GFR (Cockcroft-Gault) 52.2 BUN/Creatinine Ratio 13 (6-20) Glucose Level 96 mg/dL (70-99) Calcium Level 8.4 mg/dL (8.5-10.1) Total Bilirubin 0.7 mg/dL (0.2-1.0) Aspartate Amino Transf (AST/SGOT) 23 U/L (15-37) Alanine Aminotransferase (ALT/SGPT) 18 U/L (14-59) Alkaline Phosphatase 39 U/L (46-116) Total Protein 5.9 g/dL (6.4-8.2) Albumin 3.2 g/dL (3.4-5.0) Albumin/Globulin Ratio 1.2 (1.0-1.7) Assessment and Plan Assessmemt and Plan Problems Medical Problems: (1) Hydronephrosis, left Status: Acute (2) UTI (urinary tract infection) Status: Acute Comment Review of Relevant I have reviewed the following items lorna (where applicable) has been applied. Medications: Current Medications Medications (Trade) Dose Ordered Sig/Vanessa Route PRN Reason Start Time Stop Time Status Last Admin Dose Admin Polyethylene Glycol (miraLAX PACKET) 17 gm PRN DAILY PRN PO CONSTIPATION 01/22/21 11:45 01/22/21 13:28 Psyllium Hydrophilic Mucilloid (Metamucil Fiber Packet) 1 pkt QHS PO 01/22/21 21:00 01/22/21 20:28 Justifications for Admission Other Justification NATHANAEL PHILLIP MD Jan 23, 2021 08:06
[2021-01-23] MEDS: ONDANSETRON PF 4 MG/2 ML VIAL. IVP PRN (09:16)
[2021-01-23] MEDS: LOSARTAN POTASSIUM 50 MG TABLET. PO SCH (09:20)
[2021-01-23] MEDS: CITALOPRAM 20 MG TABLET. PO SCH (09:20)
[2021-01-23] MEDS: LACTOBACILLUS RHAMNOSUS GG 1 CAPSULE. PO SCH ×2 (09:20→23:02)
[2021-01-23] MEDS: PANTOPRAZOLE 40 MG TABLET.DR. PO SCH (09:21)
[2021-01-23] MEDS: RIVASTIGMINE 9.5MG PATCH. TD SCH (09:22)
[2021-01-23 11:00] VITALS: BP 161/71
[2021-01-23] MEDS: HYDROcodone/APAP 5/325MG 1 TAB TABLET PO PRN (14:03)
[2021-01-23 15:00] VITALS: BP 148/67
[2021-01-23 19:00] VITALS: BP 155/78
[2021-01-23 23:00] VITALS: BP 195/72
[2021-01-23] MEDS: clonazePAM 0.5 MG TABLET PO PRN (23:03)
[2021-01-23] MEDS: PSYLLIUM HUSK (SUGAR FREE) 1 PKT PACKET PO SCH (23:03)
[2021-01-23] MEDS: traZODone 50 MG TABLET. PO PRN (23:03)
[2021-01-23] MEDS: ISOSORBIDE MONONITRATE ER 30 MG TAB.ER.24H PO SCH (23:03)
[2021-01-23] MEDS: ATORVASTATIN CALCIUM 40 MG TABLET. PO SCH (23:03)
[2021-01-23] MEDS: HYDROCORTISONE 2.5% RECTAL CREAM 30GM TUBE. RC PRN (23:04)
[2021-01-23] MEDS: cefTRIAXone IV Push 1 GM VIAL. IVP SCH (23:04)
[2021-01-24 03:35] VITALS: BP 106/56
[2021-01-24 07:00] VITALS: BP 168/119
[2021-01-24] MEDS: LACTOBACILLUS RHAMNOSUS GG 1 CAPSULE. PO SCH ×2 (09:22→20:24)
[2021-01-24] MEDS: LOSARTAN POTASSIUM 50 MG TABLET. PO SCH (09:22)
[2021-01-24] MEDS: POLYETHYLENE GLYCOL 3350 17 GM PACKET. PO PRN (09:23)
[2021-01-24] MEDS: RIVASTIGMINE 9.5MG PATCH. TD SCH (09:23)
[2021-01-24] MEDS: CITALOPRAM 20 MG TABLET. PO SCH (09:23)
[2021-01-24] MEDS: PANTOPRAZOLE 40 MG TABLET.DR. PO SCH (09:23)
[2021-01-24] MEDS: HYDROcodone/APAP 5/325MG 1 TAB TABLET PO PRN ×3 (09:23→20:25)
--- NOTE | 2021-01-24 10:07 | PDOC ---
Date of Service: DATE: 01/24/21 TIME: 10:01 Subjective: Subjective: Head and rectal pain, also some across lower abdomen. Says she ate all her breakfast. No stool today. Wants to restart Miralax like at home. Again details past hemorrhoidectomy/revision and chronic irregular bowel habits for eleven years. Objective: Vital Signs: Vital Signs Date Time Temp Pulse Resp B/P (MAP) Pulse Ox O2 Delivery O2 Flow Rate FiO2 01/24/21 09:23 82 168/119 01/24/21 07:00 98.1 18 93 Nasal Cannula 2.0 98.1 Labs: URINE CULTURE Final Final Three or more organisms isolated. Results consistent with colonization or contamination during the collection process. Recollection recommended using a method to minimize contamination on 01/22/21 at 0829 PE: GEN: NAD LUNGS: CTAB HEART: RRR ABD: S/ND/NT NEURO/PSYCH: A & O 3, hard of hearing, probably some intermittent confusion/forgetfulness A/P: UTI, hydronephrosis Chronic irregular bowel habits Abnormal CT - nonspecific 7 mm hypodensity in the pancreatic head H/o cutaneous lymphoma and dementia -- Wants to resume daily Miralax - okay w/ GI. Consider conservative approach vs outpt MRI/CA19-9 for stable pancreatic lesion with normal LFTs. DC per primary. Justicifation of Admission Dx: Justifications for Admission: Justification of Admission Dx: Yes Angina: New-Onset Hypertension: Symp at Rest ESTELA FRANCE Jan 24, 2021 10:07
[2021-01-24] MEDS: POLYETHYLENE GLYCOL 3350 17 GM PACKET. PO SCH (10:10)
--- NOTE | 2021-01-24 10:11 | NUR ---
Administered PRN Daily dose of Miralax at 0923. Non-administered daily dose of miralax scheduled at 1100.
[2021-01-24] MEDS ORDERED: BISACODYL 10 MG SUPP.RECT. PR PRN (10:15)
[2021-01-24 11:00] VITALS: BP 140/82
--- NOTE | 2021-01-24 11:20 | PDOC ---
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 Pain is in the epigastrium as well as the left lower quadrant, but she notes her worst pain is rectal pain for which she takes suppositories. Denies night sweats. Does have occasional chills. No dysuria. Feels like she is dehydrated, but states she has increased urinary frequency and urgency. WBC 5.1, Hb 12.6, platelets 173, NA 139, K3.4, BUN 22, CR 1, glucose 96, calcium 8.3, bilirubin 1.1 AST 24 ALT 22 alk phos 46 albumin 3.9, urinalysis small leukocyte esterase small blood negative nitrites, COVID-19 negative 01/21: Afebrile overnight. Note she had severe left flank pain radiating to her groin about 3 AM. It improved now. Discussed with lab add on urine culture which is in process currently. Shortness of breath is improved. Still feeling pretty weak notes she prefers her other home health therapies. 01/22: Afebrile overnight. Urine culture polymicrobial likely from delayed testing on physician part. She is feeling better no further nausea though she did have 3 loose stools on 102. No further since then she is asking for a laxative. Overall her pain has currently resolved. 01/23: Afebrile overnight. Pain improving, still with occasional left groin pain at site of enlarged lymph node. Weak, therapy advised SNF. Has a headache today as well. 01/24 Patient seen and examined at bedside Afebrile Patient satting ~93 on 2L by NC Patient has no complaints at time of exam PO intake encouraged Discussed case with patient Chart reviewed Discussed with RN and SW Vitals/I&O Vitals/I&O: Vital Signs Date Time Temp Pulse Resp B/P (MAP) Pulse Ox O2 Delivery O2 Flow Rate FiO2 01/24/21 09:23 82 168/119 01/24/21 07:00 98.1 18 93 Nasal Cannula 2.0 98.1 I & O 01/23/21 01/23/21 01/24/21 15:00 23:00 07:00 Intake Total 0 ml Balance 0 ml Physical Exam General: Alert, Cooperative, mild distress Heart: Regular rate, Normal S1, Normal S2 Lungs: Clear, Other Abdomen: Normal bowel sounds, Other (LLQ tenderness) Extremities: No clubbing, No cyanosis, No edema, Normal pulses, No tenderness/swelling Skin: No rashes, No breakdown, No significant lesion Review of Systems Review of Systems: ROS negative Assessment and Plan Assessmemt and Plan Problems Medical Problems: (1) Hydronephrosis, left Status: Acute (2) UTI (urinary tract infection) Status: Acute Abdominal pain Nausea and vomiting Hypertensive urgency Hyperlipidemia CAD (s/p remote PCI/stent to LAD and 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) Enlarged left inguinal lymph node (unchanged) 7 mm hypodensity in the pancreatic head, nonspecific RUY MDD OA Chronic renal insufficiency Urinary incontinence Plan GI input appreciated PO intake encouraged Continue IV Abx Continue PRN Pain control Continue PRN Nebs Continue Anti-HTN therapy (last bp 163/119) Continue to trend labs Home meds restarted as indicated DVT Prophylaxis PT/OT Ordered Full code Discharge disposition pending subspecialist input Comment Review of Relevant I have reviewed the following items lorna (where applicable) has been applied. Justifications for Admission Other Justification LEE ANN DE LA CRUZ III DO Jan 24, 2021 11:20
[2021-01-24 15:00] VITALS: BP 143/72
[2021-01-24] MEDS: ONDANSETRON PF 4 MG/2 ML VIAL. IVP PRN (16:44)
[2021-01-24 19:00] VITALS: BP 123/49
[2021-01-24] MEDS: ATORVASTATIN CALCIUM 40 MG TABLET. PO SCH (20:24)
[2021-01-24] MEDS: PSYLLIUM HUSK (SUGAR FREE) 1 PKT PACKET PO SCH (20:24)
[2021-01-24] MEDS: traZODone 50 MG TABLET. PO PRN (20:25)
[2021-01-24] MEDS: cefTRIAXone IV Push 1 GM VIAL. IVP SCH (20:25)
[2021-01-24] MEDS: ISOSORBIDE MONONITRATE ER 30 MG TAB.ER.24H PO SCH (20:26)
[2021-01-24 23:00] VITALS: BP 113/52
[2021-01-25 03:00] VITALS: BP 129/60
[2021-01-25 07:00] VITALS: BP 148/65
[2021-01-25 07:28] LABS: CALCIUM 8.6 mg/dL (8.5-10.1); GFR 52.2; POTASSIUM 4.2 mmol/L (3.5-5.1)
[2021-01-25 07:37] LABS: BASO # 0.1 x10^3/uL (0.0-0.2); BASO % 1 % (0-3); EOS # 0.1 x10^3/uL (0.0-0.7); EOS % 3 % (0-3); HEMOGLOBIN 11.7 g/dL (12.0-15.5); LYMPH # 1.3 x10^3/uL (1.0-4.8); LYMPH % 25 % (24-48); MEAN CORPUSCULAR HEMOGLOBIN 31 pg (25-35); MEAN CORPUSCULAR HGB CONC 34 g/dL (31-37); MEAN CORPUSCULAR VOLUME 91 fL (79-100); MONO # 0.5 x10^3/uL (0.0-1.1); MONO % 11 % (0-9); NEUT # 3.2 x10^3/uL (1.8-7.7); NEUT % 61 % (31-73); PLATELET COUNT 168 x10^3/uL (140-400); RED BLOOD COUNT 3.82 x10^6/uL (3.50-5.40); RED CELL DISTRIBUTION WIDTH 14.5 % (11.5-14.5); WHITE BLOOD COUNT 5.2 x10^3/uL (4.0-11.0)
[2021-01-25] MEDS: RIVASTIGMINE 9.5MG PATCH. TD SCH (08:16)
[2021-01-25] MEDS: POLYETHYLENE GLYCOL 3350 17 GM PACKET. PO SCH (08:16)
[2021-01-25] MEDS: LACTOBACILLUS RHAMNOSUS GG 1 CAPSULE. PO SCH ×2 (08:16→21:15)
[2021-01-25] MEDS: HYDROcodone/APAP 5/325MG 1 TAB TABLET PO PRN (08:17)
[2021-01-25] MEDS: LOSARTAN POTASSIUM 50 MG TABLET. PO SCH (08:17)
[2021-01-25] MEDS: CITALOPRAM 20 MG TABLET. PO SCH (08:17)
[2021-01-25] MEDS: PANTOPRAZOLE 40 MG TABLET.DR. PO SCH (08:18)
[2021-01-25 11:00] VITALS: BP 147/66
--- NOTE | 2021-01-25 11:01 | PDOC ---
Date of Service: DATE: 01/25/21 TIME: 10:57 Subjective: Subjective: Headache and neckache. "I always eat a good breakfast." No abdominal pain. Again tells me about irregular bowel habits, rectal pain x 11 years "since he cut it wrong." Objective: Objective: D/w nurse - some nausea last night, didn't eat much dinner, c/o rectal pain - no hemorrhoids noted on her assessment but had some skin irritation. Vital Signs: Vital Signs Date Time Temp Pulse Resp B/P (MAP) Pulse Ox O2 Delivery O2 Flow Rate FiO2 01/25/21 08:18 62 148/65 01/25/21 08:00 Nasal Cannula 2.0 01/25/21 07:00 98.5 18 95 98.5 Labs: Laboratory Tests Test 01/25/21 07:54 Glucose (Fingerstick) 92 mg/dL (70-99) PE: GEN: NAD - breakfast 90% consumed LUNGS: CTAB HEART: RRR ABD: S/ND/NT NEURO/PSYCH: A & O 3, forgetful A/P: UTI Chronic irregular bowel habits - initially this admission reported diarrhea which has resolved, so back on Miralax and Metmaucil, also has PRN options for constipation Abnormal CT - nonspecific 7 mm hypodensity in the pancreatic head - conservative approach/outpt imaging and labs recommended H/o cutaneous lymphoma and dementia -- Continue same from GI standpoint. DC per primary. Justicifation of Admission Dx: Justifications for Admission: Justification of Admission Dx: Yes Angina: New-Onset Hypertension: Symp at Rest ESTELA FRANCE Jan 25, 2021 11:01
--- NOTE | 2021-01-25 11:02 | SNU/HH DC ---
DISCHARGE ORDERS DISCHARGE INFORMATION: FINAL DIAGNOSIS Problems Medical Problems: (1) Hydronephrosis, left Status: Acute (2) UTI (urinary tract infection) Status: Acute CONDITION ON DISCHARGE: Stable CODE STATUS: Code Status: Full SNF: SNF STAY <30 DAYS: Yes HOSPICE: HOSPICE: No HOSPICE EVAL & TREAT: No LTAC: ADMIT TO LTAC: No POST DISCHARGE ORDERS: ACTIVITY ORDERS: Activity as tolerated WEIGHT BEARING STATUS: As tolerated DIET AFTER DISCHARGE: Cardiac CHECKS AFTER DISCHARGE: CHECKS AFTER DISCHARGE: Check blood press - daily, Check your Temp as needed, Weigh Yourself Daily TREATMENT/EQUIPMENT ORDERS: ADAPTIVE EQUIPMENT NEEDED: None, Four wheeled walker Physical Therapy For: Evalulation/Treatment Occupational Therapy For: Evaluation/Treatment DISCHARGE MEDICATIONS: Home Meds Active Scripts Hydrocortisone (PROCTOSOL-HC) 28.35 Gm Cream..g., 1 VICKIE RC PRN BID PRN for rectal pain for 10 Days, #1 TUBE 1 Refill Prov:NATHANAEL PHILLIP MD 05/19/19 Reported Medications Nystatin (NYSTATIN) 15 Gm Cream..g., 1 VICKIE TP TID for irritation, #30 GM 01/20/21 Mirabegron (MYRBETRIQ) 25 Mg Tab.er.24h, 25 MG PO DAILY for OVERACTIVE BLADDER, TAB.SR 01/20/21 Lactulose (LACTULOSE) 20 Gm/30 Ml Solution, 10 GM PO DAILY for other, MISC 01/20/21 Estradiol (ESTRACE) 42.5 Gm Cream.appl, 1 GM VG 3X/WEEK for other, #1 EACH 11 Refills 01/20/21 Hydrocodone Bit/Acetaminophen (HYDROCODONE-APAP 5-325 ) 1 Tab Tablet, 1 TAB PO PRN Q6HRS PRN for PAIN, TAB 0 Refills 01/20/21 Amlodipine Besylate (AMLODIPINE BESYLATE) 5 Mg Tablet, 5 MG PO DAILY for HTN, TAB 01/20/20 Isosorbide Mononitrate (ISOSORBIDE MONONITRATE ER) 30 Mg Tab.er.24h, 1 TAB PO HS for HTN, #30 TAB 5 Refills 01/20/20 Methocarbamol (METHOCARBAMOL) 500 Mg Tablet, 1 TAB PO PRN DAILY PRN for muscle spasm 01/17/20 Ondansetron (ONDANSETRON ODT) 4 Mg Tab.rapdis, 1 TAB PO PRN Q6-8HRS PRN for 01/17/20 Citalopram Hydrobromide (CITALOPRAM HBR) 40 Mg Tablet, 1 TAB PO DAILY for 01/17/20 Omeprazole (OMEPRAZOLE) 40 Mg Capsule.dr, 1 CAP PO DAILY for 01/17/20 Losartan Potassium (Losartan Potassium) 50 Mg Tablet, 1 TAB PO DAILY for 01/17/20 Rivastigmine (EXELON 9.5mg/24hr) 1 Each Patch.td24, 1 PATCH TP DAILY for 1 Day 10/08/19 Nitroglycerin (NITROGLYCERIN SubLingual) 0.4 Mg Tab.subl, 0.4 MG SL PRN Q5MIN PRN for CHEST PAIN, BOTTLE 10/07/19 Hydrocodone Bit/Acetaminophen (HYDROCODONE-APAP 5-325 ) 1 Each Tablet, 1 TAB PO PRN Q6HRS PRN for PAIN, TAB 0 Refills 02/04/18 Clonazepam (CLONAZEPAM ) 0.5 Mg Tablet, 1-2 TAB PO QHS for sleep 02/04/18 Trazodone Hcl (TRAZODONE HCL) 50 Mg Tablet, 1 TAB PO QHS PRN for INSOMNIA 02/04/18 Atorvastatin Calcium (ATORVASTATIN CALCIUM) 80 Mg Tablet, 80 MG PO DAILY 08/05/13 LEE ANN DE LA CRUZ III DO Jan 25, 2021 11:02
--- NOTE | 2021-01-25 11:04 | PDOC ---
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 Pain is in the epigastrium as well as the left lower quadrant, but she notes her worst pain is rectal pain for which she takes suppositories. Denies night sweats. Does have occasional chills. No dysuria. Feels like she is dehydrated, but states she has increased urinary frequency and urgency. WBC 5.1, Hb 12.6, platelets 173, NA 139, K3.4, BUN 22, CR 1, glucose 96, calcium 8.3, bilirubin 1.1 AST 24 ALT 22 alk phos 46 albumin 3.9, urinalysis small leukocyte esterase small blood negative nitrites, COVID-19 negative 01/21: Afebrile overnight. Note she had severe left flank pain radiating to her groin about 3 AM. It improved now. Discussed with lab add on urine culture which is in process currently. Shortness of breath is improved. Still feeling pretty weak notes she prefers her other home health therapies. 01/22: Afebrile overnight. Urine culture polymicrobial likely from delayed testing on physician part. She is feeling better no further nausea though she did have 3 loose stools on 1029. No further since then she is asking for a laxative. Overall her pain has currently resolved. 01/23: Afebrile overnight. Pain improving, still with occasional left groin pain at site of enlarged lymph node. Weak, therapy advised SNF. Has a headache today as well. 01/24 Patient seen and examined at bedside Afebrile Patient satting ~93 on 2L by GWENDOLYN Patient has no complaints at time of exam PO intake encouraged Discussed case with patient Chart reviewed Discussed with RN and VELMA 01/25 Pt seen and examined No acute overnight events Afebrile Pt satting ~94 on 2L by GWENDOLYN Patient pleasantly confused PO intake encouraged Pt complaining of headache and rectal discomfort, otherwise no complaints Chart reviewed Case DWRN and VELMA Vitals/I&O Vitals/I&O: Vital Signs Date Time Temp Pulse Resp B/P (MAP) Pulse Ox O2 Delivery O2 Flow Rate FiO2 01/25/21 08:18 62 148/65 01/25/21 08:00 Nasal Cannula 2.0 01/25/21 07:00 98.5 18 95 98.5 I & O 01/24/21 01/24/21 01/25/21 14:59 22:59 06:59 Intake Total 220 ml 360 ml 240 ml Output Total 850 ml 300 ml Balance 220 ml -490 ml -60 ml Physical Exam General: Alert, Cooperative, mild distress Heart: Regular rate, Normal S1, Normal S2 Lungs: Clear, Other Abdomen: Normal bowel sounds, Other (LLQ tenderness) Extremities: No clubbing, No cyanosis, No edema, Normal pulses, No tenderness/swelling Skin: No rashes, No breakdown, No significant lesion Labs Labs: Laboratory Tests Test 01/25/21 06:50 01/25/21 07:54 White Blood Count 5.2 x10^3/uL (4.0-11.0) Red Blood Count 3.82 x10^6/uL (3.50-5.40) Hemoglobin 11.7 g/dL (12.0-15.5) Hematocrit 35.0 % (36.0-47.0) Mean Corpuscular Volume 91 fL (79-100) Mean Corpuscular Hemoglobin 31 pg (25-35) Mean Corpuscular Hemoglobin Concent 34 g/dL (31-37) Red Cell Distribution Width 14.5 % (11.5-14.5) Platelet Count 168 x10^3/uL (140-400) Neutrophils (%) (Auto) 61 % (31-73) Lymphocytes (%) (Auto) 25 % (24-48) Monocytes (%) (Auto) 11 % (0-9) Eosinophils (%) (Auto) 3 % (0-3) Basophils (%) (Auto) 1 % (0-3) Neutrophils # (Auto) 3.2 x10^3/uL (1.8-7.7) Lymphocytes # (Auto) 1.3 x10^3/uL (1.0-4.8) Monocytes # (Auto) 0.5 x10^3/uL (0.0-1.1) Eosinophils # (Auto) 0.1 x10^3/uL (0.0-0.7) Basophils # (Auto) 0.1 x10^3/uL (0.0-0.2) Sodium Level 139 mmol/L (136-145) Potassium Level 4.2 mmol/L (3.5-5.1) Chloride Level 101 mmol/L (98-107) Carbon Dioxide Level 32 mmol/L (21-32) Anion Gap 6 (6-14) Blood Urea Nitrogen 19 mg/dL (7-20) Creatinine 1.0 mg/dL (0.6-1.0) Estimated GFR (Cockcroft-Gault) 52.2 Glucose Level 94 mg/dL (70-99) Calcium Level 8.6 mg/dL (8.5-10.1) Glucose (Fingerstick) 92 mg/dL (70-99) Review of Systems Review of Systems: Patient acknowledges headache, rectal, and lower abdominal discomfort ROS otherwise negative Assessment and Plan Assessmemt and Plan Problems Medical Problems: (1) Hydronephrosis, left Status: Acute (2) UTI (urinary tract infection) Status: Acute Abdominal pain Nausea and vomiting Hypertensive urgency Hyperlipidemia CAD (s/p remote PCI/stent to LAD and 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) Enlarged left inguinal lymph node (unchanged) 7 mm hypodensity in the pancreatic head, nonspecific RUY MDD OA Chronic renal insufficiency Urinary incontinence Plan Probable discharge with SNF, for now continue the following: GI input appreciated Continue current bowel regimen, per GI Per GI, pt to have pancreatic head echogenicity evaluated outpatient, and managed conservatively PO intake encouraged Continue IV Abx Continue PRN Pain control Continue PRN Nebs Continue Anti-HTN therapy (last bp 123/60) Continue to trend labs Home meds restarted as indicated DVT Prophylaxis PT/OT Ordered Full code Discharge disposition as noted above, per subspecialist approval Comment Review of Relevant I have reviewed the following items lorna (where applicable) has been applied. Medications: Current Medications Medications (Trade) Dose Ordered Sig/Vanessa Route PRN Reason Start Time Stop Time Status Last Admin Dose Admin Polyethylene Glycol (miraLAX PACKET) 17 gm DAILY PO 01/24/21 11:00 01/25/21 08:16 Justifications for Admission Other Justification LEE ANN DE LA CRUZ III DO Jan 25, 2021 11:03
[2021-01-25 15:00] VITALS: BP 139/67
[2021-01-25 19:00] VITALS: BP 121/70
[2021-01-25] MEDS: ISOSORBIDE MONONITRATE ER 30 MG TAB.ER.24H PO SCH (21:15)
[2021-01-25] MEDS: ATORVASTATIN CALCIUM 40 MG TABLET. PO SCH (21:16)
[2021-01-25] MEDS: PSYLLIUM HUSK (SUGAR FREE) 1 PKT PACKET PO SCH (21:16)
[2021-01-25] MEDS: clonazePAM 0.5 MG TABLET PO PRN (21:16)
[2021-01-25] MEDS: cefTRIAXone IV Push 1 GM VIAL. IVP SCH (21:17)
[2021-01-25 23:00] VITALS: BP 140/62
[2021-01-26 03:00] VITALS: BP 146/74
[2021-01-26 04:46] LABS: BASO % 1 % (0-3); EOS # 0.1 x10^3/uL (0.0-0.7); EOS % 2 % (0-3); HEMATOCRIT 34.1 % (36.0-47.0); LYMPH # 1.3 x10^3/uL (1.0-4.8); LYMPH % 27 % (24-48); MEAN CORPUSCULAR HEMOGLOBIN 32 pg (25-35); MEAN CORPUSCULAR HGB CONC 35 g/dL (31-37); MEAN CORPUSCULAR VOLUME 91 fL (79-100); MONO # 0.5 x10^3/uL (0.0-1.1); MONO % 11 % (0-9); NEUT # 2.8 x10^3/uL (1.8-7.7); NEUT % 59 % (31-73); PLATELET COUNT 172 x10^3/uL (140-400); RED BLOOD COUNT 3.74 x10^6/uL (3.50-5.40); RED CELL DISTRIBUTION WIDTH 14.6 % (11.5-14.5); WHITE BLOOD COUNT 4.8 x10^3/uL (4.0-11.0)
[2021-01-26 05:07] LABS: CALCIUM 8.6 mg/dL (8.5-10.1); CREATININE 0.9 mg/dL (0.6-1.0); POTASSIUM 3.6 mmol/L (3.5-5.1)
[2021-01-26 07:30] VITALS: BP 162/69
[2021-01-26] MEDS: POLYETHYLENE GLYCOL 3350 17 GM PACKET. PO SCH (08:33)
[2021-01-26] MEDS: LACTOBACILLUS RHAMNOSUS GG 1 CAPSULE. PO SCH (08:34)
[2021-01-26] MEDS: LOSARTAN POTASSIUM 50 MG TABLET. PO SCH (08:34)
[2021-01-26] MEDS: CITALOPRAM 20 MG TABLET. PO SCH (08:34)
[2021-01-26] MEDS: PANTOPRAZOLE 40 MG TABLET.DR. PO SCH (08:34)
[2021-01-26 08:35] VITALS: BP 162/69
[2021-01-26] MEDS: RIVASTIGMINE 9.5MG PATCH. TD SCH (08:37)
--- NOTE | 2021-01-26 08:59 | PDOC ---
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 Pain is in the epigastrium as well as the left lower quadrant, but she notes her worst pain is rectal pain for which she takes suppositories. Denies night sweats. Does have occasional chills. No dysuria. Feels like she is dehydrated, but states she has increased urinary frequency and urgency. WBC 5.1, Hb 12.6, platelets 173, NA 139, K3.4, BUN 22, CR 1, glucose 96, calcium 8.3, bilirubin 1.1 AST 24 ALT 22 alk phos 46 albumin 3.9, urinalysis small leukocyte esterase small blood negative nitrites, COVID-19 negative 01/21: Afebrile overnight. Note she had severe left flank pain radiating to her groin about 3 AM. It improved now. Discussed with lab add on urine culture which is in process currently. Shortness of breath is improved. Still feeling pretty weak notes she prefers her other home health therapies. 01/22: Afebrile overnight. Urine culture polymicrobial likely from delayed testing on physician part. She is feeling better no further nausea though she did have 3 loose stools on 102. No further since then she is asking for a laxative. Overall her pain has currently resolved. 01/23: Afebrile overnight. Pain improving, still with occasional left groin pain at site of enlarged lymph node. Weak, therapy advised SNF. Has a headache today as well. 01/24 Patient seen and examined at bedside Afebrile Patient satting ~93 on 2L by GWENDOLYN Patient has no complaints at time of exam PO intake encouraged Discussed case with patient Chart reviewed Discussed with RN and VELMA 01/25 Pt seen and examined No acute overnight events Afebrile Pt satting ~94 on 2L by GWENDOLYN Patient pleasantly confused PO intake encouraged Pt complaining of headache and rectal discomfort, otherwise no complaints Chart reviewed Case DWRIndy and VELMA 01/26: Pt was seen, examined, and their chart was reviewed. Pt was sleeping comfortably in bed when visited and we are awaiting probable discharge later today pending disposition. PO intake encouraged. Discussed with RN and VELMA. Vitals/I&O Vitals/I&O: Vital Signs Date Time Temp Pulse Resp B/P (MAP) Pulse Ox O2 Delivery O2 Flow Rate FiO2 01/26/21 08:35 78 162/69 01/26/21 08:00 Nasal Cannula 2.0 01/26/21 07:30 97.9 20 95 97.9 I & O 01/25/21 01/25/21 01/26/21 15:00 23:00 07:00 Intake Total 200 ml 200 ml 400 ml Output Total 500 ml Balance 200 ml 200 ml -100 ml Physical Exam General: Alert (sleeping), Cooperative, No acute distress, mild distress Heart: Regular rate, Normal S1, Normal S2 Lungs: Clear, Other Abdomen: Normal bowel sounds, Other (LLQ tenderness) Extremities: No clubbing, No cyanosis, No edema, Normal pulses, No tenderness/swelling Skin: No rashes, No breakdown, No significant lesion Labs Labs: Laboratory Tests Test 01/26/21 03:25 White Blood Count 4.8 x10^3/uL (4.0-11.0) Red Blood Count 3.74 x10^6/uL (3.50-5.40) Hemoglobin 12.0 g/dL (12.0-15.5) Hematocrit 34.1 % (36.0-47.0) Mean Corpuscular Volume 91 fL (79-100) Mean Corpuscular Hemoglobin 32 pg (25-35) Mean Corpuscular Hemoglobin Concent 35 g/dL (31-37) Red Cell Distribution Width 14.6 % (11.5-14.5) Platelet Count 172 x10^3/uL (140-400) Neutrophils (%) (Auto) 59 % (31-73) Lymphocytes (%) (Auto) 27 % (24-48) Monocytes (%) (Auto) 11 % (0-9) Eosinophils (%) (Auto) 2 % (0-3) Basophils (%) (Auto) 1 % (0-3) Neutrophils # (Auto) 2.8 x10^3/uL (1.8-7.7) Lymphocytes # (Auto) 1.3 x10^3/uL (1.0-4.8) Monocytes # (Auto) 0.5 x10^3/uL (0.0-1.1) Eosinophils # (Auto) 0.1 x10^3/uL (0.0-0.7) Basophils # (Auto) 0.0 x10^3/uL (0.0-0.2) Sodium Level 139 mmol/L (136-145) Potassium Level 3.6 mmol/L (3.5-5.1) Chloride Level 101 mmol/L (98-107) Carbon Dioxide Level 32 mmol/L (21-32) Anion Gap 6 (6-14) Blood Urea Nitrogen 17 mg/dL (7-20) Creatinine 0.9 mg/dL (0.6-1.0) Estimated GFR (Cockcroft-Gault) 59.0 Glucose Level 94 mg/dL (70-99) Calcium Level 8.6 mg/dL (8.5-10.1) Review of Systems Review of Systems: ROS Negative Assessment and Plan Assessmemt and Plan Problems Medical Problems: (1) Hydronephrosis, left Status: Acute (2) UTI (urinary tract infection) Status: Acute Abdominal pain Nausea and vomiting Hypertensive urgency Hyperlipidemia CAD (s/p remote PCI/stent to LAD and 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) Enlarged left inguinal lymph node (unchanged) 7 mm hypodensity in the pancreatic head, nonspecific RUY MDD OA Chronic renal insufficiency Urinary incontinence Plan: Probable discharge later today with SNF, for now continue the following: - Continue current bowel regimen, per GI - Per GI, Continue current bowel regimen and Pt to have pancreatic head echogenicity evaluated outpatient, and managed conservatively - Continue IV Abx - Continue PRN Pain control and PRN Nebs - Continue Anti-HTN therapy (last bp 123/60) - Continue to trend labs - PO intake encouraged - Continue home meds as indicated - DVT Prophylaxis - Continue PTOT Full Code Probable discharge later today pending disposition as noted above, per subs pecialist approval Comment Review of Relevant I have reviewed the following items lorna (where applicable) has been applied. Justifications for Admission Other Justification LEE ANN DE LA CRUZ III DO Jan 26, 2021 08:59
[2021-01-26] MEDS: HYDROcodone/APAP 5/325MG 1 TAB TABLET PO PRN (09:06)
--- NOTE | 2021-01-26 09:55 | NUR ---
Pt discharging to [facility] in [place], report called in. Patient transported via wheelchair with packet and personal belongings included. No other needs.
--- NOTE | 2021-01-27 17:47 | DS ---
DATE OF DISCHARGE: 01/26/2021 ADMISSION DIAGNOSIS: Urinary tract infection. DISCHARGE DIAGNOSES: Resolving urinary tract infection, resolving hypertensive urgency, hyperlipidemia, coronary artery disease with previous stents, history of stroke, chronic kidney disease, chronic obstructive pulmonary disease, dementia, gastroesophageal reflux disease, diverticulosis, left hydronephrosis, history of sigmoid diverticulitis, history of small hiatal hernia, history of abdominal aortic aneurysm, atherosclerosis, history of left inguinal lymph node enlargement, major depressive disorder, osteoarthritis, urinary incontinence, and history of Clostridium difficile. CONSULTS: GI. PROCEDURES: None. HOSPITAL COURSE: The patient is a pleasant elderly female who presented with some abdominal pain, nausea and was noted to have some hydronephrosis and a UTI. She was admitted. We gave her IV antibiotics and fluids. We consulted GI. Over the next 3 days, she returned to her baseline. Yesterday, I saw and examined her. She was doing well. We discharged her to halfway. DISPOSITION: care home. ACTIVITY: As tolerated. DIET: Low sodium. MEDICATIONS: Please see the MRAD. Amlodipine 5 a day, atorvastatin 80 a day, citalopram 40 a day, clonazepam 0.5 a day, Estrace 42.5 gram cream 1 gram vaginally 3 times a week, hydrocodone p.r.n., hydrocortisone cream, Imdur 30 a day, lactulose 10 grams a day, losartan 50 a day, methocarbamol 500 a day, Myrbetriq 25 daily, p.r.n. nitro, nystatin, omeprazole 20 a day, Zofran p.r.n., Exelon 1 patch daily and trazodone 50 at bedtime. TOTAL TIME: [address]: Ирина TID: [id number]
== END 2021-01-26 09:10 | DRG 872 ==
LOC: ER 19:23 → 5 NORTH 23:11 → OBSVTOIN 01-20 10:11 → 5 NORTH 01-21 14:51
PROVIDERS: ADMIT Family Medicine; ATTEND Family Medicine
DX: A41.9 Sepsis, unspecified organism (principal); N10 Acute pyelonephritis; N13.6 Pyonephrosis; E78.00 Pure hypercholesterolemia, unspecified; E78.5 Hyperlipidemia, unspecified; F03.90 Unspecified dementia, unspecified severity, without behavioral disturbance, psychotic disturbance, mood disturbance, and anxiety; F32.9 Major depressive disorder, single episode, unspecified; F41.9 Anxiety disorder, unspecified; I12.9 Hypertensive chronic kidney disease with stage 1 through stage 4 chronic kidney disease, or unspecified chronic kidney disease; I16.0 Hypertensive urgency; I25.119 Atherosclerotic heart disease of native coronary artery with unspecified angina pectoris; I25.82 Chronic total occlusion of coronary artery; I70.8 Atherosclerosis of other arteries; I71.4 Abdominal aortic aneurysm, without rupture; J44.9 Chronic obstructive pulmonary disease, unspecified; K21.9 Gastro-esophageal reflux disease without esophagitis; K44.9 Diaphragmatic hernia without obstruction or gangrene; K57.30 Diverticulosis of large intestine without perforation or abscess without bleeding; K62.89 Other specified diseases of anus and rectum; K86.9 Disease of pancreas, unspecified; N18.9 Chronic kidney disease, unspecified; R32 Unspecified urinary incontinence; Z82.49 Family history of ischemic heart disease and other diseases of the circulatory system; Z85.72 Personal history of non-Hodgkin lymphomas; Z86.73 Personal history of transient ischemic attack (TIA), and cerebral infarction without residual deficits; Z86.79 Personal history of other diseases of the circulatory system; Z87.891 Personal history of nicotine dependence; Z90.49 Acquired absence of other specified parts of digestive tract; Z90.710 Acquired absence of both cervix and uterus; Z92.3 Personal history of irradiation; Z95.5 Presence of coronary angioplasty implant and graft; M19.90 Unspecified osteoarthritis, unspecified site; Z20.822 Contact with and (suspected) exposure to COVID-19
CPT/HCPCS: 36415; 70450; 74177; 80048; 80053; 81001; 82962; 83690; 83735; 85025; 87086; 87426; 96361; 96374; 96375; G0378; G0379; J0696; J2270; J2405; J2765; J7030; Q9967; U0003; U0005; 97110-GP; 97116-GP; 97530-GO; 97530-GP; 97535-GO; 99285-25

== ENCOUNTER 2021-02-03 16:52 | Observation (INO) | payer MEDICARE ==
[~2021-02-03] VITALS: Ht 167.6 cm; Wt 68.9 kg
[~2021-02-03 16:52] MED LIST changes: +ESTR42.53 VG; +MIRA25TA PO; +NYST15CR TP
--- NOTE | 2021-02-03 17:36 | PHYS DOC ---
Past Medical History Past Medical History: Angina, COPD, CVA, Dementia, Depression, GERD, High Cholesterol, Hypertension, CA Additional Past Medical Histor: GASTROPARESIS Past Surgical History: Other Additional Past Surgical Histo: unknown Smoking Status: Never Smoker Alcohol Use: None Drug Use: None General Adult EDM: Chief Complaint: CHEST PAIN HPI: HPI: Patient is a 89 year old female who presents with here by EMS from [facility] with chest pain that began this afternoon. She was given 3 sublingual nitroglycerin and it resolved her pain. She is also given a full aspirin. Patient currently has no symptoms. However patient has a history of CA, CVA, COPD, dementia, depression, gastroparesis, hypertension, high cholesterol and GERD. Currently denies chest pain, shortness of air, headache, dizziness, syncope, abdominal pain, nausea, vomiting, diarrhea, fever, cough, focal weakness or vision change. Review of Systems: Review of Systems: Constitutional: Denies fever or chills. [] Eyes: Denies change in visual acuity. [] HENT: Denies nasal congestion or sore throat. [] Respiratory: Denies cough or +shortness of breath. [] Cardiovascular: + chest pain or denies edema. [] GI: Denies abdominal pain, nausea, vomiting, bloody stools or diarrhea. [] : Denies dysuria. [] Musculoskeletal: Denies back pain or joint pain. [] Integument: Denies rash. [] Neurologic: Denies headache, focal weakness or sensory changes. [] Endocrine: Denies polyuria or polydipsia. [] Lymphatic: Denies swollen glands. [] Psychiatric: Denies depression or anxiety. [] Heart Score: C/O Chest Pain: Yes HEART Score for Chest Pain: HEART Score for Chest Pain Response (Comments) Value History Moderately Suspicious 1 ECG Nonspecific Repolarizatio 1 Age > 65 2 Risk Factors >3 Risk Factors or Hx CAD 2 Troponin < Normal Limit 0 Total 6 Risk Factors: Risk Factors: DM, Current or recent (<one month) smoker, HTN, HLP, family history of CAD, obesity. Risk Scores: Score 0 - 3: 2.5% MACE over next 6 weeks - Discharge Home Score 4 - 6: 20.3% MACE over next 6 weeks - Admit for Clinical Observation Score 7 - 10: 72.7% MACE over next 6 weeks - Early Invasive Strategies Allergies: Allergies: Allergies Coded Allergies Type Severity Reaction Last Updated Verified YURIY Inhibitors Allergy Intermediate 02/03/21 Yes Beta-Blockers (Beta-Adrenergic Bloc Allergy Intermediate 02/03/21 Yes lisinopril Adverse Reaction Severe "passed out" 02/03/21 Yes Physical Exam: PE: Constitutional: Well developed, well nourished, no acute distress, non-toxic appearance. [] HENT: Normocephalic, atraumatic, bilateral external ears normal, oropharynx moist, no oral exudates, nose normal. [] Eyes: PERRLA, EOMI, conjunctiva normal, no discharge. [] Neck: Normal range of motion, no tenderness, supple, no stridor. [] Cardiovascular:Heart rate regular rhythm, no murmur [] Lungs & Thorax: Bilateral upper breath sounds clear lower diminished to auscultation [] Abdomen: Bowel sounds normal, soft, no tenderness, no masses, no pulsatile masses. [] Skin: Warm, dry, no erythema, no rash. [] Back: No tenderness, no CVA tenderness. [] Extremities: No tenderness, no cyanosis, no clubbing, ROM intact, no edema. [] Neurologic: Alert and oriented X 3, normal motor function, normal sensory function, no focal deficits noted. [] Psychologic: Affect normal, judgement normal, mood normal. [] Current Patient Data: Vital Signs: Vital Signs Date Time Temp Pulse Resp B/P (MAP) Pulse Ox O2 Delivery O2 Flow Rate FiO2 02/03/21 17:08 97.8 80 16 222/101 (141) 95 Room Air 97.8 EKG: EK and read by Dr. Radford as a sinus rhythm and no STEMI Radiology/Procedures: Radiology/Procedures: [] Impression: [facility] [address] [place], [place] [id number] IMAGING REPORT Signed PATIENT: JUAN RAMOS ACCOUNT: [id number] : 1930 LOCATION: ER AGE: 89 SEX: F EXAM STATUS: PRE ER ORD. PHYSICIAN: CHIDI RUBI MEDICAL LIAISON REASON: chest pain PROCEDURE: PORTABLE CHEST 1V Exam: Chest one view INDICATION: Chest pain TECHNIQUE: Frontal view of the chest Comparisons: 10/07/2019 FINDINGS: The cardiomediastinal silhouette and pulmonary vessels are within normal limits. Strandy opacities at lung bases bilaterally. No pleural effusion. IMPRESSION: Strandy bibasilar airspace disease may relate to atelectasis or developing i nfectious process. Electronically signed by: Tone Martinez MD (02/03/2021 5:49 PM) [facility] DICTATED and SIGNED BY: TONE MARTINEZ MD DATE: 02/03/21 [id number] Course & Med Decision Making: Course & Med Decision Making Pertinent Labs and Imaging studies reviewed. (See chart for details) See HPI. Alert and oriented but very hard of hearing at this time. Speaks in full clear sentences. Lungs are clear in upper lobes diminished in lower lobes. Currently not having any chest pain or symptoms. EKG is not showing a acute STEMI at this time. Skin pink warm and dry. Alert and oriented x4 at this time. Patient be admitted to the hospitalist for chest pain. Patient's heart score is a 6. Patient admitted to Dr. Guzman for chest pain. [] Faith Disclaimer: Dragon Disclaimer: This electronic medical record was generated, in whole or in part, using a voice recognition dictation system. Departure Departure Impression: Primary Impression: Chest pain Qualified Codes: R07.9 - Chest pain, unspecified Disposition: ADMITTED INPATIENT Admitting Physician: TAMIA Condition: STABLE Referrals: Ada MCELROY MD (PCP) CHIDI RUBI APRN Feb 03, 2021 17:36
[2021-02-03 17:47] LABS: BASO % 1 % (0-3); EOS # 0.1 x10^3/uL (0.0-0.7); EOS % 2 % (0-3); HEMATOCRIT 35.4 % (36.0-47.0); HEMOGLOBIN 12.4 g/dL (12.0-15.5); LYMPH # 1.3 x10^3/uL (1.0-4.8); LYMPH % 20 % (24-48); MEAN CORPUSCULAR HEMOGLOBIN 32 pg (25-35); MEAN CORPUSCULAR HGB CONC 35 g/dL (31-37); MEAN CORPUSCULAR VOLUME 91 fL (79-100); MONO # 0.8 x10^3/uL (0.0-1.1); MONO % 12 % (0-9); NEUT # 4.2 x10^3/uL (1.8-7.7); NEUT % 66 % (31-73); PLATELET COUNT 187 x10^3/uL (140-400); RED BLOOD COUNT 3.89 x10^6/uL (3.50-5.40); RED CELL DISTRIBUTION WIDTH 14.6 % (11.5-14.5); WHITE BLOOD COUNT 6.4 x10^3/uL (4.0-11.0)
[2021-02-03 17:48] LABS: CALCIUM 8.6 mg/dL (8.5-10.1); GFR 52.2; POTASSIUM 3.7 mmol/L (3.5-5.1)
--- NOTE | 2021-02-03 17:51 | RAD ---
Exam: Chest one view INDICATION: Chest pain TECHNIQUE: Frontal view of the chest Comparisons: 10/07/2019 FINDINGS: The cardiomediastinal silhouette and pulmonary vessels are within normal limits. Strandy opacities at lung bases bilaterally. No pleural effusion. IMPRESSION: Strandy bibasilar airspace disease may relate to atelectasis or developing infectious process. Electronically signed by: Tone Weaver MD (02/03/2021 5:49 PM) NANC[facility]
[2021-02-03 17:53] LABS: ALBUMIN 3.4 g/dL (3.4-5.0); TOTAL BILIRUBIN 0.6 mg/dL (0.2-1.0); TOTAL PROTEIN 6.8 g/dL (6.4-8.2)
--- NOTE | 2021-02-03 17:56 | PDOC1 ---
History and Physical Date of Admission Date of Admission DATE: 02/03/21 TIME: 17:50 Identification/Chief Complaint Chief Complaint Chest pain Source Source: Chart review, Patient History of Present Illness History of Present Illness Ms Martinez is an 89 yo female w/ PMHx HTN, GERD, HLD, CAD with remote stenting, gastroparesis, dementia, hard of hearing who presents with chest pain beginning at her SNF where she is undergoing acute rehab (EMS brought her from [facility]). Pain was substernal radiating into her left jaw. Subsided with 3 doses of sublingual NTG and 325mg ASA. Pain is in the epigastrium as well as the chest, but she notes her worst pain is rectal pain for which she takes suppositories. Denies night sweats. Does have occasional chills. No dysuria. Feels like she is dehydrated, and is more concerned about her left hearing aid than anything else. Chest radiograph With bibasilar airspace disease potentially related atelectasis EKG normal sinus rhythm no ST segment elevation or T WI WBC 6.4 Hb 12.4 platelets 187 INR 1, NA 130 6K3.7, BUN 13, CR 1, glucose 101, LFTs within normal limits lipase 525 NT proBNP 401 high-sensitivity troponin 10 Admitted for further care Past Medical History Cardiovascular: CAD, HTN, Hyperlipidemia Pulmonary: COPD CENTRAL NERVOUS SYSTEM: CVA, Dementia GI: Diverticulosis, GERD Heme/Onc: Cancer Hepatobiliary: No pertinent hx Psych: Anxiety, Depression Musculoskeletal: Osteoarthritis, Other Rheumatologic: No pertinent hx Infectious disease: No pertinent hx Renal/: Chronic renal insuff, Urinary Incontinence Endocrine: No pertinent hx Past Surgical History Past Surgical History: Appendectomy, Cholecystectomy, Tonsillectomy, Hysterectomy, Colon Resection Family History Family History: Hypertension, Other Social History Smoke: No ALCOHOL: none Drugs: None Current Medications Current Medications Active Scripts Active Proctosol-Hc (Hydrocortisone) 28.35 Gm Cream..g. 1 Jan RC PRN BID PRN 10 Days Reported Nystatin 15 Gm Cream..g. 1 Jan TP TID Myrbetriq (Mirabegron) 25 Mg Tab.er.24h 25 Mg PO DAILY Lactulose 20 Gm/30 Ml Solution 10 Gm PO DAILY Estrace (Estradiol) 42.5 Gm Cream.appl 1 Gm VG 3X/WEEK Hydrocodone-Apap 5-325 (Hydrocodone Bit/Acetaminophen) 1 Tab Tablet 1 Tab PO PRN Q6HRS PRN Amlodipine Besylate 5 Mg Tablet 5 Mg PO DAILY Isosorbide Mononitrate Er (Isosorbide Mononitrate) 30 Mg Tab.er.24h 1 Tab PO HS Methocarbamol 500 Mg Tablet 1 Tab PO PRN DAILY PRN Ondansetron Odt (Ondansetron) 4 Mg Tab.rapdis 1 Tab PO PRN Q6-8HRS PRN Citalopram Hbr (Citalopram Hydrobromide) 40 Mg Tablet 1 Tab PO DAILY Omeprazole 40 Mg Capsule.dr 1 Cap PO DAILY Losartan Potassium 50 Mg Tablet 1 Tab PO DAILY EXELON 9.5mg/24hr (Rivastigmine) 1 Each Patch.td24 1 Patch TP DAILY 1 Days NITROGLYCERIN SubLingual (Nitroglycerin) 0.4 Mg Tab.subl 0.4 Mg SL PRN Q5MIN PRN Hydrocodone-Apap 5-325 (Hydrocodone Bit/Acetaminophen) 1 Each Tablet 1 Tab PO PRN Q6HRS PRN Clonazepam (Clonazepam) 0.5 Mg Tablet 1-2 Tab PO QHS Trazodone Hcl 50 Mg Tablet 1 Tab PO QHS PRN Atorvastatin Calcium 80 Mg Tablet 80 Mg PO DAILY Allergies Allergies: Coded Allergies: YURIY Inhibitors (Verified Allergy, Intermediate, 02/03/21) Beta-Blockers (Beta-Adrenergic Bloc (Verified Allergy, Intermediate, 02/03/21) Has received IV labetolol during prior visit without issues lisinopril (Verified Adverse Reaction, Severe, "passed out", 02/03/21) ROS General: YES: Fatigue, Malaise; No: Chills, Night Sweats, Appetite, Other PSYCHOLOGICAL ROS: YES: Memory difficulties; No: Anxiety, Behavioral Disorder, Concentration difficultie, Decreased libido, Depression, Disorientation, Hallucinations, Hostility, Irritablity, Mood Swings, Obsessive thoughts, Physical abuse, Sexual abuse, Sleep disturbances, Suicidal ideation, Other Eyes: No Blurry vision, No Decreased vision, No Double vision, No Dry eyes, No Excessive tearing, No Eye Pain, No Itchy Eyes, No Loss of vision, No Photophobia, No Scotomata, No Uses contacts, No Uses glasses, No Other HEENT: YES: Hearing change; No: Heacaches, Visual Changes, Nasal congestion, Nasal discharge, Oral lesions, Sinus pain, Sore Throat, Epistaxis, Sneezing, Snoring, Tinnitus, Vertigo, Vocal changes, Other ALLERGY AND IMMUNOLOGY: No: Hives, Insect Bite Sensitivity, Itchy/Watery Eyes, Nasal Congestion, Post Nasal Drip, Seasonal Allergies, Other Hematological and Lymphatic: No: Bleeding Problems, Blood Clots, Blood Transfusions, Brusing, Night Sweats, Pallor, Swollen Lymph Nodes, Other ENDOCRINE: No: Breast Changes, Galactorrhea, Hair Pattern Changes, Hot Flashes, Malaise/lethargy, Mood Swings, Palpitations, Polydipsia/polyuria, Skin Changes, Temperature Intolerance, Unexpected Weight Changes, Other Breast: No New/Changing Breast Lumps, No Nipple changes, No Nipple discharge, No Other Respiratory: No: Cough, Hemoptysis, Orthopnea, Pleuritic Pain, Shortness of breath, SOB with excertion, Sputum Changes, Stridor, Tachypnea, Wheezing, Other Cardiovascular: yes Chest Pain; No Palpitations, No Orthopnea, No Paroxysmal Noc. Dyspnea, No Edema, No Lt Headedness, No Other Gastrointestinal: Yes Nausea; No Vomiting, No Abdominal Pain, No Diarrhea, No Constipation, No Melena, No Hematochezia, No Other Genitourinary: No Dysuria, No Frequency, No Incontinence, No Hematuria, No Retention, No Discharge, No Urgency, No Pain, No Flank Pain, No Other, No , No , No , No , No , No , No Musculoskeletal: No Gait Disturbance, No Joint Pain, No Joint Stiffness, No Joint Swelling, No Muscle Pain, No Muscular Weakness, No Pain In:, No Swelling In:, No Other Neurological: No Behavorial Changes, No Bowel/Bladder ControlChng, No Confusion, No Dizziness, No Gait Disturbance, No Headaches, No Impaired Coord/balance, No Memory Loss, No Numbness/Tingling, No Seizures, No Speech Problems, No Tremors, No Visual Changes, No Weakness, No Other Skin: No Dry Skin, No Eczema, No Hair Changes, No Lumps, No Mole Changes, No Mottling, No Nail Changes, No Pruritus, No Rash, No Skin Lesion Changes, No Other, No Acne Physical Exam General: Alert, Cooperative, mild distress HEENT: Atraumatic, PERRLA, EOMI, Mucous membr. moist/pink Lungs: Clear to auscultation, Normal air movement Heart: S1S2, RRR, no thrills, no rubs, no gallops, no murmurs Abdomen: Normal bowel sounds, Soft, No tenderness, No hepatosplenomegaly, No masses Rectal Exam: not examined Skin: No rashes, No breakdown, No significant lesion Neuro: Normal speech, Strength at 5/5 X4 ext, Normal tone, Sensation intact, Cranial nerves 3-12 NL, Reflexes 2+ Psych/Mental Status: Mental status NL, Mood NL Vitals Vitals Vital Signs Date Time Temp Pulse Resp B/P (MAP) Pulse Ox O2 Delivery O2 Flow Rate FiO2 02/03/21 17:08 97.8 80 16 222/101 (141) 95 Room Air 97.8 Labs Labs Laboratory Tests Test 02/03/21 17:30 White Blood Count 6.4 x10^3/uL (4.0-11.0) Red Blood Count 3.89 x10^6/uL (3.50-5.40) Hemoglobin 12.4 g/dL (12.0-15.5) Hematocrit 35.4 % (36.0-47.0) Mean Corpuscular Volume 91 fL (79-100) Mean Corpuscular Hemoglobin 32 pg (25-35) Mean Corpuscular Hemoglobin Concent 35 g/dL (31-37) Red Cell Distribution Width 14.6 % (11.5-14.5) Platelet Count 187 x10^3/uL (140-400) Neutrophils (%) (Auto) 66 % (31-73) Lymphocytes (%) (Auto) 20 % (24-48) Monocytes (%) (Auto) 12 % (0-9) Eosinophils (%) (Auto) 2 % (0-3) Basophils (%) (Auto) 1 % (0-3) Neutrophils # (Auto) 4.2 x10^3/uL (1.8-7.7) Lymphocytes # (Auto) 1.3 x10^3/uL (1.0-4.8) Monocytes # (Auto) 0.8 x10^3/uL (0.0-1.1) Eosinophils # (Auto) 0.1 x10^3/uL (0.0-0.7) Basophils # (Auto) 0.0 x10^3/uL (0.0-0.2) Sodium Level 136 mmol/L (136-145) Potassium Level 3.7 mmol/L (3.5-5.1) Chloride Level 101 mmol/L (98-107) Carbon Dioxide Level 29 mmol/L (21-32) Anion Gap 6 (6-14) Blood Urea Nitrogen 13 mg/dL (7-20) Creatinine 1.0 mg/dL (0.6-1.0) Estimated GFR (Cockcroft-Gault) 52.2 BUN/Creatinine Ratio 13 (6-20) Glucose Level 101 mg/dL (70-99) Calcium Level 8.6 mg/dL (8.5-10.1) Laboratory Tests Test 02/03/21 17:30 White Blood Count 6.4 x10^3/uL (4.0-11.0) Red Blood Count 3.89 x10^6/uL (3.50-5.40) Hemoglobin 12.4 g/dL (12.0-15.5) Hematocrit 35.4 % (36.0-47.0) Mean Corpuscular Volume 91 fL (79-100) Mean Corpuscular Hemoglobin 32 pg (25-35) Mean Corpuscular Hemoglobin Concent 35 g/dL (31-37) Red Cell Distribution Width 14.6 % (11.5-14.5) Platelet Count 187 x10^3/uL (140-400) Neutrophils (%) (Auto) 66 % (31-73) Lymphocytes (%) (Auto) 20 % (24-48) Monocytes (%) (Auto) 12 % (0-9) Eosinophils (%) (Auto) 2 % (0-3) Basophils (%) (Auto) 1 % (0-3) Neutrophils # (Auto) 4.2 x10^3/uL (1.8-7.7) Lymphocytes # (Auto) 1.3 x10^3/uL (1.0-4.8) Monocytes # (Auto) 0.8 x10^3/uL (0.0-1.1) Eosinophils # (Auto) 0.1 x10^3/uL (0.0-0.7) Basophils # (Auto) 0.0 x10^3/uL (0.0-0.2) Sodium Level 136 mmol/L (136-145) Potassium Level 3.7 mmol/L (3.5-5.1) Chloride Level 101 mmol/L (98-107) Carbon Dioxide Level 29 mmol/L (21-32) Anion Gap 6 (6-14) Blood Urea Nitrogen 13 mg/dL (7-20) Creatinine 1.0 mg/dL (0.6-1.0) Estimated GFR (Cockcroft-Gault) 52.2 BUN/Creatinine Ratio 13 (6-20) Glucose Level 101 mg/dL (70-99) Calcium Level 8.6 mg/dL (8.5-10.1) VTE Prophylaxis Ordered VTE Prophylaxis Devices: No VTE Pharmacological Prophylaxi: Yes Assessment/Plan Assessment/Plan A/P: Chest pain - anginal equivalent. Will trend troponins. Consult cardiology given her extensive CAD history Hypertensive urgency - SBP > 200mmHg. 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 Sigmoid diverticulosis. Small hiatal hernia. Unchanged abdominal aortic aneurysm and severe calcified aortoiliac atherosclerosis. 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 Unchanged enlarged left inguinal lymph node. 7 mm hypodensity in the pancreatic head, nonspecific - no weight loss noted. Elevated lipase - unclear what to make of this, really minimally elevated, but pancreatic nodule noted previously, will ask GI opinion FEN - Regular diet PPX - lovenox FULL CODE Dispo - inpatient Justifications for Admission Other Justification NATHANAEL PHILLIP MD Feb 03, 2021 17:56
[2021-02-03] MEDS ORDERED: traZODone 50 MG TABLET. PO PRN (18:00)
[2021-02-03] MEDS ORDERED: ONDANSETRON ODT 4 MG TAB.RAPDIS. PO PRN (18:00)
[2021-02-03] MEDS ORDERED: HYDROCORTISONE 2.5% RECTAL CREAM 30GM TUBE. RC PRN (18:00)
[2021-02-03] MEDS ORDERED: hydrALAZINE 20 MG/ML VIAL. IVP PRN (18:00)
[2021-02-03] MEDS ORDERED: NITROGLYCERIN SUBLINGUAL 0.4 MG BOTTLE OF 25. SL PRN (18:00)
[2021-02-03 18:19] LABS: PROTHROMBIN TIME PATIENT 13.1 SEC (11.7-14.0)
[2021-02-03] MEDS ORDERED: fentaNYL PF VIAL 100 MCG/2 ML VIAL IVP PRN (19:00)
[2021-02-03] MEDS ORDERED: ACETAMINOPHEN 325 MG TABLET. PO PRN (19:00)
[2021-02-03] MEDS ORDERED: ONDANSETRON PF 4 MG/2 ML VIAL. IVP PRN (19:00)
[2021-02-03] MEDS ORDERED: ENOXAPARIN 40 MG/0.4 ML SYRINGE. SQ SCH (21:00)
[2021-02-03] MEDS ORDERED: ATORVASTATIN CALCIUM 40 MG TABLET. PO SCH (21:00)
[2021-02-03] MEDS ORDERED: ISOSORBIDE MONONITRATE ER 30 MG TAB.ER.24H PO SCH (21:00)
[2021-02-03 23:39] VITALS: BP 169/72
[2021-02-04 02:39] VITALS: BP 185/105
[2021-02-04 04:46] LABS: CALCIUM 8.7 mg/dL (8.5-10.1); GFR 52.2; POTASSIUM 4.2 mmol/L (3.5-5.1)
[2021-02-04 04:52] LABS: ALBUMIN 3.4 g/dL (3.4-5.0); ALBUMIN/GLOBULIN RATIO 1.2 (1.0-1.7); TOTAL BILIRUBIN 0.8 mg/dL (0.2-1.0); TOTAL PROTEIN 6.2 g/dL (6.4-8.2)
--- NOTE | 2021-02-04 05:40 | EKG ---
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
[2021-02-04] MEDS ORDERED: ISOS30TA68 PO (05:55)
[2021-02-04] MEDS ORDERED: POLY500P10 MC (05:55)
[2021-02-04] MEDS ORDERED: BISA10SU4 RC (05:55)
[2021-02-04] MEDS ORDERED: ASPI325T11 PO (05:55)
[2021-02-04] MEDS ORDERED: POLY17PO52 PO (05:55)
[2021-02-04] MEDS ORDERED: HYDR28.337 TP (05:55)
[2021-02-04] MEDS ORDERED: OLANZapine 5 MG TABLET PO PRN (06:00)
--- NOTE | 2021-02-04 06:56 | PDOC ---
G I PROGRESS NOTE Reason for Follow-up Pancreatitis Subjective Complains of fot and leg pain today Physical Exam Lungs clear CV S1 S2 ABD +BS, soft, nontender Review of Relevant I have reviewed the following items lorna (where applicable) has been applied. Labs Laboratory Tests Test 02/03/21 17:30 02/03/21 18:00 02/03/21 18:05 02/04/21 04:00 White Blood Count 6.4 x10^3/uL (4.0-11.0) Red Blood Count 3.89 x10^6/uL (3.50-5.40) Hemoglobin 12.4 g/dL (12.0-15.5) Hematocrit 35.4 % (36.0-47.0) Mean Corpuscular Volume 91 fL (79-100) Mean Corpuscular Hemoglobin 32 pg (25-35) Mean Corpuscular Hemoglobin Concent 35 g/dL (31-37) Red Cell Distribution Width 14.6 % (11.5-14.5) Platelet Count 187 x10^3/uL (140-400) Neutrophils (%) (Auto) 66 % (31-73) Lymphocytes (%) (Auto) 20 % (24-48) Monocytes (%) (Auto) 12 % (0-9) Eosinophils (%) (Auto) 2 % (0-3) Basophils (%) (Auto) 1 % (0-3) Neutrophils # (Auto) 4.2 x10^3/uL (1.8-7.7) Lymphocytes # (Auto) 1.3 x10^3/uL (1.0-4.8) Monocytes # (Auto) 0.8 x10^3/uL (0.0-1.1) Eosinophils # (Auto) 0.1 x10^3/uL (0.0-0.7) Basophils # (Auto) 0.0 x10^3/uL (0.0-0.2) Sodium Level 136 mmol/L (136-145) 141 mmol/L (136-145) Potassium Level 3.7 mmol/L (3.5-5.1) 4.2 mmol/L (3.5-5.1) Chloride Level 101 mmol/L (98-107) 104 mmol/L (98-107) Carbon Dioxide Level 29 mmol/L (21-32) 31 mmol/L (21-32) Anion Gap 6 (6-14) 6 (6-14) Blood Urea Nitrogen 13 mg/dL (7-20) 13 mg/dL (7-20) Creatinine 1.0 mg/dL (0.6-1.0) 1.0 mg/dL (0.6-1.0) Estimated GFR (Cockcroft-Gault) 52.2 52.2 BUN/Creatinine Ratio 13 (6-20) 13 (6-20) Glucose Level 101 mg/dL (70-99) 97 mg/dL (70-99) Calcium Level 8.6 mg/dL (8.5-10.1) 8.7 mg/dL (8.5-10.1) Total Bilirubin 0.6 mg/dL (0.2-1.0) 0.8 mg/dL (0.2-1.0) Aspartate Amino Transf (AST/SGOT) 26 U/L (15-37) 24 U/L (15-37) Alanine Aminotransferase (ALT/SGPT) 28 U/L (14-59) 27 U/L (14-59) Alkaline Phosphatase 52 U/L (46-116) 51 U/L (46-116) Troponin I High Sensitivity 10 ng/L (4-50) 12 ng/L (4-50) AL-Hqv-L-Type Natriuretic Peptide 401 pg/mL (0-449) Total Protein 6.8 g/dL (6.4-8.2) 6.2 g/dL (6.4-8.2) Albumin 3.4 g/dL (3.4-5.0) 3.4 g/dL (3.4-5.0) Albumin/Globulin Ratio 1.0 (1.0-1.7) 1.2 (1.0-1.7) Lipase 525 U/L (73-393) 198 U/L (73-393) SARS-CoV-2 Antigen (Rapid) Negative (NEGATIVE) Prothrombin Time 13.1 SEC (11.7-14.0) Prothromb Time International Ratio 1.0 (0.8-1.1) Laboratory Tests Test 02/03/21 17:30 02/03/21 18:00 02/03/21 18:05 02/04/21 04:00 White Blood Count 6.4 x10^3/uL (4.0-11.0) Red Blood Count 3.89 x10^6/uL (3.50-5.40) Hemoglobin 12.4 g/dL (12.0-15.5) Hematocrit 35.4 % (36.0-47.0) Mean Corpuscular Volume 91 fL (79-100) Mean Corpuscular Hemoglobin 32 pg (25-35) Mean Corpuscular Hemoglobin Concent 35 g/dL (31-37) Red Cell Distribution Width 14.6 % (11.5-14.5) Platelet Count 187 x10^3/uL (140-400) Neutrophils (%) (Auto) 66 % (31-73) Lymphocytes (%) (Auto) 20 % (24-48) Monocytes (%) (Auto) 12 % (0-9) Eosinophils (%) (Auto) 2 % (0-3) Basophils (%) (Auto) 1 % (0-3) Neutrophils # (Auto) 4.2 x10^3/uL (1.8-7.7) Lymphocytes # (Auto) 1.3 x10^3/uL (1.0-4.8) Monocytes # (Auto) 0.8 x10^3/uL (0.0-1.1) Eosinophils # (Auto) 0.1 x10^3/uL (0.0-0.7) Basophils # (Auto) 0.0 x10^3/uL (0.0-0.2) Sodium Level 136 mmol/L (136-145) 141 mmol/L (136-145) Potassium Level 3.7 mmol/L (3.5-5.1) 4.2 mmol/L (3.5-5.1) Chloride Level 101 mmol/L (98-107) 104 mmol/L (98-107) Carbon Dioxide Level 29 mmol/L (21-32) 31 mmol/L (21-32) Anion Gap 6 (6-14) 6 (6-14) Blood Urea Nitrogen 13 mg/dL (7-20) 13 mg/dL (7-20) Creatinine 1.0 mg/dL (0.6-1.0) 1.0 mg/dL (0.6-1.0) Estimated GFR (Cockcroft-Gault) 52.2 52.2 BUN/Creatinine Ratio 13 (6-20) 13 (6-20) Glucose Level 101 mg/dL (70-99) 97 mg/dL (70-99) Calcium Level 8.6 mg/dL (8.5-10.1) 8.7 mg/dL (8.5-10.1) Total Bilirubin 0.6 mg/dL (0.2-1.0) 0.8 mg/dL (0.2-1.0) Aspartate Amino Transf (AST/SGOT) 26 U/L (15-37) 24 U/L (15-37) Alanine Aminotransferase (ALT/SGPT) 28 U/L (14-59) 27 U/L (14-59) Alkaline Phosphatase 52 U/L (46-116) 51 U/L (46-116) Troponin I High Sensitivity 10 ng/L (4-50) 12 ng/L (4-50) JR-Ukb-U-Type Natriuretic Peptide 401 pg/mL (0-449) Total Protein 6.8 g/dL (6.4-8.2) 6.2 g/dL (6.4-8.2) Albumin 3.4 g/dL (3.4-5.0) 3.4 g/dL (3.4-5.0) Albumin/Globulin Ratio 1.0 (1.0-1.7) 1.2 (1.0-1.7) Lipase 525 U/L (73-393) 198 U/L (73-393) SARS-CoV-2 Antigen (Rapid) Negative (NEGATIVE) Prothrombin Time 13.1 SEC (11.7-14.0) Prothromb Time International Ratio 1.0 (0.8-1.1) Medications Current Medications Amlodipine Besylate (Norvasc) 5 mg DAILY PO ; Start 02/04/21 at 09:00 Hydrocortisone (Proctosol-Hc) 1 jan PRN BID PRN RC rectal pain; Start 02/03/21 at 18:00 Isosorbide Mononitrate (Imdur) 30 mg HS PO Last administered on 02/03/21at 21:37; Start 02/03/21 at 21:00 Nitroglycerin (Nitrostat) 0.4 mg PRN Q5MIN PRN SL CHEST PAIN; Start 02/03/21 at 18:00 Ondansetron HCl (Zofran Odt) 4 mg PRN Q4HRS PRN PO n/v; Start 02/03/21 at 18:00 Rivastigmine (Exelon) 1 patch DAILY TD ; Start 02/04/21 at 09:00 Trazodone HCl (Desyrel) 50 mg QHS PRN PO INSOMNIA Last administered on 02/03/21at 21:39; Start 02/03/21 at 18:00 Atorvastatin Calcium (Lipitor) 80 mg QHS PO Last administered on 02/03/21at 21:37; Start 02/03/21 at 21:00 Citalopram Hydrobromide (CeleXA) 40 mg DAILY PO ; Start 02/04/21 at 09:00 Pantoprazole Sodium (Protonix) 40 mg DAILYAC PO ; Start 02/04/21 at 07:30 Hydralazine HCl (Apresoline Inj) 10 mg PRN Q4HRS PRN IVP ELEVATED BP, SEE COMMENTS Last administered on 02/04/21at 04:43; Start 02/03/21 at 18:00 Enoxaparin Sodium (Lovenox 40mg Syringe) 40 mg Q24H SQ Last administered on 02/03/21at 21:38; Start 02/03/21 at 21:00 Fentanyl Citrate (Fentanyl 2ml Vial) 25 mcg PRN Q3HRS PRN IVP SEVERE PAIN 7-10; Start 02/03/21 at 19:00 Acetaminophen (Tylenol) 650 mg PRN Q6HRS PRN PO MILD PAIN / TEMP > 100.3'F Last administered on 02/03/21at 21:40; Start 02/03/21 at 19:00 Ondansetron HCl (Zofran) 4 mg PRN Q4HRS PRN IVP NAUSEA/VOMITING; Start 02/03/21 at 19:00 Olanzapine (ZyPREXA) 5 mg PRN DAILY PRN PO ANXIETY / AGITATION Last administere d on 02/04/21at 06:15; Start 02/04/21 at 06:00; Stop 02/04/21 at 06:40; Status DC Olanzapine (ZyPREXA ZYDIS) 5 mg PRN DAILY PRN PO ANXIETY / AGITATION; Start 02/04/21 at 06:45 Active Scripts Active Proctosol-Hc (Hydrocortisone) 28.35 Gm Cream..g. 1 Jan RC PRN BID PRN 10 Days Reported Polyethylene Glycol 3350 17 Gm Powd.pack 17 Gm PO PRN DAILY PRN Proctosol-Hc (Hydrocortisone) 28.35 Gm Cream..g. 1 Jan TP BID 15 Days Isosorbide Mononitrate Er (Isosorbide Mononitrate) 30 Mg Tab.er.24h 30 Mg PO DAILY Aspirin Ec (Aspirin) 325 Mg Tablet.dr 1 Tab PO DAILY Bisacodyl 10 Mg Supp.rect 10 Mg RC PRN DAILY PRN Polyethylene Glycol (Polyethylene Glycol 8000) 500 Gm Powder 500 Gm MC PRN Nystatin 15 Gm Cream..g. 1 Jan TP TID Myrbetriq (Mirabegron) 25 Mg Tab.er.24h 25 Mg PO DAILY Lactulose 20 Gm/30 Ml Solution 10 Gm PO DAILY Estrace (Estradiol) 42.5 Gm Cream.appl 1 Gm VG 3X/WEEK Hydrocodone-Apap 5-325 (Hydrocodone Bit/Acetaminophen) 1 Tab Tablet 2 Tab PO PRN Q6HRS PRN Amlodipine Besylate 5 Mg Tablet 5 Mg PO DAILY Isosorbide Mononitrate Er (Isosorbide Mononitrate) 30 Mg Tab.er.24h 1 Tab PO HS Methocarbamol 500 Mg Tablet 1 Tab PO PRN DAILY PRN Ondansetron Odt (Ondansetron) 4 Mg Tab.rapdis 1 Tab PO PRN Q6-8HRS PRN Citalopram Hbr (Citalopram Hydrobromide) 40 Mg Tablet 1 Tab PO DAILY Omeprazole 40 Mg Capsule.dr 1 Cap PO DAILY Losartan Potassium 50 Mg Tablet 1 Tab PO DAILY EXELON 9.5mg/24hr (Rivastigmine) 1 Each Patch.td24 1 Patch TP DAILY 1 Days NITROGLYCERIN SubLingual (Nitroglycerin) 0.4 Mg Tab.subl 0.4 Mg SL PRN Q5MIN PRN Hydrocodone-Apap 5-325 (Hydrocodone Bit/Acetaminophen) 1 Each Tablet 1 Tab PO PRN Q6HRS PRN Clonazepam (Clonazepam) 0.5 Mg Tablet 1-2 Tab PO QHS Trazodone Hcl 50 Mg Tablet 1 Tab PO QHS PRN Atorvastatin Calcium 80 Mg Tablet 80 Mg PO DAILY Vitals/I & O Vital Sign - Last 24 Hours 02/03/21 02/03/21 02/03/21 02/03/21 17:08 18:47 21:37 23:39 Temp 97.8 98.1 97.8 98.1 Pulse 80 59 59 69 Resp 16 15 19 B/P (MAP) 222/101 (141) 205/80 (121) 205/80 169/72 (104) Pulse Ox 95 98 98 O2 Delivery Room Air Room Air Room Air 02/04/21 02/04/21 02/04/21 02:39 02:49 04:43 Temp 98.0 98.0 Pulse 59 59 59 Resp 19 B/P (MAP) 185/105 (131) 185/105 Pulse Ox 96 O2 Delivery Room Air Intake and Output 02/03/21 02/03/21 02/04/21 15:00 23:00 07:00 Intake Total 200 ml 300 ml Balance 200 ml 300 ml Problem List Problems Medical Problems: (1) Chest pain Status: Acute Assessment Pancreatitis- biochemical elevations noted, most likely secondary to IPMN, conservative therpay recommended with multiple co-morbiditiesx Justicifation of Admission Dx: Justifications for Admission: Justification of Admission Dx: Yes Angina: New-Onset Hypertension: Symp at Rest DILLAN MUSTAFA MD Feb 04, 2021 06:56
[2021-02-04 07:00] VITALS: BP 172/67
[2021-02-04] MEDS ORDERED: PANTOPRAZOLE 40 MG TABLET.DR. PO SCH (07:30)
[2021-02-04] MEDS ORDERED: RIVASTIGMINE 9.5MG PATCH. TD SCH (09:00)
[2021-02-04] MEDS ORDERED: CITALOPRAM 20 MG TABLET. PO SCH (09:00)
--- NOTE | 2021-02-04 10:20 | PDOC2 ---
LACHO RILEY BORE MILL OPERATOR FOR PLASTIC 02/04/21 1020: CARDIAC CONSULT DATE OF CONSULT Date of Consult DATE: 02/04/21 TIME: 10:02 REASON FOR CONSULT Reason for Consult: Chest pain REFERRING PHYSICIAN Referring Physician: Soto SOURCE Source: Chart review, Patient HISTORY OF PRESENT ILLNESS HISTORY OF PRESENT ILLNESS This is an 89 yo female admitted for complains of chest pain. Upon admission her BP was significnatly high. Her right side chest pain is reproducible. No nausea and no SOA. She is a poor historian and extremely [place]. No recent falls or injury. No fever or chills. PAST MEDICAL HISTORY Cardiovascular: CAD, HTN, Hyperlipidemia Pulmonary: Other ([place]) CENTRAL NERVOUS SYSTEM: Dementia GI: Diverticulosis, Hemorrhoids, Other (colitis; gastroparesis; hiatal hernia) Heme/Onc: Cancer (cutaneous large cell lymphoma) Hepatobiliary: Cholelithiasis Musculoskeletal: low back pain, Osteoarthritis, Other (compression fractures to bacl) Rheumatologic: No pertinent hx ENT: No pertinent hx Endocrine: Osteoporosis PAST SURGICAL HISTORY Past Surgical History: Tonsillectomy, Hysterectomy, Colon Resection, Other (PCI to LAD) FAMILY HISTORY Family History noncontributory to age SOCIAL HISTORY Smoke: Quit ALCOHOL: none Drugs: None Lives: with Family CURRENT MEDICATIONS CURRENT MEDICATIONS Current Medications Medications (Trade) Dose Ordered Sig/Vanessa Route PRN Reason Start Time Stop Time Status Last Admin Dose Admin Isosorbide Mononitrate (Imdur) 30 mg HS PO 02/03/21 21:00 02/03/21 21:37 Trazodone HCl (Desyrel) 50 mg QHS PRN PO INSOMNIA 02/03/21 18:00 02/03/21 21:39 Atorvastatin Calcium (Lipitor) 80 mg QHS PO 02/03/21 21:00 02/03/21 21:37 Hydralazine HCl (Apresoline Inj) 10 mg PRN Q4HRS PRN IVP ELEVATED BP, SEE COMMENTS 02/03/21 18:00 02/04/21 04:43 Enoxaparin Sodium (Lovenox 40mg Syringe) 40 mg Q24H SQ 02/03/21 21:00 02/03/21 21:38 Acetaminophen (Tylenol) 650 mg PRN Q6HRS PRN PO MILD PAIN / TEMP > 100.3'F 02/03/21 19:00 02/03/21 21:40 Ondansetron HCl (Zofran) 4 mg PRN Q4HRS PRN IVP NAUSEA/VOMITING 02/03/21 19:00 02/04/21 07:09 Olanzapine (ZyPREXA) 5 mg PRN DAILY PRN PO ANXIETY / AGITATION 02/04/21 06:00 02/04/21 06:40 DC 02/04/21 06:15 Olanzapine (ZyPREXA ZYDIS) 5 mg PRN DAILY PRN PO ANXIETY / AGITATION 02/04/21 06:45 02/04/21 07:10 ALLERGIES ALLERGIES: Coded Allergies: YURIY Inhibitors (Verified Allergy, Intermediate, 02/03/21) Beta-Blockers (Beta-Adrenergic Bloc (Verified Allergy, Intermediate, 02/03/21) Has received IV labetolol during prior visit without issues lisinopril (Verified Adverse Reaction, Severe, "passed out", 02/03/21) ROS Review of System limited poor historian PHYSICAL EXAM General: Alert, Oriented X3, No acute distress HEENT: Atraumatic, Mucous membr. moist/pink, Other ([place]) Lungs: Clear to auscultation, Normal air movement Heart: Regular rate (SR), Normal S1, Normal S2 Abdomen: Soft, No tenderness Extremities: No cyanosis, No edema Skin: No breakdown, No significant lesion Neuro: Normal speech, Sensation intact Psych/Mental Status: Mental status NL, Mood NL MUSCULOSKELETAL: Osteoarthritic changes both hands VITALS/I&O VITALS/I&O: Vital Signs Date Time Temp Pulse Resp B/P (MAP) Pulse Ox O2 Delivery O2 Flow Rate FiO2 02/04/21 07:00 98.3 86 18 172/67 (102) 93 Room Air 98.3 I & O 0 02/03/21 02/03/21 02/04/21 15:00 23:00 07:00 Intake Total 200 ml 300 ml Balance 200 ml 300 ml LABS Lab: Laboratory Tests Test 02/03/21 17:30 02/03/21 18:00 02/03/21 18:05 02/04/21 04:00 White Blood Count 6.4 x10^3/uL (4.0-11.0) Red Blood Count 3.89 x10^6/uL (3.50-5.40) Hemoglobin 12.4 g/dL (12.0-15.5) Hematocrit 35.4 % (36.0-47.0) L Mean Corpuscular Volume 91 fL (79-100) Mean Corpuscular Hemoglobin 32 pg (25-35) Mean Corpuscular Hemoglobin Concent 35 g/dL (31-37) Red Cell Distribution Width 14.6 % (11.5-14.5) H Platelet Count 187 x10^3/uL (140-400) Neutrophils (%) (Auto) 66 % (31-73) Lymphocytes (%) (Auto) 20 % (24-48) L Monocytes (%) (Auto) 12 % (0-9) H Eosinophils (%) (Auto) 2 % (0-3) Basophils (%) (Auto) 1 % (0-3) Neutrophils # (Auto) 4.2 x10^3/uL (1.8-7.7) Lymphocytes # (Auto) 1.3 x10^3/uL (1.0-4.8) Monocytes # (Auto) 0.8 x10^3/uL (0.0-1.1) Eosinophils # (Auto) 0.1 x10^3/uL (0.0-0.7) Basophils # (Auto) 0.0 x10^3/uL (0.0-0.2) Sodium Level 136 mmol/L (136-145) 141 mmol/L (136-145) Potassium Level 3.7 mmol/L (3.5-5.1) 4.2 mmol/L (3.5-5.1) Chloride Level 101 mmol/L (98-107) 104 mmol/L (98-107) Carbon Dioxide Level 29 mmol/L (21-32) 31 mmol/L (21-32) Anion Gap 6 (6-14) 6 (6-14) Blood Urea Nitrogen 13 mg/dL (7-20) 13 mg/dL (7-20) Creatinine 1.0 mg/dL (0.6-1.0) 1.0 mg/dL (0.6-1.0) Estimated GFR (Cockcroft-Gault) 52.2 52.2 BUN/Creatinine Ratio 13 (6-20) 13 (6-20) Glucose Level 101 mg/dL (70-99) H 97 mg/dL (70-99) Calcium Level 8.6 mg/dL (8.5-10.1) 8.7 mg/dL (8.5-10.1) Total Bilirubin 0.6 mg/dL (0.2-1.0) 0.8 mg/dL (0.2-1.0) Aspartate Amino Transferase (AST) 26 U/L (15-37) 24 U/L (15-37) Alanine Aminotransferase (ALT) 28 U/L (14-59) 27 U/L (14-59) Alkaline Phosphatase 52 U/L (46-116) 51 U/L (46-116) Troponin I High Sensitivity 10 ng/L (4-50) 12 ng/L (4-50) WU-Jjy-S-Type Natriuretic Peptide 401 pg/mL (0-449) Total Protein 6.8 g/dL (6.4-8.2) 6.2 g/dL (6.4-8.2) L Albumin 3.4 g/dL (3.4-5.0) 3.4 g/dL (3.4-5.0) Albumin/Globulin Ratio 1.0 (1.0-1.7) 1.2 (1.0-1.7) Lipase 525 U/L (73-393) H 198 U/L (73-393) SARS-CoV-2 Antigen (Rapid) Negative (NEGATIVE) Prothrombin Time 13.1 SEC (11.7-14.0) Prothrombin Time INR 1.0 (0.8-1.1) Laboratory Tests 02/03/21 17:30 Laboratory Tests 02/03/21 17:30 02/04/21 04:00 ASSESSMENT/PLAN ASSESSMENT/PLAN 1. Atypical Chest pain: reproducible 2. CAD: past PCI to LAD. clinically stable 3. HTN urgency 4. HLP 5. PUI 6. Dementia 7. PSVT: x1 brief Recommendations 1. Continue current BP regimen. Add toprol 2. Continue secondary prevention measures 3. Follow up as an outpt ANGÉLICA ALLEN MD 02/04/21 1319: CARDIAC CONSULT ASSESSMENT/PLAN ASSESSMENT/PLAN Patient seen and examined I agree with our nurse practitioners assessment and plan. Chest pain. Atypical. Reproducible with pressure. No significant elevation in enzymes. Continue present medications with the addition of a beta-rainer. History of coronary disease with distant PCI to the LAD. No elevation in enzymes. Adding beta-blockers. Outpatient follow-up. Hypertensive urgency. Blood pressure continues to improve. Hyperlipidemia. Continue present treatments. Dementia. 1 brief episode of PSVT. Continue on monitors. Beta-rainer as above. LACHO RILEY APRN Feb 04, 2021 10:20 ANGÉLICA ALLEN MD Feb 04, 2021 13:19
[2021-02-04 11:00] VITALS: BP 120/53
[2021-02-04] MEDS ORDERED: METOPROLOL SUCC 24HR ER 25 MG TAB.ER.24H. PO SCH (11:00)
[2021-02-04 11:51] VITALS: BP 172/67
--- NOTE | 2021-02-04 11:54 | NUR ---
pt was prescribed metoprolol to be given at 1100. pt it allergic to beta blockers per her EMR. called pharmacy to check if it would be ok to give the metoprolol. They stated that she had taken labetalol when she was here at the hospital. bhavin Coker and explained Addendum: 02/04/21 at 1212 by SUSANA SMITH LPN LPN pt was prescribed metoprolol to be give at 1100. pt is allergic to beta blockers per her EMR. Called pharmacy to check if it would be ok to give the metoprolol. They stated that she had taken labetalol, without a reaction, when she was here before. Pagebradley Coker APRN and explained she has beta blockers listed as an allergy but she has taken labetalol here before. He said to go ahead and administer the metoprolol. Will monitor
--- NOTE | 2021-02-04 11:58 | PDOC ---
[employer] PROGRESS NOTE Date of Service DOS: DATE: 02/04/21 TIME: 11:54 Chief Complaint Chief Complaint acute pancreatitis, GI consult following Chest pain - pancreaitits Hypertensive urgency - SBP > 200mmHg. 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 Sigmoid diverticulosis. Small hiatal hernia. Unchanged abdominal aortic aneurysm and severe calcified aortoiliac atherosclerosis. 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 Unchanged enlarged left inguinal lymph node. 7 mm hypodensity in the pancreatic head, nonspecific - no weight loss noted. Elevated lipase - unclear what to make of this, really minimally elevated, but pancreatic nodule noted previously, will ask GI opinion History of Present Illness History of Present Illness GI folloinwg increase BP meds IV fluid, NPO for pancreas [facility] resident Vitals/I&O Vitals/I&O: Vital Signs Date Time Temp Pulse Resp B/P (MAP) Pulse Ox O2 Delivery O2 Flow Rate FiO2 02/04/21 11:51 86 172/67 02/04/21 07:00 98.3 18 93 Room Air 98.3 I & O 02/03/21 02/03/21 02/04/21 15:00 23:00 07:00 Intake Total 200 ml 300 ml Balance 200 ml 300 ml Physical Exam General: Alert, Oriented X3, No acute distress Heart: Regular rate (SR), Normal S1, Normal S2 Lungs: Clear, Other Abdomen: Soft, No tenderness Extremities: No cyanosis, No edema Skin: No breakdown, No significant lesion Labs Labs: Laboratory Tests Test 02/03/21 17:30 02/03/21 18:00 02/03/21 18:05 02/04/21 04:00 White Blood Count 6.4 x10^3/uL (4.0-11.0) Red Blood Count 3.89 x10^6/uL (3.50-5.40) Hemoglobin 12.4 g/dL (12.0-15.5) Hematocrit 35.4 % (36.0-47.0) Mean Corpuscular Volume 91 fL (79-100) Mean Corpuscular Hemoglobin 32 pg (25-35) Mean Corpuscular Hemoglobin Concent 35 g/dL (31-37) Red Cell Distribution Width 14.6 % (11.5-14.5) Platelet Count 187 x10^3/uL (140-400) Neutrophils (%) (Auto) 66 % (31-73) Lymphocytes (%) (Auto) 20 % (24-48) Monocytes (%) (Auto) 12 % (0-9) Eosinophils (%) (Auto) 2 % (0-3) Basophils (%) (Auto) 1 % (0-3) Neutrophils # (Auto) 4.2 x10^3/uL (1.8-7.7) Lymphocytes # (Auto) 1.3 x10^3/uL (1.0-4.8) Monocytes # (Auto) 0.8 x10^3/uL (0.0-1.1) Eosinophils # (Auto) 0.1 x10^3/uL (0.0-0.7) Basophils # (Auto) 0.0 x10^3/uL (0.0-0.2) Sodium Level 136 mmol/L (136-145) 141 mmol/L (136-145) Potassium Level 3.7 mmol/L (3.5-5.1) 4.2 mmol/L (3.5-5.1) Chloride Level 101 mmol/L (98-107) 104 mmol/L (98-107) Carbon Dioxide Level 29 mmol/L (21-32) 31 mmol/L (21-32) Anion Gap 6 (6-14) 6 (6-14) Blood Urea Nitrogen 13 mg/dL (7-20) 13 mg/dL (7-20) Creatinine 1.0 mg/dL (0.6-1.0) 1.0 mg/dL (0.6-1.0) Estimated GFR (Cockcroft-Gault) 52.2 52.2 BUN/Creatinine Ratio 13 (6-20) 13 (6-20) Glucose Level 101 mg/dL (70-99) 97 mg/dL (70-99) Calcium Level 8.6 mg/dL (8.5-10.1) 8.7 mg/dL (8.5-10.1) Total Bilirubin 0.6 mg/dL (0.2-1.0) 0.8 mg/dL (0.2-1.0) Aspartate Amino Transf (AST/SGOT) 26 U/L (15-37) 24 U/L (15-37) Alanine Aminotransferase (ALT/SGPT) 28 U/L (14-59) 27 U/L (14-59) Alkaline Phosphatase 52 U/L (46-116) 51 U/L (46-116) Troponin I High Sensitivity 10 ng/L (4-50) 12 ng/L (4-50) UU-Dus-E-Type Natriuretic Peptide 401 pg/mL (0-449) Total Protein 6.8 g/dL (6.4-8.2) 6.2 g/dL (6.4-8.2) Albumin 3.4 g/dL (3.4-5.0) 3.4 g/dL (3.4-5.0) Albumin/Globulin Ratio 1.0 (1.0-1.7) 1.2 (1.0-1.7) Lipase 525 U/L (73-393) 198 U/L (73-393) SARS-CoV-2 RNA (RASTA) Negative (Negative) SARS-CoV-2 Antigen (Rapid) Negative (NEGATIVE) Prothrombin Time 13.1 SEC (11.7-14.0) Prothromb Time International Ratio 1.0 (0.8-1.1) Assessment and Plan Assessmemt and Plan Problems Medical Problems: (1) Chest pain Status: Acute Comment Review of Relevant I have reviewed the following items lorna (where applicable) has been applied. Medications: Current Medications Medications (Trade) Dose Ordered Sig/Vanessa Route PRN Reason Start Time Stop Time Status Last Admin Dose Admin Amlodipine Besylate (Norvasc) 5 mg DAILY PO 02/04/21 09:00 02/04/21 10:12 DC 02/04/21 10:11 Isosorbide Mononitrate (Imdur) 30 mg HS PO 02/03/21 21:00 02/03/21 21:37 Rivastigmine (Exelon) 1 patch DAILY TD 02/04/21 09:00 02/04/21 11:11 Trazodone HCl (Desyrel) 50 mg QHS PRN PO INSOMNIA 02/03/21 18:00 02/03/21 21:39 Atorvastatin Calcium (Lipitor) 80 mg QHS PO 02/03/21 21:00 02/03/21 21:37 Citalopram Hydrobromide (CeleXA) 40 mg DAILY PO 02/04/21 09:00 02/04/21 10:10 Pantoprazole Sodium (Protonix) 40 mg DAILYAC PO 02/04/21 07:30 02/04/21 10:10 Hydralazine HCl (Apresoline Inj) 10 mg PRN Q4HRS PRN IVP ELEVATED BP, SEE COMMENTS 02/03/21 18:00 02/04/21 04:43 Enoxaparin Sodium (Lovenox 40mg Syringe) 40 mg Q24H SQ 02/03/21 21:00 02/03/21 21:38 Acetaminophen (Tylenol) 650 mg PRN Q6HRS PRN PO MILD PAIN / TEMP > 100.3'F 02/03/21 19:00 02/03/21 21:40 Ondansetron HCl (Zofran) 4 mg PRN Q4HRS PRN IVP NAUSEA/VOMITING 02/03/21 19:00 02/04/21 07:09 Olanzapine (ZyPREXA) 5 mg PRN DAILY PRN PO ANXIETY / AGITATION 02/04/21 06:00 02/04/21 06:40 DC 02/04/21 06:15 Olanzapine (ZyPREXA ZYDIS) 5 mg PRN DAILY PRN PO ANXIETY / AGITATION 02/04/21 06:45 02/04/21 07:10 Amlodipine Besylate (Norvasc) 5 mg 1X ONCE PO 02/04/21 10:15 02/04/21 10:16 DC 02/04/21 11:51 Metoprolol Succinate (Toprol Xl) 25 mg DAILY PO 02/04/21 11:00 02/04/21 11:47 Justifications for Admission Other Justification PARTH JUNIOR MD Feb 04, 2021 11:58
[2021-02-04] MEDS ORDERED: METOPROLOL SUCC 24HR ER 25 MG TAB.ER.24H. PO ONE (12:00)
--- NOTE | 2021-02-04 12:00 | NUR ---
SS following for discharge planning. SS reviewed pt chart and discussed with pt RN. Pt is skilled rehabilitation resident from [facility], ; fax [phone]. COVID19 negative. Pt is currently on room air. GI and Cardiology consulted. Clinical updates phoned and faxed to [facility]. SS will continue to follow for discharge planning. Addendum: 02/04/21 at 1220 by INDIGO CORTES Discharge orders received for return to facility. Discharge orders phoned and faxed to [facility]. Pt will discharge today and return to [facility] between 1500 and [address] [facility] to provide transportation. Pt and pt's RN notified.
[2021-02-04] MEDS ORDERED: HYDR-2761 PO (12:03)
[2021-02-04] MEDS ORDERED: AMLO-187 PO (12:03)
--- NOTE | 2021-02-04 12:06 | SNU/HH DC ---
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 Unchanged enlarged left inguinal lymph node. Problems Medical Problems: (1) Chest pain Status: Acute CONDITION ON DISCHARGE: Stable CODE STATUS: Code Status: Full SHELTER: SNF STAY <30 DAYS: Yes POST DISCHARGE ORDERS: ACTIVITY ORDERS: Activity as tolerated WEIGHT BEARING STATUS: As tolerated DIET AFTER DISCHARGE: Cardiac CHECKS AFTER DISCHARGE: CHECKS AFTER DISCHARGE: Check blood press - daily, Check your Temp as needed, Weigh Yourself Daily TREATMENT/EQUIPMENT ORDERS: ADAPTIVE EQUIPMENT NEEDED: None, Four wheeled walker Physical Therapy For: Evalulation/Treatment Occupational Therapy For: Evaluation/Treatment DISCHARGE MEDICATIONS: Home Meds Active Scripts Amlodipine Besylate (AMLODIPINE BESYLATE) 10 Mg Tablet, 10 MG PO DAILY for hypertension, #30 TAB Prov:PARTH JUNIOR MD 02/04/21 Hydrocodone Bit/Acetaminophen (HYDROCODONE-APAP 5-325 ) 1 Each Tablet, 1 TAB PO PRN Q6HRS PRN for PAIN, #20 TAB 0 Refills Prov:PARTH JUNIOR MD 02/04/21 Hydrocortisone (PROCTOSOL-HC) 28.35 Gm Cream..g., 1 VICKIE RC PRN BID PRN for rectal pain for 10 Days, #1 TUBE 1 Refill Prov:NATHANAEL PHILLIP MD 05/19/19 Reported Medications Polyethylene Glycol 3350 (POLYETHYLENE GLYCOL 3350) 17 Gm Powd.pack, 17 GM PO PRN DAILY PRN for CONSTIPATION, PKT 02/04/21 Aspirin (ASPIRIN EC) 325 Mg Tablet.dr, 1 TAB PO DAILY for THINNER, #90 TAB 3 Refills 02/04/21 Bisacodyl (BISACODYL) 10 Mg Supp.rect, 10 MG RC PRN DAILY PRN for CONSTIPATION, SUPP.RECT 0 Refills 02/04/21 Polyethylene Glycol 8000 (POLYETHYLENE GLYCOL) 500 Gm Powder, 500 GM MC PRN for VAGINAL, MISC 02/04/21 Nystatin (NYSTATIN) 15 Gm Cream..g., 1 VICKIE TP TID for irritation, #30 GM 01/20/21 Mirabegron (MYRBETRIQ) 25 Mg Tab.er.24h, 25 MG PO DAILY for OVERACTIVE BLADDER, TAB.SR 01/20/21 Lactulose (LACTULOSE) 20 Gm/30 Ml Solution, 10 GM PO DAILY for other, MISC 01/20/21 Estradiol (ESTRACE) 42.5 Gm Cream.appl, 1 GM VG 3X/WEEK for other, #1 EACH 11 Refills 01/20/21 Isosorbide Mononitrate (ISOSORBIDE MONONITRATE ER) 30 Mg Tab.er.24h, 1 TAB PO HS for HTN, #30 TAB 5 Refills 01/20/20 Methocarbamol (METHOCARBAMOL) 500 Mg Tablet, 1 TAB PO PRN DAILY PRN for muscle spasm 01/17/20 Ondansetron (ONDANSETRON ODT) 4 Mg Tab.rapdis, 1 TAB PO PRN Q6-8HRS PRN for 01/17/20 Citalopram Hydrobromide (CITALOPRAM HBR) 40 Mg Tablet, 1 TAB PO DAILY for 01/17/20 Omeprazole (OMEPRAZOLE) 40 Mg Capsule.dr, 1 CAP PO DAILY for 01/17/20 Losartan Potassium (Losartan Potassium) 50 Mg Tablet, 1 TAB PO DAILY for 01/17/20 Rivastigmine (EXELON 9.5mg/24hr) 1 Each Patch.td24, 1 PATCH TP DAILY for 1 Day 10/08/19 Nitroglycerin (NITROGLYCERIN SubLingual) 0.4 Mg Tab.subl, 0.4 MG SL PRN Q5MIN PRN for CHEST PAIN, BOTTLE 10/07/19 Clonazepam (CLONAZEPAM ) 0.5 Mg Tablet, 1-2 TAB PO QHS for sleep 02/04/18 Trazodone Hcl (TRAZODONE HCL) 50 Mg Tablet, 1 TAB PO QHS PRN for INSOMNIA 02/04/18 Atorvastatin Calcium (ATORVASTATIN CALCIUM) 80 Mg Tablet, 80 MG PO DAILY 08/05/13 Discontinued Reported Medications Hydrocortisone (PROCTOSOL-HC) 28.35 Gm Cream..g., 1 VICKIE TP BID for RECTAL SURGERY ON RECTUM for 15 Days, #60 GM 0 Refills 02/04/21 Isosorbide Mononitrate (ISOSORBIDE MONONITRATE ER) 30 Mg Tab.er.24h, 30 MG PO DAILY for BP, TAB.SR 02/04/21 Hydrocodone Bit/Acetaminophen (HYDROCODONE-APAP 5-325 ) 1 Tab Tablet, 2 TAB PO PRN Q6HRS PRN for PAIN, TAB 0 Refills 01/20/21 Amlodipine Besylate (AMLODIPINE BESYLATE) 5 Mg Tablet, 5 MG PO DAILY for HTN, TAB 01/20/20 PARTH JUNIOR MD Feb 04, 2021 12:05
--- NOTE | 2021-02-04 12:09 | PDOC3 ---
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 Unchanged enlarged left inguinal lymph node. Problems Medical Problems: (1) Chest pain Status: Acute Brief Hospital Course Allergies Allergies Coded Allergies Type Severity Reaction Last Updated Verified YURIY Inhibitors Allergy Intermediate 02/03/21 Yes Beta-Blockers (Beta-Adrenergic Bloc Allergy Intermediate 02/03/21 Yes lisinopril Adverse Reaction Severe "passed out" 02/03/21 Yes Vital Signs Vital Signs Date Time Temp Pulse Resp B/P (MAP) Pulse Ox O2 Delivery O2 Flow Rate FiO2 02/04/21 11:51 86 172/67 02/04/21 07:00 98.3 18 93 Room Air 98.3 Lab Results Laboratory Tests Test 02/03/21 17:30 02/03/21 18:00 02/03/21 18:05 02/04/21 04:00 White Blood Count 6.4 x10^3/uL (4.0-11.0) Red Blood Count 3.89 x10^6/uL (3.50-5.40) Hemoglobin 12.4 g/dL (12.0-15.5) Hematocrit 35.4 % (36.0-47.0) Mean Corpuscular Volume 91 fL (79-100) Mean Corpuscular Hemoglobin 32 pg (25-35) Mean Corpuscular Hemoglobin Concent 35 g/dL (31-37) Red Cell Distribution Width 14.6 % (11.5-14.5) Platelet Count 187 x10^3/uL (140-400) Neutrophils (%) (Auto) 66 % (31-73) Lymphocytes (%) (Auto) 20 % (24-48) Monocytes (%) (Auto) 12 % (0-9) Eosinophils (%) (Auto) 2 % (0-3) Basophils (%) (Auto) 1 % (0-3) Neutrophils # (Auto) 4.2 x10^3/uL (1.8-7.7) Lymphocytes # (Auto) 1.3 x10^3/uL (1.0-4.8) Monocytes # (Auto) 0.8 x10^3/uL (0.0-1.1) Eosinophils # (Auto) 0.1 x10^3/uL (0.0-0.7) Basophils # (Auto) 0.0 x10^3/uL (0.0-0.2) Sodium Level 136 mmol/L (136-145) 141 mmol/L (136-145) Potassium Level 3.7 mmol/L (3.5-5.1) 4.2 mmol/L (3.5-5.1) Chloride Level 101 mmol/L (98-107) 104 mmol/L (98-107) Carbon Dioxide Level 29 mmol/L (21-32) 31 mmol/L (21-32) Anion Gap 6 (6-14) 6 (6-14) Blood Urea Nitrogen 13 mg/dL (7-20) 13 mg/dL (7-20) Creatinine 1.0 mg/dL (0.6-1.0) 1.0 mg/dL (0.6-1.0) Estimated GFR (Cockcroft-Gault) 52.2 52.2 BUN/Creatinine Ratio 13 (6-20) 13 (6-20) Glucose Level 101 mg/dL (70-99) 97 mg/dL (70-99) Calcium Level 8.6 mg/dL (8.5-10.1) 8.7 mg/dL (8.5-10.1) Total Bilirubin 0.6 mg/dL (0.2-1.0) 0.8 mg/dL (0.2-1.0) Aspartate Amino Transf (AST/SGOT) 26 U/L (15-37) 24 U/L (15-37) Alanine Aminotransferase (ALT/SGPT) 28 U/L (14-59) 27 U/L (14-59) Alkaline Phosphatase 52 U/L (46-116) 51 U/L (46-116) Troponin I High Sensitivity 10 ng/L (4-50) 12 ng/L (4-50) WB-Qji-D-Type Natriuretic Peptide 401 pg/mL (0-449) Total Protein 6.8 g/dL (6.4-8.2) 6.2 g/dL (6.4-8.2) Albumin 3.4 g/dL (3.4-5.0) 3.4 g/dL (3.4-5.0) Albumin/Globulin Ratio 1.0 (1.0-1.7) 1.2 (1.0-1.7) Lipase 525 U/L (73-393) 198 U/L (73-393) SARS-CoV-2 RNA (RASTA) Negative (Negative) SARS-CoV-2 Antigen (Rapid) Negative (NEGATIVE) Prothrombin Time 13.1 SEC (11.7-14.0) Prothromb Time International Ratio 1.0 (0.8-1.1) Laboratory Tests Test 02/03/21 17:30 02/03/21 18:00 02/03/21 18:05 02/04/21 04:00 White Blood Count 6.4 x10^3/uL (4.0-11.0) Red Blood Count 3.89 x10^6/uL (3.50-5.40) Hemoglobin 12.4 g/dL (12.0-15.5) Hematocrit 35.4 % (36.0-47.0) Mean Corpuscular Volume 91 fL (79-100) Mean Corpuscular Hemoglobin 32 pg (25-35) Mean Corpuscular Hemoglobin Concent 35 g/dL (31-37) Red Cell Distribution Width 14.6 % (11.5-14.5) Platelet Count 187 x10^3/uL (140-400) Neutrophils (%) (Auto) 66 % (31-73) Lymphocytes (%) (Auto) 20 % (24-48) Monocytes (%) (Auto) 12 % (0-9) Eosinophils (%) (Auto) 2 % (0-3) Basophils (%) (Auto) 1 % (0-3) Neutrophils # (Auto) 4.2 x10^3/uL (1.8-7.7) Lymphocytes # (Auto) 1.3 x10^3/uL (1.0-4.8) Monocytes # (Auto) 0.8 x10^3/uL (0.0-1.1) Eosinophils # (Auto) 0.1 x10^3/uL (0.0-0.7) Basophils # (Auto) 0.0 x10^3/uL (0.0-0.2) Sodium Level 136 mmol/L (136-145) 141 mmol/L (136-145) Potassium Level 3.7 mmol/L (3.5-5.1) 4.2 mmol/L (3.5-5.1) Chloride Level 101 mmol/L (98-107) 104 mmol/L (98-107) Carbon Dioxide Level 29 mmol/L (21-32) 31 mmol/L (21-32) Anion Gap 6 (6-14) 6 (6-14) Blood Urea Nitrogen 13 mg/dL (7-20) 13 mg/dL (7-20) Creatinine 1.0 mg/dL (0.6-1.0) 1.0 mg/dL (0.6-1.0) Estimated GFR (Cockcroft-Gault) 52.2 52.2 BUN/Creatinine Ratio 13 (6-20) 13 (6-20) Glucose Level 101 mg/dL (70-99) 97 mg/dL (70-99) Calcium Level 8.6 mg/dL (8.5-10.1) 8.7 mg/dL (8.5-10.1) Total Bilirubin 0.6 mg/dL (0.2-1.0) 0.8 mg/dL (0.2-1.0) Aspartate Amino Transf (AST/SGOT) 26 U/L (15-37) 24 U/L (15-37) Alanine Aminotransferase (ALT/SGPT) 28 U/L (14-59) 27 U/L (14-59) Alkaline Phosphatase 52 U/L (46-116) 51 U/L (46-116) Troponin I High Sensitivity 10 ng/L (4-50) 12 ng/L (4-50) VA-Wga-H-Type Natriuretic Peptide 401 pg/mL (0-449) Total Protein 6.8 g/dL (6.4-8.2) 6.2 g/dL (6.4-8.2) Albumin 3.4 g/dL (3.4-5.0) 3.4 g/dL (3.4-5.0) Albumin/Globulin Ratio 1.0 (1.0-1.7) 1.2 (1.0-1.7) Lipase 525 U/L (73-393) 198 U/L (73-393) SARS-CoV-2 RNA (RASTA) Negative (Negative) SARS-CoV-2 Antigen (Rapid) Negative (NEGATIVE) Prothrombin Time 13.1 SEC (11.7-14.0) Prothromb Time International Ratio 1.0 (0.8-1.1) Brief Hospital Course Ms. Martinez is a 89 old admit with acute chest pain and abd pain, r/o ACS, CAD hx, trop neg, lipase > 500 acute idiopathic pancreatitis DC back to skilled as zero pain on 02/04 Discharge Information Condition at Discharge: Improved Follow Up: Weeks Disposition/Orders: D/C to Another Facility Scheduled Amlodipine Besylate (Amlodipine Besylate) 10 Mg Tablet, 10 MG PO DAILY for hypertension, #30 Prescribed by: PARTH JUNIOR on 02/04/21 1203 Aspirin (Aspirin Ec) 325 Mg Tablet.dr, 1 TAB PO DAILY for THINNER, #90 Ref 3 (Reported) Entered as Reported by: Belle Solano on 02/04/21554 Last Action: New Order on 02/04/21554 by Belle Solano Atorvastatin Calcium (Atorvastatin Calcium) 80 Mg Tablet, 80 MG PO DAILY, (Reported) Entered as Reported by: ROMARIO HALL on 08/05/13 1543 Last Action: Converted on 02/03/211758 by NATHANAEL PHILLIP MD Citalopram Hydrobromide (Citalopram Hbr) 40 Mg Tablet, 1 TAB PO DAILY for , (Reported) Entered as Reported by: JOSE MOSCOSO RN on 01/17/201818 Last Action: Converted on 02/03/211758 by NATHANAEL PHILLIP MD Clonazepam (Clonazepam ) 0.5 Mg Tablet, 1-2 TAB PO QHS for sleep, (Reported) Entered as Reported by: INDIGO PAZ on 02/04/18 0047 Estradiol (Estrace) 42.5 Gm Cream.appl, 1 GM VG 3X/WEEK for other, #1 Ref 11 (Reported) Entered as Reported by: JOANNE APODACA on 01/20/21 1911 Isosorbide Mononitrate (Isosorbide Mononitrate Er) 30 Mg Tab.er.24h, 1 TAB PO HS for HTN, #30 Ref 5 (Reported) Entered as Reported by: OUSMANE RAMOS on 01/20/201516 Last Action: Continued on 02/03/211758 by NATHANAEL PHILLIP MD Lactulose (Lactulose) 20 Gm/30 Ml Solution, 10 GM PO DAILY for other, (Reported) Entered as Reported by: JOANNE APODACA on 01/20/211926 Losartan Potassium (Losartan Potassium) 50 Mg Tablet, 1 TAB PO DAILY for , (Reported) Entered as Reported by: JOSE MOSCOSO RN on 01/17/201818 Mirabegron (Myrbetriq) 25 Mg Tab.er.24h, 25 MG PO DAILY for OVERACTIVE BLADDER, (Reported) Entered as Reported by: JOANNE APODACA on 01/20/211926 Nystatin (Nystatin) 15 Gm Cream..g., 1 VICKIE TP TID for irritation, #30 (Reported) Entered as Reported by: JOANNE APODACA on 01/20/211926 Omeprazole (Omeprazole) 40 Mg Capsule.dr, 1 CAP PO DAILY for , (Reported) Entered as Reported by: JOSE MOSCOSO RN on 01/17/201818 Last Action: Converted on 02/03/211758 by NATHANAEL PHILLIP MD Polyethylene Glycol 8000 (Polyethylene Glycol) 500 Gm Powder, 500 GM MC PRN for VAGINAL, (Reported) Entered as Reported by: Belle Solano on 02/04/21554 Last Action: New Order on 02/04/21554 by Belle Solano Rivastigmine (EXELON 9.5mg/24hr) 1 Each Patch.td24, 1 PATCH TP DAILY for 1 Days, (Reported) Entered as Reported by: CARMENZA MURPHY on 10/08/19 0503 Last Action: Continued on 02/03/211758 by NATAHNAEL PHILLIP MD Scheduled PRN Bisacodyl (Bisacodyl) 10 Mg Supp.rect, 10 MG RC PRN DAILY PRN for CONSTIPATION, Ref 0 (Reported) Entered as Reported by: Belle Solano on 02/04/21554 Last Action: New Order on 02/04/21554 by Belle Solano Hydrocodone Bit/Acetaminophen (Hydrocodone-Apap 5-325 ) 1 Each Tablet, 1 TAB PO PRN Q6HRS PRN for PAIN, #20 Ref 0 Prescribed by: PARTH JUNIOR on 02/04/21 1203 Hydrocortisone (Proctosol-Hc) 28.35 Gm Cream..g., 1 VICKIE RC PRN BID PRN for rectal pain for 10 Days, #1 Ref 1 Prescribed by: NATHANAEL PHILLIP MD on 05/19/19 0915 Last Action: Continued on 02/03/211758 by NATHANAEL PHILLIP MD Methocarbamol (Methocarbamol) 500 Mg Tablet, 1 TAB PO PRN DAILY PRN for muscle spasm, (Reported) Entered as Reported by: JOSE MOSCOSO RN on 01/17/201818 Nitroglycerin (NITROGLYCERIN SubLingual) 0.4 Mg Tab.subl, 0.4 MG SL PRN Q5MIN PRN for CHEST PAIN, (Reported) Entered as Reported by: CARMENZA MURPHY on 10/07/191935 Last Action: Continued on 02/03/211758 by NATHANAEL PHILLIP MD Ondansetron (Ondansetron Odt) 4 Mg Tab.rapdis, 1 TAB PO PRN Q6-8HRS PRN for , (Reported) Entered as Reported by: JOSE MSOCOSO RN on 01/17/201818 Last Action: Continued on 02/03/211758 by NATHANAEL PHILLIP MD Polyethylene Glycol 3350 (Polyethylene Glycol 3350) 17 Gm Powd.pack, 17 GM PO PRN DAILY PRN for CONSTIPATION, (Reported) Entered as Reported by: Belle Solano on 02/04/21554 Last Action: New Order on 02/04/21554 by Belle Solano Trazodone Hcl (Trazodone Hcl) 50 Mg Tablet, 1 TAB PO QHS PRN for INSOMNIA, (Reported) Entered as Reported by: INDIGO PAZ on 02/04/18 0047 Last Action: Continued on 02/03/211758 by NATHANAEL PHILLIP MD Discontinued Medications Amlodipine Besylate (Amlodipine Besylate) 5 Mg Tablet, 5 MG PO DAILY for HTN, (Reported) Entered as Reported by: OUSMANE RAMOS on 01/20/20 1521 Last Action: Continued on 02/03/211758 by NATHANAEL PHILLIP MD Hydrocodone Bit/Acetaminophen (Hydrocodone-Apap 5-325 ) 1 Tab Tablet, 2 TAB PO PRN Q6HRS PRN for PAIN, Ref 0 (Reported) Entered as Reported by: JOANNE APODACA on 01/20/211910 Last Action: Edited on 02/04/21554 by Belle Solano Hydrocortisone (Proctosol-Hc) 28.35 Gm Cream..g., 1 VICKIE TP BID for RECTAL SURGERY ON RECTUM for 15 Days, #60 Ref 0 (Reported) Entered as Reported by: Belle Solano on 02/04/21554 Last Action: Discontinued on 02/04/21712 by Belle Solano Isosorbide Mononitrate (Isosorbide Mononitrate Er) 30 Mg Tab.er.24h, 30 MG PO DAILY for BP, (Reported) Entered as Reported by: Belle Solano on 02/04/21554 Last Action: New Order on 02/04/21554 by Belle Solano Patient Instructions Patient Instructions to rochelle CARTER resume priro rehab 34 minutes total care, chart denys galarza seen face to face, she ate lunch well, roast beef with gravy and mashed potatoes no pain today Justicifation of Admission Dx: Justifications for Admission: Justification of Admission Dx: Yes Angina: New-Onset Hypertension: Symp at Rest PARTH JUNIOR MD Feb 04, 2021 12:09
[2021-02-05] MEDS ORDERED: METOPROLOL SUCC 24HR ER 50 MG TAB.ER.24H. PO SCH (09:00)
== END 2021-02-04 15:35 ==
LOC: ER 16:52 → 6 SOUTH 18:14
PROVIDERS: ADMIT Internal Medicine; ATTEND Internal Medicine
DX: R07.89 Other chest pain (principal); Z20.822 Contact with and (suspected) exposure to COVID-19; K85.90 Acute pancreatitis without necrosis or infection, unspecified; I16.0 Hypertensive urgency; I25.10 Atherosclerotic heart disease of native coronary artery without angina pectoris; E78.5 Hyperlipidemia, unspecified; I12.9 Hypertensive chronic kidney disease with stage 1 through stage 4 chronic kidney disease, or unspecified chronic kidney disease; N18.2 Chronic kidney disease, stage 2 (mild); J44.9 Chronic obstructive pulmonary disease, unspecified; K31.84 Gastroparesis; I71.4 Abdominal aortic aneurysm, without rupture; F03.90 Unspecified dementia, unspecified severity, without behavioral disturbance, psychotic disturbance, mood disturbance, and anxiety; N13.30 Unspecified hydronephrosis; N20.0 Calculus of kidney; K57.30 Diverticulosis of large intestine without perforation or abscess without bleeding; R59.9 Enlarged lymph nodes, unspecified; R79.89 Other specified abnormal findings of blood chemistry; M19.90 Unspecified osteoarthritis, unspecified site; I25.2 Old myocardial infarction; I25.118 Atherosclerotic heart disease of native coronary artery with other forms of angina pectoris; E78.00 Pure hypercholesterolemia, unspecified; H91.90 Unspecified hearing loss, unspecified ear; I25.82 Chronic total occlusion of coronary artery; I70.8 Atherosclerosis of other arteries; J98.11 Atelectasis; K44.9 Diaphragmatic hernia without obstruction or gangrene; R77.8 Other specified abnormalities of plasma proteins; K62.89 Other specified diseases of anus and rectum; K85.00 Idiopathic acute pancreatitis without necrosis or infection; M81.0 Age-related osteoporosis without current pathological fracture; Z85.72 Personal history of non-Hodgkin lymphomas; Z86.73 Personal history of transient ischemic attack (TIA), and cerebral infarction without residual deficits; Z87.442 Personal history of urinary calculi; Z90.710 Acquired absence of both cervix and uterus; Z87.891 Personal history of nicotine dependence
CPT/HCPCS: 36415; 71045; 80053; 83690; 83880; 84484; 85025; 85610; 87426; 93005; 96372; 96374; 96375; 99285; G0378; J0360; J1650; J2405; U0003; U0005; G0379